=== PATIENT | male | born 1980 | race Caucasian/White ===

== ENCOUNTER 2017-05-23 13:47 | Emergency (ER) | payer MEDICARE, MEDICAID ==
[~2017-05-23] VITALS: Ht 172.7 cm; Wt 74.8 kg
--- OUTSIDE RECORDS SUMMARY | 2017-05-23 13:54 | XMS REPORT ---
Author Anuel Ivey Organization [facility] Address [address] [place], [place] [id number] Care Team Providers Care Corn Press Operator Name Role Phone Anuel Marina PCP Unavailable Allergies and Adverse Reactions Name Reaction Notes No known drug allergy Plan of Treatment Planned Activity Comments Planned Date Planned Time Plan/Goal X-RAY EXAM OF HAND 07/25/2015 12:00 AM Medications Active Name Start Date Estimated Completion Date SIG Comments levothyroxine 125 mcg oral tablet take 1 tablet (125 mcg) by oral route once daily Toujeo SoloStar 300 unit/mL (1.5 mL) subcutaneous insulin pen inject by subcutaneous route as per insulin protocol Humalog KwikPen 200 unit/mL (3 mL) subcutaneous insulin pen inject by subcutaneous route 6 units ac tid Cleocin 300 mg oral capsule 12/05/2015 12/12/2015 take 1 capsule (300 mg) by oral route 2 times per day for 7 days Name Start Date Expiration Date SIG Comments Reglan 10 mg oral tablet 11/13/2014 02/11/2015 take 1 tablet (10 mg) by oral route 4 times per day 30 minutes before meals and at bedtime for 30 days promethazine-codeine 6.25-10 mg/5 mL oral syrup 01/22/2015 01/29/2015 take 5 milliliters by oral route every 6 hours as needed, not to exceed 30 mL in 24 hours for 7 days ProAir HFA 90 mcg/actuation inhalation HFA aerosol inhaler 01/22/20152014 inhale 1 - 2 puffs (90 - 180 mcg) by inhalation route every 6 hours as needed for 30 days Flonase Allergy Relief 50 mcg/actuation nasal spray,suspension 01/22/201502/21 inhale 1 puff by nasal route daily for 30 days naproxen sodium 550 mg oral tablet 02/17/2015 02/24/2015 take 1 tablet (550 mg) by oral route every 12 hours as needed for 7 days Carafate 1 gram oral tablet 03/22/2015 04/05/2015 take 1 tablet (1 gram) by oral route 3 times per day on an empty stomach omeprazole 20 mg oral capsule,delayed release(DR/EC) 03/22/2015 04/21/2015 take 1 capsule (20 mg) by oral route once daily before a meal for 30 days Discontinued Name Start Date Discontinued Date SIG Comments diclofenac sodium 75 mg oral tablet,delayed release (DR/EC) 12/05/2015 take 1 tablet (75 mg) by oral route 2 times per day Novolog Mix 70-30 100 unit/mL (70-30) subcutaneous solution 01/07/2015 inject 12 UNITS AT BREAKFAST AND 12 UNITS AT SUPPER by subcutaneous route Dr. Torres managing ibuprofen 200 mg oral capsule 12/05/2015 take 1 capsule (200 mg) by oral route every 6 hours as needed Miralax 17 gram/dose oral powder 12/05/2015 take 17 gram mixed with 8 oz. water, juice, soda, coffee or tea by oral route once daily Nicotine Nicotine Patch 21mg/hr 01/30/2015 12/05/2015 Use Nicotine patch 21 for two weeks, then decrease to nicotine patch 14 for the next two weeks. May use Nicotine lozenge 2mg twice a day for severe withdrawel symptoms tramadol 50 mg oral tablet 02/17/2015 12/05/2015 Take one tablet at night for extreme pain triamcinolone acetonide 0.1 % topical cream 06/28/2015 12/05/2015 apply a thin layer to the affected area(s) by topical route 4 times per day. Take care to not get cream in eyes. amoxicillin 500 mg oral capsule 07/07/2015 12/05/2015 Take 2 capsules twice a day for 10 days Bactrim DS 800-160 mg oral tablet 07/25/2015 12/05/2015 Take two tablets twice a day for 7 days ibuprofen 800 mg oral tablet 07/25/2015 12/05/2015 take 1 tablet (800 mg) by oral route 3 times per day with food Problem List Description Status Onset Hypothyroidism Post Ablation Active Diabetes mellitus Active Constipation Active Vital Signs Date Time BP-Sys(mm[Hg] BP-Estela(mm[Hg]) HR(bpm) RR(rpm) Temp WT HT HC BMI BSA BMI Percentile O2 Sat(%) 12/05/2015 11:28:00 AM 118 mmHg 70 mmHg 68 bpm 16 rpm 96 F 155 lbs 99 % 07/25/2015 8:24:00 AM 138 mmHg 78 mmHg 85 bpm 16 rpm 97.8 F 154.125 lbs 67 in 24.1391 kg/m 1.8179 m 100 % 07/07/2015 9:45:00 AM 120 mmHg 80 mmHg 80 bpm 20 rpm 97.9 F 150.375 lbs 67 in 23.55 kg/m2 1.80 m2 100 % 07/01/2015 1:53:00 PM 134 mmHg 74 mmHg 83 bpm 18 rpm 98.4 F 153 lbs 69 in 22.5939 kg/m 1.8381 m 98 % 06/28/2015 5:32:00 PM 122 mmHg 72 mmHg 94 bpm 20 rpm 97.5 F 151 lbs 76 in 18.38 kg/m2 1.92 m2 98 % 06/21/2015 6:30:00 PM 124 mmHg 70 mmHg 69 bpm 18 rpm 97.5 F 154 lbs 67 in 24.1196 kg/m 1.8172 m 99 % 03/22/2015 10:00:00 AM 130 mmHg 70 mmHg 78 bpm 18 rpm 97.9 F 156.125 lbs 67 in 24.45 kg/m2 1.83 m2 98 % 02/17/2015 9:00:00 AM 110 mmHg 60 mmHg 67 bpm 18 rpm 97.4 F 158 lbs 67 in 24.746 kg/m 1.8406 m 99 % 01/29/2015 2:37:00 PM 110 mmHg 60 mmHg 73 bpm 98 F 98 % 01/22/2015 11:19:00 AM 100 mmHg 62 mmHg 62 bpm 10 rpm 97 F 159 lbs 67 in 24.9027 kg/m 1.8464 m 100 % 01/07/2015 9:26:00 AM 114 mmHg 60 mmHg 72 bpm 16 rpm 97.8 F 159.125 lbs 67 in 24.92 kg/m2 1.85 m2 98 % 10/13/2014 9:25:00 AM 109 mmHg 89 mmHg 18 rpm 97.9 F 159 lbs 98 % Social History Name Description Comments Tobacco Current every day smoker History of Procedures Date Ordered Description Order Status 02/17/2015 12:00 AM X-RAY EXAM OF KNEE 3 Returned 06/21/2015 12:00 AM THER/PROPH/DIAG INJ SC/IM Reviewed 06/21/2015 12:00 AM Decadron, Per 1 Mg [facility]# [id number] Reviewed 06/21/2015 12:00 AM Depo-Medrol, Per 80 Mg [facility]#[id number] Reviewed 07/01/2015 2:25 PM STREP A ASSAY W/OPTIC Reviewed 07/01/2015 2:25 PM ASSAY GLUCOSE BLOOD QUANT Reviewed 07/07/2015 10:27 AM GLUCOSE BLOOD TEST Reviewed 07/25/2015 12:00 AM ELECTROCARDIOGRAM COMPLETE Reviewed 07/25/2015 12:00 AM METABOLIC PANEL TOTAL CA Returned Results Summary Data and Description Results 07/01/2015 2:25 PM STREPTOCOCCUS, GROUP A CULTURE Negative Glucose SerPl-mCnc 72.0 mg/dL 07/07/2015 10:27 AM GLUCOSE 307.0 mg/dL 07/25/2015 2:59 PM GLUCOSE 219.0 mg/dLSODIUM 138.0 mmol/LPOTASSIUM 5.20 mmol/ LCHLORIDE 103.0 mmol/LCO2 28.0 mmol/LBUN 16.0 mg/dLCREATININE 0.90 mg/dLCALCIUM 9.10 mg/dLeGFR >60 mL/min/1.73m History Of Immunizations Not available. History of Past Illness Name Date of Onset Comments Hypothyroidism Post Ablation Diabetes mellitus Bleeding ulcer Constipation Anxiety HEADACHES Bradycardia Hypertension Diabetic keto-acidosis Depression Screening for colon cancer [address] Chow and it was negative Constipation, slow transit Nov 13 2014 9:38AM Constipation, slow transit Dec 25 2014 9:08AM URI (upper respiratory infection) Jan 07 2015 9:29AM Cough Jan 22 2015 11:23AM Tobacco abuse Jan 29 2015 2:42PM Knee pain, acute, left Feb 17 2015 9:03AM Cigarette nicotine dependence in remission Feb 17 2015 9:03AM Gastroenteritis Mar 22 2015 10:03AM GERD (gastroesophageal reflux disease) Mar 22 2015 10:03AM Contact dermatitis Jun 21 2015 6:32PM Plant allergic contact dermatitis Jun 28 2015 5:38PM Viral pharyngitis Jul 01 2015 1:56PM Mild Hypoglycemia Jul 01 2015 1:56PM Sinus infection Jul 07 2015 9:48AM Hyperglycemia due to type 1 diabetes mellitus Jul 07 2015 9:48AM Left hand pain Jul 25 2015 8:26AM Syncopal episodes Jul 25 2015 8:26AM Cellulitis Jul 25 2015 8:26AM Pain, dental Dec 05 2015 11:33AM Payers Insurance Name Company Name Plan Name Plan Number Policy Number Policy Group Number Start Date Medicare Part B Medicare [facility] [id number] Wednesday, 2011 [facility] Plan of [id number] N/A [place] Medical Assistance Program [place] Medical [place] Prog [id number] Wednesday, 2012 History of Encounters Visit Date Visit Type Provider 12/05/2015 Office visit Anuel Marina [employer] SOCIAL STUDIES TEACHER 07/25/2015 Office visit Kathleen Evangelista [employer] SOCIAL STUDIES TEACHER 07/07/2015 Office visit Kathleen Evangelista 7[employer] GRADE SOCIAL STUDIES TEACHER 07/01/2015 Office visit Kathleen Evangelista 7[employer] GRADE SOCIAL STUDIES TEACHER 06/28/2015 Office visit Kathleen Evangelista 7[employer] GRADE SOCIAL STUDIES TEACHER 06/21/2015 Office visit Diamond Soto 7[employer] GRADE SOCIAL STUDIES TEACHER 03/22/2015 Office visit Kathleen Evangelista 7[employer] GRADE SOCIAL STUDIES TEACHER 02/17/2015 Office visit Kathleen Evangelista 7[employer] GRADE SOCIAL STUDIES TEACHER 01/29/2015 Office visit Kathleen Evangelista 7[employer] GRADE SOCIAL STUDIES TEACHER 01/22/2015 Office visit Diamond Soto 7[employer] GRADE SOCIAL STUDIES TEACHER 01/07/2015 Office visit Diamond Soto APRN 01/02/2015 Hospital Elias Chow MD 12/24/2014 Office visit Elias Chow MD 11/12/2014 Office visit Elias Chow MD
--- OUTSIDE RECORDS SUMMARY | 2017-05-23 13:54 | XMS REPORT ---
Author Author Diamond Soto Organization [facility] Address [address] [place], [place] [id number] Care Team Providers Care Vice President Payer Name Role Phone Diamond Soto PCP Unavailable Allergies and Adverse Reactions Name Reaction Notes No known drug allergy Plan of Treatment Not available. Medications Active Name Start Date Estimated Completion Date SIG Comments diclofenac sodium 75 mg oral tablet,delayed release (DR/EC) take 1 tablet (75 mg) by oral route 2 times per day ibuprofen 200 mg oral capsule take 1 capsule (200 mg) by oral route every 6 hours as needed levothyroxine 125 mcg oral tablet take 1 tablet (125 mcg) by oral route once daily Toujeo SoloStar 300 unit/mL (1.5 mL) subcutaneous insulin pen inject by subcutaneous route as per insulin protocol Reglan 10 mg oral tablet 11/13/2014 02/11/2015 take 1 tablet (10 mg) by oral route 4 times per day 30 minutes before meals and at bedtime for 30 days Miralax 17 gram/dose oral powder take 17 gram mixed with 8 oz. water, juice, soda, coffee or tea by oral route once daily Humalog KwikPen 200 unit/mL (3 mL) subcutaneous insulin pen inject by subcutaneous route 6 units ac tid promethazine-codeine 6.25-10 mg/5 mL oral syrup 01/22/2015 [...] by nasal route daily for 30 days Discontinued Name Start Date Discontinued Date SIG Comments Novolog Mix 70-30 100 unit/mL (70-30) subcutaneous solution 01/07/2015 inject 12 UNITS AT BREAKFAST AND 12 UNITS AT SUPPER by subcutaneous route Dr. Torres managing Problem List Description Status Onset Hypothyroidism Post Ablation Active Diabetes mellitus Active Constipation Active Vital Signs Date Time BP-Sys(mm[Hg] BP-Estela(mm[Hg]) HR(bpm) RR(rpm) Temp WT HT HC BMI BSA BMI Percentile O2 Sat(%) 01/22/2015 11:19:00 AM 100 mmHg 62 mmHg 62 bpm 10 rpm 97 F 159 lbs 67 in 24.90 kg/m2 1.85 m2 100 % 01/07/2015 9:26:00 AM 114 mmHg 60 mmHg 72 bpm 16 rpm 97.8 F 159.125 lbs 67 in 24.9222 kg/m 1.8472 m 98 % 10/13/2014 9:25:00 AM 109 mmHg 89 mmHg 18 rpm 97.9 F 159 lbs 98 % Social History Name Description Comments Tobacco Current every day smoker History of Procedures Not available. Results Summary Not available. History Of Immunizations Not available. History of Past Illness Name Date of Onset Comments Hypothyroidism Post Ablation Diabetes mellitus Bleeding ulcer Constipation Anxiety HEADACHES Bradycardia Hypertension Diabetic keto-acidosis Depression Screening for Colon Cancer [address] Chow and it was negative Constipation, slow transit Nov 13 2014 9:38AM Constipation, slow transit Dec 25 2014 9:08AM URI (upper respiratory infection) Jan 07 2015 9:29AM Cough Jan 22 2015 11:23AM Payers Insurance Name Company Name Plan Name Plan Number Policy Number Policy Group Number Start Date [facility] Plan of [id number] N/A [place] Medical Assistance [facility] Medical Assistance Pro [id number] Wednesday, 2012 History of Encounters Visit Date Visit Type Provider 01/22/2015 Office visit Diamond Soto APRN 01/07/2015 Office visit Diamond Soto APRN 01/02/2015 Hospital Elias Chow MD 12/24/2014 Office visit Elias Chow MD 11/12/2014 Office visit Elias Chow MD
--- OUTSIDE RECORDS SUMMARY | 2017-05-23 13:55 | XMS REPORT ---
Author Author Kathleen Evangelista [facility] Address [address] [place], [place] [id number] Care Team Providers Care Loom Fixer Apprentice Name Role Phone Kathleen Evangelista PCP Unavailable Allergies and Adverse Reactions Name [...] by subcutaneous route as per insulin protocol Miralax 17 gram/dose oral powder take 17 gram mixed with 8 oz. water, juice, soda, coffee or tea by oral route once daily Humalog KwikPen 200 unit/mL (3 mL) subcutaneous insulin pen inject by subcutaneous route 6 units ac tid Nicotine Nicotine Patch 21mg/hr 01/30/2015 Use Nicotine patch 21 for two weeks, then decrease to nicotine patch 14 for the next two weeks. May use Nicotine lozenge 2mg twice a day for severe withdrawel symptoms tramadol 50 mg oral tablet 02/17/2015 Take one tablet at night for extreme pain triamcinolone acetonide 0.1 % topical cream 06/28/2015 apply a thin layer to the affected area(s) by topical route 4 times per day. Take care to not get cream in eyes. Name Start Date Expiration Date SIG Comments [...] HC BMI BSA BMI Percentile O2 Sat(%) 06/28/2015 5:32:00 PM 122 mmHg 72 mmHg [...] 06/21/2015 12:00 AM Decadron, Per 1 Mg [facility]# [address]-41 Reviewed 06/21/2015 12:00 AM Depo-Medrol, Per 80 Mg [facility]#[address]-84 Reviewed Results Summary Not available. History Of Immunizations [...] allergic contact dermatitis Jun 28 2015 5:38PM Payers Insurance Name Company Name Plan Name Plan Number Policy Number Policy Group Number Start Date Medicare Part B Medicare [facility] [id number] Wednesday, 2011 [facility] Plan of [id number] N/A [place] Medical [place] Program [place] Prog [id number] Wednesday, 2012 History of Encounters Visit Date Visit Type Provider 06/28/2015 Office visit Kathleen Evangelista DIRECTOR ELECTRICAL ENGINEERING 06/21/2015 Office visit Diamond Soto DIRECTOR ELECTRICAL ENGINEERING 03/22/2015 Office visit Kathleen Evangelista DIRECTOR ELECTRICAL ENGINEERING 02/17/2015 Office visit Kathleen Evangelista DIRECTOR ELECTRICAL ENGINEERING 01/29/2015 Office visit Kathleen Evangelista DIRECTOR ELECTRICAL ENGINEERING 01/22/2015 Office visit Diamond Soto DIRECTOR ELECTRICAL ENGINEERING 01/07/2015 Office visit Diamond Soto APRN 01/02/2015 [facility] Elias Chow MD 12/24/2014 Office visit Elias Chow MD 11/12/2014 Office visit Elias Chow MD
--- OUTSIDE RECORDS SUMMARY | 2017-05-23 13:55 | XMS REPORT ---
Author Author Dayana Shin Organization [facility] Address [address] [place], [place] [id number] Care Team Providers Care Fleet Director Name Role Phone Dayana Shin PCP Unavailable Allergies and Adverse Reactions Name Reaction Notes No known drug allergy Plan of Treatment Planned Activity Comments Planned Date Planned Time Plan/Goal Hand Min 3Views - Main 07/25/2015 12:00 AM Medications Active Name Start Date Estimated Completion Date SIG Comments levothyroxine 125 mcg oral tablet take 1 tablet (125 mcg) by oral route once daily Toujeo SoloStar 300 unit/mL (1.5 mL) subcutaneous insulin pen inject by subcutaneous route as per insulin protocol Humalog KwikPen 200 unit/mL (3 mL) subcutaneous insulin pen inject by subcutaneous route 6 units ac tid Colace 100 mg oral capsule 02/28/2016 08/26/2016 take 1 capsule (100 mg) by oral route 2 times per day for 30 days Metamucil 3.4 gram/5.4 gram oral powder 02/28/2016 08/26/2016 use as directed by oral route daily for 30 days Miralax 17 gram/dose oral powder 02/28/2016 05/28/2016 take 17 gram mixed with 8 oz. water, juice, soda, coffee or tea by oral route once daily as needed for 30 days Anusol-HC 2.5 % topical cream 04/13/2016 07/12/2016 apply a thin layer to the affected area(s) by topical route 3 times per day for 30 days Name Start Date Expiration Date SIG [...] daily before a meal for 30 days Cleocin 300 mg oral capsule 12/05/2015 12/12/2015 take 1 capsule (300 mg) by oral route 2 times per day for 7 days Zofran ODT 4 mg oral tablet,disintegrating 03/06/2016 dissolve 1 tablet by oral route Q8H as needed for nausea. Discontinued Name Start Date Discontinued Date SIG [...] HC BMI BSA BMI Percentile O2 Sat(%) 04/13/2016 3:24:00 PM 112 mmHg 67 mmHg 75 bpm 18 rpm 97.8 F 161 lbs 67 in 25.22 kg/m2 1.86 m2 97 % 03/06/2016 11:06:00 AM 138 mmHg 72 mmHg 78 bpm 18 rpm 97.9 F 158.375 lbs 67 in 24.8048 kg/m 1.8428 m 100 % 02/28/2016 10:01:00 AM 110 mmHg 60 mmHg 85 bpm 18 rpm 97.3 F 158 lbs 67 in 24.75 kg/m2 1.84 m2 98 % 12/05/2015 11:28:00 AM 118 mmHg 70 mmHg 68 bpm 16 rpm 96 F 155 lbs 99 % 07/25/2015 8:24:00 AM 138 mmHg 78 mmHg 85 bpm 16 rpm 97.8 F 154.125 lbs 67 in 24.1391 kg/m 1.82 m2 100 % 07/07/2015 9:45:00 AM 120 mmHg 80 mmHg 80 bpm 20 rpm 97.9 F 150.375 lbs 67 in 23.55 kg/m2 1.7957 m 100 % 07/01/2015 1:53:00 PM 134 mmHg 74 mmHg 83 bpm 18 rpm 98.4 F 153 lbs 69 in 22.5939 kg/m 1.84 m2 98 % 06/28/2015 5:32:00 PM 122 mmHg 72 mmHg 94 bpm 20 rpm 97.5 F 151 lbs 76 in 18.38 kg/m2 1.9164 m 98 % 06/21/2015 6:30:00 PM 124 mmHg 70 mmHg 69 bpm 18 rpm 97.5 F 154 lbs 67 in 24.1196 kg/m 1.82 m2 99 % 03/22/2015 10:00:00 AM 130 mmHg 70 mmHg 78 bpm 18 rpm 97.9 F 156.125 lbs 67 in 24.45 kg/m2 1.8297 m 98 % 02/17/2015 9:00:00 AM 110 mmHg 60 mmHg 67 bpm 18 rpm 97.4 F 158 lbs 67 in 24.746 kg/m 1.84 m2 99 % 01/29/2015 2:37:00 PM 110 mmHg 60 mmHg 73 bpm 98 F 98 % 01/22/2015 11:19:00 AM 100 mmHg 62 mmHg 62 bpm 10 rpm 97 F 159 lbs 67 in 24.9027 kg/m 1.85 m2 100 % 01/07/2015 9:26:00 AM 114 mmHg 60 mmHg 72 bpm 16 rpm 97.8 F 159.125 lbs 67 in 24.92 kg/m2 1.8472 m 98 % 10/13/2014 9:25:00 AM 109 mmHg 89 mmHg 18 rpm 97.9 F 159 lbs 98 % Social History Name Description Comments Tobacco Current every day smoker Alcohol Current some day Caffeine Current every day History of Procedures Date Ordered Description Order Status 02/17/2015 12:00 AM X-RAY EXAM OF KNEE 3 Reviewed 06/21/2015 12:00 AM THER/PROPH/DIAG INJ SC/IM Reviewed 06/21/2015 12:00 AM Decadron, Per 1 Mg [facility]# [id number] Reviewed 06/21/2015 12:00 AM Depo-Medrol, Per 80 Mg [facility]#[id number] Reviewed 07/01/2015 2:25 PM STREP A ASSAY W/OPTIC Reviewed 07/01/2015 2:25 PM ASSAY GLUCOSE BLOOD QUANT Reviewed 07/07/2015 10:27 AM GLUCOSE BLOOD TEST Reviewed 07/25/2015 12:00 AM ELECTROCARDIOGRAM COMPLETE Reviewed 07/25/2015 12:00 AM METABOLIC PANEL TOTAL CA Returned 03/06/2016 12:00 AM Phenergan 50mg Injection, RHC Medicare Reviewed 03/06/2016 12:00 AM THER/PROPH/DIAG INJ SC/IM Reviewed Results Summary Data and Description Results 07/01/2015 2:25 PM STREPTOCOCCUS, GROUP A CULTURE Negative Glucose SerPl-mCnc 72.0 mg/dL 07/07/2015 10:27 AM GLUCOSE 307.0 mg/dL 07/25/2015 2:59 PM GLUCOSE 219.0 mg/dLSODIUM 138.0 mmol/LPOTASSIUM 5.20 mmol/ LCHLORIDE 103.0 mmol/LCO2 28.0 mmol/LBUN 16.0 mg/dLCREATININE 0.90 mg/dLCALCIUM 9.10 mg/dLAGE 35 GFR NonAA 97 GFR AA 118 eGFR >60 mL/min/1.73meGFR AA* >60 History Of Immunizations Not available. History of [...] 8:26AM Pain, dental Dec 05 2015 11:33AM Slow transit constipation Feb 28 2016 10:03AM Cerumen debris on tympanic membrane of right ear Feb 28 2016 10:03AM Gastroenteritis, Viral Mar 06 2016 11:09AM Nausea & vomiting Mar 06 2016 11:09AM Diarrhea Mar 06 2016 11:09AM External hemorrhoid Apr 13 2016 3:31PM Constipation Apr 13 2016 3:31PM Payers Insurance Name Company Name Plan Name Plan Number Policy Number Policy Group Number Start Date Medicare RHC Medicare RHC [id number] N/A [facility] Plan [facility] Comm [id number] N/A Medicare Part A Medicare - Lab/Xray [id number] N/A [place] Medical Assistance [facility] Medical Assistance Prog [id number] Wednesday, March 21, 2012 [facility] Comm Plan of [id number] N/A Medicare Part B Medicare Of [place] [id number] Wednesday, July 20, 2011 History of Encounters Visit Date Visit Type Provider 04/13/2016 Office visit Dayana Shin MD 03/06/2016 Office visit Anuel Marina TRANSIT OPERATOR 02/28/2016 Office visit Diamond Soto TRANSIT OPERATOR 12/05/2015 Office visit Anuel Marina TRANSIT OPERATOR 07/25/2015 Office visit Kathleen Evangelista TRANSIT OPERATOR 07/07/2015 Office visit Kathleen Evangelista TRANSIT OPERATOR 07/01/2015 Office visit Kathleen Evangelista TRANSIT OPERATOR 06/28/2015 Office visit Kathleen Evangelista TRANSIT OPERATOR 06/21/2015 Office visit Diamond Soto TRANSIT OPERATOR 03/22/2015 Office visit Kathleen Evangelista TRANSIT OPERATOR 02/17/2015 Office visit Kathleen Evangelista TRANSIT OPERATOR 01/29/2015 Office visit Kathleen Evangelista TRANSIT OPERATOR 01/22/2015 Office visit Diamond Soto TRANSIT OPERATOR 01/07/2015 Office visit Diamond Soto TRANSIT OPERATOR 01/02/2015 [facility] Elias Chow MD 12/24/2014 Office visit Elias Chow MD 11/12/2014 Office visit Elias Chow MD
--- OUTSIDE RECORDS SUMMARY | 2017-05-23 13:55 | XMS REPORT ---
Author Author Kathleen Evangelista [facility] Address [address] [place], [place] [id number] Care Team Providers Care Fixed Wing Pilot Name Role Phone Kathleen Evangelista PCP Unavailable [...] one tablet at night for extreme pain Carafate 1 gram oral tablet 03/22/2015 04/05/2015 take 1 tablet (1 gram) by oral route 3 times per day on an empty stomach omeprazole 20 mg oral capsule,delayed release(DR/EC) 03/22/2015 04/21/2015 take 1 capsule (20 mg) by oral route once daily before a meal for 30 days Name Start Date Expiration [...] 12 hours as needed for 7 days Discontinued Name Start Date Discontinued Date [...] HC BMI BSA BMI Percentile O2 Sat(%) 03/22/2015 10:00:00 AM 130 mmHg 70 mmHg [...] AM X-RAY EXAM OF KNEE 3 Returned Results Summary Not available. History Of Immunizations [...] (gastroesophageal reflux disease) Mar 22 2015 10:03AM Payers Insurance Name Company Name Plan Name Plan Number Policy Number Policy Group Number Start Date Medicare Part B Medicare Of [place] [id number] Wednesday, 2011 [facility] Plan of [id number] N/A [place] Medical Assistance [facility] Medical Assistance Pro [id number] Wednesday, 2012 History of Encounters Visit Date Visit Type Provider 03/22/2015 Office visit Kathleen Evangelista APRN 02/17/2015 Office visit Kathleen Evangelista APRN 01/29/2015 Office visit Kathleen Evangelista APRN 01/22/2015 Office visit Diamond Soto APRN 01/07/2015 Office visit Diamond Soto APRN 01/02/2015 [facility] Elias Chow MD 12/24/2014 Office visit Elias Chow MD 11/12/2014 Office visit Elias Chow MD
--- OUTSIDE RECORDS SUMMARY | 2017-05-23 13:55 | XMS REPORT ---
Author Kathleen Cuadra [facility] Address [address] [place], [place] [id number] Care Team Providers Care Studio Set Up Worker Name Role Phone Kathleen Evangelista PCP Unavailable Allergies and Adverse Reactions Name Reaction Notes No known drug allergy Plan of Treatment Planned Activity Comments Planned Date Planned Time Plan/Goal X-RAY EXAM OF KNEE 3 02/17/2015 12:00 AM Medications Active Name Start Date [...] by subcutaneous route 6 units ac tid ProAir HFA 90 mcg/actuation inhalation HFA aerosol inhaler 01/22/20152014 inhale 1 - 2 puffs (90 - 180 mcg) by inhalation route every 6 hours as needed for 30 days Flonase Allergy Relief 50 mcg/actuation nasal spray,suspension 01/22/201502/21 inhale 1 puff by nasal route daily for 30 days Nicotine Nicotine Patch 21mg/hr 01/30/2015 Use Nicotine patch 21 for two weeks, then decrease to nicotine patch 14 for the next two weeks. May use Nicotine lozenge 2mg twice a day for severe withdrawel symptoms naproxen sodium 550 mg oral tablet 02/17/2015 02/24/2015 take 1 tablet (550 mg) by oral route every 12 hours as needed for 7 days tramadol 50 mg oral tablet 02/17/2015 Take one tablet at night for extreme pain Name Start Date Expiration Date SIG Comments [...] mL in 24 hours for 7 days Discontinued Name Start Date [...] HC BMI BSA BMI Percentile O2 Sat(%) 02/17/2015 9:00:00 AM 110 mmHg 60 mmHg 67 bpm 18 rpm 97.4 F 158 lbs 67 in 24.75 kg/m2 1.84 m2 99 % 01/29/2015 2:37:00 PM [...] dependence in remission Feb 17 2015 9:03AM Payers Insurance Name Company Name Plan Name Plan Number Policy Number Policy Group Number Start Date Medicare Part B Medicare Of [place] [id number] Wednesday, 2011 [facility] Plan of [id number] N/A [place] Medical Assistance [facility] Medical Assistance Pro [id number] Wednesday, 2012 History of Encounters Visit Date Visit Type Provider 02/17/2015 Office visit Kathleen Evangelista APRN 01/29/2015 Office visit Kathleen Evangelista APRN 01/22/2015 Office visit Diamond Soto APRN 01/07/2015 Office visit Diamond Soto APRN 01/02/2015 [facility] Elias Chow MD 12/24/2014 Office visit Elias Chow MD 11/12/2014 Office visit Elias Chow MD
--- OUTSIDE RECORDS SUMMARY | 2017-05-23 13:56 | XMS REPORT | Continuity of Care Document ---
Author Author [facility] Address [address] [place] [address] Phone Unavailable Support Name Relationship Address Phone DIPTI MIGUEL APRN Caregiver [address] [place] [address] ROXANNE BLISS Caregiver [address] [place] [address] tel: JOSHUA WASHBURN Next Of Kin [address] [place] [address] Insurance Providers Payer Name Policy Number Subscriber Name Relationship Medicare [id number] MaddisonGifty 18 Self / Same As Patient [facility] Comm Plan [id number] Gifty Washburn 18 Self / Same As Patient Advance Directives Directive Response Recorded Date/Time Advance Directives No 09/29/12 10:05am Advance Directive on File No 05/12/16 1:25am Durable POA for HC No 05/12/16 1:25am Power of Hoe Worker No 05/12/16 1:25am Organ Donor No 05/12/16 1:25am Living Will No 05/12/16 1:25am Chief Complaint and Reason for Visit Chief Complaint Back Pain or Injury Reason for Visit [id number] Acute bilateral back pain Problems Active Problems Medical Problem Onset Date Status Acute bilateral back pain Unknown Acute Chronic lower back pain Unknown Acute Elevated blood sugar level Unknown Acute Steroid-induced hyperglycemia Unknown Acute Medications Current Home Medications Medication Dose Units Route Directions Days/Qty Instructions Start Date Levothyroxine Sodium 175 Mcg 175 Mcg Oral Once A Day for Thyroid Dysfunction 06/23/15 Insulin Lispro 100 Unit/1 Ml 0 Sub-Q As Ordered for Dm 06/23/15 Hydrocodone/Acetaminophen 1 Each 1 Each Oral Every 6 To 8 Hours As Needed as needed for Severe Pain 10 05/12/16 Tizanidine Hcl 4 Mg 4 Mg Oral Every 6 To 8 Hours As Needed as needed for Spasm 14 05/12/16 Insulin Glargine 300 Unit/Ml (1.5 Ml) 21 Sub-Q Once A Day for Diabetes 05/12/16 Past Home Medications Medication Directions Ordered Status Ibuprofen 800 Mg Tablet, 800 Mg Oral as needed 09/29/12 Discontinued Insulin Aspart 100 Unit/1 Ml Pen.injctr, 5 Sub-Q Four Times A Day 09/29/12 Discontinued Insulin Glargine 100 Unit/1 Ml Vial, 24 Sub-Q Hs 09/29/12 Discontinued [Thyroid] , 09/29/12 Discontinued [Toujeo] , Sub-Q for Dm 06/23/15 Discontinued Social History Social History Problem Response Recorded Date/Time Alcohol Use none 05/12/2016 1:37am Drug Use none 05/12/2016 1:37am Smoking Status Never smoker 05/12/2016 1:34am Smoked in the last 12 months? No 05/12/2016 1:34am Do you dip or chew tobacco? No 05/12/2016 1:34am Approx how many cigs per day? 0 05/12/2016 1:34am Level of Dependence Low 05/12/2016 1:37am Former smoker, last day smoked? na 05/12/2016 1:34am Query Response Start Date Stop Date Smoking Status Never smoker Hospital Discharge Instructions No hospital discharge instructions. Plan of Care Discharge Date 05/12/16 2:00am Disposition 01 D/C HOME Condition at Discharge Stable and Improved Instructions/Education Provided Acute Low Back Pain (ED) Forms Provided ER Discharge Phone Call Check Prescriptions See Medication Section Referrals SOREN MCPHERSON DO - Additional Instructions/Education Home to rest tonight Try using heat to your back if this helps You may take the prescriptions provided if needed for acute back pain f/u with your provider in the next 1-2 days Functional Status Query Response Date Recorded Activities of Daily Living Performs w/o Assistance May 12, 2016 1:37am Cognitive Function Intact May 12, 2016 1:37am Allergies, Adverse Reactions, Alerts No known allergies. Immunizations No immunization records. Vital Signs Acute Vital Signs Vital Response Date/Time Temperature (Fahrenheit) 98.2 degrees F (97.6 - 99.5) 05/12/2016 1:56am Temperature (Calculated Celsius) 36.17147 degrees C (36.4 - 37.5) 05/12/2016 1:56am Temperature Source Temporal Artery Scan 05/12/2016 1:56am Pulse Pulse Ox Pulse Rate (adult) 72 beats per minute (60 - 90) 05/12/2016 1:56am Pulse Location Modifier Left 05/12/2016 1:56am Oxygen Saturation Respiratory Rate 20 breaths per minute (12 - 24) 05/12/2016 1:56am O2 Sat by Pulse Oximetry 96 % (90 - 100) 05/12/2016 1:56am Blood Pressure 136/94 mm Hg 05/12/2016 1:56am Blood Pressure Mean 108 mm Hg 05/12/2016 1:56am Height 5 ft 6 in Weight 160 lb Body Mass Index 25.8 kg/m^2 Results No known relevant diagnostic tests, laboratory data and/or discharge summary. Procedures No known history of procedures. Encounters Encounter Location Arrival/Admit Date Discharge/Depart Date Attending Provider Departed Emergency Room [facility] 05/12/16 1:25am 05/12/16 2: 00am DIPTI MIGUEL APRN Registered Clinic [facility] 07/25/15 10:15am SHALOM DASILVA Recent Diagnosis
--- OUTSIDE RECORDS SUMMARY | 2017-05-23 13:56 | XMS REPORT ---
Author Author Kathleen Evangelista [facility] Address [address] [place], [place] [address] Care Team Providers Care Trimmer Buffing Wheel Name Role Phone Kathleen Evangelista PCP Unavailable [...] eyes. amoxicillin 500 mg oral capsule 07/07/2015 Take 2 capsules twice a day for 10 days Name Start Date Expiration Date SIG [...] HC BMI BSA BMI Percentile O2 Sat(%) 07/07/2015 9:45:00 AM 120 mmHg 80 mmHg [...] 06/21/2015 12:00 AM Decadron, Per 1 Mg [facility]# [id number] Reviewed 06/21/2015 12:00 AM Depo-Medrol, Per 80 Mg [facility]#[id number] Reviewed 07/01/2015 2:25 PM STREP A ASSAY W/OPTIC Reviewed 07/01/2015 2:25 PM ASSAY GLUCOSE BLOOD QUANT Reviewed 07/07/2015 10:27 AM GLUCOSE BLOOD TEST Reviewed Results Summary Data and Description Results 07/01/2015 2:25 PM STREPTOCOCCUS, GROUP A CULTURE Negative Glucose SerPl-mCnc 72.0 mg/dL 07/07/2015 10:27 AM GLUCOSE 307.0 mg/dL History Of Immunizations Not available. History of [...] 1 diabetes mellitus Jul 07 2015 9:48AM Payers Insurance Name Company Name Plan Name Plan Number Policy Number Policy Group Number Start Date Medicare Part B Medicare Of [place] [id number] Wednesday, 2011 [facility] Plan of [id number] N/A [place] Medical Assistance [facility] Medical Assistance Pro [id number] Wednesday, 2012 History of Encounters Visit Date Visit Type Provider 07/07/2015 Office visit Kathleen Evangelista EDGER OPERATOR 07/01/2015 Office visit Kathleen Evangelista EDGER OPERATOR 06/28/2015 Office visit Kathleen Evangelista EDGER OPERATOR 06/21/2015 Office visit Diamond Soto APRN 03/22/2015 Office visit Kathleen Evangelista EDGER OPERATOR 02/17/2015 Office visit Kathleen Evangelista APRN 01/29/2015 Office visit Kathleen Evangelista EDGER OPERATOR 01/22/2015 Office visit Diamond Soto APRN 01/07/2015 Office visit Diamond Soto APRN 01/02/2015 [facility] Elias Chow MD 12/24/2014 Office visit Elias Chow MD 11/12/2014 Office visit Elias Chow MD
--- OUTSIDE RECORDS SUMMARY | 2017-05-23 13:56 | XMS REPORT ---
Author Author Diamond Soto [facility] Address [address] [place], [place] [address] Care Team Providers Care Die Machine Operator Name Role Phone Diamond Soto PCP Unavailable [...] once daily as needed for 30 days Name Start Date Expiration [...] 2 times per day for 7 days Discontinued Name Start Date [...] HC BMI BSA BMI Percentile O2 Sat(%) 02/28/2016 10:01:00 AM 110 mmHg 60 mmHg [...] 06/21/2015 12:00 AM Decadron, Per 1 Mg [facility]# [id number] Reviewed 06/21/2015 12:00 AM Depo-Medrol, Per 80 Mg [facility]#[id number] Reviewed 07/01/2015 2:25 PM STREP A ASSAY [...] of right ear Feb 28 2016 10:03AM Payers Insurance Name Company Name Plan Name Plan Number Policy Number Policy Group Number Start Date Medicare Part A Medicare RHC [id number] N/A [facility] [id number] N/A Medicare Part A Medicare - Lab/Xray [id number] N/A [place] Medical Assistance [facility] Medical Assistance Prog [id number] Wednesday, March 21, 2012 [facility] Comm Plan of [id number] N/A Medicare Part B Medicare Of [place] [id number] Wednesday, July 20, 2011 History of Encounters Visit Date Visit Type Provider 02/28/2016 Office visit Diamond Soto GIVER 12/05/2015 Office visit Anuel Marina GIVER 07/25/2015 Office visit Kathleen Evangelista GIVER 07/07/2015 Office visit Kathleen Evangelista GIVER 07/01/2015 Office visit Kathleen Evangelista GIVER 06/28/2015 Office visit Kathleen Evangelista GIVER 06/21/2015 Office visit Diamond Soto GIVER 03/22/2015 Office visit Kathleen Evangelista GIVER 02/17/2015 Office visit Kathleen Evangelista GIVER 01/29/2015 Office visit Kathleen Evangelista GIVER 01/22/2015 Office visit Diamond Soto APRN 01/07/2015 Office visit Diamond Soto APRN 01/02/2015 [facility] Elias Chow MD 12/24/2014 Office visit Elias Chow MD 11/12/2014 Office visit Elias Chow MD
--- OUTSIDE RECORDS SUMMARY | 2017-05-23 13:57 | XMS REPORT ---
Author Author Anuel Marina [facility] Address [address] [place], [place] [address] Care Team Providers Care Archival Studies Professor Name Role Phone Anuel Marina PCP Unavailable Dawn Torres Unavailable Unavailable Allergies and Adverse Reactions Name Reaction [...] by subcutaneous route 6 units ac tid Name Start Date Expiration Date SIG Comments [...] 2 times per day for 7 days Colace 100 mg oral capsule 02/28/2016 08/26/2016 [...] once daily as needed for 30 days Zofran ODT 4 mg oral tablet,disintegrating 03/06/2016 dissolve 1 tablet by oral route Q8H as needed for nausea. Anusol-HC 2.5 % topical cream 04/13/2016 07/12/2016 apply a thin layer to the affected area(s) by topical route 3 times per day for 30 days nicotine 21 mg/24 hr transdermal patch 24 hour 07/05/2016 08/04/2016 apply 1 patch (21 mg) by transdermal route once daily for 30 days nicotine 14 mg/24 hr transdermal patch 24 hour 07/05/2016 08/04/2016 apply 1 patch (14 mg) by transdermal route once daily and remove at bedtime for 30 days nicotine 7 mg/24 hr transdermal patch 24 hour 07/05/2016 08/04/2016 apply 1 patch (7 mg) by transdermal route once daily and remove at bedtime for 30 days ibuprofen 800 mg oral tablet 07/09/2016 07/19/2016 take 1 tablet by oral route 3 times a day as needed for 10 days cyclobenzaprine 10 mg oral tablet 07/09/2016 07/19/2016 take 1 tablet by oral route 2 times a day as needed for 10 days Lidocaine Viscous 2 % mucous membrane solution 07/26/2016 08/02/2016 take 15 milliliters and swish and spit out by oral route every 3 hours for 7 days Discontinued Name Start [...] HC BMI BSA BMI Percentile O2 Sat(%) 09/17/2016 8:45:00 AM 118 mmHg 72 mmHg 64 bpm 16 rpm 96.7 F 156.25 lbs 67 in 24.47 kg/m2 1.83 m2 99 % 07/26/2016 2:28:00 PM 118 mmHg 68 mmHg 73 bpm 20 rpm 98.2 F 156.187 lbs 67 in 24.4622 kg/m 1.83 m 99 % 07/09/2016 8:38:00 AM 108 mmHg 68 mmHg 76 bpm 20 rpm 97.8 F 157.5 lbs 67 in 24.67 kg/m2 1.84 m2 97 % 07/05/2016 1:26:00 PM 114 mmHg 68 mmHg 77 bpm 20 rpm 98 F 157.375 lbs 67 in 24.6482 kg/m 1.837 m 98 % 04/13/2016 3:24:00 PM 112 mmHg 67 mmHg [...] rpm 97.8 F 154.125 lbs 67 in 24.14 kg/m2 1.82 m2 100 % 07/07/2015 9:45:00 AM 120 mmHg 80 mmHg 80 bpm 20 rpm 97.9 F 150.375 lbs 67 in 23.5518 kg/m 1.7957 m 100 % 07/01/2015 1:53:00 PM 134 mmHg 74 mmHg 83 bpm 18 rpm 98.4 F 153 lbs 69 in 22.59 kg/m2 1.84 m2 98 % 06/28/2015 5:32:00 PM 122 mmHg 72 mmHg 94 bpm 20 rpm 97.5 F 151 lbs 76 in 18.3801 kg/m 1.9164 m 98 % 06/21/2015 6:30:00 PM 124 mmHg 70 mmHg 69 bpm 18 rpm 97.5 F 154 lbs 67 in 24.12 kg/m2 1.82 m2 99 % 03/22/2015 10:00:00 AM 130 mmHg 70 mmHg 78 bpm 18 rpm 97.9 F 156.125 lbs 67 in 24.4524 kg/m 1.8297 m 98 % 02/17/2015 9:00:00 AM [...] 06/21/2015 12:00 AM Decadron, Per 1 Mg [facility]# [id number] Reviewed 06/21/2015 12:00 AM Depo-Medrol, Per 80 Mg [facility]#[id number] Reviewed 07/01/2015 2:25 PM STREP A ASSAY W/OPTIC Reviewed 07/01/2015 2:25 PM ASSAY GLUCOSE BLOOD QUANT Reviewed 07/07/2015 10:27 AM GLUCOSE BLOOD TEST Reviewed 07/25/2015 12:00 AM X-RAY EXAM OF HAND Reviewed 07/25/2015 12:00 AM ELECTROCARDIOGRAM COMPLETE Reviewed 07/25/2015 12:00 AM METABOLIC PANEL TOTAL CA Returned 03/06/2016 12:00 AM Phenergan 50mg Injection, C Medicare Reviewed 03/06/2016 12:00 AM THER/PROPH/DIAG INJ SC/IM Reviewed Results Summary Date and Description Results 07/01/2015 2:25 PM STREPTOCOCCUS, [...] 2016 3:31PM Constipation Apr 13 2016 3:31PM Hypothyroidism, Acquired Jul 05 2016 1:30PM Cigarette nicotine dependence without complication Jul 05 2016 1:30PM Type 1 diabetes mellitus without complication Jul 05 2016 1:30PM Back strain, initial encounter Jul 09 2016 8:40AM Dental caries Jul 26 2016 2:33PM Nonintractable headache, unspecified chronicity pattern, unspecified headache type Sep 17 2016 8:47AM Concussion, without LOC, initial encounter Sep 17 2016 8:47AM Payers Insurance Name Company Name Plan Name Plan Number Policy Number Policy Group Number Start Date Medicare [facility] Medicare [facility] [id number] N/A [facility] Comm [id number] N/A Medicare Part A Medicare - Lab/Xray [id number] N/A [place] Medical Assistance Program [place] Medical Assistance Prog [id number] Wednesday, March 21, 2012 [facility] Plan of [id number] N/A Medicare Part B Medicare [facility] [id number] Wednesday, July 20, 2011 History of Encounters Visit Date Visit Type Provider 09/17/2016 Office visit Anuel Marina MULTIMEDIA PRODUCER 07/26/2016 Office visit Dayana Shin MD 07/09/2016 Office visit Isabelle Aguilar MD 07/05/2016 Office visit Isabelle Aguilar MD 04/13/2016 Office visit Dayana Shin MD 03/06/2016 Office visit Anuel Marina MULTIMEDIA PRODUCER 02/28/2016 Office visit Diamond Soto MULTIMEDIA PRODUCER 12/05/2015 Office visit Anuel Marina MULTIMEDIA PRODUCER 07/25/2015 Office visit Kathleen Evangelista MULTIMEDIA PRODUCER 07/07/2015 Office visit Kathleen Evangelista MULTIMEDIA PRODUCER 07/01/2015 Office visit Kathleen Evangelista MULTIMEDIA PRODUCER 06/28/2015 Office visit Kathleen Evangelista MULTIMEDIA PRODUCER 06/21/2015 Office visit Diamond Soto MULTIMEDIA PRODUCER 03/22/2015 Office visit Kathleen Evangelista MULTIMEDIA PRODUCER 02/17/2015 Office visit Kathleen Evangelista MULTIMEDIA PRODUCER 01/29/2015 Office visit Kathleen Evangelista MULTIMEDIA PRODUCER 01/22/2015 Office visit Diamond Soto MULTIMEDIA PRODUCER 01/07/2015 Office visit Diamond Soto MULTIMEDIA PRODUCER 01/02/2015 [facility] Elias Chow MD 12/24/2014 Office visit Elias Chow MD 11/12/2014 Office visit Elias Chow MD
--- OUTSIDE RECORDS SUMMARY | 2017-05-23 13:57 | XMS REPORT ---
Author Anuel Ivey Organization [facility] Address [address] [place], [place] [address] Care Team Providers Care Second Time Worker Name Role Phone Anuel Marina PCP Unavailable [...] oral route Q8H as needed for nausea. Name Start Date Expiration Date SIG Comments [...] HC BMI BSA BMI Percentile O2 Sat(%) 03/06/2016 11:06:00 AM 138 mmHg 72 mmHg 78 bpm 18 rpm 97.9 F 158.375 lbs 67 in 24.80 kg/m2 1.84 m2 100 % 02/28/2016 10:01:00 AM 110 mmHg 60 mmHg 85 bpm 18 rpm 97.3 F 158 lbs 67 in 24.746 kg/m 1.8406 m 98 % 12/05/2015 11:28:00 AM 118 mmHg [...] 06/21/2015 12:00 AM Decadron, Per 1 Mg [facility]# [id number] Reviewed 06/21/2015 12:00 AM Depo-Medrol, Per 80 Mg [facility]#[id number] Reviewed 07/01/2015 2:25 PM STREP A ASSAY W/OPTIC Reviewed 07/01/2015 2:25 PM ASSAY GLUCOSE BLOOD QUANT Reviewed 07/07/2015 10:27 AM GLUCOSE BLOOD TEST Reviewed 07/25/2015 12:00 AM ELECTROCARDIOGRAM COMPLETE Reviewed 07/25/2015 12:00 AM METABOLIC PANEL TOTAL CA Returned 03/06/2016 12:00 AM Phenergan 50mg Injection, [facility] Medicare Reviewed 03/06/2016 12:00 AM THER/PROPH/DIAG INJ [...] 2016 11:09AM Diarrhea Mar 06 2016 11:09AM Payers Insurance Name Company Name Plan Name Plan Number Policy Number Policy Group Number Start Date Medicare Part A Medicare [facility] [id number] N/A [facility] RHC Comm [id number] N/A Medicare Part A Medicare - Lab/Xray [id number] N/A [place] Medical [place] Program [place] Medical [place] Prog [id number] Wednesday, March 21, 2012 [facility] Comm Plan of [id number] N/A Medicare Part B Medicare Of [place] [id number] Wednesday, July 20, 2011 History of Encounters Visit Date Visit Type Provider 03/06/2016 Office visit Anuel Marina SHOP SUPERINTENDENT 02/28/2016 Office visit Diamond Soto SHOP SUPERINTENDENT 12/05/2015 Office visit Anuel Marina SHOP SUPERINTENDENT 07/25/2015 Office visit Kathleen Evangelista SHOP SUPERINTENDENT 07/07/2015 Office visit Kathleen Evangelista SHOP SUPERINTENDENT 07/01/2015 Office visit Kathleen Evangelista SHOP SUPERINTENDENT 06/28/2015 Office visit Kathleen Evangelista SHOP SUPERINTENDENT 06/21/2015 Office visit Diamond Soto SHOP SUPERINTENDENT 03/22/2015 Office visit Kathleen Evangelista SHOP SUPERINTENDENT 02/17/2015 Office visit Kathleen Evangelista SHOP SUPERINTENDENT 01/29/2015 Office visit Kathleen Evangelista SHOP SUPERINTENDENT 01/22/2015 Office visit Diamond Soto SHOP SUPERINTENDENT 01/07/2015 Office visit Diamond Soto SHOP SUPERINTENDENT 01/02/2015 [facility] Elias Chow MD 12/24/2014 Office visit Elias Chow MD 11/12/2014 Office visit Elias Chow MD
--- OUTSIDE RECORDS SUMMARY | 2017-05-23 13:57 | XMS REPORT | Continuity of Care Document ---
Author [facility] Address [address] [place] [address] Phone Unavailable Care Team Providers Care Landscape Designer Name Role Phone CUATE SANTIAGO MD PCP Insurance Providers Payer Name Policy Number Subscriber Name Relationship Medicare [id number] MaddisonGifty Leslye Self / Same As Patient [facility] Comm Plan [id number] Gifty Washburn Self / Same As Patient Advance Directives Directive Response Recorded Date/Time Advance Directives No 09/29/12 10:05am Advance Directive on File No 05/12/16 1:25am Durable POA for HC No 05/12/16 1:25am Power of Snow Blower No 05/12/16 1:25am Organ Donor No 05/12/16 1:25am Living Will No 05/12/16 1:25am Chief Complaint and Reason for Visit Chief Complaint General Complaint Reason for Visit [id number] Problems Active Problems Medical Problem Onset Date [...] Problem Response Recorded Date/Time Alcohol Use none 06/15/2016 5:20pm Drug Use none 06/15/2016 5:20pm Smoking Status Current every day smoker 06/15/2016 4:09pm Smoked in the last 12 months? Yes 06/15/2016 4:09pm Do you dip or chew tobacco? N everyonce in a great while 06/15/2016 4:09pm Approx how many cigs per day? 10 06/15/2016 4:09pm Level of Dependence Low 06/15/2016 4:09pm Former smoker, last day smoked? today 06/15/2016 4:09pm Query Response Start Date Stop Date Smoking Status Current every day smoker Hospital Discharge Instructions No hospital discharge instructions. Plan of Care Discharge Date 06/15/16 6:10pm Disposition 01 D/C HOME Condition at Discharge Stable Forms Provided ER Discharge Phone Call Check Prescriptions See Medication Section Referrals CUATE SANTIAGO MD - Additional Instructions/Education Take medications as directed. Do not take your novolog tonight. Take your long acting insulin only. Follow up with your PCP. Eat a snack tonight before bed. Monitor your blood sugars. Functional Status Query Response Date Recorded Activities of Daily Living Performs w/o Assistance June 15, 2016 4:15pm Cognitive Function Intact June 15, 2016 4:15pm Allergies, Adverse Reactions, Alerts No known allergies. Immunizations No immunization records. Vital Signs Acute Vital Signs Vital Response Date/Time Temperature (Fahrenheit) 98.1 degrees F (97.6 - 99.5) 06/15/2016 5:40pm Temperature (Calculated Celsius) 36.85616 degrees C (36.4 - 37.5) 06/15/2016 5:40pm Temperature Source Temporal Artery Scan 06/15/2016 5:40pm Pulse Pulse Ox Pulse Rate (adult) 65 beats per minute (60 - 90) 06/15/2016 5:40pm Pulse Location Modifier Left 06/15/2016 5:40pm Oxygen Saturation Respiratory Rate 18 breaths per minute (12 - 24) 06/15/2016 5:40pm O2 Sat by Pulse Oximetry 100 % (90 - 100) 06/15/2016 5:40pm Blood Pressure 111/63 mm Hg 06/15/2016 5:40pm Blood Pressure Mean 79 mm Hg 06/15/2016 5:40pm Height 5 ft 7 in Weight 136 lb Body Mass Index 21.3 kg/m^2 Results Pending Laboratory Results Test Name Collection Date/Time Procedures Procedure Status Date Provider(s) EMERGENCY DEPT VISIT Completed 05/12/16 Encounters Encounter Location Arrival/Admit Date Discharge/Depart Date Attending Provider [facility]arted [facility] 06/15/16 4:00pm 06/15/16 6: 10pm MODESTO ZIMMERMAN APRN Departed Emergency Room [facility] 05/12/16 1:25am 05/12/16 2: 00am DIPTI MIGUEL APRN Recent Diagnosis
--- OUTSIDE RECORDS SUMMARY | 2017-05-23 13:58 | XMS REPORT ---
Author Author Diamond Soto Organization [facility] Address [address] [place], [place] [address] Care Team Providers Care Order Department Supervisor Name Role Phone Diamond Soto PCP Unavailable [...] HC BMI BSA BMI Percentile O2 Sat(%) 06/21/2015 6:30:00 PM 124 mmHg 70 mmHg [...] 06/21/2015 12:00 AM Decadron, Per 1 Mg [facility]# [address]-88 Reviewed 06/21/2015 12:00 AM Depo-Medrol, Per 80 Mg [facility]#[address]-73 Reviewed Results Summary Not available. History Of [...] 10:03AM Contact dermatitis Jun 21 2015 6:32PM Payers Insurance Name Company Name Plan Name Plan Number Policy Number Policy Group Number Start Date Medicare Part B Medicare Of [place] [id number] Wednesday, 2011 [facility] Plan of [id number] N/A [place] Medical Assistance [facility] Medical Assistance Pro [id number] Wednesday, 2012 History of Encounters Visit Date Visit Type Provider 06/21/2015 Office visit Diamond Soto APRN 03/22/2015 Office visit Kathleen Evangelista ASSISTANT PORTFOLIO MANAGER 02/17/2015 Office visit Kathleen Evangelista ASSISTANT PORTFOLIO MANAGER 01/29/2015 Office visit Kathleen Evangelista APRN 01/22/2015 Office visit Diamond Soto APRN 01/07/2015 Office visit Diamond Soto ASSISTANT PORTFOLIO MANAGER 01/02/2015 [facility] Elias Chow MD 12/24/2014 Office visit Elias Chow MD 11/12/2014 Office visit Elias Chow MD
--- OUTSIDE RECORDS SUMMARY | 2017-05-23 13:58 | XMS REPORT ---
Author Author Diamond Soto Organization [facility] Address [address] [place], [place] [id number] Care Team Providers Care Business Functional Analyst Name Role Phone Diamond Soto PCP Unavailable [...] by subcutaneous route 6 units ac tid Discontinued Name Start Date Discontinued Date SIG [...] HC BMI BSA BMI Percentile O2 Sat(%) 01/07/2015 9:26:00 AM 114 mmHg 60 mmHg [...] (upper respiratory infection) Jan 07 2015 9:29AM Payers Insurance Name Company Name Plan Name Plan Number Policy Number Policy Group Number Start Date [facility] Plan of [id number] N/A [place] Medical Assistance [facility] Medical Assistance Prog [id number] Wednesday, 2012 History of Encounters Visit Date Visit Type Provider 01/07/2015 Office visit Diamond Soto APRN 12/24/2014 Office visit Elias Chow MD 11/12/2014 Office visit Elias Chow MD
--- OUTSIDE RECORDS SUMMARY | 2017-05-23 13:58 | XMS REPORT ---
Author Author Kathleen Evangelista [facility] Address [address] [place], [place] [address] Care Team Providers Care Trap Setter Name Role Phone Kathleen Evangelista PCP Unavailable Dawn Torres Unavailable Unavailable Allergies [...] by subcutaneous route 6 units ac tid amoxicillin 500 mg oral tablet 11/30/2016 take 1 tablet (500 mg) by oral route every 8 hours for 10 days Name Start Date Expiration [...] HC BMI BSA BMI Percentile O2 Sat(%) 11/30/2016 1:44:00 PM 122 mmHg 72 mmHg 62 bpm 20 rpm 98.1 F 151.5 lbs 67 in 23.73 kg/m2 1.80 m2 98 % 09/17/2016 8:45:00 AM 118 mmHg 72 mmHg 64 bpm 16 rpm 96.7 F 156.25 lbs 67 in 24.472 kg/m 1.8304 m 99 % 07/26/2016 2:28:00 PM 118 mmHg 68 mmHg 73 bpm 20 rpm 98.2 F 156.187 lbs 67 in 24.46 kg/m2 1.83 m2 99 % 07/09/2016 8:38:00 AM 108 mmHg 68 mmHg 76 bpm 20 rpm 97.8 F 157.5 lbs 67 in 24.6677 kg/m 1.8377 m 97 % 07/05/2016 1:26:00 PM 114 mmHg 68 mmHg 77 bpm 20 rpm 98 F 157.375 lbs 67 in 24.65 kg/m2 1.84 m2 98 % 04/13/2016 3:24:00 PM 112 mmHg 67 mmHg 75 bpm 18 rpm 97.8 F 161 lbs 67 in 25.2159 kg/m 1.858 m 97 % 03/06/2016 11:06:00 AM 138 mmHg [...] 06/21/2015 12:00 AM Decadron, Per 1 Mg [facility]# [address]-01 Reviewed 06/21/2015 12:00 AM Depo-Medrol, Per 80 Mg [facility]#[address]-30 Reviewed 07/01/2015 2:25 PM STREP A ASSAY W/OPTIC Reviewed 07/01/2015 2:25 PM ASSAY GLUCOSE BLOOD QUANT Reviewed 07/07/2015 10:27 AM GLUCOSE BLOOD TEST Reviewed 07/25/2015 12:00 AM X-RAY EXAM OF HAND Reviewed 07/25/2015 12:00 AM ELECTROCARDIOGRAM COMPLETE Reviewed 07/25/2015 12:00 AM METABOLIC PANEL TOTAL CA Returned 03/06/2016 12:00 AM Phenergan 50mg Injection, [facility] Medicare Reviewed 03/06/2016 12:00 AM THER/PROPH/DIAG INJ [...] LOC, initial encounter Sep 17 2016 8:47AM Dental infection Nov 30 2016 1:46PM Payers Insurance Name Company Name Plan Name Plan Number Policy Number Policy Group Number Start Date Medicare RHC Medicare RHC [id number] N/A [facility] - [facility] - [facility] Comm [id number] N/A Medicare Part A Medicare - Lab/Xray [id number] N/A [place] Medical Assistance Program [place] Medical Assistance Prog [id number] Wednesday, March 21, 2012 [facility] [place] [facility] Plan of [id number] N/A Medicare Part B Medicare Of [place] [id number] Wednesday, July 20, 2011 History of Encounters Visit Date Visit Type Provider 11/30/2016 Office visit Kathleen Evangelista NURSE REVIEWER 09/17/2016 Office visit Anuel Marina NURSE REVIEWER 07/26/2016 Office visit Dayana Shin MD 07/09/2016 Office visit Isabelle Aguilar MD 07/05/2016 Office visit Isabelle Aguilar MD 04/13/2016 Office visit Dayana Shin MD 03/06/2016 Office visit Anuel Marina NURSE REVIEWER 02/28/2016 Office visit Diamond Soto NURSE REVIEWER 12/05/2015 Office visit Anuel Marina NURSE REVIEWER 07/25/2015 Office visit Kathleen Evangelista NURSE REVIEWER 07/07/2015 Office visit Kathleen Evangelista NURSE REVIEWER 07/01/2015 Office visit Kathleen Evangelista NURSE REVIEWER 06/28/2015 Office visit Kathleen Evangelista NURSE REVIEWER 06/21/2015 Office visit Diamond Soto NURSE REVIEWER 03/22/2015 Office visit Kathleen Evangelista NURSE REVIEWER 02/17/2015 Office visit Kathleen Evangelista NURSE REVIEWER 01/29/2015 Office visit Kathleen Evangelista NURSE REVIEWER 01/22/2015 Office visit Diamond Soto NURSE REVIEWER 01/07/2015 Office visit Diamond Soto NURSE REVIEWER 01/02/2015 [facility] Elias Chow MD 12/24/2014 Office visit Elias Chow MD 11/12/2014 Office visit Elias Chow MD
--- OUTSIDE RECORDS SUMMARY | 2017-05-23 13:58 | XMS REPORT | Referral Summary ---
Author Author [facility] Organization [facility] Address Unknown Phone Unavailable Care Team Providers Care Occupational Therapy Program Director Name Role Phone No PCP, Pt States PCP Encounter VC Date(s): 06/03/16 - 06/03/16 [facility] [address] [place] [address] [phone] Discharge Diagnosis: Musculoskeletal pain Discharge Diagnosis: Chronic back pain Discharge Disposition: 01-Home or Self Care Attending Physician: Evaristo Billingsley MD Admitting Physician: Evaristo Billingsley MD Vital Signs Most recent to 1 oldest [Reference Range]: Temperature Oral 36.6 degC [35.8-37.3 degC] (06/03/16 2:54 PM) Peripheral Pulse 89 bpm Rate [60-100 bpm] (06/03/16 2:54 PM) Respiratory Rate 18 br/min [14-20 br/min] (06/03/16 2:54 PM) Blood Pressure 122/75 mmHg [90-140/60-90 mmHg] (06/03/16 2:54 PM) SpO2 97 % (06/03/16 2:54 PM) Problem List Condition Effective Dates Status Health Status Informant Chronic back Active pain(Confirmed) Allergies, Adverse Reactions, Alerts No Known Allergies Medications cyclobenzaprine 10 mg oral tablet 10 mg 1 tabs, Oral, TID, as needed for spasm, X 5 days, # 15 tabs, 0 Refill(s) Start Date: 06/03/16 Stop Date: 06/08/16 Status: Ordered HumaLOG SubCutaneous, 0 Refill(s) Start Date: 06/03/16 Status: Ordered HYDROcodone-ibuprofen 7.5 mg-200 mg oral tablet 1 tabs, Oral, q4hr, as needed for pain, 0 Refill(s) Start Date: 06/03/16 Status: Ordered levothyroxine Daily, 0 Refill(s) Start Date: 06/03/16 Status: Ordered Naprosyn 500 mg oral tablet 500 mg 1 tabs, Oral, BID, X 5 days, # 10 tabs, 0 Refill(s) Start Date: 06/03/16 Stop Date: 06/08/16 Status: Ordered Toujeo SoloStar 300 units/mL subcutaneous solution SubCutaneous, Daily, 0 Refill(s) Start Date: 06/03/16 Status: Ordered Results Urinalysis Most recent to 1 oldest [Reference Range]: UA Color Straw (06/03/16 4:00 PM) UA Appear Clear (06/03/16 4:00 PM) UA pH [5.0-8.0] 6.0 (06/03/16 4:00 PM) UA Leuk Est Negative [Negative] (06/03/16 4:00 PM) UA Nitrite Negative [Negative] (06/03/16 4:00 PM) UA Protein Negative [Negative] (06/03/16 4:00 PM) UA Glucose Pos 3+ [Negative] *ABN* (06/03/16 4:00 PM) UA Ketones Negative [Negative] (06/03/16 4:00 PM) UA Urobilinogen Negative [<1.0] (06/03/16 4:00 PM) UA Bili [Negative] Negative (06/03/16 4:00 PM) UA Blood [Negative] Negative (06/03/16 4:00 PM) UA Spec Grav 1.030 [1.003-1.030] (06/03/16 4:00 PM) Type Clean Catch (06/03/16 4:00 PM) Immunizations No data available for this section Procedures No data available for this section Social History Social History Type Response Smoking Status Current every day smoker; Tobacco use per day: 1/2 pack or more Assessment and Plan No data available for this section
--- OUTSIDE RECORDS SUMMARY | 2017-05-23 13:59 | XMS REPORT ---
Author Author Isabelle Aguilar [facility] Address [address] [place], [place] [address] Care Team Providers Care Director Voice Name Role Phone Isabelle Aguilar PCP Unavailable Dawn Torres Unavailable Unavailable Allergies [...] by oral route daily for 30 days Anusol-HC 2.5 % topical [...] a day as needed for 10 days Name Start Date Expiration [...] 2 times per day for 7 days Miralax 17 gram/dose oral powder 02/28/2016 [...] HC BMI BSA BMI Percentile O2 Sat(%) 07/09/2016 8:38:00 AM 108 mmHg 68 mmHg [...] Decadron, Per 1 Mg [facility]# [address]-33 Reviewed 06/21/2015 12:00 AM Depo-Medrol, Per 80 Mg [facility]#[address]-27 Reviewed 07/01/2015 2:25 PM STREP A ASSAY W/OPTIC Reviewed 07/01/2015 2:25 PM ASSAY GLUCOSE BLOOD QUANT Reviewed 07/07/2015 10:27 AM GLUCOSE BLOOD TEST Reviewed 07/25/2015 12:00 AM X-RAY EXAM OF HAND Reviewed 07/25/2015 12:00 AM ELECTROCARDIOGRAM COMPLETE Reviewed 07/25/2015 12:00 AM METABOLIC PANEL TOTAL CA Returned 03/06/2016 12:00 AM Phenergan 50mg Injection, [facility] Medicare Reviewed 03/06/2016 12:00 AM THER/PROPH/DIAG INJ [...] strain, initial encounter Jul 09 2016 8:40AM Payers Insurance Name Company Name Plan Name Plan Number Policy Number Policy Group Number Start Date Medicare [facility] Medicare [facility] [id number] N/A [facility] Comm [id number] N/A Medicare Part A Medicare - Lab/Xray [id number] N/A [place] Medical Assistance [facility] Medical Assistance Prog [id number] Wednesday, March 21, 2012 [facility] Comm Plan of [id number] N/A Medicare Part B Medicare Of [place] [id number] Wednesday, July 20, 2011 History of Encounters Visit Date Visit Type Provider 07/09/2016 Office visit Isabelle Aguilar MD 07/05/2016 Office visit Isabelle Aguilar MD 04/13/2016 Office visit Dayana Shin MD 03/06/2016 Office visit Anuel Marina REGULATORY COMPLIANCE DIRECTOR 02/28/2016 Office visit Diamond Soto APRN 12/05/2015 Office visit Anuel Marina REGULATORY COMPLIANCE DIRECTOR 07/25/2015 Office visit Kathleen Evangelista REGULATORY COMPLIANCE DIRECTOR 07/07/2015 Office visit Kathleen Evangelista REGULATORY COMPLIANCE DIRECTOR 07/01/2015 Office visit Kathleen Evangelista REGULATORY COMPLIANCE DIRECTOR 06/28/2015 Office visit Kathleen Evangelista REGULATORY COMPLIANCE DIRECTOR 06/21/2015 Office visit Diamond Soto REGULATORY COMPLIANCE DIRECTOR 03/22/2015 Office visit Kathleen Evangelista REGULATORY COMPLIANCE DIRECTOR 02/17/2015 Office visit Kathleen Evangelista REGULATORY COMPLIANCE DIRECTOR 01/29/2015 Office visit Kathleen Evangelista REGULATORY COMPLIANCE DIRECTOR 01/22/2015 Office visit Diamond Soto REGULATORY COMPLIANCE DIRECTOR 01/07/2015 Office visit Diamond Soto REGULATORY COMPLIANCE DIRECTOR 01/02/2015 [facility] Elias Chow MD 12/24/2014 Office visit Elias Chow MD 11/12/2014 Office visit Elias Chow MD
--- OUTSIDE RECORDS SUMMARY | 2017-05-23 13:59 | XMS REPORT ---
Author Author Elias Chow [facility] Address [address] [place], [place] [address] Care Team Providers Care Roving Department Supervisor Name Role Phone Elias Chow PCP Unavailable Allergies and Adverse Reactions Name Reaction Notes No known drug allergy Plan of Treatment Not available. Medications Active Name Start Date Estimated Completion Date SIG Comments diclofenac sodium 75 mg oral tablet,delayed release (DR/EC) take 1 tablet (75 mg) by oral route 2 times per day Novolog Mix 70-30 100 unit/mL (70-30) subcutaneous solution inject 12 UNITS AT BREAKFAST AND 12 UNITS AT SUPPER by subcutaneous route ibuprofen 200 mg oral capsule take 1 [...] or tea by oral route once daily Problem List Description Status Onset Hypothyroidism Post Ablation Active Diabetes mellitus Active Constipation Active Vital Signs Date Time BP-Sys(mm[Hg] BP-Estela(mm[Hg]) HR(bpm) RR(rpm) Temp WT HT HC BMI BSA BMI Percentile O2 Sat(%) 10/13/2014 9:25:00 AM 109 mmHg 89 mmHg 18 rpm 97.9 F 159 lbs 98 % Social History Name Description Comments Tobacco Current every day smoker History of Procedures Not available. Results Summary Not available. History Of Immunizations Not available. History of Past Illness Name Date of Onset Comments Hypothyroidism Post Ablation Diabetes mellitus Bleeding ulcer Constipation Anxiety HEADACHES Bradycardia Hypertension Diabetic keto-acidosis Depression Constipation, slow transit Nov 13 2014 9:38AM Constipation, slow transit Dec 25 2014 9:08AM Payers Insurance Name Company Name Plan Name Plan Number Policy Number Policy Group Number Start Date [facility] Plan of [id number] N/A [facility] Assistance [facility] Pro [id number] Wednesday, 2012 History of Encounters Visit Date Visit Type Provider 12/24/2014 Office visit Elias Chow MD 11/12/2014 Office visit Elias Chow MD
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
--- OUTSIDE RECORDS SUMMARY | 2017-05-23 14:00 | XMS REPORT ---
Author Author Isabelle Aguilar [facility] Address [address] [place], [place] [address] Care Team Providers Care Drying Room Supervisor Name Role Phone Isabelle Aguilar PCP Unavailable [...] and remove at bedtime for 30 days Name Start Date Expiration [...] HC BMI BSA BMI Percentile O2 Sat(%) 07/05/2016 1:26:00 PM 114 mmHg 68 mmHg [...] 06/21/2015 12:00 AM Decadron, Per [address] [facility]# [address]-46 Reviewed 06/21/2015 12:00 AM Depo-Medrol, Per [address] [facility]#[address]-75 Reviewed 07/01/2015 2:25 PM STREP A ASSAY [...] mellitus without complication Jul 05 2016 1:30PM Payers Insurance Name Company Name Plan Name Plan Number Policy Number Policy Group Number Start Date Medicare RHC Medicare RHC [id number] N/A [facility] [id number] N/A Medicare Part A Medicare - Lab/Xray [id number] N/A [place] Medical Assistance [facility] Prog [id number] Wednesday, March 21, 2012 [facility] Comm Plan of [id number] N/A Medicare Part B Medicare Of [place] [id number] Wednesday, July 20, 2011 History of Encounters Visit Date Visit Type Provider 07/05/2016 Office visit Isabelle Aguilar MD 04/13/2016 Office visit Dayana Shin MD 03/06/2016 Office visit Anuel Marina TOOL GRINDER OPERATOR SURFACE 02/28/2016 Office visit Diamond Soto TOOL GRINDER OPERATOR SURFACE 12/05/2015 Office visit Anuel Marina TOOL GRINDER OPERATOR SURFACE 07/25/2015 Office visit Kathleen Evangelista TOOL GRINDER OPERATOR SURFACE 07/07/2015 Office visit Kathleen Evangelista TOOL GRINDER OPERATOR SURFACE 07/01/2015 Office visit Kathleen Evangelista TOOL GRINDER OPERATOR SURFACE 06/28/2015 Office visit Kathleen Evangelista APRN 06/21/2015 Office visit Diamond Soto TOOL GRINDER OPERATOR SURFACE 03/22/2015 Office visit Kathleen Evangelista TOOL GRINDER OPERATOR SURFACE 02/17/2015 Office visit Kathleen Evangelista TOOL GRINDER OPERATOR SURFACE 01/29/2015 Office visit Kathleen Evangelista APRN 01/22/2015 Office visit Diamond Soto TOOL GRINDER OPERATOR SURFACE 01/07/2015 Office visit Diamond Soto APRN 01/02/2015 [facility] Elias Chow MD 12/24/2014 Office visit Elias Chow MD 11/12/2014 Office visit Elias Chow MD
--- OUTSIDE RECORDS SUMMARY | 2017-05-23 14:01 | XMS REPORT ---
Author Author Ernestina Moya Organization [employer] Address [address] [place] [address] Care Team Providers Care Advertising Director Name Role Phone Ernestina Moya Unavailable PROBLEMS Type Condition ICD9-CM Code [id number] Code Onset Dates Condition Status SNOMED Code Problem Hx of traumatic brain injury Z87.820 Active 25569090150159 Problem Hypothyroidism, unspecified E03.9 Active 17007240 Problem Type 1 diabetes mellitus with diabetic neuropathy, unspecified E10.40 Active 68682492 Problem Tobacco dependence F17.200 Active 04984834 Problem Type 1 diabetes mellitus with hyperglycemia E10.65 Active 887451150300091 Problem Cerebrovascular disease I67.9 Active 11623660 Problem Alcoholism F10.20 Active 3672650 ALLERGIES Unknown Allergies SOCIAL HISTORY No smoking Hx information available PLAN OF CARE VITAL SIGNS MEDICATIONS Medication Instructions Dosage Frequency Start Date End Date Duration Status levothyroxine 175 mcg (0.175 mg) orally once a day 1 tab(s) 24h 30 days Active RESULTS No Results PROCEDURES No Known procedures IMMUNIZATIONS No Known Immunizations
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
--- OUTSIDE RECORDS SUMMARY | 2017-05-23 14:01 | XMS REPORT ---
Author Author Kathleen Evangelista [facility] Address [address] [place], [place] [address] Care Team Providers Care Macerator Operator Name Role Phone Kathleen Evangelista PCP Unavailable [...] HC BMI BSA BMI Percentile O2 Sat(%) 07/01/2015 1:53:00 PM 134 mmHg 74 mmHg [...] 06/21/2015 12:00 AM Decadron, Per 1 Mg [facility]# [id number] Reviewed 06/21/2015 12:00 AM Depo-Medrol, Per 80 Mg [facility]#[id number] Reviewed 07/01/2015 2:25 PM STREP A ASSAY W/OPTIC Reviewed 07/01/2015 2:25 PM ASSAY GLUCOSE BLOOD QUANT Reviewed Results Summary Data and Description Results 07/01/2015 2:25 PM STREPTOCOCCUS, GROUP A CULTURE Negative Glucose SerPl-mCnc 72.0 mg/dL History Of Immunizations Not available. History [...] 1:56PM Mild Hypoglycemia Jul 01 2015 1:56PM Payers Insurance Name Company Name Plan Name Plan Number Policy Number Policy Group Number Start Date Medicare Part B Medicare Of [place] [id number] Wednesday, 2011 [facility] Plan of [id number] N/A [place] Medical Assistance [place] Medical Assistance Prog [id number] Wednesday, 2012 History of Encounters Visit Date Visit Type Provider 07/01/2015 Office visit Kathleen Evangelista COLLAR CLOSER LOCKSTITCH 06/28/2015 Office visit Kathleen Evangelista COLLAR CLOSER LOCKSTITCH 06/21/2015 Office visit Diamond Soto APRN 03/22/2015 Office visit Kathleen Evangelista COLLAR CLOSER LOCKSTITCH 02/17/2015 Office visit Kathleen Evangelista APRN 01/29/2015 Office visit Kathleen Evangelista APRN 01/22/2015 Office visit Diamond Soto APRN 01/07/2015 Office visit Diamond Soto APRN 01/02/2015 [facility] Elias Chow MD 12/24/2014 Office visit Elias Chow MD 11/12/2014 Office visit Elias Chow MD
--- OUTSIDE RECORDS SUMMARY | 2017-05-23 14:01 | XMS REPORT ---
Author Author Dayana Shin [facility] Address [address] [place], [place] [id number] Care Team Providers Care Commodities Manager Name Role Phone Dayana Shin PCP Unavailable Dawn Torres Unavailable Unavailable Allergies [...] by oral route daily for 30 days nicotine 21 mg/24 hr [...] and remove at bedtime for 30 days Lidocaine Viscous 2 % mucous membrane solution 07/26/2016 08/02/2016 take 15 milliliters and swish and spit out by oral route every 3 hours for 7 days Name Start Date Expiration [...] 3 times per day for 30 days ibuprofen 800 mg oral tablet 07/09/2016 07/19/2016 take 1 tablet by oral route 3 times a day as needed for 10 days cyclobenzaprine 10 mg oral tablet 07/09/2016 07/19/2016 take 1 tablet by oral route 2 times a day as needed for 10 days Discontinued Name Start Date Discontinued Date [...] HC BMI BSA BMI Percentile O2 Sat(%) 07/26/2016 2:28:00 PM 118 mmHg 68 mmHg [...] 06/21/2015 12:00 AM Decadron, Per 1 Mg [facility]# [id number] Reviewed 06/21/2015 12:00 AM Depo-Medrol, Per 80 Mg [facility]#[id number] Reviewed 07/01/2015 2:25 PM STREP A ASSAY [...] 8:40AM Dental caries Jul 26 2016 2:33PM Payers Insurance Name Company Name Plan Name Plan Number Policy Number Policy Group Number Start Date Medicare [facility] Medicare C [id number] N/A [facility] Comm [id number] N/A Medicare Part A Medicare - Lab/Xray [id number] N/A [place] Medical Assistance [facility] Medical Assistance Prog [id number] Wednesday, March 21, 2012 [facility] Comm Plan of [id number] N/A Medicare Part B Medicare Of [place] [id number] Wednesday, July 20, 2011 History of Encounters Visit Date Visit Type Provider 07/26/2016 Office visit Dayana Shin MD 07/09/2016 Office visit Isabelle Aguilar MD 07/05/2016 Office visit Isabelle Aguilar MD 04/13/2016 Office visit Dayana Shin MD 03/06/2016 Office visit Anuel Marina AIRPORT RAMP ATTENDANT 02/28/2016 Office visit Diamond Soto AIRPORT RAMP ATTENDANT 12/05/2015 Office visit Anuel Marina AIRPORT RAMP ATTENDANT 07/25/2015 Office visit Kathleen Evangelista AIRPORT RAMP ATTENDANT 07/07/2015 Office visit Kathleen Evangelista AIRPORT RAMP ATTENDANT 07/01/2015 Office visit Kathleen Evangelista AIRPORT RAMP ATTENDANT 06/28/2015 Office visit Kathleen Evangelista AIRPORT RAMP ATTENDANT 06/21/2015 Office visit Diamond Soto AIRPORT RAMP ATTENDANT 03/22/2015 Office visit Kathleen Evangelista AIRPORT RAMP ATTENDANT 02/17/2015 Office visit Kathleen Evangelista AIRPORT RAMP ATTENDANT 01/29/2015 Office visit Kathleen Evangelista AIRPORT RAMP ATTENDANT 01/22/2015 Office visit Diamond Soto AIRPORT RAMP ATTENDANT 01/07/2015 Office visit Diamond Soto APRN 01/02/2015 [facility] Elias Chow MD 12/24/2014 Office visit Elias Chow MD 11/12/2014 Office visit Elias Chow MD
--- OUTSIDE RECORDS SUMMARY | 2017-05-23 14:01 | XMS REPORT ---
Author Elias Ghosh [facility] Address [address] [place], [place] [address] Care Team Providers Care Clock Smith Name Role Phone Elias Chow PCP Unavailable [...] Constipation, slow transit Nov 13 2014 9:38AM Payers Insurance Name Company Name Plan Name Plan Number Policy Number Policy Group Number Start Date [place] Medical Assistance [facility] Medical Assistance [facility] [id number] Wednesday, 2012 History of Encounters Visit Date Visit Type Provider 11/12/2014 Office visit Elias Chow MD
--- OUTSIDE RECORDS SUMMARY | 2017-05-23 14:02 | XMS REPORT ---
Author Author Kathleen Evangelista [facility] Address [address] [place], [place] [id number] Care Team Providers Care Call Center Analyst Name Role Phone Kathleen Evangelista PCP Dawn Torres Unavailable Unavailable Allergies and Adverse [...] 06/21/2015 12:00 AM Decadron, Per 1 Mg [facility]# [id number] Reviewed 06/21/2015 12:00 AM Depo-Medrol, Per 80 Mg [facility]#[id number] Reviewed 07/01/2015 2:25 PM STREP A ASSAY W/OPTIC Reviewed 07/01/2015 2:25 PM ASSAY GLUCOSE BLOOD QUANT Reviewed 07/07/2015 10:27 AM GLUCOSE BLOOD TEST Reviewed 07/25/2015 12:00 AM X-RAY EXAM OF HAND Reviewed 07/25/2015 12:00 AM ELECTROCARDIOGRAM COMPLETE Reviewed 07/25/2015 12:00 AM METABOLIC PANEL TOTAL CA Returned 03/06/2016 12:00 AM Phenergan 50mg Injection, [facility] Medicare Reviewed 03/06/2016 12:00 AM THER/PROPH/DIAG INJ [...] Number Start Date Medicare RHC Medicare RHC [id number] N/A [facility] Comm [id number] N/A Medicare Part A Medicare - Lab/Xray [id number] N/A [facility] Medical Assistance Prog [id number] Wednesday, March 21, 2012 [facility] Plan of [id number] N/A Medicare Part B Medicare Of [place] [id number] Wednesday, July 20, 2011 History of Encounters Visit Date Visit Type Provider 11/30/2016 Office visit Kathleen Evangelista CAN DRAGGER 09/17/2016 Office visit Anuel Marina CAN DRAGGER 07/26/2016 Office visit Dayana Shin MD 07/09/2016 Office visit Isabelle Aguilar MD 07/05/2016 Office visit Isabelle Aguilar MD 04/13/2016 Office visit Dayana Shin MD 03/06/2016 Office visit Anuel Marina CAN DRAGGER 02/28/2016 Office visit Diamond Soto CAN DRAGGER 12/05/2015 Office visit Anuel Marina CAN DRAGGER 07/25/2015 Office visit Kathleen Evangelista CAN DRAGGER 07/07/2015 Office visit Kathleen Evangelista CAN DRAGGER 07/01/2015 Office visit Kathleen Evangelista CAN DRAGGER 06/28/2015 Office visit Kathleen Evangelista CAN DRAGGER 06/21/2015 Office visit Diamond Soto CAN DRAGGER 03/22/2015 Office visit Kathleen Evangelista CAN DRAGGER 02/17/2015 Office visit Kathleen Evangelista CAN DRAGGER 01/29/2015 Office visit Kathleen Evangelista CAN DRAGGER 01/22/2015 Office visit Diamond Soto CAN DRAGGER 01/07/2015 Office visit Diamond Soto CAN DRAGGER 01/02/2015 [facility] Elias Chow MD 12/24/2014 Office visit Elias Chow MD 11/12/2014 Office visit Elias Chow MD
--- OUTSIDE RECORDS SUMMARY | 2017-05-23 14:02 | XMS REPORT | Referral Summary ---
Author Author [facility] Organization [facility] Address Unknown Phone Unavailable Care Team Providers Care Home Care Provider Name Role Phone No PCP, Pt States PCP Encounter VC Date(s): 06/07/16 - 06/07/16 [facility] [address] [place] [address] [facility] Discharge Diagnosis: Chronic back pain Discharge Disposition: 01-Home or Self Care Attending Physician: Odessa Musa APRN Attending Physician: Provider, Immediate Care Admitting Physician: Provider, Immediate Care Vital Signs Most recent to 1 oldest [Reference Range]: Temperature Oral 36.8 degC [35.8-37.3 degC] (06/07/16 2:30 PM) Peripheral Pulse 81 bpm Rate [60-100 bpm] (06/07/16 2:30 PM) Blood Pressure 118/64 mmHg [90-140/60-90 mmHg] (06/07/16 2:30 PM) SpO2 97 % (06/07/16 2:30 PM) Problem List Condition Effective Dates Status Health Status Informant Chronic back Active pain(Confirmed) Allergies, Adverse Reactions, Alerts No Known Allergies Medications cyclobenzaprine 10 mg oral tablet 10 mg 1 tabs, Oral, TID, as needed for spasm, # 21 tabs, 0 Refill(s), Pharmacy: [facility], 1 tabs Oral TID,PRN:as needed for spasm Start Date: 06/07/16 Status: Ordered cyclobenzaprine 10 mg oral tablet 10 mg [...] Date: 06/03/16 Stop Date: 06/08/16 Status: Ordered naproxen 500 mg oral tablet 500 mg 1 tabs, Oral, BID, # 30 tabs, 0 Refill(s), Pharmacy: [facility], 1 tabs Oral BID Start Date: 06/07/16 Status: Ordered Toujeo SoloStar 300 units/mL subcutaneous solution SubCutaneous, Daily, 0 Refill(s) Start Date: 06/03/16 Status: Ordered Results No data available for this section Immunizations No data available for this section Procedures No data available for this section Social History Social History Type Response Smoking Status Current every day smoker; Tobacco use per day: 1/2 pack or more Assessment and Plan Extracted from: Title: Office Visit Note Author: Odessa Musa APRN Date: 06/07/16 Assessment/Plan 1.Chronic back pain more naproxen and flexeril sent to pharmacy. discussed with patient that he needs to get a new PCP to manage his chronic pain. Diagnosis and treatment discussed. Patient advised to follow-up with PCP in 2-3 days if symptoms do not improve. If symptoms worsen at any time, patient will go to the nearest ER for further evaluation. Patient stable upon discharge, alert and orientated with no apparent distress, all questions answered, and indicated understanding of discharge instructions. Ordered: Office Visit Level 3 Est 88759
--- OUTSIDE RECORDS SUMMARY | 2017-05-23 14:02 | XMS REPORT ---
Author Author Kathleen Evangelista [facility] Address [address] [place], [place] [address] Care Team Providers Care Prosthodontist/Educator Name Role Phone Kathleen Evangelista PCP Unavailable [...] twice a day for severe withdrawel symptoms Name Start Date Expiration Date SIG Comments promethazine-codeine 6.25-10 mg/5 mL oral syrup 01/22/2015 [...] HC BMI BSA BMI Percentile O2 Sat(%) 01/29/2015 2:37:00 PM 110 mmHg 60 mmHg [...] Constipation Anxiety HEADACHES Bradycardia Hypertension Diabetic keto-acidosis depression Screening for Colon Cancer [address] Chow and it was negative Constipation, slow transit Nov 13 2014 9:38AM Constipation, slow transit Dec 25 2014 9:08AM URI (upper respiratory infection) Jan 07 2015 9:29AM Cough Jan 22 2015 11:23AM Tobacco abuse Jan 29 2015 2:42PM Payers Insurance Name Company Name Plan Name Plan Number Policy Number Policy Group Number Start Date Medicare Part B Medicare Of [place] [id number] Wednesday, 2011 [facility] Plan of [id number] N/A [place] Medical Assistance [facility] Medical Assistance Prog [id number] Wednesday, 2012 History of Encounters Visit Date Visit Type Provider 01/29/2015 Office visit Kathleen Evangelista APRN 01/22/2015 Office visit Diamond Soto APRN 01/07/2015 Office visit Diamond Soto APRN 01/02/2015 [facility] Elias Chow MD 12/24/2014 Office visit Elias Chow MD 11/12/2014 Office visit Elias Chow MD
--- OUTSIDE RECORDS SUMMARY | 2017-05-23 14:02 | XMS REPORT | Continuity of Care Document ---
Author Author [facility] Organization [facility] Address Unknown Phone Unavailable Allergies Active Description Code Type Severity Reaction Onset Reported/Identified Relationship to Patient Clinical Status Yes No Known Allergies Drug Allergy N/A N/A 09/02/2012 Yes No Known Drug Allergies Drug Allergy N/A N/A 09/02/2012 Yes No Known Food Allergies Food Allergy N/A N/A 09/02/2012 Medications There is no data. Problems Date Dx Coded Attending Type Code Diagnosis Diagnosed By 08/28/2012 Kojo Song MD Final 305.1 TOBACCO USE DISORDER 08/28/2012 Kojo Song MD Admitting 780.79 MALAISE FATIGUE NEC 08/28/2012 Kojo Song MD Final 790.29 ABNORMAL GLUCOSE NEC 09/02/2012 Frankie Parker MD Final 246.9 THYROID DISORDER NOS 09/02/2012 Frankie Parker MD Final 250.81 DM1 W MANIFEST NEC NSU 09/02/2012 Frankie Parker MD Final 305.1 TOBACCO USE DISORDER Procedures There is no data. Results There is no data. Encounters ACCT No. Visit Date/Time Discharge Status Pt. Type Provider Facility Loc./Unit Complaint [id number] 09/02/2012 15:54:00 09/02/2012 18:02:00 DIS Emergency Frankie Parker MD [facility] [place] [id number] 08/28/2012 13:55:00 08/28/2012 16:00:00 DIS Emergency Kojo Song MD [facility] [place] [id number] 11/30/2016 14:31:28 11/30/2016 23:59:59 CLS Outpatient Kathleen Evangelista [id number] 09/17/2016 09:34:10 09/17/2016 23:59:59 CLS Outpatient Anuel Marina [id number] 07/28/2016 10:46:40 07/28/2016 23:59:59 CLS Outpatient Dayana Shin [id number] 07/09/2016 12:00:51 07/09/2016 23:59:59 CLS Outpatient Isabelle Aguilar [id number] 07/05/2016 14:09:37 07/05/2016 23:59:59 CLS Outpatient Isabelle Aguilar [id number] 04/13/2016 16:07:38 04/13/2016 23:59:59 CLS Outpatient Dayana Shin [id number] 03/06/2016 12:04:56 03/06/2016 23:59:59 CLS Outpatient Anuel Marina [id number] 02/28/2016 09:50:37 02/28/2016 23:59:59 CLS Outpatient Diamond Soto [id number] 12/05/2015 12:13:12 12/05/2015 23:59:59 CLS Outpatient Anuel Marina [id number] 03/22/2015 20:39:13 03/22/2015 23:59:59 CLS Outpatient Kathleen Evangelista [id number] 02/17/2015 09:47:01 02/17/2015 23:59:59 CLS Outpatient Kathleen Evangelista [id number] 01/29/2015 15:29:45 01/29/2015 23:59:59 CLS Outpatient Kathleen Evangelista [id number] 01/22/2015 11:31:22 01/22/2015 23:59:59 CLS Outpatient Diamond Soto [id number] 01/08/2015 10:38:40 01/08/2015 23:59:59 CLS Outpatient Elias Chow [id number] 01/07/2015 09:41:18 01/07/2015 23:59:59 CLS Outpatient Diamond Soto [id number] 12/24/2014 14:32:53 12/24/2014 23:59:59 DEB Outpatient Elias Chow [id number] 11/12/2014 15:43:10 11/12/2014 23:59:59 DEB Outpatient Elias Chow
--- OUTSIDE RECORDS SUMMARY | 2017-05-23 14:02 | XMS REPORT ---
Author Kathleen Cuadra [facility] Address [address] [place], [place] [address] Care Team Providers Care Grain Elevator Agent Name Role Phone Kathleen Evangelista PCP Unavailable Allergies and Adverse Reactions Name Reaction Notes No known drug allergy Plan of Treatment Planned Activity Comments Planned Date Planned Time Plan/Goal X-RAY EXAM OF HAND 07/25/2015 12:00 AM ELECTROCARDIOGRAM COMPLETE 07/25/2015 12:00 AM METABOLIC PANEL TOTAL CA 07/25/2015 12:00 AM Medications Active Name Start [...] Bactrim DS 800-160 mg oral tablet 07/25/2015 Take two tablets twice a day for 7 days ibuprofen 800 mg oral tablet 07/25/2015 take 1 tablet (800 mg) by oral route 3 times per day with food Name Start Date Expiration Date SIG Comments [...] HC BMI BSA BMI Percentile O2 Sat(%) 07/25/2015 8:24:00 AM 138 mmHg 78 mmHg [...] 06/21/2015 12:00 AM Decadron, Per 1 Mg [facility]# [id number] Reviewed 06/21/2015 12:00 AM Depo-Medrol, Per 80 Mg [facility]#[id number] Reviewed 07/01/2015 2:25 PM STREP A ASSAY [...] 2015 8:26AM Cellulitis Jul 25 2015 8:26AM Payers Insurance Name Company Name Plan Name Plan Number Policy Number Policy Group Number Start Date Medicare Part B Medicare Of [place] [id number] Wednesday, 2011 [facility] Plan of [id number] N/A [place] Medical Assistance [facility] Pro [id number] Wednesday, 2012 History of Encounters Visit Date Visit Type Provider 07/25/2015 Office visit Kathleen Evangelista COMMISSIONER PUBLIC WORKS 07/07/2015 Office visit Kathleen Evangelista COMMISSIONER PUBLIC WORKS 07/01/2015 Office visit Kathleen Evangelista COMMISSIONER PUBLIC WORKS 06/28/2015 Office visit Kathleen Evangelista COMMISSIONER PUBLIC WORKS 06/21/2015 Office visit Diamond Soto COMMISSIONER PUBLIC WORKS 03/22/2015 Office visit Kathleen Evangelista COMMISSIONER PUBLIC WORKS 02/17/2015 Office visit Kathleen Evangelista COMMISSIONER PUBLIC WORKS 01/29/2015 Office visit Kathleen Evangelista APRN 01/22/2015 Office visit Diamond Soto APRN 01/07/2015 Office visit Diamond Soto APRN 01/02/2015 [facility] Elias Chow MD 12/24/2014 Office visit Elias Chow MD 11/12/2014 Office visit Elias Chow MD
--- NOTE | 2017-05-23 14:05 | ED General ---
General Stated Complaint: LOUIS/NAUSEA/VOMITING Source of Information: Patient Exam Limitations: No Limitations History of Present Illness Date Seen by Provider: May 23, 2017 Time Seen by Provider: 14:03 Initial Comments To ER per private vehicle with reports of a frontal headache for 2-3 days associated with nausea and vomiting. He has a history of migraines that frequently cause nausea and vomiting. He is a type I diabetic and states that his blood sugar runs anywhere from 39-500. He states that he has a history of headaches like this that get "even way worse than this", despite this, he rates this pain at 10 out of 10. Denies fevers or chills or cough. Timing/Duration: 1-2 Days Severity: Moderate Associated Systoms: Headaches, Nausea/Vomiting Allergies and Home Medications Allergies Coded Allergies: No Known Drug Allergies (Unverified , 05/23/17) Patient Home Medication List Home Medication List Reviewed: Yes Constitutional: see HPI EENTM: see HPI Respiratory: no symptoms reported Cardiovascular: no symptoms reported Gastrointestinal: nausea, vomiting Genitourinary: no symptoms reported Musculoskeletal: no symptoms reported Skin: no symptoms reported Psychiatric/Neurological: No Symptoms Reported Hematologic/Lymphatic: No Symptoms Reported Immunological/Allergic: no symptoms reported Past Blenwta-Ppeadz-Wrxusa Hx Patient Social History Recent Foreign Travel: No Contact w/Someone Who Travel: No Physical Exam Vital Signs Vital Signs - First Documented 05/23/17 05/23/17 13:50 15:21 Temp 97.1 Pulse 70 Resp 16 B/P (MAP) 148/107 (121) Pulse Ox 98 O2 Delivery Room Air Capillary Refill : General Appearance: No Apparent Distress, WD/WN Eyes: Bilateral Eye Normal Inspection, Bilateral Eye PERRL, Bilateral Eye EOMI HEENT: PERRL/EOMI, TMs Normal Neck: Full Range of Motion, Normal Inspection Respiratory: No Accessory Muscle Use, No Respiratory Distress Cardiovascular: Regular Rate, Rhythm, Normal Peripheral Pulses Gastrointestinal: Normal Bowel Sounds, Non Tender, Soft Extremity: Normal Capillary Refill Neurologic/Psychiatric: Alert, Oriented x3, No Motor/Sensory Deficits Skin: Normal Color, Warm/Dry Progress/Results/Core Measures Suspected Sepsis SIRS Temperature: Pulse: Respiratory Rate: Laboratory Tests 05/23/17 14:00: White Blood Count 8.9 Blood Pressure / Mean: Laboratory Tests 05/23/17 14:00: Creatinine 1.07, Platelet Count 285, Total Bilirubin 0.9 Results/Orders Lab Results Laboratory Tests Test 05/23/17 14:00 05/23/17 14:40 Range/Units White Blood Count 8.9 4.3-11.0 10^3/uL Red Blood Count 5.17 4.35-5.85 10^6/uL Hemoglobin 17.1 13.3-17.7 G/DL Hematocrit 48 40-54 % Mean Corpuscular Volume 92 80-99 FL Mean Corpuscular Hemoglobin 33 25-34 PG Mean Corpuscular Hemoglobin Concent 36 32-36 G/DL Red Cell Distribution Width 13.3 10.0-14.5 % Platelet Count 285 130-400 10^3/uL Mean Platelet Volume 9.9 7.4-10.4 FL Neutrophils (%) (Auto) 72 42-75 % Lymphocytes (%) (Auto) 20 12-44 % Monocytes (%) (Auto) 5 0-12 % Eosinophils (%) (Auto) 2 0-10 % Basophils (%) (Auto) 1 0-10 % Neutrophils # (Auto) 6.4 1.8-7.8 X 10^3 Lymphocytes # (Auto) 1.8 1.0-4.0 X 10^3 Monocytes # (Auto) 0.5 0.0-1.0 X 10^3 Eosinophils # (Auto) 0.1 0.0-0.3 10^3/uL Basophils # (Auto) 0.1 0.0-0.1 10^3/uL Sodium Level 138 135-145 MMOL/L Potassium Level 4.5 3.6-5.0 MMOL/L Chloride Level 103 98-107 MMOL/L Carbon Dioxide Level 28 21-32 MMOL/L Anion Gap 7 5-14 MMOL/L Blood Urea Nitrogen 12 7-18 MG/DL Creatinine 1.07 0.60-1.30 MG/DL Estimat Glomerular Filtration Rate > 60 BUN/Creatinine Ratio 11 Glucose Level 83 70-105 MG/DL Calcium Level 9.4 8.5-10.1 MG/DL Total Bilirubin 0.9 0.1-1.0 MG/DL Aspartate Amino Transf (AST/SGOT) 20 5-34 U/L Alanine Aminotransferase (ALT/SGPT) 15 0-55 U/L Alkaline Phosphatase 70 40-136 U/L Total Protein 7.3 6.4-8.2 GM/DL Albumin 4.3 3.2-4.5 GM/DL Urine Color YELLOW Urine Clarity CLEAR Urine pH 5 5-9 Urine Specific Garner 1.025 H 1.016-1.022 Urine Protein 1+ H NEGATIVE Urine Glucose (UA) NEGATIVE NEGATIVE Urine Ketones 2+ H NEGATIVE Urine Nitrite NEGATIVE NEGATIVE Urine Bilirubin NEGATIVE NEGATIVE Urine Urobilinogen NORMAL NORMAL MG/DL Urine Leukocyte Esterase 1+ H NEGATIVE Urine RBC (Auto) NEGATIVE NEGATIVE Urine RBC NONE /HPF Urine WBC 2-5 /HPF Urine Squamous Epithelial Cells 0-2 /HPF Urine Crystals NONE /LPF Urine Bacteria TRACE /HPF Urine Casts NONE /LPF Urine Mucus SMALL H /LPF Urine Culture Indicated NO Urine Opiates Screen NEGATIVE NEGATIVE Urine Oxycodone Screen NEGATIVE NEGATIVE Urine Methadone Screen NEGATIVE NEGATIVE Urine Propoxyphene Screen NEGATIVE NEGATIVE Urine Barbiturates Screen NEGATIVE NEGATIVE Ur Tricyclic Antidepressants Screen NEGATIVE NEGATIVE Urine Phencyclidine Screen NEGATIVE NEGATIVE Urine Amphetamines Screen NEGATIVE NEGATIVE Urine Methamphetamines Screen NEGATIVE NEGATIVE Urine Benzodiazepines Screen NEGATIVE NEGATIVE Urine Cocaine Screen NEGATIVE NEGATIVE Urine Cannabinoids Screen POSITIVE H NEGATIVE My Orders Orders - WEN VILLASEÑOR EARTH BURNER Cbc With Automated Diff (05/23/17 14:01) Comprehensive Metabolic Panel (05/23/17 14:01) Ua Culture If Indicated (05/23/17 14:01) Drug Screen Stat (Urine) (05/23/17 14:01) Saline Lock/Iv-Start (05/23/17 14:01) Prochlorperazine Injection (Compazine In (05/23/17 14:15) Diphenhydramine Injection (Benadryl Inje (05/23/17 14:15) Ketorolac Injection (Toradol Injection) (05/23/17 14:15) Ns Iv 1000 Ml (Sodium Chloride 0.9%) (05/23/17 14:15) Medications Given in ED Current Medications Medications Dose Ordered Sig/Kristi Route Start Time Stop Time Status Last Admin Dose Admin Diphenhydramine HCl 25 mg ONCE ONCE IVP 05/23/17 14:15 05/23/17 14:16 DC 05/23/17 14:17 25 MG Ketorolac Tromethamine 30 mg ONCE ONCE IVP 05/23/17 14:15 05/23/17 14:16 DC 05/23/17 14:17 30 MG Prochlorperazine Edisylate 5 mg ONCE ONCE IV 05/23/17 14:15 05/23/17 14:16 DC 05/23/17 14:17 5 MG Vital Signs/I&O Vital Sign - Last 12Hours 05/23/17 05/23/17 05/23/17 13:50 14:17 15:21 Temp 97.1 97.0 97.0 Pulse 70 70 Resp 16 16 B/P (MAP) 148/107 (121) 142/90 (121) Pulse Ox 98 O2 Delivery Room Air Capillary Refill : Departure Impression Impression: Primary Impression: Headache Disposition: HOME, SELF-CARE Condition: Stable Departure-Patient Inst. Decision time for Depature: 14:52 Referrals: NO,LOCAL PHYSICIAN (PCP/Family) Primary Care Physician Patient Instructions: Headache, Adult (DC) Add. Discharge Instructions: 1. Return to ER for any concerns 2. Follow-up with your doctor later this week for recheck 3. WEN VILLASEÑOR APRN May 23, 2017 14:05
[2017-05-23 14:07] LABS: BASOPHILS # (AUTO) 0.1 10^3/uL (0.0-0.1); BASOPHILS % (AUTO) 1 % (0-10); EOSINOPHILS # (AUTO) 0.1 10^3/uL (0.0-0.3); EOSINOPHILS % (AUTO) 2 % (0-10); HEMATOCRIT 48 % (40-54); HEMOGLOBIN 17.1 G/DL (13.3-17.7); LYMPHOCYTES # (AUTO) 1.8 X 10^3 (1.0-4.0); LYMPHOCYTES % (AUTO) 20 % (12-44); MEAN CORPUSCULAR HEMOGLOBIN 33 PG (25-34); MEAN CORPUSCULAR HGB CONC 36 G/DL (32-36); MEAN CORPUSCULAR VOLUME 92 FL (80-99); MEAN PLATELET VOLUME 9.9 FL (7.4-10.4); MONOCYTES # (AUTO) 0.5 X 10^3 (0.0-1.0); MONOCYTES % (AUTO) 5 % (0-12); NEUTROPHILS # (AUTO) 6.4 X 10^3 (1.8-7.8); NEUTROPHILS % (AUTO) 72 % (42-75); PLATELET COUNT 285 10^3/uL (130-400); RED BLOOD COUNT 5.17 10^6/uL (4.35-5.85); RED CELL DISTRIBUTION WIDTH 13.3 % (10.0-14.5); WHITE BLOOD COUNT 8.9 10^3/uL (4.3-11.0)
[2017-05-23] MEDS ORDERED: KETOROLAC 30 MG/ML VIAL IVP ONE (14:15)
[2017-05-23] MEDS ORDERED: PROCHLORPERAZINE 10 MG/2ML INJ (COMPAZINE) IV ONE (14:15)
[2017-05-23] MEDS ORDERED: diphenhydrAMINE 50 MG/ML INJ (BENADRYL) IVP ONE (14:15)
[2017-05-23] MEDS ORDERED: NS IV 1000 ML 1,000 ML IV SCH (14:15)
[2017-05-23 14:26] LABS: ALANINE AMINOTRANSFERASE 15 U/L (0-55); ALBUMIN 4.3 GM/DL (3.2-4.5); ALKALINE PHOSPHATASE 70 U/L (40-136); BILIRUBIN,TOTAL 0.9 MG/DL (0.1-1.0); BUN/CREATININE RATIO 11; CALCIUM 9.4 MG/DL (8.5-10.1); CARBON DIOXIDE 28 MMOL/L (21-32); CHLORIDE 103 MMOL/L (98-107); CREATININE SERUM 1.07 MG/DL (0.60-1.30); GFR ESTIMATED > 60; GLUCOSE 83 MG/DL (70-105); POTASSIUM 4.5 MMOL/L (3.6-5.0); SODIUM 138 MMOL/L (135-145); TOTAL PROTEIN 7.3 GM/DL (6.4-8.2)
[2017-05-23 14:45] LABS: BILIRUBIN,URINE NEGATIVE (NEGATIVE); CLARITY,URINE CLEAR; COLOR,URINE YELLOW; GLUCOSE, URINE (UA) NEGATIVE (NEGATIVE); KETONES,URINE 2+ (NEGATIVE); LEUKOCYTE ESTERASE ,URINE 1+ (NEGATIVE); NITRITE,URINE NEGATIVE (NEGATIVE); PH,URINE 5 (5-9); PROTEIN,URINE 1+ (NEGATIVE); UROBILINOGEN,URINE NORMAL (NORMAL)
[2017-05-23 14:54] LABS: BACTERIA,URINE TRACE /HPF; SQUAMOUS EPITHELIAL CELL,UR 0-2 /HPF
[2017-05-23 14:57] LABS: AMPHETAMINE SCREEN, URINE NEGATIVE (NEGATIVE); BARBITURATE SCREEN URINE NEGATIVE (NEGATIVE); BENZODIAZEPINES SCREEN URINE NEGATIVE (NEGATIVE); CANNABINOID SCREEN, URINE POSITIVE (NEGATIVE); COCAINE SCREEN URINE NEGATIVE (NEGATIVE); METHADONE STAT NEGATIVE (NEGATIVE); METHAMPHETAMINE SCREEN URINE S NEGATIVE (NEGATIVE); OPIATE SCREEN URINE NEGATIVE (NEGATIVE); OXYCODONE STAT NEGATIVE (NEGATIVE); PROPOXYPHENE STAT NEGATIVE (NEGATIVE); TRICYCLIC ANTIDEPRESSANTS SCRE NEGATIVE (NEGATIVE)
[2017-05-23 15:21] VITALS: BP 142/90
== END 2017-05-23 15:21 | disposition home or self-care (01) ==
LOC: ER 13:51
DX: R51 Headache (principal)
CPT/HCPCS: 36415; 80053; 80306; 81000; 85025; 99282

== ENCOUNTER 2017-07-06 10:18 | Emergency (ER) | payer MEDICARE, MEDICAID ==
[~2017-07-06] VITALS: Ht 170.2 cm; Wt 72.6 kg
[2017-07-06] MEDS ORDERED: diphenhydrAMINE 50 MG/ML INJ (BENADRYL) IVP ONE (10:45)
[2017-07-06] MEDS ORDERED: ONDANSETRON 4 MG/2 ML (SDV) Z0FRAN IVP ONE (10:45)
[2017-07-06] MEDS ORDERED: NS IV 1000 ML 1,000 ML IV SCH (10:45)
[2017-07-06] MEDS ORDERED: KETOROLAC 30 MG/ML VIAL IVP ONE (10:45)
[2017-07-06 10:46] LABS: BASOPHILS # (AUTO) 0.1 10^3/uL (0.0-0.1); BASOPHILS % (AUTO) 1 % (0-10); EOSINOPHILS # (AUTO) 0.1 10^3/uL (0.0-0.3); EOSINOPHILS % (AUTO) 1 % (0-10); HEMATOCRIT 42 % (40-54); HEMOGLOBIN 14.8 G/DL (13.3-17.7); LYMPHOCYTES # (AUTO) 1.4 X 10^3 (1.0-4.0); LYMPHOCYTES % (AUTO) 10 % (12-44); MEAN CORPUSCULAR HEMOGLOBIN 33 PG (25-34); MEAN CORPUSCULAR HGB CONC 36 G/DL (32-36); MEAN CORPUSCULAR VOLUME 91 FL (80-99); MEAN PLATELET VOLUME 10.3 FL (7.4-10.4); MONOCYTES # (AUTO) 0.9 X 10^3 (0.0-1.0); MONOCYTES % (AUTO) 7 % (0-12); NEUTROPHILS # (AUTO) 11.3 X 10^3 (1.8-7.8); NEUTROPHILS % (AUTO) 82 % (42-75); PLATELET COUNT 328 10^3/uL (130-400); RED BLOOD COUNT 4.55 10^6/uL (4.35-5.85); RED CELL DISTRIBUTION WIDTH 13.3 % (10.0-14.5); WHITE BLOOD COUNT 13.8 10^3/uL (4.3-11.0)
--- NOTE | 2017-07-06 10:50 | ED General ---
General Chief Complaint: Glucose Problems Stated Complaint: LOW BLOOD SUGAR,LOUIS,VOMITING Source of Information: Patient Exam Limitations: No Limitations History of Present Illness Date Seen by Provider: Jul 06, 2017 Time Seen by Provider: 10:49 Initial Comments We are coming by his with reports of a global headache. Patient awakened this morning and believes his blood sugar was low at 73. He ate some sort of pie and had sweet tea. He then vomited and had a headache. History of migraines. Has not taken anything at home for this. Timing/Duration: 1-2 Days Severity: Moderate Allergies and Home Medications Allergies Coded Allergies: No Known Drug Allergies (Unverified , 05/23/17) Patient Home Medication List Home Medication List Reviewed: Yes Review of Systems Constitutional: see HPI EENTM: see HPI Respiratory: no symptoms reported Cardiovascular: no symptoms reported Genitourinary: no symptoms reported Musculoskeletal: no symptoms reported Skin: no symptoms reported Psychiatric/Neurological: No Symptoms Reported Hematologic/Lymphatic: No Symptoms Reported Past Rljvhdc-Cofadl-Cnzrpj Hx Patient Social History Recent Foreign Travel: No Contact w/Someone Who Travel: No Past Medical History Respiratory: No Neurological: Yes Headaches /Migraines Genitourinary: No Gastrointestinal: No Musculoskeletal: No Endocrine: No HEENT: No Cancer: No Psychosocial: No Integumentary: No Physical Exam Vital Signs Vital Signs - First Documented 07/06/17 10:20 Temp 98.3 Pulse 80 Resp 18 B/P (MAP) 138/96 (110) Pulse Ox 98 Capillary Refill : General Appearance: No Apparent Distress, WD/WN Eyes: Bilateral Eye Normal Inspection, Bilateral Eye PERRL, Bilateral Eye EOMI HEENT: PERRL/EOMI, TMs Normal Respiratory: Normal Breath Sounds, No Accessory Muscle Use, No Respiratory Distress Cardiovascular: Regular Rate, Rhythm, Normal Peripheral Pulses Gastrointestinal: Normal Bowel Sounds, Non Tender, Soft Extremity: Normal Capillary Refill, Normal Inspection Neurologic/Psychiatric: Alert, Oriented x3, No Motor/Sensory Deficits Skin: Normal Color, Warm/Dry Progress/Results/Core Measures Suspected Sepsis SIRS Temperature: Pulse: Respiratory Rate: Laboratory Tests 07/06/17 10:25: White Blood Count 13.8H Blood Pressure / Mean: Laboratory Tests 07/06/17 10:25: Creatinine 1.09, Platelet Count 328, Total Bilirubin 1.8H Results/Orders Lab Results Laboratory Tests Test 07/06/17 10:25 4/18/18 10:26 Range/Units White Blood Count 13.8 H 4.3-11.0 10^3/uL Red Blood Count 4.55 4.35-5.85 10^6/uL Hemoglobin 14.8 13.3-17.7 G/DL Hematocrit 42 40-54 % Mean Corpuscular Volume 91 80-99 FL Mean Corpuscular Hemoglobin 33 25-34 PG Mean Corpuscular Hemoglobin Concent 36 32-36 G/DL Red Cell Distribution Width 13.3 10.0-14.5 % Platelet Count 328 130-400 10^3/uL Mean Platelet Volume 10.3 7.4-10.4 FL Neutrophils (%) (Auto) 82 H 42-75 % Lymphocytes (%) (Auto) 10 L 12-44 % Monocytes (%) (Auto) 7 0-12 % Eosinophils (%) (Auto) 1 0-10 % Basophils (%) (Auto) 1 0-10 % Neutrophils # (Auto) 11.3 H 1.8-7.8 X 10^3 Lymphocytes # (Auto) 1.4 1.0-4.0 X 10^3 Monocytes # (Auto) 0.9 0.0-1.0 X 10^3 Eosinophils # (Auto) 0.1 0.0-0.3 10^3/uL Basophils # (Auto) 0.1 0.0-0.1 10^3/uL Sodium Level 141 135-145 MMOL/L Potassium Level 4.4 3.6-5.0 MMOL/L Chloride Level 105 98-107 MMOL/L Carbon Dioxide Level 27 21-32 MMOL/L Anion Gap 9 5-14 MMOL/L Blood Urea Nitrogen 15 7-18 MG/DL Creatinine 1.09 0.60-1.30 MG/DL Estimat Glomerular Filtration Rate > 60 BUN/Creatinine Ratio 14 Glucose Level 115 H 70-105 MG/DL Calcium Level 9.7 8.5-10.1 MG/DL Total Bilirubin 1.8 H 0.1-1.0 MG/DL Aspartate Amino Transf (AST/SGOT) 27 5-34 U/L Alanine Aminotransferase (ALT/SGPT) 26 0-55 U/L Alkaline Phosphatase 67 40-136 U/L Total Protein 7.4 6.4-8.2 GM/DL Albumin 4.5 3.2-4.5 GM/DL Glucometer 100 70-110 MG/DL My Orders Orders - WEN VILLASEÑOR TRIMMER MEAT Cbc With Automated Diff (07/06/17 10:39) Comprehensive Metabolic Panel (07/06/17 10:39) Ua Culture If Indicated (07/06/17 10:39) Saline Lock/Iv-Start (07/06/17 10:39) Ondansetron Injection (Zofran Injectio (07/06/17 10:45) Ns Iv 1000 Ml (Sodium Chloride 0.9%) (07/06/17 10:45) Ketorolac Injection (Toradol Injection) (07/06/17 10:45) Diphenhydramine Injection (Benadryl Inje (07/06/17 10:45) Medications Given in ED Current Medications Medications Dose Ordered Sig/Kristi Route Start Time Stop Time Status Last Admin Dose Admin Diphenhydramine HCl 25 mg ONCE ONCE IVP 07/06/17 10:45 07/06/17 10:46 DC 07/06/17 11:19 25 MG Ketorolac Tromethamine 15 mg ONCE ONCE IVP 07/06/17 10:45 07/06/17 10:46 DC 07/06/17 11:18 15 MG Ondansetron HCl 4 mg ONCE ONCE IVP 07/06/17 10:45 07/06/17 10:46 DC 07/06/17 11:18 4 MG Vital Signs/I&O 07/06/17 10:20 Temp 98.3 Pulse 80 Resp 18 B/P (MAP) 138/96 (110) Pulse Ox 98 Capillary Refill : Departure Communication (Admissions) 1200- his headache is now resolved Impression Primary Impression: Headache Additional Impression: Nausea & vomiting Disposition: 01 HOME, SELF-CARE Condition: Stable (Her IV still in) Departure-Patient Inst. Decision time for Depature: 10:59 Referrals: NO,LOCAL PHYSICIAN (PCP) Primary Care Physician Patient Instructions: HEADACHE Add. Discharge Instructions: All discharge instructions reviewed with patient and/or family. Voiced understanding. WEN VILLASEÑOR APRN Jul 06, 2017 10:50
[2017-07-06 10:57] LABS: ALANINE AMINOTRANSFERASE 26 U/L (0-55); ALBUMIN 4.5 GM/DL (3.2-4.5); ALKALINE PHOSPHATASE 67 U/L (40-136); BILIRUBIN,TOTAL 1.8 MG/DL (0.1-1.0); BUN/CREATININE RATIO 14; CALCIUM 9.7 MG/DL (8.5-10.1); CARBON DIOXIDE 27 MMOL/L (21-32); CHLORIDE 105 MMOL/L (98-107); CREATININE SERUM 1.09 MG/DL (0.60-1.30); GFR ESTIMATED > 60; GLUCOSE 115 MG/DL (70-105); POTASSIUM 4.4 MMOL/L (3.6-5.0); SODIUM 141 MMOL/L (135-145); TOTAL PROTEIN 7.4 GM/DL (6.4-8.2)
[2017-07-06 12:10] VITALS: BP 146/101
== END 2017-07-06 12:12 | disposition home or self-care (01) ==
LOC: EDUNIT# 10:18 → ER 10:19
DX: R51 Headache (principal); R11.2 Nausea with vomiting, unspecified
CPT/HCPCS: 36415; 80053; 82962; 85025; 96361; 96374; 96375

== ENCOUNTER 2017-11-01 14:13 | Emergency (ER) | payer MEDICARE, MEDICAID ==
[~2017-11-01] VITALS: Ht 170.2 cm; Wt 68.0 kg
--- OUTSIDE RECORDS SUMMARY | 2017-11-01 14:18 | XMS REPORT | Referral Summary ---
Author Author [facility] Organization [facility] Address Unknown Phone Unavailable Care Team Providers Care Sandstone Splitter Name Role Phone No PCP, Pt States PCP Encounter [facility] Date(s): 09/26/16 - 09/26/16 [facility] [address] [place] [address] Discharge Diagnosis: Increased blood glucose Discharge Disposition: 01-Home or Self Care Attending Physician: Molina Esposito MD Admitting Physician: Molina Esposito MD Vital Signs Most recent to 1 oldest [Reference Range]: Temperature Oral 36.1 degC [35.8-37.3 degC] (09/26/16 2:10 PM) Peripheral Pulse 84 bpm Rate [60-100 bpm] (09/26/16 2:10 PM) Heart Rate Monitored 73 bpm [60-100 bpm] (09/26/16 4:15 PM) Respiratory Rate 35 br/min [14-20 br/min] *HI* (09/26/16 4:15 PM) Blood Pressure 118/88 mmHg [90-140/60-90 mmHg] (09/26/16 4:15 PM) Mean Arterial 98 mmHg Pressure, Cuff (09/26/16 4:15 PM) SpO2 100 % (09/26/16 4:15 PM) Problem List Condition Effective Dates Status Health Status Informant Chronic back Active pain(Confirmed) Diabetes(Confirmed) Active patient Hyperthyroidism(Conf Active patient irmed) Allergies, Adverse Reactions, Alerts No Known Allergies Medications cyclobenzaprine 10 mg oral tablet 10 mg 1 tabs, Oral, TID, as needed for spasm, # 21 tabs, 0 Refill(s), Pharmacy: [facility], 1 tabs Oral TID,PRN:as needed for spasm Start Date: 06/07/16 Status: Ordered HumaLOG SubCutaneous, 0 Refill(s) Start Date: 06/03/16 Status: Ordered HYDROcodone-ibuprofen 7.5 mg-200 mg oral tablet 1 tabs, Oral, q4hr, as needed for pain, 0 Refill(s) Start Date: 06/03/16 Status: Ordered levothyroxine Daily, 0 Refill(s) Start Date: 06/03/16 Status: Ordered naproxen 500 mg oral tablet 500 mg 1 tabs, Oral, BID, # 30 tabs, 0 Refill(s), Pharmacy: [facility], 1 tabs Oral BID Start Date: 06/07/16 Status: Ordered Toujeo SoloStar 300 units/mL subcutaneous solution SubCutaneous, Daily, 0 Refill(s) Start Date: 06/03/16 Status: Ordered Results Chemistry Most recent to 1 oldest [Reference Range]: Sodium Lvl [136-144 132 mEq/L mEq/L] *LOW* (09/26/16 2:31 PM) Potassium Lvl 5.1 mEq/L [3.6-5.1 mEq/L] (09/26/16 2:31 PM) Chloride [99-109 98 mEq/L mEq/L] *LOW* (09/26/16 2:31 PM) CO2 [22-32 mEq/L] 28 mEq/L (09/26/16 2:31 PM) AGAP [3-20 mEq/L] 6 mEq/L (09/26/16 2:31 PM) BUN [4-20 mg/dL] 11 mg/dL (09/26/16 2:31 PM) Glucose Lvl [70-100 525 mg/dL mg/dL] *HI* (09/26/16 2:31 PM) Creatinine Lvl 0.98 mg/dL [0.64-1.27 mg/dL] (09/26/16 2:31 PM) eGFR [>60 mL/min] >60 mL/min 1 (09/26/16 2:31 PM) Calcium Lvl 8.8 mg/dL [8.6-10.0 mg/dL] (09/26/16 2:31 PM) Blood Glucose, 286 mg/dL Capillary [70-100 *HI* mg/dL] (09/26/16 4:23 PM) 1Result Comment: Multiply eGFR results by 1.21 for race. Immunizations No data available for this section Procedures No data available for this section Social History Social History Type Response Smoking Status Current every day smoker; Tobacco use per day: 1/2 pack or more Assessment and Plan No data available for this section
--- OUTSIDE RECORDS SUMMARY | 2017-11-01 14:26 | XMS REPORT | Clinical Summary ---
Author Author Admin, ROQUE Apodaca [facility] Address Unknown Phone Allergies, Adverse Reactions, Alerts Allergy Name Reaction Description Start Date Severity Status Provider No Known Allergies Odilia Sen LPN NKDA Critical Active Maliheh Ziglari SHEET METAL ROOFER Conditions or Problems Problem Name Problem Code Onset Date Status Entry Date Provider Comment Standard Description Annotate DIABETES, TYPE 1 250.01 Resolved Maliheh Ziglari SHEET METAL ROOFER Diabetes mellitus without mention of complication, type I [juvenile type], not stated as uncontrolled FH DIABETES V18.0 Resolved Maliheh Ziglari SHEET METAL ROOFER Family history of diabetes mellitus DIABETES MELLITUS, TYPE I, UNCONTROLLED 250.03 Active Maliheh Ziglari SHEET METAL ROOFER Diabetes mellitus without mention of complication, type I [juvenile type], uncontrolled DIABETIC HYPOGLYCEMIA, TYPE I, UNCONTROLLED 250.83 Active 04/07 Maliheh Ziglari SHEET METAL ROOFER Diabetes mellitus with other specified manifestations, type I [juvenile type], uncontrolled AUTONOMIC NEUROPATHY, DIABETIC 250.60 Active Maliheh Ziglari SHEET METAL ROOFER Diabetes mellitus with neurological manifestations, type II or unspecified type, not stated as uncontrolled DIABETES, TYPE 1 ICD-250.01 Inactive Maliheh Ziglari SHEET METAL ROOFER FH DIABETES ICD-V18.0 Inactive Maliheh Ziglari SHEET METAL ROOFER Medication List Medication Instructions Start Date Stop Date Generic Name [facility] Status Provider Patient Instruction LEVOTHYROXINE SODIUM 150 MCG TABS Take 1 tab daily LEVOTHYROXINE SODIUM 60098347797 Active Etta Hackett LPN Active LEVEMIR FLEXPEN 100 UNIT/ML SOLN 12 u sq every hs INSULIN DETEMIR 75238140271 Active Maliheh Ziglari SHEET METAL ROOFER Active EQL ONE DAILY MENS TABS Take one by mouth daily MULTIPLE VITAMINS-MINERALS 86773027175 Active Maliheh Ziglari SHEET METAL ROOFER Active HUMALOG KWIKPEN 100 UNIT/ML SOLN Take 10u with each meal, plus 1u for 201-200 , 2u for 251-300, 3u for 301-400, 4u for 356-731 3136/09/09 INSULIN LISPRO (HUMAN) 33978869112 Active Maliheh Ziglari SHEET METAL ROOFER Active BD PEN NEEDLE SHORT U/F 31G X 8 MM MISC 4 a day INSULIN PEN NEEDLE 41515320419 Active Maliheh Ziglari SHEET METAL ROOFER Active NOVOLOG FLEXPEN 100 UNIT/ML SOLN take 10u with each meal, plus sliding scale 1u for 201-250, 2u for 251-300, 3u for 301-400, 4u for 401-500. INSULIN ASPART 53438021221 No Longer Active Maliheh Ziglari SHEET METAL ROOFER Active NOVOLOG 100 UNIT/ML SOLN 10u per meal, add 1u/50 for blood sugars above 200 INSULIN ASPART 95091529517 No Longer Active Maliheh Ziglari SHEET METAL ROOFER Active FREESTYLE LITE TEST STRP check blood sugars 4x/day GLUCOSE BLOOD 08954406229 Active Maliheh Ziglari SHEET METAL ROOFER Active TOPAMAX 25 MG TABS as directed for migraine headaches TOPIRAMATE 38253458414 Active Maliheh Ziglari SHEET METAL ROOFER Active LEVOTHROID 137 MCG TABS Take one by mouth daily LEVOTHYROXINE SODIUM 38082610952 No Longer Active Maliheh Ziglari SHEET METAL ROOFER Active LANTUS 100 UNIT/ML SOLN 20u every evening INSULIN GLARGINE 92701309260 No Longer Active Maliheh Ziglari SHEET METAL ROOFER Active INSULIN SYRINGE 30G X 5/16" 0.3 ML MISC 4 every day INSULIN SYRINGE-NEEDLE U-100 13701610550 Active Maliheh Ziglari SHEET METAL ROOFER Active KETOSTIX STRP check ketones if blood sugar above 250 ACETONE ( URINE) TEST 36818797624 Active Maliheh Ziglari SHEET METAL ROOFER Active GLUCAGEN HYPOKIT 1 MG SOLR IM injection for low blood sugar if unable to eat or drink GLUCAGON HCL (RDNA) 99811044649 Active Maliheh Ziglari SHEET METAL ROOFER Active BACTRIM DS 800-160 MG TABS by mouth twice a day SULFAMETHOXAZOLE-TRIMETHOPRIM 79290617915 No Longer Active Maliheh Ziglari SHEET METAL ROOFER Active NOVOLOG 100 UNIT/ML SOLN 5u with meals INSULIN ASPART 47741099236 No Longer Active Maliheh Ziglari SHEET METAL ROOFER Active FREESTYLE LITE TEST STRP check blood sugars 6x/day, before and 2 hours after each meal GLUCOSE BLOOD 87338041892 Active Maliheh Ziglari SHEET METAL ROOFER Active NOVOLOG 100 UNIT/ML SOLN 5u with meals NOVOLOG 100 UNIT/ML SOLN INSULIN ASPART Inactive BACTRIM DS 800-160 MG TABS by mouth twice a day BACTRIM DS 800-160 MG TABS SULFAMETHOXAZOLE-TRIMETHOPRIM Inactive LANTUS 100 UNIT/ML SOLN 20u every evening LANTUS 100 UNIT/ML SOLN INSULIN GLARGINE Inactive LEVOTHROID 137 MCG TABS Take one by mouth daily LEVOTHROID 137 MCG TABS LEVOTHYROXINE SODIUM Inactive NOVOLOG 100 UNIT/ML SOLN 10u per meal, add 1u/50 for blood sugars above 200 NOVOLOG 100 UNIT/ML SOLN INSULIN ASPART Inactive Advance Directives Directive Description Start Date PERMISSION TO SHARE Immunizations Vaccine Administration Date Value Standard Description influenza immunization (Flu Vax) has been administered 12/19/2012 influenza virus vaccine, unspecified formulation influenza immunization (Flu Vax) has been administered 01/19/2011 influenza virus vaccine, unspecified formulation pneumococcal immunization administered 01/19/2011 pneumococcal polysaccharide vaccine, 23 valent Vital Signs Date Name Value Unit Range Description blood pressure, diastolic 70 mm[Hg] BP mccall blood pressure, systolic 130 mm[Hg] BP sys height E&M 67 [in_us] Bdy height pulse rate E&M 72 /min Heart rate weight E&M 152 [lb_av] Weight Measured blood pressure, diastolic 70 mm[Hg] BP mccall blood pressure, systolic 148 mm[Hg] BP sys height E&M 67 [in_us] Bdy height pulse rate E&M 80 /min Heart rate weight E&M 152 [lb_av] Weight Measured blood pressure, diastolic 70 mm[Hg] BP mccall blood pressure, systolic 118 mm[Hg] BP sys height E&M 67 [in_us] Bdy height pulse rate E&M 96 /min Heart rate weight E&M 150 [lb_av] Weight Measured Diagnostic Results Date Name Value Unit Range Description Lab Report: HGBA1C, MICROALBUMIN, UADIP W/MICRO, AUTO - Chemistry albumin/creatinine ratio, urine < 30 mg/g mg/g{creat} 0-29 RBC, urine, dipstick Negative Negative protein, total urine random Negative mg/dL Negative hemoglobin A1C, blood, as % of total hemoglobin 8.5 % 4.3-6.0 Lab Report: HGBA1C, MICROALBUMIN, UADIP W/MICRO, AUTO - Lab microalbumin, urine 10 0-19 Lab Report: HGBA1C, MICROALBUMIN, UADIP W/MICRO, AUTO - Urinalysis glucose, urine, semiquantitative 3+ Negative ketones, urine, by test strip Negative Negative bilirubin, urine Negative Negative urobilinogen, urine, semiquantitative (dipstick) 0.2 Normal leukocyte esterase, urine, by dipstick Negative Negative nitrite, urine, semiquantitative Negative Negative urate crystals, amorphous, urine, semiquantitative Moderate None seen urine color Yellow Colorless;Lightyellow;Straw;Yellow appearance, urine Clear Clear specific gravity, urine 1.020 1.000-1.030 pH, urine, semiquantitative 7.5 5.0-8.5 Office Visit: Diabetes Visit - Chemistry cholesterol, target level 200 mg/dL triglyceride, target level 200 mg/dL HDL cholesterol, serum, target level 35 mg/dL LDL target level 100 mg/dL cholesterol, target level 200 mg/dL triglyceride, target level 200 mg/dL HDL cholesterol, serum, target level 35 mg/dL LDL target level 100 mg/dL cholesterol, target level 200 mg/dL triglyceride, target level 200 mg/dL HDL cholesterol, serum, target level 35 mg/dL LDL target level 100 mg/dL Encounters Code Encounter Date Provider Facility CPT-76547 Level 5 Est. Patient 16:52:25 CDT [facility] [place] CPT-46974 Level 4 Est. Patient 09:29:06 CDT [facility] CPT-61295 Level 4 Est. Patient 14:20:48 CDT [facility] CPT-76404 Level 3 Est. 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 Patient 18:00:37 JOURNEYMAN POWERHOUSE OPERATOR [facility] [place] CPT-16380 Level 5 Est. Patient 15:34:41 JOURNEYMAN POWERHOUSE OPERATOR [facility] [place] CPT-90738 Level 4 Est. Patient 12:03:48 JOURNEYMAN POWERHOUSE OPERATOR [facility]
--- OUTSIDE RECORDS SUMMARY | 2017-11-01 14:27 | XMS REPORT | Clinical Summary ---
Author Author Admin, ROQUE Apodaca [facility] Address Unknown Phone Unavailable Allergies, Adverse Reactions, Alerts Allergy Name Reaction Description Start Date Severity Status Provider No Known Allergies Odilia Sen LPN NKDA Critical Active Maliheh Ziglari [employer]ENCH COMBER Conditions or Problems Problem Name Problem Code Onset Date Status Entry Date Provider Comment Standard Description Annotate DIABETES, TYPE 1 250.01 Resolved Maliheh Ziglari [employer]ENCH COMBER Diabetes mellitus without mention of complication, type I [juvenile type], not stated as uncontrolled FH DIABETES V18.0 Resolved Maliheh Ziglari [employer]ENCH COMBER Family history of diabetes mellitus DIABETES MELLITUS, TYPE I, UNCONTROLLED 250.03 Active Maliheh Ziglari [employer]EN[employer] COMBER Diabetes mellitus without mention of complication, type I [juvenile type], uncontrolled DIABETIC HYPOGLYCEMIA, TYPE I, UNCONTROLLED 250.83 Active 04/07 Maliheh Ziglari FRENCH COMBER Diabetes mellitus with other specified manifestations, type I [juvenile type], uncontrolled AUTONOMIC NEUROPATHY, DIABETIC 250.60 Active Maliheh Ziglari FRENCH COMBER Diabetes mellitus with neurological manifestations, type II or unspecified type, not stated as uncontrolled DIABETES, TYPE 1 ICD-250.01 Inactive Maliheh Ziglari FRENCH COMBER FH DIABETES ICD-V18.0 Inactive Maliheh Ziglari FRENCH COMBER Medication List Medication Instructions Start Date Stop Date Generic Name [facility] Status Provider Patient Instruction DoculogyTOUCH ULTRA 2 W/DEVICE KIT check blood sugars 4x/day BLOOD GLUCOSE MONITORING SUPPL 80962845547 Active Maliheh Ziglari FRENCH COMBER Active DoculogyTOUCH ULTRA BLUE STRP check blood sugars 4x/day GLUCOSE BLOOD 68779095505 Active Maliheh Ziglari FRENCH COMBER Active FREESTYLE LITE TEST STRP check blood sugars 4x/day GLUCOSE BLOOD 16849290078 No Longer Active Maliheh Ziglari FRENCH COMBER Active LEVOTHYROXINE SODIUM 150 MCG TABS Take 1 tab daily LEVOTHYROXINE SODIUM 55453639584 Active Etta Roldan Jaida PROFESSOR OF SPECIAL EDUCATION Active LEVEMIR FLEXPEN 100 UNIT/ML SOLN 12 u sq every hs INSULIN DETEMIR 69707011915 Active Maliheh Ziglari FRENCH COMBER Active EQL ONE DAILY MENS TABS Take one by mouth daily MULTIPLE VITAMINS-MINERALS 45836591371 Active Maliheh Ziglari FRENCH COMBER Active HUMALOG KWIKPEN 100 UNIT/ML SOLN Take 10u with each meal, plus 1u for 201-200 , 2u for 251-300, 3u for 301-400, 4u for 744-152 9538/09/09 INSULIN LISPRO (HUMAN) 10283857218 Active Mattyiheh Ziglari FRENCH COMBER Active BD PEN NEEDLE SHORT U/F 31G X 8 MM MISC 4 a day INSULIN PEN NEEDLE 84833075064 Active Maliheh Ziglari FRENCH COMBER Active NOVOLOG FLEXPEN 100 UNIT/ML SOLN take 10u with each meal, plus sliding scale 1u for 201-250, 2u for 251-300, 3u for 301-400, 4u for 401-500. INSULIN ASPART 58020613772 No Longer Active Maliheh Ziglari FRENCH COMBER Active NOVOLOG 100 UNIT/ML SOLN 10u per meal, add 1u/50 for blood sugars above 200 INSULIN ASPART 43121331122 No Longer Active Maliheh Ziglari FRENCH COMBER Active TOPAMAX 25 MG TABS as directed for migraine headaches TOPIRAMATE 38234285717 Active Maliheh Ziglari FRENCH COMBER Active LEVOTHROID 137 MCG TABS Take one by mouth daily LEVOTHYROXINE SODIUM 22889005496 No Longer Active Maliheh Ziglari FRENCH COMBER Active LANTUS 100 UNIT/ML SOLN 20u every evening INSULIN GLARGINE 86825494737 No Longer Active Maliheh Ziglari FRENCH COMBER Active INSULIN SYRINGE 30G X 08/03" 0.3 ML MISC 4 every day INSULIN SYRINGE-NEEDLE U-100 55932648680 Active Maliheh Ziglari FRENCH COMBER Active KETOSTIX STRP check ketones if blood sugar above 250 ACETONE ( URINE) TEST 45688153619 Active Maliheh Ziglari FRENCH COMBER Active GLUCAGEN HYPOKIT 1 MG SOLR IM injection for low blood sugar if unable to eat or drink GLUCAGON HCL (RDNA) 29193734341 Active Maliheh Ziglari FRENCH COMBER Active BACTRIM DS 800-160 MG TABS by mouth twice a day SULFAMETHOXAZOLE-TRIMETHOPRIM 69985106945 No Longer Active Maliheh Ziglari FRENCH COMBER Active NOVOLOG 100 UNIT/ML SOLN 5u with meals INSULIN ASPART 84188510812 No Longer Active Maliheh Ziglari FRENCH COMBER Active FREESTYLE LITE TEST STRP check blood sugars 6x/day, before and 2 hours after each meal GLUCOSE BLOOD 59790227611 Active Maliheh Ziglari FRENCH COMBER Active NOVOLOG 100 UNIT/ML SOLN 5u with [...] NOVOLOG 100 UNIT/ML SOLN INSULIN ASPART Inactive FREESTYLE LITE TEST STRP check blood sugars 4x/day FREESTYLE LITE TEST STRP GLUCOSE BLOOD Inactive Advance Directives Directive Description Start Date PERMISSION TO SHARE Immunizations Vaccine Administration Date Value Standard Description influenza immunization (Flu Vax) has been administered 12/31/2013 influenza virus vaccine, unspecified formulation influenza immunization (Flu Vax) has been administered 12/19/2012 influenza virus vaccine, unspecified formulation influenza immunization (Flu Vax) has been administered 01/19/2011 influenza virus vaccine, unspecified formulation pneumococcal immunization administered 01/19/2011 pneumococcal polysaccharide vaccine, 23 valent Vital Signs Date Name Value Unit Range Description blood pressure, diastolic 70 mm[Hg] BP mccall blood pressure, systolic 118 mm[Hg] BP sys pulse rate E&M 72 /min Heart rate weight E&M 147 [lb_av] Weight Measured Diagnostic Results Date Name Value Unit Range Description Lab Report: Basic Metabolic Panel, HGBA1C, UADIP W/MICRO, AUTO, MICROALB ... - Chemistry sodium, serum 141 mmol/L 442-528 6149/10/20 potassium, serum 4.7 mmol/L 3.5-5.2 chloride, serum 104 mmol/L 98-107 carbon dioxide, venous blood 27.0 mmol/L 21.0-32.0 blood glucose 180 mg/dL 65-110 calcium, serum 9.2 mg/dL 8.5-10.1 urea nitrogen, blood 17 mg/dL 7-18 creatinine, serum 1.00 mg/dL 0.60-1.30 hemoglobin A1C, blood, as % of total hemoglobin 8.8 % 4.3-6.0 protein, total urine random Negative mg/dL Negative RBC, urine, dipstick Negative Negative albumin/creatinine ratio, urine < 30 mg/g mg/g{creat} 0-29 Lab Report: Basic Metabolic Panel, HGBA1C, UADIP W/MICRO, AUTO, MICROALB ... - Lab microalbumin, urine 10 0-19 Lab Report: Basic Metabolic Panel, HGBA1C, UADIP W/MICRO, AUTO, MICROALB ... - Urinalysis urobilinogen, urine, semiquantitative (dipstick) 0.2 Normal leukocyte esterase, urine, by dipstick Negative Negative nitrite, urine, semiquantitative Negative Negative glucose, urine, semiquantitative 1+ Negative ketones, urine, by test strip Negative Negative bilirubin, urine Negative Negative urine color Yellow Colorless;Lightyellow;Straw;Yellow appearance, urine Clear Clear specific gravity, urine 1.020 1.000-1.030 pH, urine, semiquantitative 7.5 5.0-8.5 Office Visit: Diabetes Visit - Chemistry cholesterol, target level 200 mg/dL triglyceride, target level 200 mg/dL HDL cholesterol, serum, target level 35 mg/dL LDL target level 100 mg/dL Encounters Code Encounter Date Provider Facility CPT-50290 Level 4 Est. Patient 11:23:43 [place] [facility] [place]13 Level 5 Est. Patient 16:52:25 CD[place] [facility] [place]PT-63948 Level 4 Est. Patient 09:29:06 CD[place] [facility] [place]PT-02943 Level 4 Est. Patient 14:20:48 CD[place] [facility] [place]PT-86308 Level 3 Est. Patient 16:43:41 DIRECTOR QUALITY SYSTEMS [facility] [place]PT-64358 Level 5 Est. Patient 18:00:37 DIRECTOR QUALITY SYSTEMS [facility] [place]PT-75349 Level 5 Est. Patient 15:34:41 DIRECTOR QUALITY SYSTEMS Maliheh Ziglari [facility] CPT-10156 Level 4 Est. Patient 12:03:48 DIRECTOR QUALITY SYSTEMS [facility]
--- OUTSIDE RECORDS SUMMARY | 2017-11-01 14:27 | XMS REPORT | Clinical Summary ---
Author Author Admin, ROQUE Apodaca [facility] Address Unknown Phone Unavailable Allergies, Adverse Reactions, Alerts Allergy Name Reaction Description Start Date Severity Status Provider No Known Allergies Odilia Sen LPN NKDA Critical Active Maliheh Ziglari DRAWING BOX TENDER Conditions or Problems Problem Name Problem Code Onset Date Status Entry Date Provider Comment Standard Description Annotate DIABETES, TYPE 1 250.01 Resolved Maliheh Ziglari DRAWING BOX TENDER Diabetes mellitus without mention of complication, type I [juvenile type], not stated as uncontrolled FH DIABETES V18.0 Resolved Maliheh Ziglari DRAWING BOX TENDER Family history of diabetes mellitus DIABETES MELLITUS, TYPE I, UNCONTROLLED 250.03 Active Maliheh Ziglari DRAWING BOX TENDER Diabetes mellitus without mention of complication, type I [juvenile type], uncontrolled DIABETIC HYPOGLYCEMIA, TYPE I, UNCONTROLLED 250.83 Active 04/07 Maliheh Ziglari DRAWING BOX TENDER Diabetes mellitus with other specified manifestations, type I [juvenile type], uncontrolled AUTONOMIC NEUROPATHY, DIABETIC 250.60 Active Maliheh Ziglari DRAWING BOX TENDER Diabetes mellitus with neurological manifestations, type II or unspecified type, not stated as uncontrolled DIABETES, TYPE 1 ICD-250.01 Inactive Maliheh Ziglari DRAWING BOX TENDER FH DIABETES ICD-V18.0 Inactive Maliheh Ziglari DRAWING BOX TENDER Medication List Medication Instructions Start Date Stop Date Generic Name [facility] Status Provider Patient Instruction [employer] SystemsT[employer]CH ULTRA 2 W/DEVICE KIT check blood sugars 4x/day BLOOD GLUCOSE MONITORING SUPPL 15539775373 Active Maliheh Ziglari DRAWING BOX TENDER Active [employer] SystemsTOUCH ULTRA BLUE STRP check blood sugars 4x/day GLUCOSE BLOOD 18536423892 Active Maliheh Ziglari DRAWING BOX TENDER Active FREESTYLE LITE TEST STRP check blood sugars 4x/day GLUCOSE BLOOD 61546743019 No Longer Active Maliheh Ziglari DRAWING BOX TENDER Active LEVOTHYROXINE SODIUM 150 MCG TABS Take 1 tab daily LEVOTHYROXINE SODIUM 88298566625 Active Etta Roldan Jaida PICK AND SHOVEL MAN Active LEVEMIR FLEXPEN 100 UNIT/ML SOLN 12 u sq every hs INSULIN DETEMIR 00306695812 Active Maliheh Ziglari DRAWING BOX TENDER Active EQL ONE DAILY MENS TABS Take one by mouth daily MULTIPLE VITAMINS-MINERALS 21828489620 Active Maliheh Ziglari DRAWING BOX TENDER Active HUMALOG KWIKPEN 100 UNIT/ML SOLN Take 10u with each meal, plus 1u for 201-200 , 2u for 251-300, 3u for 301-400, 4u for 444-719 4236/09/09 INSULIN LISPRO (HUMAN) 94922448251 Active Mattyiheh Ziglari DRAWING BOX TENDER Active BD PEN NEEDLE SHORT U/F 31G X 8 MM MISC 4 a day INSULIN PEN NEEDLE 68585908522 Active Maliheh Ziglari DRAWING BOX TENDER Active NOVOLOG FLEXPEN 100 UNIT/ML SOLN take 10u with each meal, plus sliding scale 1u for 201-250, 2u for 251-300, 3u for 301-400, 4u for 401-500. INSULIN ASPART 28802098379 No Longer Active Maliheh Ziglari DRAWING BOX TENDER Active NOVOLOG 100 UNIT/ML SOLN 10u per meal, add 1u/50 for blood sugars above 200 INSULIN ASPART 05679486496 No Longer Active Maliheh Ziglari DRAWING BOX TENDER Active TOPAMAX 25 MG TABS as directed for migraine headaches TOPIRAMATE 52665831327 Active Maliheh Ziglari DRAWING BOX TENDER Active LEVOTHROID 137 MCG TABS Take one by mouth daily LEVOTHYROXINE SODIUM 03223558893 No Longer Active Maliheh Ziglari DRAWING BOX TENDER Active LANTUS 100 UNIT/ML SOLN 20u every evening INSULIN GLARGINE 45041431711 No Longer Active Maliheh Ziglari DRAWING BOX TENDER Active INSULIN SYRINGE 30G X 08/03" 0.3 ML MISC 4 every day INSULIN SYRINGE-NEEDLE U-100 16735729400 Active Maliheh Ziglari DRAWING BOX TENDER Active KETOSTIX STRP check ketones if blood sugar above 250 ACETONE ( URINE) TEST 54732383835 Active Maliheh Ziglari DRAWING BOX TENDER Active GLUCAGEN HYPOKIT 1 MG SOLR IM injection for low blood sugar if unable to eat or drink GLUCAGON HCL (RDNA) 77735290916 Active Maliheh Ziglari DRAWING BOX TENDER Active BACTRIM DS 800-160 MG TABS by mouth twice a day SULFAMETHOXAZOLE-TRIMETHOPRIM 52263769328 No Longer Active Maliheh Ziglari DRAWING BOX TENDER Active NOVOLOG 100 UNIT/ML SOLN 5u with meals INSULIN ASPART 22940267576 No Longer Active Maliheh Ziglari DRAWING BOX TENDER Active FREESTYLE LITE TEST STRP check blood sugars 6x/day, before and 2 hours after each meal GLUCOSE BLOOD 70836845986 Active Maliheh Ziglari DRAWING BOX TENDER Active NOVOLOG 100 UNIT/ML SOLN 5u with [...] administered 01/19/2011 pneumococcal polysaccharide vaccine, 23 valent Diagnostic Results Date Name Value Unit Range Description Lab Report: Basic Metabolic Panel, HGBA1C, UADIP W/MICRO, AUTO, MICROALB ... - Chemistry sodium, serum 141 mmol/L 236-376 1747/10/20 potassium, serum 4.7 mmol/L 3.5-5.2 chloride, serum [...] 1.020 1.000-1.030 pH, urine, semiquantitative 7.5 5.0-8.5 Encounters Code Encounter Date Provider Facility CPT-52569 Level 4 Est. Patient 11:23:43 CDT [facility] [place] CPT-29836 Level 5 Est. Patient 16:52:25 CDT [facility] [place] CPT-35869 Level 4 Est. Patient 09:29:06 CDT [facility] [place] CPT-98888 Level 4 Est. Patient 14:20:48 CDT [facility] [place] CPT-28297 Level 3 Est. 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 Patient 18:00:37 DEPARTURE CLERK [facility] [place] CPT-71570 Level 5 Est. Patient 15:34:41 DEPARTURE CLERK [facility] [place] CPT-68281 Level 4 Est. Patient 12:03:48 DEPARTURE CLERK [facility] [place]
--- OUTSIDE RECORDS SUMMARY | 2017-11-01 14:27 | XMS REPORT | Clinical Summary ---
Author Author Admin, ROQUE Apodaca [facility] Address Unknown Phone Unavailable Allergies, Adverse Reactions, Alerts Allergy Name Reaction Description Start Date Severity Status Provider No Known Allergies Odilia Sen LPN NKDA Critical Active Maliheh Ziglari ANODISER Conditions or Problems Problem Name Problem Code Onset Date Status Entry Date Provider Comment Standard Description Annotate DIABETES, TYPE 1 250.01 Resolved Maliheh Ziglari ANODISER Diabetes mellitus without mention of complication, type I [juvenile type], not stated as uncontrolled FH DIABETES V18.0 Resolved Maliheh Ziglari ANODISER Family history of diabetes mellitus DIABETES MELLITUS, TYPE I, UNCONTROLLED 250.03 Active Maliheh Ziglari ANODISER Diabetes mellitus without mention of complication, type I [juvenile type], uncontrolled DIABETIC HYPOGLYCEMIA, TYPE I, UNCONTROLLED 250.83 Active 04/07 Maliheh Ziglari ANODISER Diabetes mellitus with other specified manifestations, type I [juvenile type], uncontrolled AUTONOMIC NEUROPATHY, DIABETIC 250.60 Active Maliheh Ziglari ANODISER Diabetes mellitus with neurological manifestations, type II or unspecified type, not stated as uncontrolled DIABETES, TYPE 1 ICD-250.01 Inactive Maliheh Ziglari ANODISER FH DIABETES ICD-V18.0 Inactive Maliheh Ziglari ANODISER Medication List Medication Instructions Start Date Stop Date Generic Name [facility] Status Provider Patient Instruction [employer] CommunicationsTOUCH ULTRA 2 W/DEVICE KIT check blood sugars 4x/day BLOOD GLUCOSE MONITORING SUPPL 55234422463 Active Maliheh Ziglari ANODISER Active [employer] CommunicationsTOUCH ULTRA BLUE STRP check blood sugars 4x/day GLUCOSE BLOOD 60202942140 Active Maliheh Ziglari ANODISER Active FREESTYLE LITE TEST STRP check blood sugars 4x/day GLUCOSE BLOOD 78348849112 No Longer Active Maliheh Ziglari ANODISER Active LEVOTHYROXINE SODIUM 150 MCG TABS Take 1 tab daily LEVOTHYROXINE SODIUM 06969484920 Active Etta Roldan Jaida HOTEL GENERAL MANAGER Active LEVEMIR FLEXPEN 100 UNIT/ML SOLN 12 u sq every hs INSULIN DETEMIR 52630617704 Active Maliheh Ziglari ANODISER Active EQL ONE DAILY MENS TABS Take one by mouth daily MULTIPLE VITAMINS-MINERALS 92973418177 Active Maliheh Ziglari ANODISER Active HUMALOG KWIKPEN 100 UNIT/ML SOLN Take 10u with each meal, plus 1u for 201-200 , 2u for 251-300, 3u for 301-400, 4u for 685-599 5397/09/09 INSULIN LISPRO (HUMAN) 10753331346 Active Mattyiheh Ziglari ANODISER Active BD PEN NEEDLE SHORT U/F 31G X 8 MM MISC 4 a day INSULIN PEN NEEDLE 49531725323 Active Maliheh Ziglari ANODISER Active NOVOLOG FLEXPEN 100 UNIT/ML SOLN take 10u with each meal, plus sliding scale 1u for 201-250, 2u for 251-300, 3u for 301-400, 4u for 401-500. INSULIN ASPART 22810493927 No Longer Active Maliheh Ziglari ANODISER Active NOVOLOG 100 UNIT/ML SOLN 10u per meal, add 1u/50 for blood sugars above 200 INSULIN ASPART 61074728277 No Longer Active Maliheh Ziglari ANODISER Active TOPAMAX 25 MG TABS as directed for migraine headaches TOPIRAMATE 75470073730 Active Maliheh Ziglari ANODISER Active LEVOTHROID 137 MCG TABS Take one by mouth daily LEVOTHYROXINE SODIUM 28539993092 No Longer Active Maliheh Ziglari ANODISER Active LANTUS 100 UNIT/ML SOLN 20u every evening INSULIN GLARGINE 63515971460 No Longer Active Maliheh Ziglari ANODISER Active INSULIN SYRINGE 30G X 08/03" 0.3 ML MISC 4 every day INSULIN SYRINGE-NEEDLE U-100 72547601649 Active Maliheh Ziglari ANODISER Active KETOSTIX STRP check ketones if blood sugar above 250 ACETONE ( URINE) TEST 99996010862 Active Maliheh Ziglari ANODISER Active GLUCAGEN HYPOKIT 1 MG SOLR IM injection for low blood sugar if unable to eat or drink GLUCAGON HCL (RDNA) 28554105511 Active Maliheh Ziglari ANODISER Active BACTRIM DS 800-160 MG TABS by mouth twice a day SULFAMETHOXAZOLE-TRIMETHOPRIM 45341773657 No Longer Active Maliheh Ziglari ANODISER Active NOVOLOG 100 UNIT/ML SOLN 5u with meals INSULIN ASPART 81931115328 No Longer Active Maliheh Ziglari ANODISER Active FREESTYLE LITE TEST STRP check blood sugars 6x/day, before and 2 hours after each meal GLUCOSE BLOOD 10585021079 Active Maliheh Ziglari ANODISER Active NOVOLOG 100 UNIT/ML SOLN 5u with [...] Value Unit Range Description blood pressure, diastolic - 8462-4 70 mm[Hg] BP mccall blood pressure, systolic - 8480-6 118 mm[Hg] BP sys pulse rate E&M - 8867-4 72 /min Heart rate weight E&M - 3141-9 147 [lb_av] Weight Measured Diagnostic Results Date Name Value Unit Range Description Lab Report: Basic Metabolic Panel, HGBA1C, UADIP W/MICRO, AUTO, MICROALB ... - Chemistry sodium, serum 141 mmol/L 951-123 1110/10/20 potassium, serum 4.7 mmol/L 3.5-5.2 chloride, serum [...] mg/dL Encounters Code Encounter Date Provider Facility CPT-21370 Level 4 Est. Patient 11:23:43 CDT [facility] [place] CPT-72849 Level 5 Est. Patient 16:52:25 CDT [facility] [place] CPT-38629 Level 4 Est. Patient 09:29:06 CDT [facility] [place] CPT-15029 Level 4 Est. Patient 14:20:48 CDT [facility] [place] CPT-67993 Level 3 Est. 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 Patient 18:00:37 METER AND REGULATOR SHOP SUPERVISOR [facility] [place] CPT-66847 Level 5 Est. Patient 15:34:41 METER AND REGULATOR [employer] SUPER[employer] [facility] CPT-81313 Level 4 Est. Patient 12:03:48 METER AND REGULATOR SHOP SUPERVISOR [facility] [place]
--- OUTSIDE RECORDS SUMMARY | 2017-11-01 14:28 | XMS REPORT | Clinical Summary ---
Author Author Admin, ROQUE Apodaca [facility] Address Unknown Phone Unavailable Allergies, Adverse Reactions, Alerts Allergy Name Reaction Description Start Date Severity Status Provider No Known Allergies Odilia Sen LPN NKDA Critical Active Maliheh Ziglari SENIOR CREDIT OFFICER Conditions or Problems Problem Name Problem Code Onset Date Status Entry Date Provider Comment Standard Description Annotate DIABETES, TYPE 1 250.01 Resolved Maliheh Ziglari SENIOR CREDIT OFFICER Diabetes mellitus without mention of complication, type I [juvenile type], not stated as uncontrolled FH DIABETES V18.0 Resolved Maliheh Ziglari SENIOR CREDIT OFFICER Family history of diabetes mellitus DIABETES MELLITUS, TYPE I, UNCONTROLLED 250.03 Active Maliheh Ziglari SENIOR CREDIT OFFICER Diabetes mellitus without mention of complication, type I [juvenile type], uncontrolled DIABETIC HYPOGLYCEMIA, TYPE I, UNCONTROLLED 250.83 Active 04/07 Maliheh Ziglari SENIOR CREDIT OFFICER Diabetes mellitus with other specified manifestations, type I [juvenile type], uncontrolled AUTONOMIC NEUROPATHY, DIABETIC 250.60 Active Maliheh Ziglari SENIOR CREDIT OFFICER Diabetes mellitus with neurological manifestations, type II or unspecified type, not stated as uncontrolled DIABETES, TYPE 1 ICD-250.01 Inactive Maliheh Ziglari SENIOR CREDIT OFFICER FH DIABETES ICD-V18.0 Inactive Maliheh Ziglari SENIOR CREDIT OFFICER Medication List Medication Instructions Start Date Stop Date Generic Name [facility] Status Provider Patient Instruction Disruption CorpTOUCH ULTRA 2 W/DEVICE KIT check blood sugars 4x/day BLOOD GLUCOSE MONITORING SUPPL 47792962251 Active Maliheh Ziglari SENIOR CREDIT OFFICER Active Disruption CorpTOUCH ULTRA BLUE STRP check blood sugars 4x/day GLUCOSE BLOOD 85971546954 Active Maliheh Ziglari SENIOR CREDIT OFFICER Active FREESTYLE LITE TEST STRP check blood sugars 4x/day GLUCOSE BLOOD 84261938036 No Longer Active Maliheh Ziglari SENIOR CREDIT OFFICER Active LEVOTHYROXINE SODIUM 150 MCG TABS Take 1 tab daily LEVOTHYROXINE SODIUM 67544156526 Active Etta Roldan Jaida SKIN CARE THERAPIST Active LEVEMIR FLEXPEN 100 UNIT/ML SOLN 12 u sq every hs INSULIN DETEMIR 97832127454 Active Maliheh Ziglari SENIOR CREDIT OFFICER Active EQL ONE DAILY MENS TABS Take one by mouth daily MULTIPLE VITAMINS-MINERALS 46056510400 Active Maliheh Ziglari SENIOR CREDIT OFFICER Active HUMALOG KWIKPEN 100 UNIT/ML SOLN Take 10u with each meal, plus 1u for 201-200 , 2u for 251-300, 3u for 301-400, 4u for 444-675 1907/09/09 INSULIN LISPRO (HUMAN) 54970196659 Active Mattyiheh Ziglari SENIOR CREDIT OFFICER Active BD PEN NEEDLE SHORT U/F 31G X 8 MM MISC 4 a day INSULIN PEN NEEDLE 01497801417 Active Maliheh Ziglari SENIOR CREDIT OFFICER Active NOVOLOG FLEXPEN 100 UNIT/ML SOLN take 10u with each meal, plus sliding scale 1u for 201-250, 2u for 251-300, 3u for 301-400, 4u for 401-500. INSULIN ASPART 77195465194 No Longer Active Maliheh Ziglari SENIOR CREDIT OFFICER Active NOVOLOG 100 UNIT/ML SOLN 10u per meal, add 1u/50 for blood sugars above 200 INSULIN ASPART 18860190992 No Longer Active Maliheh Ziglari SENIOR CREDIT OFFICER Active TOPAMAX 25 MG TABS as directed for migraine headaches TOPIRAMATE 67768153367 Active Maliheh Ziglari SENIOR CREDIT OFFICER Active LEVOTHROID 137 MCG TABS Take one by mouth daily LEVOTHYROXINE SODIUM 96978915194 No Longer Active Maliheh Ziglari SENIOR CREDIT OFFICER Active LANTUS 100 UNIT/ML SOLN 20u every evening INSULIN GLARGINE 93768360124 No Longer Active Maliheh Ziglari SENIOR CREDIT OFFICER Active INSULIN SYRINGE 30G X 08/03" 0.3 ML MISC 4 every day INSULIN SYRINGE-NEEDLE U-100 98249322773 Active Maliheh Ziglari SENIOR CREDIT OFFICER Active KETOSTIX STRP check ketones if blood sugar above 250 ACETONE ( URINE) TEST 42556512206 Active Maliheh Ziglari SENIOR CREDIT OFFICER Active GLUCAGEN HYPOKIT 1 MG SOLR IM injection for low blood sugar if unable to eat or drink GLUCAGON HCL (RDNA) 97425678175 Active Maliheh Ziglari SENIOR CREDIT OFFICER Active BACTRIM DS 800-160 MG TABS by mouth twice a day SULFAMETHOXAZOLE-TRIMETHOPRIM 76477752627 No Longer Active Maliheh Ziglari SENIOR CREDIT OFFICER Active NOVOLOG 100 UNIT/ML SOLN 5u with meals INSULIN ASPART 87849979044 No Longer Active Maliheh Ziglari SENIOR CREDIT OFFICER Active FREESTYLE LITE TEST STRP check blood sugars 6x/day, before and 2 hours after each meal GLUCOSE BLOOD 10612803234 Active Maliheh Ziglari SENIOR CREDIT OFFICER Active NOVOLOG 100 UNIT/ML SOLN 5u with [...] ... - Chemistry sodium, serum 141 mmol/L 647-394 0320/10/20 potassium, serum 4.7 mmol/L 3.5-5.2 chloride, serum [...] mg/dL Encounters Code Encounter Date Provider Facility CPT-81769 Level 4 Est. Patient 11:23:43 CDT [facility] CPT-35432 Level 5 Est. Patient 16:52:25 CDT [facility] CPT-25379 Level 4 Est. Patient 09:29:06 CDT [facility] CPT-92906 Level 4 Est. Patient 14:20:48 CDT [facility] CPT-49603 Level 3 Est. 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 Patient 18:00:37 BOX BLANK MACHINE FEEDER [facility] CPT-42192 Level 5 Est. Patient 15:34:41 BOX BLANK MACHINE FEEDER Maliheh Ziglari [facility] CPT-55646 Level 4 Est. Patient 12:03:48 BOX BLANK MACHINE FEEDER [facility]
--- OUTSIDE RECORDS SUMMARY | 2017-11-01 14:28 | XMS REPORT | Clinical Summary ---
Author Author Admin, ROQUE Apodaca [facility] Address Unknown Phone Unavailable Allergies, Adverse Reactions, Alerts Allergy Name Reaction Description Start Date Severity Status Provider No Known Allergies Odilia Sen LPN NKDA Critical Active Maliheh Ziglari CONE TENDER Conditions or Problems Problem Name Problem Code Onset Date Status Entry Date Provider Comment Standard Description Annotate DIABETES, TYPE 1 250.01 Resolved Maliheh Ziglari CONE TENDER Diabetes mellitus without mention of complication, type I [juvenile type], not stated as uncontrolled FH DIABETES V18.0 Resolved Maliheh Ziglari CONE TENDER Family history of diabetes mellitus DIABETES MELLITUS, TYPE I, UNCONTROLLED 250.03 Active Maliheh Ziglari CONE TENDER Diabetes mellitus without mention of complication, type I [juvenile type], uncontrolled DIABETIC HYPOGLYCEMIA, TYPE I, UNCONTROLLED 250.83 Active 04/07 Maliheh Ziglari CONE TENDER Diabetes mellitus with other specified manifestations, type I [juvenile type], uncontrolled AUTONOMIC NEUROPATHY, DIABETIC 250.60 Active Maliheh Ziglari CONE TENDER Diabetes mellitus with neurological manifestations, type II or unspecified type, not stated as uncontrolled DIABETES, TYPE 1 ICD-250.01 Inactive Maliheh Ziglari CONE TENDER FH DIABETES ICD-V18.0 Inactive Maliheh Ziglari CONE TENDER Medication List Medication Instructions Start Date Stop Date Generic Name [facility] Status Provider Patient Instruction BioMar[employer] PharmaceuticalsTOUCH ULTRA 2 W/DEVICE KIT check blood sugars 4x/day BLOOD GLUCOSE MONITORING SUPPL 37577030363 Active Maliheh Ziglari CONE TENDER Active BioMarck PharmaceuticalsTOUCH ULTRA BLUE STRP check blood sugars 4x/day GLUCOSE BLOOD 49065582013 Active Maliheh Ziglari CONE TENDER Active FREESTYLE LITE TEST STRP check blood sugars 4x/day GLUCOSE BLOOD 50545678885 No Longer Active Maliheh Ziglari CONE TENDER Active LEVOTHYROXINE SODIUM 150 MCG TABS Take 1 tab daily LEVOTHYROXINE SODIUM 63218654478 Active Etta Roldan Jaida HIDE MEASURING MACHINE OPERATOR Active LEVEMIR FLEXPEN 100 UNIT/ML SOLN 12 u sq every hs INSULIN DETEMIR 81479335996 Active Maliheh Ziglari CONE TENDER Active EQL ONE DAILY MENS TABS Take one by mouth daily MULTIPLE VITAMINS-MINERALS 83706235543 Active Maliheh Ziglari CONE TENDER Active HUMALOG KWIKPEN 100 UNIT/ML SOLN Take 10u with each meal, plus 1u for 201-200 , 2u for 251-300, 3u for 301-400, 4u for 371-082 1498/09/09 INSULIN LISPRO (HUMAN) 49151781175 Active Mattyiheh Ziglari CONE TENDER Active BD PEN NEEDLE SHORT U/F 31G X 8 MM MISC 4 a day INSULIN PEN NEEDLE 81849344589 Active Maliheh Ziglari CONE TENDER Active NOVOLOG FLEXPEN 100 UNIT/ML SOLN take 10u with each meal, plus sliding scale 1u for 201-250, 2u for 251-300, 3u for 301-400, 4u for 401-500. INSULIN ASPART 65247271663 No Longer Active Maliheh Ziglari CONE TENDER Active NOVOLOG 100 UNIT/ML SOLN 10u per meal, add 1u/50 for blood sugars above 200 INSULIN ASPART 83114919044 No Longer Active Maliheh Ziglari CONE TENDER Active TOPAMAX 25 MG TABS as directed for migraine headaches TOPIRAMATE 33487778704 Active Maliheh Ziglari CONE TENDER Active LEVOTHROID 137 MCG TABS Take one by mouth daily LEVOTHYROXINE SODIUM 63641423487 No Longer Active Maliheh Ziglari CONE TENDER Active LANTUS 100 UNIT/ML SOLN 20u every evening INSULIN GLARGINE 80235923830 No Longer Active Maliheh Ziglari CONE TENDER Active INSULIN SYRINGE 30G X 08/03" 0.3 ML MISC 4 every day INSULIN SYRINGE-NEEDLE U-100 65614121891 Active Maliheh Ziglari CONE TENDER Active KETOSTIX STRP check ketones if blood sugar above 250 ACETONE ( URINE) TEST 81595802807 Active Maliheh Ziglari CONE TENDER Active GLUCAGEN HYPOKIT 1 MG SOLR IM injection for low blood sugar if unable to eat or drink GLUCAGON HCL (RDNA) 49525000918 Active Maliheh Ziglari CONE TENDER Active BACTRIM DS 800-160 MG TABS by mouth twice a day SULFAMETHOXAZOLE-TRIMETHOPRIM 01373875448 No Longer Active Maliheh Ziglari CONE TENDER Active NOVOLOG 100 UNIT/ML SOLN 5u with meals INSULIN ASPART 16333597472 No Longer Active Maliheh Ziglari CONE TENDER Active FREESTYLE LITE TEST STRP check blood sugars 6x/day, before and 2 hours after each meal GLUCOSE BLOOD 72208129567 Active Maliheh Ziglari CONE TENDER Active NOVOLOG 100 UNIT/ML SOLN 5u [...] ... - Chemistry sodium, serum 141 mmol/L 725-638 2538/10/20 potassium, serum 4.7 mmol/L 3.5-5.2 chloride, serum [...] mg/dL Encounters Code Encounter Date Provider Facility CPT-68359 Level 4 Est. Patient 11:23:43 CDT [facility] CPT-90451 Level 5 Est. Patient 16:52:25 CDT [facility] CPT-50859 Level 4 Est. Patient 09:29:06 CDT [facility] CPT-20003 Level 4 Est. Patient 14:20:48 CDT [facility] CPT-44651 Level 3 Est. 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 Patient 18:00:37 FERRYBOAT OPERATOR CABLE [facility] CPT-95684 Level 5 Est. Patient 15:34:41 FERRYBOAT OPERATOR CABLE Maliheh Ziglari [facility] CPT-75343 Level 4 Est. Patient 12:03:48 FERRYBOAT OPERATOR CABLE [facility]
--- OUTSIDE RECORDS SUMMARY | 2017-11-01 14:28 | XMS REPORT | Clinical Summary ---
Author Author Admin, ROQUE Apodaca [facility] Address Unknown Phone Unavailable Allergies, Adverse Reactions, Alerts Allergy Name Reaction Description Start Date Severity Status Provider No Known Allergies Odilia Sen LPN NKDA Critical Active Maliheh Ziglari FAGOT HEATER HELPER Conditions or Problems Problem Name Problem Code Onset Date Status Entry Date Provider Comment Standard Description Annotate DIABETES, TYPE 1 250.01 Resolved Maliheh Ziglari FAGOT HEATER HELPER Diabetes mellitus without mention of complication, type I [juvenile type], not stated as uncontrolled FH DIABETES V18.0 Resolved Maliheh Ziglari FAGOT HEATER HELPER Family history of diabetes mellitus DIABETES MELLITUS, TYPE I, UNCONTROLLED 250.03 Active Maliheh Ziglari FAGOT HEATER HELPER Diabetes mellitus without mention of complication, type I [juvenile type], uncontrolled DIABETIC HYPOGLYCEMIA, TYPE I, UNCONTROLLED 250.83 Active 04/07 Maliheh Ziglari FAGOT HEATER HELPER Diabetes mellitus with other specified manifestations, type I [juvenile type], uncontrolled AUTONOMIC NEUROPATHY, DIABETIC 250.60 Active Maliheh Ziglari FAGOT HEATER HELPER Diabetes mellitus with neurological manifestations, type II or unspecified type, not stated as uncontrolled DIABETES, TYPE 1 ICD-250.01 Inactive Maliheh Ziglari FAGOT HEATER HELPER FH DIABETES ICD-V18.0 Inactive Maliheh Ziglari FAGOT HEATER HELPER Medication List Medication Instructions Start Date Stop Date Generic Name [facility] Status Provider Patient Instruction OcapoTOUCH ULTRA 2 W/DEVICE KIT check blood sugars 4x/day BLOOD GLUCOSE MONITORING SUPPL 96403049741 Active Maliheh Ziglari FAGOT HEATER HELPER Active OcapoTOUCH ULTRA BLUE STRP check blood sugars 4x/day GLUCOSE BLOOD 85024596739 Active Maliheh Ziglari FAGOT HEATER HELPER Active FREESTYLE LITE TEST STRP check blood sugars 4x/day GLUCOSE BLOOD 65896032974 No Longer Active Maliheh Ziglari FAGOT HEATER HELPER Active LEVOTHYROXINE SODIUM 150 MCG TABS Take 1 tab daily LEVOTHYROXINE SODIUM 19554511739 Active Etta Roldan Jaida HSE MANAGER Active LEVEMIR FLEXPEN 100 UNIT/ML SOLN 12 u sq every hs INSULIN DETEMIR 50286269153 Active Maliheh Ziglari FAGOT HEATER HELPER Active EQL ONE DAILY MENS TABS Take one by mouth daily MULTIPLE VITAMINS-MINERALS 37834855692 Active Maliheh Ziglari FAGOT HEATER HELPER Active HUMALOG KWIKPEN 100 UNIT/ML SOLN Take 10u with each meal, plus 1u for 201-200 , 2u for 251-300, 3u for 301-400, 4u for 904-540 8204/09/09 INSULIN LISPRO (HUMAN) 04861630201 Active Mattyiheh Ziglari FAGOT HEATER HELPER Active BD PEN NEEDLE SHORT U/F 31G X 8 MM MISC 4 a day INSULIN PEN NEEDLE 23210373906 Active Maliheh Ziglari FAGOT HEATER HELPER Active NOVOLOG FLEXPEN 100 UNIT/ML SOLN take 10u with each meal, plus sliding scale 1u for 201-250, 2u for 251-300, 3u for 301-400, 4u for 401-500. INSULIN ASPART 90084908840 No Longer Active Maliheh Ziglari FAGOT HEATER HELPER Active NOVOLOG 100 UNIT/ML SOLN 10u per meal, add 1u/50 for blood sugars above 200 INSULIN ASPART 97313263285 No Longer Active Maliheh Ziglari FAGOT HEATER HELPER Active TOPAMAX 25 MG TABS as directed for migraine headaches TOPIRAMATE 49834719621 Active Maliheh Ziglari FAGOT HEATER HELPER Active LEVOTHROID 137 MCG TABS Take one by mouth daily LEVOTHYROXINE SODIUM 52901108689 No Longer Active Maliheh Ziglari FAGOT HEATER HELPER Active LANTUS 100 UNIT/ML SOLN 20u every evening INSULIN GLARGINE 72710292478 No Longer Active Maliheh Ziglari FAGOT HEATER HELPER Active INSULIN SYRINGE 30G X 08/03" 0.3 ML MISC 4 every day INSULIN SYRINGE-NEEDLE U-100 67910863942 Active Maliheh Ziglari FAGOT HEATER HELPER Active KETOSTIX STRP check ketones if blood sugar above 250 ACETONE ( URINE) TEST 67860372351 Active Maliheh Ziglari FAGOT HEATER HELPER Active GLUCAGEN HYPOKIT 1 MG SOLR IM injection for low blood sugar if unable to eat or drink GLUCAGON HCL (RDNA) 56966952111 Active Maliheh Ziglari FAGOT HEATER HELPER Active BACTRIM DS 800-160 MG TABS by mouth twice a day SULFAMETHOXAZOLE-TRIMETHOPRIM 88214435827 No Longer Active Maliheh Ziglari FAGOT HEATER HELPER Active NOVOLOG 100 UNIT/ML SOLN 5u with meals INSULIN ASPART 10550053670 No Longer Active Maliheh Ziglari FAGOT HEATER HELPER Active FREESTYLE LITE TEST STRP check blood sugars 6x/day, before and 2 hours after each meal GLUCOSE BLOOD 23136481740 Active Maliheh Ziglari FAGOT HEATER HELPER Active NOVOLOG 100 UNIT/ML SOLN 5u with [...] rate weight E&M 152 [lb_av] Weight Measured Diagnostic Results Date Name Value Unit Range Description Office Visit: Diabetes Visit - Chemistry cholesterol, target level 200 mg/dL triglyceride, target level 200 mg/dL HDL cholesterol, serum, target level 35 mg/dL LDL target level 100 mg/dL Encounters Code Encounter Date Provider Facility CPT-74818 Level 5 Est. Patient 16:52:25 CDT [facility] CPT-94706 Level 4 Est. Patient 09:29:06 CDT [facility] CPT-63314 Level 4 Est. Patient 14:20:48 CDT [facility] CPT-43613 Level 3 Est. Patient 16:43:41 SUPERVISOR EDGING [facility] CPT-88795 Level 5 Est. Patient 18:00:37 SUPERVISOR EDGING [facility] CPT-22740 Level 5 Est. Patient 15:34:41 SUPERVISOR EDGING [facility] CPT-69440 Level 4 Est. Patient 12:03:48 SUPERVISOR EDGING [facility]
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
--- OUTSIDE RECORDS SUMMARY | 2017-11-01 14:29 | XMS REPORT | Clinical Summary ---
Author Author Admin, ROQUE [facility] Address Unknown Phone Unavailable Allergies, Adverse Reactions, Alerts Allergy Name Reaction Description Start Date Severity Status Provider No Known Allergies Odilia Sen LPN NKDA Critical Active Maliheh Ziglari BUTCHER OR SMALLGOODS MAKER Conditions or Problems Problem Name Problem Code Onset Date Status Entry Date Provider Comment Standard Description Annotate DIABETES, TYPE 1 250.01 Resolved Maliheh Ziglari BUTCHER OR SMALLGOODS MAKER Diabetes mellitus without mention of complication, type I [juvenile type], not stated as uncontrolled FH DIABETES V18.0 Resolved Maliheh Ziglari BUTCHER OR SMALLGOODS MAKER Family history of diabetes mellitus DIABETES MELLITUS, TYPE I, UNCONTROLLED 250.03 Active Maliheh Ziglari BUTCHER OR SMALLGOODS MAKER Diabetes mellitus without mention of complication, type I [juvenile type], uncontrolled DIABETIC HYPOGLYCEMIA, TYPE I, UNCONTROLLED 250.83 Active 04/07 Maliheh Ziglari BUTCHER OR SMALLGOODS MAKER Diabetes mellitus with other specified manifestations, type I [juvenile type], uncontrolled AUTONOMIC NEUROPATHY, DIABETIC 250.60 Active Maliheh Ziglari BUTCHER OR SMALLGOODS MAKER Diabetes mellitus with neurological manifestations, type II or unspecified type, not stated as uncontrolled DIABETES, TYPE 1 ICD-250.01 Inactive Maliheh Ziglari BUTCHER OR SMALLGOODS MAKER FH DIABETES ICD-V18.0 Inactive Maliheh Ziglari BUTCHER OR SMALLGOODS MAKER Medication List Medication Instructions Start Date Stop Date Generic Name [facility] Status Provider Patient Instruction SchrodingerTOUCH ULTRA 2 W/DEVICE KIT check blood sugars 4x/day BLOOD GLUCOSE MONITORING SUPPL 45411474422 Active Maliheh Ziglari BUTCHER OR SMALLGOODS MAKER Active SchrodingerTOUCH ULTRA BLUE STRP check blood sugars 4x/day GLUCOSE BLOOD 30998177338 Active Maliheh Ziglari BUTCHER OR SMALLGOODS MAKER Active FREESTYLE LITE TEST STRP check blood sugars 4x/day GLUCOSE BLOOD 30251550574 No Longer Active Maliheh Ziglari BUTCHER OR SMALLGOODS MAKER Active LEVOTHYROXINE SODIUM 150 MCG TABS Take 1 tab daily LEVOTHYROXINE SODIUM 39158675397 Active Etta Roldan Jaida PRIZE JACKER Active LEVEMIR FLEXPEN 100 UNIT/ML SOLN 12 u sq every hs INSULIN DETEMIR 46432013649 Active Maliheh Ziglari BUTCHER OR SMALLGOODS MAKER Active EQL ONE DAILY MENS TABS Take one by mouth daily MULTIPLE VITAMINS-MINERALS 25821313233 Active Maliheh Ziglari BUTCHER OR SMALLGOODS MAKER Active HUMALOG KWIKPEN 100 UNIT/ML SOLN Take 10u with each meal, plus 1u for 201-200 , 2u for 251-300, 3u for 301-400, 4u for 074-186 7569/09/09 INSULIN LISPRO (HUMAN) 65352470077 Active Mattyiheh Ziglari BUTCHER OR SMALLGOODS MAKER Active BD PEN NEEDLE SHORT U/F 31G X 8 MM MISC 4 a day INSULIN PEN NEEDLE 32828637623 Active Maliheh Ziglari BUTCHER OR SMALLGOODS MAKER Active NOVOLOG FLEXPEN 100 UNIT/ML SOLN take 10u with each meal, plus sliding scale 1u for 201-250, 2u for 251-300, 3u for 301-400, 4u for 401-500. INSULIN ASPART 87598977548 No Longer Active Maliheh Ziglari BUTCHER OR SMALLGOODS MAKER Active NOVOLOG 100 UNIT/ML SOLN 10u per meal, add 1u/50 for blood sugars above 200 INSULIN ASPART 32869514318 No Longer Active Maliheh Ziglari BUTCHER OR SMALLGOODS MAKER Active TOPAMAX 25 MG TABS as directed for migraine headaches TOPIRAMATE 57599553703 Active Maliheh Ziglari BUTCHER OR SMALLGOODS MAKER Active LEVOTHROID 137 MCG TABS Take one by mouth daily LEVOTHYROXINE SODIUM 31744294832 No Longer Active Maliheh Ziglari BUTCHER OR SMALLGOODS MAKER Active LANTUS 100 UNIT/ML SOLN 20u every evening INSULIN GLARGINE 80664062179 No Longer Active Maliheh Ziglari BUTCHER OR SMALLGOODS MAKER Active INSULIN SYRINGE 30G X 08/03" 0.3 ML MISC 4 every day INSULIN SYRINGE-NEEDLE U-100 83255338167 Active Maliheh Ziglari BUTCHER OR SMALLGOODS MAKER Active KETOSTIX STRP check ketones if blood sugar above 250 ACETONE ( URINE) TEST 12790197257 Active Maliheh Ziglari BUTCHER OR SMALLGOODS MAKER Active GLUCAGEN HYPOKIT 1 MG SOLR IM injection for low blood sugar if unable to eat or drink GLUCAGON HCL (RDNA) 62085110311 Active Maliheh Ziglari BUTCHER OR SMALLGOODS MAKER Active BACTRIM DS 800-160 MG TABS by mouth twice a day SULFAMETHOXAZOLE-TRIMETHOPRIM 38429402347 No Longer Active Maliheh Ziglari BUTCHER OR SMALLGOODS MAKER Active NOVOLOG 100 UNIT/ML SOLN 5u with meals INSULIN ASPART 02689326562 No Longer Active Maliheh Ziglari BUTCHER OR SMALLGOODS MAKER Active FREESTYLE LITE TEST STRP check blood sugars 6x/day, before and 2 hours after each meal GLUCOSE BLOOD 59577172445 Active Maliheh Ziglari BUTCHER OR SMALLGOODS MAKER Active NOVOLOG 100 UNIT/ML SOLN 5u with [...] ... - Chemistry sodium, serum 141 mmol/L 696-919 8833/10/20 potassium, serum 4.7 mmol/L 3.5-5.2 chloride, serum [...] mg/dL Encounters Code Encounter Date Provider Facility CPT-27461 Level 4 Est. Patient 11:23:43 CDT [facility] CPT-66574 Level 5 Est. Patient 16:52:25 CDT [facility] CPT-98445 Level 4 Est. Patient 09:29:06 CDT [facility] CPT-24653 Level 4 Est. Patient 14:20:48 CDT [facility] CPT-40740 Level 3 Est. Patient 16:43:41 SPECIALTIES OPERATOR [facility] CPT-70696 Level 5 Est. Patient 18:00:37 SPECIALTIES OPERATOR [facility] CPT-32559 Level 5 Est. Patient 15:34:41 [facility] [place]note 2[facility] CPT-82900 Level 4 Est. Patient 12:03:48 SPECIALTIES OPERATOR [facility]
[2017-11-01] MEDS ORDERED: diphenhydrAMINE 50 MG/ML INJ (BENADRYL) IM ONE (15:00)
[2017-11-01] MEDS ORDERED: PROCHLORPERAZINE 10 MG/2ML INJ (COMPAZINE) IM ONE (15:00)
[2017-11-01] MEDS ORDERED: KETOROLAC 60 MG/2 ML VIAL IM ONE (15:00)
--- NOTE | 2017-11-01 15:12 | ED Headache ---
General Chief Complaint: Head/Cervical Problems Stated Complaint: [place],VOMITING Source: patient Exam Limitations: no limitations History of Present Illness Date Seen by Provider: Nov 01, 2017 Time Seen by Provider: 15:06 Initial Comments Patient is a 37-year-old male who presents to the emergency room with complaints of a migraine that started this morning, nausea, vomiting. He reports having history of migraines and this is very similar to migraines in the past. Timing/Duration: 4-6 hours Severity/Quality: mild Location: global Prior Headaches/Recent Trauma: frequent headaches Associated Symptoms: nausea/vomiting Allergies and Home Medications Allergies Uncoded Allergies: HYDROCONE (Allergy, Unknown, 11/01/17) Patient Home Medication List Home Medication List Reviewed: Yes Review of Systems Constitutional: see HPI; No chills, No fever Psychiatric/Neurological: See HPI, Headache All Other Systems Reviewed Negative Unless Noted: Yes Past Jsippot-Fmjifv-Kiuzzb Hx Past Med/Social Hx: Reviewed Nursing Past Med/Soc Hx Patient Social History Recent Foreign Travel: No Contact w/Someone Who Travel: No Past Medical History Respiratory: No Neurological: Yes Headaches /Migraines Genitourinary: No Gastrointestinal: No Musculoskeletal: No Endocrine: No HEENT: No Cancer: No Psychosocial: No Integumentary: No Family Medical History Reviewed Nursing Family Hx Physical Exam Vital Signs Vital Signs - First Documented 11/01/17 14:49 Temp 99.0 Pulse 82 Resp 15 B/P (MAP) 147/100 (116) Pulse Ox 98 Capillary Refill : Height, Weight, BMI Height: 5'7.00" Weight: 160lbs. oz. 72.292337pi; BMI Method:Stated General Appearance: WD/WN, no apparent distress HEENT: PERRL/EOMI, normal ENT inspection, TMs normal, pharynx normal Cardiovascular: regular rate, rhythm, no edema, no gallop, no JVD, no murmur Respiratory: chest non-tender, lungs clear, normal breath sounds, no respiratory distress, no accessory muscle use Psychiatric: alert, oriented x 3 Crainal Nerves: normal hearing, normal speech, PERRL Coordination/Gait: normal finger to nose, normal gait Motor/Sensory: no motor deficit, no sensory deficit, no pronator drift Progress/Results/Core Measures Results/Orders Lab Results Laboratory Tests Test 11/01/17 15:25 Range/Units Glucometer 187 H 70-110 MG/DL My Orders Orders - SANA ALFORD Ketorolac Injection (Toradol Injection) (11/01/17 15:00) Diphenhydramine Injection (Benadryl Inje (11/01/17 15:00) Prochlorperazine Injection (Compazine In (11/01/17 15:00) Accucheck Stat ONCE (11/01/17 15:02) Medications Given in ED Vital Signs/I&O 11/01/17 11/01/17 14:49 16:27 Temp 99.0 Pulse 82 82 Resp 15 18 B/P (MAP) 147/100 (116) 144/88 Pulse Ox 98 98 Progress Progress Note : Time: 16:22 Progress Note I have seen and evaluated the patient. The patient is pain-free at this time. He is feeling comfortable enough to go home. Agrees with plans of care, discharge, and return precautions were given. Departure Impression Primary Impression: Headache Additional Impression: Migraine Disposition: 01 HOME, SELF-CARE Condition: Stable/Unchanged Departure-Patient Inst. Decision time for Depature: 16:22 Referrals: NO,LOCAL PHYSICIAN (PCP/Family) Primary Care Physician Patient Instructions: Migraine Headache (DC) Add. Discharge Instructions: Continue your home medications as previously prescribed. Follow-up with your doctor within 1 week for recheck. Return back to the emergency room for any worsening symptoms or any other concerns as needed. All discharge instructions reviewed with patient and/or family. Voiced understanding. SANA ALFORD Nov 01, 2017 15:12
[2017-11-01 16:27] VITALS: BP 144/88
== END 2017-11-01 16:27 | disposition home or self-care (01) ==
LOC: EDUNIT# 14:13 → ER 14:14
DX: G43.909 Migraine, unspecified, not intractable, without status migrainosus (principal); Z88.5 Allergy status to narcotic agent
CPT/HCPCS: 82962; 99284

== ENCOUNTER 2017-12-10 22:05 | Emergency (ER) | payer MEDICARE, MEDICAID ==
[~2017-12-10] VITALS: Ht 175.3 cm; Wt 68.0 kg
[2017-12-10] MEDS ORDERED: ONDANSETRON 4 MG/2 ML (SDV) Z0FRAN IVP ONE (22:15)
--- OUTSIDE RECORDS SUMMARY | 2017-12-10 22:19 | XMS REPORT ---
Author Author MAIA CHING Organization [facility] Address [address] [place] [address] Care Team Providers Care Byproducts Pump Operator Name Role Phone MAIA CHING Unavailable PROBLEMS Type Condition ICD9-CM Code VSA43-UA Code Onset Dates Condition Status SNOMED Code Problem Other chronic pain G89.29 Active 73993754 Problem Uncontrolled type 1 diabetes mellitus without complication E10.65 Active 856158948 ALLERGIES No Information ENCOUNTERS Encounter Location Date Diagnosis [facility] [id number] [address] Aug, [facility] [id number] [address] July, Other chronic pain G89.29 ; Pain in right shoulder M25.511 and Uncontrolled type 1 diabetes mellitus without complication E10.65 IMMUNIZATIONS No Known Immunizations SOCIAL HISTORY Never Assessed REASON FOR VISIT medication PLAN OF CARE VITAL SIGNS MEDICATIONS Medication Instructions Dosage Frequency Start Date End Date Duration Status Naproxen 500 mg Orally every 12 hrs 1 tablet with food or milk as needed 12h Aug, Active RESULTS No Results PROCEDURES No Known procedures INSTRUCTIONS MEDICATIONS ADMINISTERED No Known Medications MEDICAL (GENERAL) HISTORY Type Description Date Medical History Type 1 DM Medical History Hypothyroidism Surgical History Tonsillectomy/Adenoidectomy 2000 Surgical History Back Surgery 2006 Surgical History Thyroid Ablation 1998 Surgical History Colonoscopy 2009
--- OUTSIDE RECORDS SUMMARY | 2017-12-10 22:19 | XMS REPORT ---
Author Author MAIA CHING Organization [facility] Address [address] [place] [address] Care Team Providers Care Center Medical And Lab Director Name Role Phone MAIA CHING Unavailable PROBLEMS Type Condition ICD9-CM Code [id number] Code Onset Dates Condition Status SNOMED Code Problem Other chronic pain G89.29 Active 91912749 Problem Uncontrolled type 1 diabetes mellitus without complication E10.65 Active 908962670 ALLERGIES Substance Reaction Event Type Date Status Hydrocodone-Acetaminophen itching Drug Allergy July, Active ENCOUNTERS Encounter Location Date Diagnosis [facility] [id number], [place] [address] Aug, [facility] [id number] [place] [address] July, Other chronic pain G89.29 ; Pain in right shoulder M25.511 and Uncontrolled type 1 diabetes mellitus without complication E10.65 IMMUNIZATIONS No Known Immunizations SOCIAL HISTORY Never Assessed REASON FOR VISIT Establish Care, Right shoulder/arm pain/limited movement - MPeters JAIMEE PLAN OF CARE Activity Details Follow Up 4 Months Reason:diabetes type 1 VITAL SIGNS Height 66 in 2017-08-05 Weight 152.2 lbs 2017-08-05 Temperature 98.3 degrees Fahrenheit 2017-08-05 Heart Rate 74 bpm 2017-08-05 Respiratory Rate 18 2017-08-05 Oximetry on room air:98 % 2017-08-05 BMI 24.56 kg/m2 2017-08-05 Blood pressure systolic 110 mmHg 2017-08-05 Blood pressure diastolic 70 mmHg 2017-08-05 MEDICATIONS Medication Instructions Dosage Frequency Start Date End Date Duration Status Toujeo SoloStar 300 UNIT/ML Subcutaneous Once a day 20 units 24h Active Humalog KwikPen 100 UNIT/ML Subcutaneous 3 times a day 6 units 8h Active Diclofenac Sodium 75 MG Orally Twice a day 1 tablet with food or milk 12h July, Nov, 30 day(s) Active Atorvastatin Calcium 20 MG Orally at bedtime 1 tablet Active Levothyroxine Sodium 175 MCG Orally Once a day 1 tablet 24h Active RESULTS No Results PROCEDURES Procedure Date Ordered Result Body Site [facility] VISIT ESTABLISHED PATIENT August 05, 2017 INSTRUCTIONS MEDICATIONS ADMINISTERED No Known Medications MEDICAL (GENERAL) HISTORY Type Description Date Medical History Type 1 DM Medical History Hypothyroidism Surgical History Tonsillectomy/Adenoidectomy 2000 Surgical History Back Surgery 2006 Surgical History Thyroid Ablation 1998 Surgical History Colonoscopy 2009
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
--- NOTE | 2017-12-10 22:28 | ED General ---
General Stated Complaint: SEIZURE Source of Information: Patient, EMS Exam Limitations: No Limitations History of Present Illness Date Seen by Provider: Dec 10, 2017 Time Seen by Provider: 22:24 Initial Comments To ER with reports of hypoglycemia and seizure like activity. He arrives per EMS from home. These began just a bit earlier this evening. He takes Toujeo and NovoLog. States that he fell forward striking the right side of his head on the floor in doing so. No neck pain. He has had some intermittent frontal headaches throughout the day today and sinus congestion. He states that he has a history of seizure like activity when he has a hypoglycemic event. He did vomit upon arrival to ER. EMS reports that blood sugar was 41 on arrival, he was given oral glucose which increased to 78 just prior to arrival to ER. At this time 2226 blood glucose 148. 48 Timing/Duration: 1 Hour Associated Systoms: Headaches, Nausea/Vomiting Allergies and Home Medications Allergies Uncoded Allergies: HYDROCONE (Allergy, Unknown, 11/01/17) Home Medications Cefdinir 300 Mg Capsule, 300 MG PO BID Prescribed by: WEN VILLASEÑOR on 12/10/17 2233 Patient Home Medication List Home Medication List Reviewed: Yes Review of Systems Review of Systems Constitutional: see HPI EENTM: see HPI Respiratory: no symptoms reported Cardiovascular: no symptoms reported Gastrointestinal: nausea, vomiting Genitourinary: no symptoms reported Musculoskeletal: no symptoms reported Psychiatric/Neurological: Headache Hematologic/Lymphatic: No Symptoms Reported Immunological/Allergic: no symptoms reported Past Xsfhsip-Pgusph-Nxbjku Hx Past Medical History Surgeries: Yes Respiratory: No Neurological: Yes Headaches /Migraines Genitourinary: No Gastrointestinal: No Musculoskeletal: No Endocrine: Yes Diabetes, Insulin dep HEENT: No Cancer: No Psychosocial: No Integumentary: No Physical Exam Vital Signs Vital Signs - First Documented 12/10/17 22:06 Temp 97.1 Pulse 82 Resp 23 B/P (MAP) 136/90 (105) Pulse Ox 100 Capillary Refill : Height, Weight, BMI Height: 5'7.00" Weight: 150lbs. oz. 68.005574tr; BMI Method:Stated General Appearance: No Apparent Distress, WD/WN Eyes: Bilateral Eye Normal Inspection, Bilateral Eye PERRL, Bilateral Eye EOMI HEENT: PERRL/EOMI, TMs Normal, Other (small dime sized ecchymosis over right buddhism. ) Respiratory: Normal Breath Sounds, No Accessory Muscle Use, No Respiratory Distress Cardiovascular: Regular Rate, Rhythm, Normal Peripheral Pulses Gastrointestinal: Normal Bowel Sounds, Non Tender, Soft Extremity: Normal Capillary Refill, Normal Inspection Neurologic/Psychiatric: Alert, Oriented x3 Skin: Normal Color, Warm/Dry Progress/Results/Core Measures Suspected Sepsis SIRS Temperature: Pulse: Respiratory Rate: Laboratory Tests 12/10/17 22:25: White Blood Count 7.3 Blood Pressure / Mean: Laboratory Tests 12/10/17 22:25: Creatinine 1.29, Platelet Count 262, Total Bilirubin 1.2H Results/Orders Lab Results Laboratory Tests Test 12/10/17 22:21 12/10/17 22:25 12/10/17 22:30 Range/Units Glucometer 148 H 70-110 MG/DL White Blood Count 7.3 4.3-11.0 10^3/uL Red Blood Count 4.25 L 4.35-5.85 10^6/uL Hemoglobin 13.8 13.3-17.7 G/DL Hematocrit 38 L 40-54 % Mean Corpuscular Volume 90 80-99 FL Mean Corpuscular Hemoglobin 33 25-34 PG Mean Corpuscular Hemoglobin Concent 36 32-36 G/DL Red Cell Distribution Width 13.1 10.0-14.5 % Platelet Count 262 130-400 10^3/uL Mean Platelet Volume 10.2 7.4-10.4 FL Neutrophils (%) (Auto) 64 42-75 % Lymphocytes (%) (Auto) 25 12-44 % Monocytes (%) (Auto) 9 0-12 % Eosinophils (%) (Auto) 2 0-10 % Basophils (%) (Auto) 1 0-10 % Neutrophils # (Auto) 4.6 1.8-7.8 X 10^3 Lymphocytes # (Auto) 1.8 1.0-4.0 X 10^3 Monocytes # (Auto) 0.6 0.0-1.0 X 10^3 Eosinophils # (Auto) 0.1 0.0-0.3 10^3/uL Basophils # (Auto) 0.1 0.0-0.1 10^3/uL Sodium Level 139 135-145 MMOL/L Potassium Level 3.7 3.6-5.0 MMOL/L Chloride Level 103 98-107 MMOL/L Carbon Dioxide Level 27 21-32 MMOL/L Anion Gap 9 5-14 MMOL/L Blood Urea Nitrogen 20 H 7-18 MG/DL Creatinine 1.29 0.60-1.30 MG/DL Estimat Glomerular Filtration Rate > 60 BUN/Creatinine Ratio 16 Glucose Level 157 H 70-105 MG/DL Calcium Level 9.0 8.5-10.1 MG/DL Corrected Calcium 9.1 8.5-10.1 MG/DL Total Bilirubin 1.2 H 0.1-1.0 MG/DL Aspartate Amino Transf (AST/SGOT) 26 5-34 U/L Alanine Aminotransferase (ALT/SGPT) 15 0-55 U/L Alkaline Phosphatase 73 40-136 U/L Total Protein 6.4 6.4-8.2 GM/DL Albumin 3.9 3.2-4.5 GM/DL My Orders Orders - WEN VILLASEÑOR APRN Ct Head Wo (12/10/17 22:11) Cbc With Automated Diff (12/10/17 22:11) Comprehensive Metabolic Panel (12/10/17 22:11) Ua Culture If Indicated (12/10/17 22:11) Iv Heplock-Insert (Order) (12/10/17 22:11) Ondansetron Injection (Zofran Injectio (12/10/17 22:15) Alcohol (12/10/17 22:24) Medications Given in ED Current Medications Medications Dose Ordered Sig/Kristi Route Start Time Stop Time Status Last Admin Dose Admin Ondansetron HCl 4 mg ONCE ONCE IVP 12/10/17 22:15 12/10/17 22:16 DC 12/10/17 22:31 4 MG Vital Signs/I&O 12/10/17 22:06 Temp 97.1 Pulse 82 Resp 23 B/P (MAP) 136/90 (105) Pulse Ox 100 Capillary Refill : Departure Communication (Admissions) 7129-CT head per stat read shows no acute hemorrhage hydrocephalus or mass effect. Impression Primary Impression: Hypoglycemia Additional Impression: Sinusitis Disposition: 01 HOME, SELF-CARE Condition: Improved Departure-Patient Inst. Decision time for Depature: 22:50 Referrals: NO,LOCAL PHYSICIAN (PCP/Family) Primary Care Physician Patient Instructions: HYPOGLYCEMIA Add. Discharge Instructions: 1. Check your blood sugar 1 more time tonight before you go to bed, follow-up with your doctor next week 2. Use and over the counter intranasal steroid like flonase to help with the sinusitis. Scripts Cefdinir (Cefdinir) 300 Mg Capsule 300 MG PO BID, #14 CAP Prov: WEN VILLASEÑOR APRN 12/10/17 WEN VILLASEÑOR APRN Dec 10, 2017 22:28
[2017-12-10 22:37] LABS: BASOPHILS # (AUTO) 0.1 10^3/uL (0.0-0.1); BASOPHILS % (AUTO) 1 % (0-10); EOSINOPHILS # (AUTO) 0.1 10^3/uL (0.0-0.3); EOSINOPHILS % (AUTO) 2 % (0-10); HEMATOCRIT 38 % (40-54); HEMOGLOBIN 13.8 G/DL (13.3-17.7); LYMPHOCYTES # (AUTO) 1.8 X 10^3 (1.0-4.0); LYMPHOCYTES % (AUTO) 25 % (12-44); MEAN CORPUSCULAR HEMOGLOBIN 33 PG (25-34); MEAN CORPUSCULAR HGB CONC 36 G/DL (32-36); MEAN CORPUSCULAR VOLUME 90 FL (80-99); MEAN PLATELET VOLUME 10.2 FL (7.4-10.4); MONOCYTES # (AUTO) 0.6 X 10^3 (0.0-1.0); MONOCYTES % (AUTO) 9 % (0-12); NEUTROPHILS # (AUTO) 4.6 X 10^3 (1.8-7.8); NEUTROPHILS % (AUTO) 64 % (42-75); PLATELET COUNT 262 10^3/uL (130-400); RED BLOOD COUNT 4.25 10^6/uL (4.35-5.85); RED CELL DISTRIBUTION WIDTH 13.1 % (10.0-14.5); WHITE BLOOD COUNT 7.3 10^3/uL (4.3-11.0)
[2017-12-10 22:46] LABS: BILIRUBIN,URINE NEGATIVE (NEGATIVE); CLARITY,URINE CLEAR; COLOR,URINE YELLOW; GLUCOSE, URINE (UA) NEGATIVE (NEGATIVE); KETONES,URINE NEGATIVE (NEGATIVE); LEUKOCYTE ESTERASE ,URINE NEGATIVE (NEGATIVE); NITRITE,URINE NEGATIVE (NEGATIVE); PH,URINE 6 (5-9); PROTEIN,URINE NEGATIVE (NEGATIVE); UROBILINOGEN,URINE NORMAL (NORMAL)
[2017-12-10] MEDS ORDERED: CEFD300C3 PO (22:52)
[2017-12-10 22:55] LABS: ALANINE AMINOTRANSFERASE 15 U/L (0-55); ALBUMIN 3.9 GM/DL (3.2-4.5); ALKALINE PHOSPHATASE 73 U/L (40-136); BILIRUBIN,TOTAL 1.2 MG/DL (0.1-1.0); BUN/CREATININE RATIO 16; CARBON DIOXIDE 27 MMOL/L (21-32); CHLORIDE 103 MMOL/L (98-107); CREATININE SERUM 1.29 MG/DL (0.60-1.30); GFR ESTIMATED > 60; GLUCOSE 157 MG/DL (70-105); POTASSIUM 3.7 MMOL/L (3.6-5.0); SODIUM 139 MMOL/L (135-145); TOTAL PROTEIN 6.4 GM/DL (6.4-8.2)
[2017-12-10 23:00] LABS: BACTERIA,URINE NEGATIVE /HPF; SQUAMOUS EPITHELIAL CELL,UR RARE /HPF
[2017-12-10 23:07] VITALS: BP 136/90
--- NOTE | 2017-12-11 06:37 | Diagnostic Imaging Report ---
PROCEDURE: CT head without contrast. TECHNIQUE: Multiple contiguous axial images were obtained through the brain without the use of intravenous contrast. INDICATION: Seizure COMPARISON: None FINDINGS: The ventricles and cortical sulci are age-appropriate. There is no midline shift or mass effect. No acute intracranial hemorrhage is seen. There is no CT evidence of acute territorial ischemia. The calvarium appears intact. There is complete opacification of the left maxillary sinus, with marked opacification of the left ethmoid sinuses. There is mucosal thickening in the right maxillary and ethmoid sinuses as well. IMPRESSION: 1. No acute intracranial hemorrhage or CT evidence of acute territorial ischemia. 2. Paranasal sinus disease, left greater than right. Dictated by: Dictated on workstation # [id number]
== END 2017-12-10 23:11 | disposition home or self-care (01) ==
LOC: EDUNIT# 22:05 → ER 22:06
DX: E11.649 Type 2 diabetes mellitus with hypoglycemia without coma (principal); J32.9 Chronic sinusitis, unspecified; G43.909 Migraine, unspecified, not intractable, without status migrainosus; Z88.5 Allergy status to narcotic agent; Z79.4 Long term (current) use of insulin
CPT/HCPCS: 36415; 70450; 80053; 80320; 81000; 82962; 85025; 96374; 99283

== ENCOUNTER 2018-06-28 08:30 | Emergency (ER) | payer MEDICARE, MEDICAID ==
[~2018-06-28] VITALS: Ht 170.2 cm; Wt 68.0 kg
[~2018-06-28 08:30] MED LIST: CEFD300C3 PO
--- OUTSIDE RECORDS SUMMARY | 2018-06-28 08:40 | XMS REPORT ---
Author Author MAIA CHING Organization [facility] Address [address] [place] [address] Care Team Providers Care Hot Knife Cutter Name Role Phone MAIA CHING Unavailable PROBLEMS Type Condition ICD9-CM Code EAR08-VN Code Onset Dates Condition Status SNOMED Code Problem Raynaud''s phenomenon without gangrene I73.00 Active 022136853 Problem Hypothyroidism (acquired) E03.9 Active 589944228 Problem Uncontrolled type 1 diabetes mellitus without complication E10.65 Active 434701599 Problem Other chronic pain G89.29 Active 57879497 ALLERGIES No Information ENCOUNTERS Encounter Location Date Diagnosis [place] [address] [address] 16 Mar, 2018 [facility] [address] [address] 18 Feb, 2018 Hypothyroidism (acquired) E03.9 [facility] [address] [address] 14 Feb, 2018 Uncontrolled type 1 diabetes mellitus without complication E10.65 [facility] [address] [address] 13 Feb, 2018 [facility] [address] [address] 16 Jan, 2018 Hypothyroidism (acquired) E03.9 and Raynaud''s phenomenon without gangrene I73.00 [facility] [address] [address] 15 Dec, 2017 [facility] [address] [address] 28 Nov, 2017 Hypothyroidism (acquired) E03.9 [facility] [address] [place] [address] Nov, Uncontrolled type 1 diabetes mellitus with hypoglycemia without coma E10.649 [facility] [address] [place] [address] Nov, [facility] [address] [place] [id number] [address] Aug, [facility] [address] [address] July, Other chronic pain G89.29 ; Pain in right shoulder M25.511 and Uncontrolled type 1 diabetes mellitus without complication E10.65 IMMUNIZATIONS No Known Immunizations SOCIAL HISTORY Never Assessed REASON FOR VISIT Referral PLAN OF CARE VITAL SIGNS MEDICATIONS Medication Instructions Dosage Frequency Start Date End Date Duration Status Amlodipine Besylate 5 MG Orally Once a day 1 tablet 24h Jan, 30 day(s) Active RESULTS No Results PROCEDURES No Known procedures INSTRUCTIONS MEDICATIONS ADMINISTERED No Known Medications MEDICAL (GENERAL) HISTORY Type Description Date Medical History Type 1 DM Medical History Hypothyroidism Surgical History Tonsillectomy/Adenoidectomy 2000 Surgical History Back Surgery 2006 Surgical History Thyroid Ablation 1998 Surgical History Colonoscopy 2009 Hospitalization History [facility] ER 11/2017
--- OUTSIDE RECORDS SUMMARY | 2018-06-28 08:40 | XMS REPORT ---
Author Author MAIA CHING Organization [facility] Address [address] [place] [address] Care Team Providers Care Pocket Operator Name Role Phone HUMZA MAIA Unavailable PROBLEMS Type Condition ICD9-CM Code [id number] Code Onset Dates Condition Status SNOMED Code Problem Hypothyroidism (acquired) E03.9 Active 99769454 Problem Uncontrolled type 1 diabetes mellitus without complication E10.65 Active 750219029 Problem Other chronic pain G89.29 Active 67931777 ALLERGIES Substance Reaction Event Type Date Status Hydrocodone-Acetaminophen itching Drug Allergy Nov, Active ENCOUNTERS Encounter Location Date Diagnosis [place] [address] [place] [id number] [place] [address] Dec, [place] [address] [place] [id number] [place] [address] Nov, Hypothyroidism (acquired) E03.[address] [address] Nov, Uncontrolled type 1 diabetes mellitus with hypoglycemia without coma E10.649 [place] [address] [place] [id number] [place] [address] Nov, [place] [address] [place] [id number] [place] [address] Aug, [place] [address] [place] [id number] [place] [address] July, Other chronic pain G89.29 ; Pain in right shoulder M25.511 and Uncontrolled type 1 diabetes mellitus without complication E10.65 IMMUNIZATIONS No Known Immunizations SOCIAL HISTORY Never Assessed REASON FOR VISIT [facility] follow up - James HERMOSILLO PLAN OF CARE VITAL SIGNS Height 66 in 2017-12-15 Weight 150.1 lbs 2017-12-15 Temperature 98.8 degrees Fahrenheit 2017-12-15 Heart Rate 59 bpm 2017-12-15 Respiratory Rate 18 2017-12-15 Oximetry 96 % 2017-12-15 BMI 24.22 kg/m2 2017-12-15 Blood pressure systolic 108 mmHg 2017-12-15 Blood pressure diastolic 68 mmHg 2017-12-15 MEDICATIONS Medication Instructions Dosage Frequency Start Date End Date Duration Status Atorvastatin Calcium 20 MG Orally at bedtime 1 tablet Active Naproxen 500 mg Orally every 12 hrs 1 tablet with food or milk as needed 12h Aug, Active Humalog KwikPen 100 UNIT/ML Subcutaneous 3 times a day 6 units 8h Active Toujeo SoloStar 300 UNIT/ML Subcutaneous Once a day 20 units 24h Active Levothyroxine Sodium 175 MCG Orally Once a day 1 tablet 24h Active RESULTS No Results PROCEDURES Procedure Date Ordered Result Body Site [facility] VISIT ESTABLISHED PATIENT Dec 15, 2017 Hemoglobin Test Send Out 0 dollar Dec 15, 2017 [facility] Dec 15, 2017 VENIPUNCT, ROUTINE* Dec 15, 2017 INSTRUCTIONS MEDICATIONS ADMINISTERED No Known Medications MEDICAL (GENERAL) HISTORY Type Description Date Medical History Type 1 DM Medical History Hypothyroidism Surgical History Tonsillectomy/Adenoidectomy 2000 Surgical History Back Surgery 2006 Surgical History Thyroid Ablation 1998 Surgical History Colonoscopy 2009 Hospitalization History [facility] ER 11/2017
--- OUTSIDE RECORDS SUMMARY | 2018-06-28 08:40 | XMS REPORT ---
Author Author MAIA CHING Organization [facility] Address [address] [place] [address] Care Team Providers Care Check Processor Name Role Phone MAIA CHING Unavailable PROBLEMS Type Condition ICD9-CM Code [id number] Code Onset Dates Condition Status SNOMED Code Problem Raynaud''s phenomenon without gangrene I73.00 Active 758737084 Problem Hypothyroidism (acquired) E03.9 Active 440600038 Problem Uncontrolled type 1 diabetes mellitus without complication E10.65 Active 149006674 Problem Other chronic pain G89.29 Active 14430625 ALLERGIES No Information ENCOUNTERS Encounter Location Date Diagnosis [place] [address] [address] 14 Feb, 2018 [facility] [address] [address] 13 Feb, 2018 [place] [address] [address] 16 Jan, 2018 Hypothyroidism (acquired) E03.9 and Raynaud''s phenomenon without gangrene I73.00 [facility] [address] [place] [id number] [place] [address] 15 Dec, 2017 [facility] [address] [address] 28 Nov, 2017 Hypothyroidism (acquired) E03.9 [facility] [address] [address] 27 Nov, 2017 Uncontrolled type 1 diabetes mellitus with hypoglycemia without coma E10.649 [facility] [address] [address] 24 Nov, 2017 [facility] [address] [address] Aug, [facility] [address] [facility] [id number] [place] [address] July, Other chronic pain G89.29 ; Pain in right shoulder M25.511 and Uncontrolled type 1 diabetes mellitus without complication E10.65 IMMUNIZATIONS No Known Immunizations SOCIAL HISTORY Never Assessed REASON FOR VISIT concerns PLAN OF CARE VITAL SIGNS MEDICATIONS Unknown Medications RESULTS No Results PROCEDURES No Known procedures INSTRUCTIONS MEDICATIONS ADMINISTERED No Known Medications MEDICAL (GENERAL) HISTORY Type Description Date Medical History Type 1 DM Medical History Hypothyroidism Surgical History Tonsillectomy/Adenoidectomy 2000 Surgical History Back Surgery 2006 Surgical History Thyroid Ablation 1998 Surgical History Colonoscopy 2009 Hospitalization History [facility] ER 11/2017
--- OUTSIDE RECORDS SUMMARY | 2018-06-28 08:40 | XMS REPORT ---
Author Author MAIA CHING Organization [facility] Address [address] [place] [address] Care Team Providers Care Test Technician Name Role Phone MAIA CHING Unavailable PROBLEMS Type Condition ICD9-CM Code GSY27-DV Code Onset Dates Condition Status SNOMED Code Problem Hypothyroidism (acquired) E03.9 Active 36637899 Problem Uncontrolled type 1 diabetes mellitus without complication E10.65 Active 122130242 Problem Other chronic pain G89.29 Active 44859665 ALLERGIES No Information ENCOUNTERS Encounter Location Date Diagnosis [place] [address] [address] Dec, [place] [address] [address] Nov, Hypothyroidism (acquired) E03.9 [place] [address] [address] 27 Nov, 2017 Uncontrolled type 1 diabetes mellitus with hypoglycemia without coma E10.649 [place] [address] [place] [id number] [place] [address] Nov, [place] [address] [address] Aug, [place] [address] [place] [id number] [place] [address] July, Other chronic pain G89.29 ; Pain in right shoulder M25.511 and Uncontrolled type 1 diabetes mellitus without complication E10.65 IMMUNIZATIONS No Known Immunizations SOCIAL HISTORY Never Assessed REASON FOR VISIT ER visit note PLAN OF CARE VITAL SIGNS MEDICATIONS Unknown Medications RESULTS No Results PROCEDURES No Known procedures INSTRUCTIONS MEDICATIONS ADMINISTERED No Known Medications MEDICAL (GENERAL) HISTORY Type Description Date Medical History Type 1 DM Medical History Hypothyroidism Surgical History Tonsillectomy/Adenoidectomy 2000 Surgical History Back Surgery 2007 Surgical History Thyroid Ablation 1998 Surgical History Colonoscopy 2009 Hospitalization History [facility] ER 11/2017
--- OUTSIDE RECORDS SUMMARY | 2018-06-28 08:40 | XMS REPORT ---
Author Author MAIA CHING [facility] Address [address] [place] [address] Care Team Providers Care Freelance Copywriter Name Role Phone MAIA CHING Unavailable PROBLEMS ALLERGIES No Information ENCOUNTERS IMMUNIZATIONS No Known Immunizations SOCIAL HISTORY No smoking Hx information available REASON FOR VISIT PLAN OF CARE VITAL SIGNS MEDICATIONS RESULTS No Results PROCEDURES No Known procedures INSTRUCTIONS MEDICATIONS ADMINISTERED No Known Medications MEDICAL (GENERAL) HISTORY
[2018-06-28] MEDS ORDERED: PROMETHAZINE INJ 25 MG/ML (PHENERGAN) AMP IVP STA (08:43)
[2018-06-28] MEDS ORDERED: diphenhydrAMINE 50 MG/ML INJ (BENADRYL) IV STA (08:43)
[2018-06-28] MEDS ORDERED: NS IV 1000 ML 1,000 ML IV STA (08:43)
[2018-06-28] MEDS ORDERED: KETOROLAC 30 MG/ML VIAL IVP STA (08:43)
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
--- NOTE | 2018-06-28 09:00 | ED Headache ---
General Chief Complaint: Head/Cervical Problems Stated Complaint: HEADACHE;N/V Source: patient Exam Limitations: no limitations History of Present Illness Date Seen by Provider: Jun 28, 2018 Time Seen by Provider: 08:40 Initial Comments Here with report of headache and nausea and vomiting. Onset yesterday but worse this morning. Has had a few episodes of vomiting. Headache is typical for him. He gets migraine headaches since his hematocrit brain injury several years ago. Also has diabetes but reports blood sugars have been fairly well-controlled. He tried his ibuprofen yesterday and that did not work. Has not had anything since last evening. Timing/Duration: 24 hours, increasing Severity/Quality: moderate, pressure Location: temporal, parietal Prior Headaches/Recent Trauma: occasional headaches Modifying Factors: worse with exposure to light; improves with rest Associated Symptoms: No confusion, No facial pain, No fever/chills; nausea/ vomiting; No nasal congestion, No stiff neck Allergies and Home Medications Allergies Uncoded Allergies: HYDROCONE (Allergy, Unknown, 11/01/17) Home Medications Cefdinir 300 Mg Capsule, 300 MG PO BID Prescribed by: WEN VILLASEÑOR on 12/10/17 9161 Patient Home Medication List Home Medication List Reviewed: Yes Review of Systems Review of Systems Constitutional: see HPI; No chills, No fever Eyes: Denies Blurred Vision; Photophobia Ears, Nose, Mouth, Throat: denies ear pain, denies throat pain Respiratory: No cough, No short of breath Gastrointestinal: nausea, vomiting Genitourinary: no symptoms reported Musculoskeletal: no symptoms reported Psychiatric/Neurological: See HPI Past Rsskarb-Tdfkub-Crufmg Hx Past Med/Social Hx: Reviewed Nursing Past Med/Soc Hx Patient Social History Alcohol Use: Occasionally Uses Recreational Drug Use: Yes (THC) Smoking Status: Current Everyday Smoker Recent Foreign Travel: No Contact w/Someone Who Travel: No Past Medical History Surgeries: Yes (traumatic brain injury and surgery for that) Respiratory: No Cardiac: Yes Hypertension Neurological: Yes Headaches /Migraines, Traumatic Brain Injury Genitourinary: No Gastrointestinal: No Musculoskeletal: No Endocrine: Yes Diabetes, Insulin dep HEENT: No Cancer: No Psychosocial: No Integumentary: No Blood Disorders: No Family Medical History Reviewed Nursing Family Hx No Pertinent Family Hx Physical Exam Vital Signs Vital Signs - First Documented 06/28/18 08:48 Temp 97.6 Pulse 76 Resp 16 B/P (MAP) 145/106 (119) Pulse Ox 99 Capillary Refill : Height, Weight, BMI Height: 5'9.00" Weight: 150lbs. oz. 68.875970yu; BMI Method:Stated General Appearance: WD/WN, no apparent distress HEENT: PERRL/EOMI, TMs normal, pharynx normal Neck: full range of motion, supple Cardiovascular: regular rate, rhythm, no murmur Respiratory: lungs clear, normal breath sounds Gastrointestinal: non tender, soft Back: normal inspection, no CVA tenderness, no vertebral tenderness Extremities: normal range of motion, non-tender, normal inspection Psychiatric: alert, oriented x 3 Crainal Nerves: normal hearing, normal speech, PERRL Coordination/Gait: normal gait Motor/Sensory: no motor deficit, no sensory deficit Skin: normal color, warm/dry Progress/Results/Core Measures Results/Orders Lab Results Laboratory Tests Test 06/28/18 08:43 Range/Units Glucometer 105 70-110 MG/DL My Orders Orders - MELVIN JC MD Promethazine Injection (Phenergan Injec (06/28/18 08:43) Ns Iv 1000 Ml (Sodium Chloride 0.9%) (06/28/18 08:43) Ed Iv/Invasive Line Start (06/28/18 08:43) Diphenhydramine Injection (Benadryl Inje (06/28/18 08:43) Ketorolac Injection (Toradol Injection) (06/28/18 08:43) Accucheck Stat ONCE (06/28/18 08:48) Vital Signs/I&O 06/28/18 08:48 Temp 97.6 Pulse 76 Resp 16 B/P (MAP) 145/106 (119) Pulse Ox 99 Progress Progress Note : Progress Note Seen and evaluated. IV, normal saline 1 L bolus, Phenergan 25 mg IV, Benadryl 50 mg IV and Toradol 30 mg IV ordered. Fingerstick blood sugar done and noted. Monitor patient. 0957: Resting peacefully without concerns. States much better. Discharged home with return precautions. will get him home. Patient verbalize understanding instructions and agreement with plan. Departure Impression Primary Impression: Migraine Qualified Codes: G43.909 - Migraine, unspecified, not intractable, without status migrainosus Disposition: 01 HOME, SELF-CARE Condition: Improved Departure-Patient Inst. Decision time for Depature: 10:05 Referrals: NO,LOCAL PHYSICIAN (PCP/Family) Primary Care Physician Patient Instructions: Migraine Headache (DC) Add. Discharge Instructions: All discharge instructions reviewed with patient and/or family. Voiced understanding. Continue home medications as previously prescribed. Follow-up with your Dr. in a few days for recheck. Return for worse pain, fever, vomiting, weakness, vision or balance problems or other concerns as needed. Drink plenty of fluids and get plenty of rest. Copy Copies To 1: NOEMY BLACKBURN TIMOTHY D MD Jun 28, 2018 09:00
--- NOTE | 2018-06-28 09:50 | NUR ---
pt sleeping with eyes closed at this time. pt friend at bedside.
[2018-06-28 10:16] VITALS: BP 139/86
== END 2018-06-28 10:16 | disposition home or self-care (01) ==
LOC: EDUNIT# 08:30 → ER 08:31
DX: G43.909 Migraine, unspecified, not intractable, without status migrainosus (principal); I10 Essential (primary) hypertension; E11.9 Type 2 diabetes mellitus without complications; F12.10 Cannabis abuse, uncomplicated; F17.200 Nicotine dependence, unspecified, uncomplicated; Z88.5 Allergy status to narcotic agent; Z87.820 Personal history of traumatic brain injury
CPT/HCPCS: 82962

== ENCOUNTER 2018-09-25 21:54 | Emergency (ER) | payer MEDICARE, MEDICAID ==
[~2018-09-25] VITALS: Ht 170.2 cm; Wt 68.0 kg
--- OUTSIDE RECORDS SUMMARY | 2018-09-25 22:06 | XMS REPORT ---
Author Author MAIA CHING Organization [facility] Address [address] [place] [address] Care Team Providers Care Health Coordinator Name Role Phone MAIA CHING Unavailable PROBLEMS Type Condition ICD9-CM Code OGP41-XM Code Onset Dates Condition Status SNOMED Code Problem Raynaud''s phenomenon without gangrene I73.00 Active 668281003 Problem Type 1 diabetes mellitus with hyperglycemia E10.65 Active 167422242950403 Problem Other chronic pain G89.29 Active 65805042 Problem Hypothyroidism (acquired) E03.9 Active 726839888 ALLERGIES No Information ENCOUNTERS Encounter Location Date Diagnosis [facility] [address] [address] Apr, Type 1 diabetes mellitus with hyperglycemia E10.65 [facility] [address] [address] 18 Apr, 2018 Hypothyroidism (acquired) E03.9 and Type 1 diabetes mellitus with hyperglycemia E10.65 [facility] [id number] [place] [phone] Apr, [facility] [address] [address] Apr, Other chronic pain G89.29 [facility] [address] [address] Apr, Other chronic pain G89.29 [facility] [address] [address] Mar, Type 1 diabetes mellitus with hyperglycemia E10.65 [facility] [address] [address] Mar, Type 1 diabetes mellitus with hyperglycemia E10.65 [facility] [id number] [place] [phone] 16 Mar, 2018 [facility] [address] [address] Mar, Type 1 diabetes mellitus with hyperglycemia E10.65 [facility] [id number] [place] [phone] Feb, [facility] [address] [address] Feb, Hypothyroidism (acquired) E03.9 [facility] [id number] [place] [phone] 14 Feb, 2018 Uncontrolled type 1 diabetes mellitus without complication E10.65 [facility] [id number] [place] [phone] Feb, [facility] [address] [address] Jan, Hypothyroidism (acquired) E03.9 and Raynaud''s phenomenon without gangrene I73.00 [facility] [id number] [place] [phone] Dec, [facility] [id number] [place] [phone] 28 Nov, 2017 Hypothyroidism (acquired) E03.9 [facility] [id number] [place] [phone] 27 Nov, 2017 Uncontrolled type 1 diabetes mellitus with hypoglycemia without coma E10.649 [facility] [id number] [place] [phone] Nov, [facility] [id number] [place] [phone] Aug, [facility] [id number] [place] [phone] July, Other chronic pain G89.29 ; Pain in right shoulder M25.511 and Uncontrolled type 1 diabetes mellitus without complication E10.65 IMMUNIZATIONS No Known Immunizations SOCIAL HISTORY Never Assessed REASON FOR VISIT DM Testing Supplies PLAN OF CARE VITAL SIGNS MEDICATIONS Medication Instructions Dosage Frequency Start Date End Date Duration Status OneTouch Ultra 2 w/Device subcutaneously 3 times a day test blood sugar 8h May, Active OneTouch Ultra Test - test blood sugar 8h May, Active OneTouch UltraSoft Lancets - test blood sugar 8h May, Active RESULTS No Results PROCEDURES No Known procedures INSTRUCTIONS MEDICATIONS ADMINISTERED No Known Medications MEDICAL (GENERAL) HISTORY Type Description Date Medical History Type 1 DM Medical History Hypothyroidism Surgical History Tonsillectomy/Adenoidectomy 2000 Surgical History Back Surgery 2006 Surgical History Thyroid Ablation 1998 Surgical History Colonoscopy 2009 Hospitalization History [facility] ER 11/2017
--- OUTSIDE RECORDS SUMMARY | 2018-09-25 22:09 | XMS REPORT | Continuity of Care Document ---
Author Organization Unknown Address Unknown Allergies Active Description Code Type Severity Reaction Onset Reported/Identified Relationship to Patient Clinical Status Yes No Known Allergies Drug Allergy N/A N/A 09/02/2012 Yes No Known Drug Allergies Drug Allergy N/A N/A 09/02/2012 Yes No Known Food Allergies Food Allergy N/A N/A 09/02/2012 Yes No Known Drug Allergies [id number] Drug Allergy Unknown N/A 05/23/2017 Yes HYDROCONE HYDROCONE Unknown N/A 11/01/2017 Medications There is no data. Problems Date [...] Parker MD Final 305.1 TOBACCO USE DISORDER 05/23/2017 WEN VILLASEÑOR APRN Ot R51 HEADACHE 07/06/2017 WEN VILLASEÑOR APRN Ot G44.89 OTHER HEADACHE SYNDROME 07/06/2017 WEN VILLASEÑOR [employer] Ot R11.2 NAUSEA WITH VOMITING, UNSPECIFIED 07/06/2017 [...] UNSPECIFIED 12/10/2017 WEN VILLASEÑOR APRN Ot Z79.4 SENIOR CARE (CURRENT) USE OF INSULIN 12/10/2017 WEN VILLASEÑOR APRN Ot Z88.5 ALLERGY STATUS TO NARCOTIC AGENT STATUS 12/12/2017 WEN VILLASEÑOR APRN Ot E11.649 TYPE 2 DIABETES MELLITUS WITH HYPOGLYCEM 12/12/2017 WEN VILLASEÑOR APRN Ot E16.2 HYPOGLYCEMIA, UNSPECIFIED 12/12/2017 WEN VILLASEÑOR APRN Ot G43.909 MIGRAINE, UNSP, NOT INTRACTABLE, WITHOUT 12/12/2017 WEN VILLASEÑOR APRN Ot J32.9 CHRONIC SINUSITIS, UNSPECIFIED 12/12/2017 WEN VILLASEÑOR APRN Ot Z79.4 SENIOR CARE (CURRENT) USE OF INSULIN 12/12/2017 WEN VILLASEÑOR APRN Ot Z88.5 ALLERGY STATUS TO NARCOTIC AGENT STATUS 06/28/2018 MELVIN JC MD Ot E11.9 TYPE 2 DIABETES MELLITUS WITHOUT COMPLIC 06/28/2018 MELVIN JC MD Ot F12.10 CANNABIS ABUSE, UNCOMPLICATED 06/28/2018 MELVIN JC MD Ot F17.200 NICOTINE DEPENDENCE, UNSPECIFIED, UNCOMP 06/28/2018 MELVIN JC MD Ot G43.909 MIGRAINE, UNSP, NOT INTRACTABLE, WITHOUT 06/28/2018 MELVIN JC MD Ot I10 ESSENTIAL (PRIMARY) HYPERTENSION 06/28/2018 MELVIN JC MD Ot R51 HEADACHE 06/28/2018 MELVIN JC MD Ot Z87.820 PERSONAL HISTORY OF TRAUMATIC BRAIN INJU 06/28/2018 MELVIN JC MD Ot Z88.5 ALLERGY STATUS TO NARCOTIC AGENT STATUS 06/30/2018 MELVIN JC MD Ot E11.9 TYPE 2 DIABETES MELLITUS WITHOUT COMPLIC 06/30/2018 MELVIN JC MD, Ot F12.10 CANNABIS ABUSE, UNCOMPLICATED 06/30/2018 MELVIN JC MD, Ot F17.200 NICOTINE DEPENDENCE, UNSPECIFIED, UNCOMP 06/30/2018 MELVIN JC MD, Ot G43.909 MIGRAINE, UNSP, NOT INTRACTABLE, WITHOUT 06/30/2018 MELVIN JC MD, Ot I10 ESSENTIAL (PRIMARY) HYPERTENSION 06/30/2018 MELVIN JC MD, Ot R51 HEADACHE 06/30/2018 MELVIN JC MD, Ot Z87.820 PERSONAL HISTORY OF TRAUMATIC BRAIN INJU 06/30/2018 MELVIN CJ MD, Ot Z88.5 ALLERGY STATUS TO NARCOTIC AGENT STATUS Procedures There is no data. Results Test Result Range Complete blood count (CBC) with automated white [...] Automated erythrocyte mean corpuscular hemoglobin concentration measurement (mass/volume) 36 g/dL 32-36 Automated erythrocyte distribution width ratio 13.3 % 10.0- 14.5 Automated blood platelet count (count/volume) 285 10*3/uL [...] Blood monocytes automated count (number/volume) 0.5 10*3 0.0- 1.0 Automated eosinophil count 0.1 10*3/uL 0.0-0.3 Automated [...] Serum or plasma aspartate aminotransferase measurement (enzymatic activity/volume) 20 U/L 5-34 Serum or plasma alanine aminotransferase measurement (enzymatic activity/volume) 15 U/L 0-55 Serum or plasma protein measurement (mass/volume) 7.3 g/dL 6.4-8.2 Serum or plasma albumin measurement (mass/volume) 4.3 g/dL 3.2-4.5 Complete urinalysis with reflex to culture - 05/23/17 14:40 Urine color determination YELLOW NRG Urine clarity determination CLEAR NRG Urine pH measurement by test strip 5 5-9 Specific gravity of urine by test strip 1.025 1.016-1.022 Urine protein assay by test strip, semi-quantitative [...] sediment leukocyte count by microscopy (number/high power field) [HPF] NRG Bacteria detection in urine sediment [...] Automated erythrocyte mean corpuscular hemoglobin concentration measurement (mass/volume) 36 g/dL 32-36 Automated erythrocyte distribution width ratio 13.3 % 10.0- 14.5 Automated blood platelet count (count/volume) 328 10*3/uL [...] Blood monocytes automated count (number/volume) 0.9 10*3 0.0- 1.0 Automated eosinophil count 0.1 10*3/uL 0.0-0.3 Automated [...] Serum or plasma aspartate aminotransferase measurement (enzymatic activity/volume) 27 U/L 5-34 Serum or plasma alanine aminotransferase measurement (enzymatic activity/volume) 26 U/L 0-55 Serum or plasma protein measurement (mass/volume) 7.4 g/dL 6.4-8.2 Serum or plasma albumin measurement (mass/volume) 4.5 g/dL 3.2-4.5 Capillary blood glucose measurement by glucometer (mass/volume) - 07/06/17 10:26 Capillary blood glucose measurement by glucometer (mass/volume) 100 mg/dL 70-110 Capillary blood glucose measurement by glucometer (mass/volume) - 12/10/17 22:21 Capillary blood glucose measurement by glucometer (mass/volume) [...] Automated erythrocyte mean corpuscular hemoglobin concentration measurement (mass/volume) 36 g/dL 32-36 Automated erythrocyte distribution width ratio 13.1 % 10.0- 14.5 Automated blood platelet count (count/volume) 262 10*3/uL [...] Blood monocytes automated count (number/volume) 0.6 10*3 0.0- 1.0 Automated eosinophil count 0.1 10*3/uL 0.0-0.3 Automated [...] Serum or plasma aspartate aminotransferase measurement (enzymatic activity/volume) 26 U/L 5-34 Serum or plasma alanine aminotransferase measurement (enzymatic activity/volume) 15 U/L 0-55 Serum or plasma protein [...] gravity of urine by test strip 1.015 1.016-1.022 Urine protein assay by test strip, semi-quantitative [...] sediment leukocyte count by microscopy (number/high power field) NONE NRG Bacteria detection in urine sediment [...] - 02/03/18 16:43 TSH 2.45 mIU/L 0.40-4.50 Capillary blood glucose measurement by glucometer (mass/volume) - 06/28/18 08:43 Capillary blood glucose measurement by glucometer (mass/volume) 105 mg/dL 70-110 CBC - 09/07/18 09:03 WHITE BLOOD CELL COUNT 8.9 Thousand/uL 3.8-10.8 RED BLOOD CELL COUNT 5.14 Million/uL 4.20-5.80 HEMOGLOBIN 16.0 g/dL 13.2-17.1 HEMATOCRIT 48.1 % 38.5-50.0 MCV 93.6 fL 80.0-100.0 MCH 31.1 pg 27.0-33.0 MCHC 33.3 g/dL 32.0-36.0 RDW 13.3 % 11.0-15.0 PLATELET COUNT 483 Thousand/uL 140-400 MPV 9.7 fL 7.5-12.5 ABSOLUTE NEUTROPHILS 5171 cells/uL 5698-8502 ABSOLUTE LYMPHOCYTES 2670 cells/uL 850-3900 ABSOLUTE MONOCYTES 676 cells/uL 200-950 ABSOLUTE EOSINOPHILS 249 cells/uL 15-500 ABSOLUTE BASOPHILS 134 cells/uL 0-200 NEUTROPHILS 58.1 % NRG LYMPHOCYTES 30.0 % NRG MONOCYTES 7.6 % NRG EOSINOPHILS 2.8 % NRG BASOPHILS 1.5 % NRG Encounters ACCT No. Visit Date/Time Discharge Status Pt. Type Provider Facility Loc./Unit Complaint [id number] 11/30/2016 14:31:28 11/30/2016 23:59:59 CLS Outpatient Kathleen Evangelista [id number] 09/17/2016 09:34:10 09/17/2016 23:59:59 CLS Outpatient Anuel Marina [id number] 07/28/2016 10:46:40 07/28/2016 23:59:59 CLS Outpatient Dayana Shin [id number] 07/09/2016 12:00:51 07/09/2016 23:59:59 CLS Outpatient Isabelle Aguilar [id number] 07/05/2016 14:09:37 07/05/2016 23:59:59 CLS Outpatient Isabelle Aguilar [id number] 04/13/2016 16:07:38 04/13/2016 23:59:59 CLS Outpatient Dayana Shin [id number] 03/06/2016 12:04:56 03/06/2016 23:59:59 CLS Outpatient Laina Anuel [id number] 02/28/2016 09:50:37 02/28/2016 23:59:59 CLS Outpatient Diamond Soto [id number] 12/05/2015 12:13:12 12/05/2015 23:59:59 CLS Outpatient Anuel Marina [id number] 03/22/2015 20:39:13 03/22/2015 23:59:59 CLS Outpatient Kathleen Evangelista [id number] 02/17/2015 09:47:01 02/17/2015 23:59:59 CLS Outpatient Kathleen Evangelista [id number] 01/29/2015 15:29:45 01/29/2015 23:59:59 CLS Outpatient Kathleen Evangelista [id number] 01/22/2015 11:31:22 01/22/2015 23:59:59 CLS Outpatient Diamond Soto [id number] 01/08/2015 10:38:40 01/08/2015 23:59:59 CLS Outpatient Elias Chow [id number] 01/07/2015 09:41:18 01/07/2015 23:59:59 CLS Outpatient Diamond Soto [id number] 12/24/2014 14:32:53 12/24/2014 23:59:59 CLS Outpatient Elias Chow [id number] 11/12/2014 15:43:10 11/12/2014 23:59:59 CLS Outpatient Elias Chow [id number] 09/14/2018 13:00:00 09/14/2018 23:59:59 CLS Outpatient MAIA CHING APRN [facility] [id number] 09/07/2018 09:20:00 Document Registration [id number] 02/03/2018 16:40:00 Document Registration [id number] 12/15/2017 14:00:00 Document Registration [id number] 06/28/2018 08:31:00 06/28/2018 10:16:00 DIS Emergency HOSEA BOSTON, MELVIN Roldan [facility] ER HEADACHE;N/V [id number] 12/10/2017 22:06:00 12/10/2017 23:11:00 DIS Emergency WEN VILLASEÑOR APRN [facility] ER SEIZURE [id number] 07/06/2017 10:19:00 07/06/2017 12:12:00 DIS Emergency WEN VILLASEÑOR APRN [facility] ER LOW BLOOD SUGAR,LOUIS,VOMITING [id number] 05/23/2017 13:51:00 05/23/2017 15:21:00 DIS Emergency WEN VILLASEÑOR APRN [facility] ER LOUIS/NAUSEA/VOMITING [id number] 11/01/2017 14:14:00 Document Registration [id number] 09/02/2012 15:54:00 09/02/2012 18:02:00 DIS Emergency Frankie Parker MD [facility] [id number] 08/28/2012 13:55:00 08/28/2012 16:00:00 DIS Emergency Kojo Song MD [facility] FERM
[2018-09-25] MEDS: fentaNYL INJECTION 100 MCG/2 ML AMP IVP ONE (23:40)
[2018-09-25] MEDS: KETOROLAC 30 MG/ML VIAL IVP ONE (23:40)
[2018-09-25 23:41] LABS: BASOPHILS % (AUTO) 0 % (0-10); EOSINOPHILS # (AUTO) 0.1 10^3/uL (0.0-0.3); EOSINOPHILS % (AUTO) 1 % (0-10); HEMATOCRIT 42 % (40-54); HEMOGLOBIN 14.9 G/DL (13.3-17.7); LYMPHOCYTES # (AUTO) 1.4 X 10^3 (1.0-4.0); LYMPHOCYTES % (AUTO) 10 % (12-44); MEAN CORPUSCULAR HEMOGLOBIN 32 PG (25-34); MEAN CORPUSCULAR HGB CONC 36 G/DL (32-36); MEAN CORPUSCULAR VOLUME 90 FL (80-99); MEAN PLATELET VOLUME 9.8 FL (7.4-10.4); MONOCYTES # (AUTO) 1.1 X 10^3 (0.0-1.0); MONOCYTES % (AUTO) 8 % (0-12); NEUTROPHILS % (AUTO) 81 % (42-75); PLATELET COUNT 264 10^3/uL (130-400); RED CELL DISTRIBUTION WIDTH 13.6 % (10.0-14.5); WHITE BLOOD COUNT 13.6 10^3/uL (4.3-11.0)
[2018-09-25 23:51] LABS: PROTHROMBIN TIME PATIENT 13.3 SEC (12.2-14.7)
[2018-09-25 23:58] LABS: ALANINE AMINOTRANSFERASE 13 U/L (0-55); ALBUMIN 4.1 GM/DL (3.2-4.5); ALKALINE PHOSPHATASE 94 U/L (40-136); BILIRUBIN,TOTAL 1.1 MG/DL (0.1-1.0); BUN/CREATININE RATIO 19; CALCIUM 9.3 MG/DL (8.5-10.1); CARBON DIOXIDE 27 MMOL/L (21-32); CHLORIDE 99 MMOL/L (98-107); CREATININE SERUM 1.06 MG/DL (0.60-1.30); GFR ESTIMATED > 60; GLUCOSE 270 MG/DL (70-105); POTASSIUM 3.8 MMOL/L (3.6-5.0); SODIUM 138 MMOL/L (135-145); TOTAL PROTEIN 7.1 GM/DL (6.4-8.2)
[2018-09-26 00:35] VITALS: BP 146/98
[2018-09-26] MEDS: TRIM/SULFAMETH 160/800 (SEPTRA DS) TAB PO ONE (00:57)
[2018-09-26] MEDS: CLINDAMYCIN 900 MG/50 ML IVPB 50 ML IV ONE (00:57)
--- NOTE | 2018-09-26 01:21 | ED General ---
General Chief Complaint: Skin/Wound Problems Stated Complaint: POSS INSECT BITE/SWELLING NECK Nursing Triage Note: PT STATES TUESDAY HE NOTICED SWELLING TO THE RIGHT SIDE OF HIS NECK. PT STATES HE HAS BEEN ABLE TO SQUEEZE FLUID OUT OF THE WOUND. PT DENIES DIFFICULTY BREATHING. PT DENIES CHANGE IN VOICE. Nursing Sepsis Screen: No Definite Risk Source of Information: Patient Exam Limitations: No Limitations History of Present Illness Date Seen by Provider: Sep 25, 2018 Time Seen by Provider: 23:15 Initial Comments This 38-year-old gentleman presents to the emergency room with pains, swelling, and erythema to the right posterior aspect of his neck. Erythema has been sp reading. There was some drainage from the area and now there is an area about a centimeter in diameter that appears scabbed or possibly necrotic. They're wondering if this could be a spider bite. Symptoms started September 22. The area feels hot to the touch and he has had chills tonight. His significant other states the drainage appeared as a bloody discharge. He is a type I diabetic. Allergies and Home Medications Allergies Uncoded Allergies: HYDROCONE (Allergy, Unknown, 11/01/17) Home Medications Cefdinir 300 Mg Capsule, 300 MG PO BID Prescribed by: WEN VILLASEÑOR on 12/10/172251 Clindamycin HCl 300 Mg Capsule, 300 MG PO QID Prescribed by: GAVINO BRANTLEY on 09/26/18123 Hydrocodone Bit/Acetaminophen 1 Tab Tab, 1 EACH PO Q4-6HR PRN for PAIN-MODERATE Prescribed by: GAVINO BRANTLEY on 09/26/18123 Sulfamethoxazole/Trimethoprim 1 Each Tablet, 1 EACH PO BID Prescribed by: GAVINO BRANTLEY on 09/26/18123 Patient Home Medication List Home Medication List Reviewed: Yes Review of Systems Review of Systems Constitutional: see HPI EENTM: see HPI Respiratory: no symptoms reported Cardiovascular: no symptoms reported Gastrointestinal: no symptoms reported Genitourinary: no symptoms reported Musculoskeletal: no symptoms reported Skin: see HPI Psychiatric/Neurological: No Symptoms Reported Hematologic/Lymphatic: No Symptoms Reported Immunological/Allergic: no symptoms reported Past Ggjsfzp-Xsvvyg-Xascpa Hx Past Med/Social Hx: Reviewed and Corrections made Patient Social History Alcohol Use: Occasionally Uses Recreational Drug Use: Yes Drug of Choice: THC Type Used: Cigarettes Recent Foreign Travel: No Contact w/Someone Who Travel: No Recent Infectious Disease Expo: No Physical Abuse: No Sexual Abuse: No Mistreated: No Fear: No Past Medical History Surgeries: Yes (traumatic brain injury and surgery for that) Adenoidectomy, Orthopedic, Thyroidectomy, Tonsillectomy Respiratory: No Cardiac: Yes Hypertension Neurological: Yes Headaches /Migraines, Traumatic Brain Injury Genitourinary: No Gastrointestinal: No Musculoskeletal: No Endocrine: Yes Diabetes, Insulin dep, Hypothyroidsim HEENT: No Cancer: No Psychosocial: No Integumentary: No Blood Disorders: No Family Medical History No Pertinent Family Hx Physical Exam Vital Signs Vital Signs - First Documented 09/25/18 22:17 Temp 99.7 Pulse 99 Resp 18 B/P (MAP) 149/117 (128) Pulse Ox 99 O2 Delivery Room Air Capillary Refill : Less Than 3 Seconds Height, Weight, BMI Height: 5'7.00" Weight: 150lbs. oz. 68.181398rh; BMI Method:Stated General Appearance: No Apparent Distress, WD/WN HEENT: PERRL/EOMI, Normal ENT Inspection Neck: Other (Erythema on the right posterior aspect of the neck with generalized edema, tenderness, warmth, and a central slightly cratered area of scabbing and/or necrosis. No drainage) Respiratory: Lungs Clear, Normal Breath Sounds, No Accessory Muscle Use Cardiovascular: Regular Rate, Rhythm, No Edema, No Murmur Gastrointestinal: Non Tender, Soft Extremity: Normal Capillary Refill, Normal Inspection, No Pedal Edema Neurologic/Psychiatric: Alert, Oriented x3, No Motor/Sensory Deficits, Normal Mood/Affect, hospital librarian II-XII Norm as Tested Skin: Normal Color, Warm/Dry, Other (Seen and examined above) Focused Exam Lactate Level Lactic Acid Level Progress/Results/Core Measures Suspected Sepsis Recent Fever Within 48 Hours: No Infection Criteria Present: None New/Unexplained Altered Menta: No Sepsis Screen: No Definite Risk SIRS Temperature:99.7 Pulse: 99 Respiratory Rate: 18 Blood Pressure 146 /98 Mean: 114 Results/Orders Lab Results My Orders Orders - GAVINO BLACK MD Iv Infusion <= First Hr Ed (09/25/18 ) Medications Given in ED Vital Signs/I&O Capillary Refill : Less Than 3 Seconds Blood Pressure Mean: 114 Progress Note : Progress Note The affected area was further evaluated with bedside ultrasound. There were no collections of fluid to suggest abscess. Pain was initially treated with fentanyl and Toradol, later oxycodone. Antibiotic therapy was initiated with IV clindamycin and oral Bactrim. Departure Impression Primary Impression: Cellulitis, neck Disposition: HOME, SELF-CARE Condition: Improved Departure-Patient Inst. Decision time for Depature: 01:00 Referrals: NO,LOCAL PHYSICIAN (PCP/Family) Primary Care Physician Patient Instructions: Cellulitis (Skin Infection), Adult (DC), Spider Bites Add. Discharge Instructions: Complete your antibiotics as prescribed. Follow-up with your primary care provider soon as possible. Call this morning for an appointment. For primary pain control take ibuprofen up to 600 mg every 6 hours as needed. You may add either Tylenol (acetaminophen) up to 1000 mg every 6 hours as needed or hydrocodone as prescribed for additional pain management. Return to care if you have worsening symptoms. All discharge instructions reviewed with patient and/or family. Voiced understanding. Scripts Hydrocodone Bit/Acetaminophen (Hydrocodone/Acetaminophen 5/325mg Tablet) 1 Tab Tab 1 EACH PO Q4-6HR PRN for PAIN-MODERATE MDD 10, #10 TAB Prov: GAVINO BLACK MD 09/26/18 Sulfamethoxazole/Trimethoprim (Bactrim Ds Tablet) 1 Each Tablet 1 EACH PO BID, #20 TAB Prov: GAVINO BLACK MD 09/26/18 Clindamycin HCl (Clindamycin HCl) 300 Mg Capsule 300 MG PO QID, #40 CAP Prov: GAVINO BLACK MD 09/26/18 GAVINO BLACK MD Sep 26, 2018 01:21
[2018-09-26] MEDS ORDERED: SULF1TAB35 PO (01:24)
[2018-09-26] MEDS ORDERED: CLIN300C11 PO (01:24)
[2018-09-26] MEDS ORDERED: ACHD5005 PO (01:24)
[2018-09-26] MEDS: oxyCODONE/APAP 5/325MG (PERCOCET 5) TABLET PO ONE (01:31)
[2018-09-26 01:32] VITALS: BP 146/98
== END 2018-09-26 01:32 | disposition home or self-care (01) ==
LOC: EDUNIT# 21:54 → ER 21:55
DX: L03.221 Cellulitis of neck (principal); I10 Essential (primary) hypertension; G43.909 Migraine, unspecified, not intractable, without status migrainosus; E11.9 Type 2 diabetes mellitus without complications; E03.9 Hypothyroidism, unspecified; F12.10 Cannabis abuse, uncomplicated; Z90.89 Acquired absence of other organs; Z88.5 Allergy status to narcotic agent
CPT/HCPCS: 36415; 80053; 83605; 85025; 85610; 85730; 87040; 96365; 96375

== ENCOUNTER 2018-11-14 08:03 | Emergency (ER) | payer MEDICARE, MEDICAID ==
[~2018-11-14] VITALS: Ht 177.8 cm; Wt 75.7 kg
[~2018-11-14 08:03] MED LIST changes: +ACHD5005 PO; +CLIN300C11 PO; +SULF1TAB35 PO
[2018-11-14] MEDS ORDERED: NS IV 1000 ML 1,000 ML IV SCH (08:22)
--- NOTE | 2018-11-14 08:27 | ED General ---
General Chief Complaint: Glucose Problems Stated Complaint: BS ISSUES Source of Information: Patient, Other Exam Limitations: Other (clinical condition) History of Present Illness Date Seen by Provider: Nov 14, 2018 Time Seen by Provider: 08:16 Initial Comments Patient presents to ER by private conveyance with his fiance and chief co mplaint he was acting belligerent and on this morning and so she asked to be checked his blood sugar but he says he did but couldn't tell her what was. She was unable to get him to check his blood sugar so she brought him to the ER. She gave him some sugar water but he promptly threw it up. She gave him some breakfast burrito which she also threw it up. He's not had any symptoms recently no cough fever chills or belly pain diarrhea nausea or vomiting until this morning. She says every now and again his blood sugar will go low and she didn't sugar water and usually works but this morning he was not keeping it down. He is a type 1 insulin-dependent diabetic who uses trujeo and Humalog. Allergies and Home Medications Allergies Uncoded Allergies: HYDROCONE (Allergy, Unknown, 11/01/17) Home Medications Cefdinir 300 Mg Capsule, 300 MG PO BID Prescribed by: WEN VILLASEÑOR on 12/10/172251 Clindamycin HCl 300 Mg Capsule, 300 MG PO QID Prescribed by: GAVINO BRANTLEY on 09/26/18123 Hydrocodone Bit/Acetaminophen 1 Tab Tab, 1 EACH PO Q4-6HR PRN for PAIN-MODERATE Prescribed by: GAVINO BRANTLEY on 09/26/18123 Sulfamethoxazole/Trimethoprim 1 Each Tablet, 1 EACH PO BID Prescribed by: GAVINO BRANTLEY on 09/26/18123 Patient Home Medication List Home Medication List Reviewed: Yes Review of Systems Review of Systems Constitutional: No chills, No diaphoresis EENTM: No ear pain, No mouth pain Respiratory: No cough, No orthopnea Cardiovascular: No chest pain, No edema Gastrointestinal: No abdominal pain, No constipation, No nausea, No vomiting Genitourinary: No discharge, No dysuria Musculoskeletal: No back pain, No joint pain Past Wrkckml-Rfogti-Zteaav Hx Patient Social History Alcohol Use: Denies Use Recreational Drug Use: Yes Drug of Choice: THC Smoking Status: Current Everyday Smoker Type Used: Cigarettes Past Medical History Surgeries: Yes (traumatic brain injury and surgery for that) Adenoidectomy, Orthopedic, Thyroidectomy, Tonsillectomy Respiratory: No Cardiac: Yes Hypertension Neurological: Yes Headaches /Migraines, Traumatic Brain Injury Genitourinary: No Gastrointestinal: No Musculoskeletal: No Endocrine: Yes Diabetes, Insulin dep, Hypothyroidsim HEENT: No Cancer: No Psychosocial: No Integumentary: No Blood Disorders: No Family Medical History No Pertinent Family Hx Physical Exam Vital Signs Vital Signs - First Documented 11/14/18 08:25 Temp 99.1 Pulse 87 Resp 18 B/P (MAP) 167/99 (121) Pulse Ox 99 O2 Delivery Room Air Capillary Refill : Height, Weight, BMI Height: 5'7.00" Weight: 150lbs. oz. 68.246524ez; BMI Method:Stated General Appearance: WD/WN, Mild Distress Eyes: Bilateral Eye Normal Inspection, Bilateral Eye PERRL, Bilateral Eye EOMI HEENT: PERRL/EOMI, TMs Normal, Normal ENT Inspection, Pharynx Normal, Moist Mucous Membranes Neck: Full Range of Motion, Normal Inspection, Non Tender, Supple Respiratory: Lungs Clear, Normal Breath Sounds, No Accessory Muscle Use, No Respiratory Distress Cardiovascular: Regular Rate, Rhythm, Normal Peripheral Pulses Gastrointestinal: Normal Bowel Sounds, Non Tender, Soft Neurologic/Psychiatric: Alert, Other (oriented to person) Progress/Results/Core Measures Suspected Sepsis SIRS Temperature: Pulse: Respiratory Rate: Laboratory Tests 11/14/18 08:21: White Blood Count 8.4 Blood Pressure / Mean: Laboratory Tests 11/14/18 08:21: Creatinine 1.11, Platelet Count 374, Total Bilirubin 1.3H Results/Orders Lab Results Laboratory Tests Test 11/14/18 08:15 11/14/18 08:21 11/14/18 08:59 11/14/18 10:13 Range/Units Glucometer 39 *L 109 70-110 MG/DL White Blood Count 8.4 4.3-11.0 10^3/uL Red Blood Count 4.90 4.35-5.85 10^6/uL Hemoglobin 15.5 13.3-17.7 G/DL Hematocrit 45 40-54 % Mean Corpuscular Volume 92 80-99 FL Mean Corpuscular Hemoglobin 32 25-34 PG Mean Corpuscular Hemoglobin Concent 34 32-36 G/DL Red Cell Distribution Width 13.7 10.0-14.5 % Platelet Count 374 130-400 10^3/uL Mean Platelet Volume 10.3 7.4-10.4 FL Neutrophils (%) (Auto) 55 42-75 % Lymphocytes (%) (Auto) 34 12-44 % Monocytes (%) (Auto) 7 0-12 % Eosinophils (%) (Auto) 3 0-10 % Basophils (%) (Auto) 1 0-10 % Neutrophils # (Auto) 4.6 1.8-7.8 X 10^3 Lymphocytes # (Auto) 2.9 1.0-4.0 X 10^3 Monocytes # (Auto) 0.5 0.0-1.0 X 10^3 Eosinophils # (Auto) 0.3 0.0-0.3 10^3/uL Basophils # (Auto) 0.1 0.0-0.1 10^3/uL Sodium Level 143 135-145 MMOL/L Potassium Level 3.8 3.6-5.0 MMOL/L Chloride Level 107 98-107 MMOL/L Carbon Dioxide Level 26 21-32 MMOL/L Anion Gap 10 5-14 MMOL/L Blood Urea Nitrogen 11 7-18 MG/DL Creatinine 1.11 0.60-1.30 MG/DL Estimat Glomerular Filtration Rate > 60 BUN/Creatinine Ratio 10 Glucose Level 33 *L 70-105 MG/DL Calcium Level 9.3 8.5-10.1 MG/DL Corrected Calcium 9.1 8.5-10.1 MG/DL Total Bilirubin 1.3 H 0.1-1.0 MG/DL Aspartate Amino Transf (AST/SGOT) 18 5-34 U/L Alanine Aminotransferase (ALT/SGPT) 14 0-55 U/L Alkaline Phosphatase 79 40-136 U/L C-Reactive Protein High Sensitivity 0.01 0.00-0.50 MG/DL Total Protein 7.0 6.4-8.2 GM/DL Albumin 4.2 3.2-4.5 GM/DL Urine Color YELLOW Urine Clarity CLEAR Urine pH 5 5-9 Urine Specific [place] 1.020 1.016-1.022 Urine Protein NEGATIVE NEGATIVE Urine Glucose (UA) 2+ H NEGATIVE Urine Ketones NEGATIVE NEGATIVE Urine Nitrite NEGATIVE NEGATIVE Urine Bilirubin NEGATIVE NEGATIVE Urine Urobilinogen NORMAL NORMAL MG/DL Urine Leukocyte Esterase NEGATIVE NEGATIVE Urine RBC (Auto) NEGATIVE NEGATIVE Urine RBC NONE /HPF Urine WBC 0-2 /HPF Urine Crystals NONE /LPF Urine Bacteria NEGATIVE /HPF Urine Casts NONE /LPF Urine Mucus SMALL H /LPF Urine Culture Indicated NO Test 11/14/18 10:31 Range/Units Glucometer 168 H 70-110 MG/DL My Orders Orders - LOISZAK Josy General/Regular (11/14/18 Breakfast) Accucheck Stat ONCE (11/14/18 08:22) Cbc With Automated Diff (11/14/18 08:22) Comprehensive Metabolic Panel (11/14/18 08:22) Hs C Reactive Protein (11/14/18 08:22) Ua Culture If Indicated (11/14/18 08:22) Ed Iv/Invasive Line Start (11/14/18 08:22) Ns Iv 1000 Ml (Sodium Chloride 0.9%) (11/14/18 08:22) Ondansetron Injection (Zofran Injectio (11/14/18 08:30) D50w (Emergency) Syringe (Dextrose 50% 5 (11/14/18 08:30) Accucheck Stat ONCE (11/14/18 08:45) Promethazine Injection (Phenergan Injec (11/14/18 09:15) Accucheck Stat ONCE (11/14/18 10:12) Medications Given in ED Current Medications Medications Dose Ordered Sig/Kristi Route Start Time Stop Time Status Last Admin Dose Admin Dextrose 25 ml ONCE ONCE IV 11/14/18 08:30 11/14/18 08:31 DC 11/14/18 08:37 25 ML Ondansetron HCl 8 mg ONCE ONCE IVP 11/14/18 08:30 11/14/18 08:31 DC 11/14/18 08:37 8 MG Promethazine HCl 25 mg ONCE ONCE IVP 11/14/18 09:15 11/14/18 09:16 DC 11/14/18 09:10 25 MG Vital Signs/I&O 11/14/18 08:25 Temp 99.1 Pulse 87 Resp 18 B/P (MAP) 167/99 (121) Pulse Ox 99 O2 Delivery Room Air Capillary Refill : Progress Note : Time: 10:42 Progress Note The patient's latest blood sugar is 169. He ate some breakfast. He is feeling mu ch better and sleeping. Easily awakens. If his urinalysis is okay we will send him home. GCS 15. Departure Impression Primary Impression: Hypoglycemia Additional Impression: Type 1 diabetes mellitus Qualified Codes: E10.69 - Type 1 diabetes mellitus with other specified complication Disposition: HOME, SELF-CARE Condition: Improved Departure-Patient Inst. Decision time for Depature: 11:05 Referrals: NO,LOCAL PHYSICIAN (PCP/Family) Primary Care Physician Patient Instructions: Low Blood Sugar in People With Diabetes Add. Discharge Instructions: Follow-up with primary care to discuss his insulin needs. If he is acting oddly as nausea, chills, clammy or sweaty then you need to immediately check his blood sugar. All discharge instructions reviewed with patient and/or family. Voiced understanding. ZAK ABREU Nov 14, 2018 08:27
[2018-11-14] MEDS ORDERED: ONDANSETRON 4 MG/2 ML (SDV) Z0FRAN IVP ONE (08:30)
[2018-11-14] MEDS ORDERED: DEXTROSE 50% 50 ML (IMS) SYR IV ONE (08:30)
--- NOTE | 2018-11-14 08:31 | NUR ---
BREAKFAST ORDERED FOR PT.
[2018-11-14 08:35] LABS: BASOPHILS # (AUTO) 0.1 10^3/uL (0.0-0.1); BASOPHILS % (AUTO) 1 % (0-10); EOSINOPHILS # (AUTO) 0.3 10^3/uL (0.0-0.3); EOSINOPHILS % (AUTO) 3 % (0-10); HEMATOCRIT 45 % (40-54); HEMOGLOBIN 15.5 G/DL (13.3-17.7); LYMPHOCYTES # (AUTO) 2.9 X 10^3 (1.0-4.0); LYMPHOCYTES % (AUTO) 34 % (12-44); MEAN CORPUSCULAR HEMOGLOBIN 32 PG (25-34); MEAN CORPUSCULAR HGB CONC 34 G/DL (32-36); MEAN CORPUSCULAR VOLUME 92 FL (80-99); MEAN PLATELET VOLUME 10.3 FL (7.4-10.4); MONOCYTES # (AUTO) 0.5 X 10^3 (0.0-1.0); MONOCYTES % (AUTO) 7 % (0-12); NEUTROPHILS # (AUTO) 4.6 X 10^3 (1.8-7.8); NEUTROPHILS % (AUTO) 55 % (42-75); PLATELET COUNT 374 10^3/uL (130-400); RED CELL DISTRIBUTION WIDTH 13.7 % (10.0-14.5); WHITE BLOOD COUNT 8.4 10^3/uL (4.3-11.0)
[2018-11-14 08:51] LABS: ALANINE AMINOTRANSFERASE 14 U/L (0-55); ALBUMIN 4.2 GM/DL (3.2-4.5); ALKALINE PHOSPHATASE 79 U/L (40-136); BILIRUBIN,TOTAL 1.3 MG/DL (0.1-1.0); BUN/CREATININE RATIO 10; CALCIUM 9.3 MG/DL (8.5-10.1); CARBON DIOXIDE 26 MMOL/L (21-32); CHLORIDE 107 MMOL/L (98-107); CREATININE SERUM 1.11 MG/DL (0.60-1.30); GFR ESTIMATED > 60; POTASSIUM 3.8 MMOL/L (3.6-5.0); SODIUM 143 MMOL/L (135-145)
[2018-11-14 09:02] LABS: GLUCOSE 33 MG/DL (70-105)
[2018-11-14] MEDS ORDERED: PROMETHAZINE INJ 25 MG/ML (PHENERGAN) AMP IVP ONE (09:15)
[2018-11-14 10:37] LABS: BILIRUBIN,URINE NEGATIVE (NEGATIVE); CLARITY,URINE CLEAR; COLOR,URINE YELLOW; GLUCOSE, URINE (UA) 2+ (NEGATIVE); KETONES,URINE NEGATIVE (NEGATIVE); LEUKOCYTE ESTERASE ,URINE NEGATIVE (NEGATIVE); NITRITE,URINE NEGATIVE (NEGATIVE); PH,URINE 5 (5-9); PROTEIN,URINE NEGATIVE (NEGATIVE); UROBILINOGEN,URINE NORMAL (NORMAL)
[2018-11-14 11:00] LABS: BACTERIA,URINE NEGATIVE /HPF; WBC,URINE 0-2 /HPF
[2018-11-14 11:28] VITALS: BP 121/80
== END 2018-11-14 11:28 | disposition home or self-care (01) ==
LOC: ER 08:03 → EDUNIT# 08:03 → ER 11:28
DX: E10.649 Type 1 diabetes mellitus with hypoglycemia without coma (principal); I10 Essential (primary) hypertension; G43.909 Migraine, unspecified, not intractable, without status migrainosus; E03.9 Hypothyroidism, unspecified; F17.210 Nicotine dependence, cigarettes, uncomplicated; Z87.820 Personal history of traumatic brain injury; Z88.5 Allergy status to narcotic agent; Z90.89 Acquired absence of other organs
CPT/HCPCS: 36415; 80053; 81000; 82962; 85025; 86141

== ENCOUNTER 2019-03-01 19:37 | Emergency (ER) | payer MEDICARE, MEDICAID ==
[~2019-03-01] VITALS: Ht 170.1 cm; Wt 68.3 kg
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
[2019-03-01 20:51] VITALS: BP 152/85
== END 2019-03-01 20:51 | disposition home or self-care (01) ==
LOC: EDUNIT# 19:37 → ER 19:38
DX: S00.412A Abrasion of left ear, initial encounter (principal); H61.22 Impacted cerumen, left ear; I10 Essential (primary) hypertension; E11.9 Type 2 diabetes mellitus without complications; G43.909 Migraine, unspecified, not intractable, without status migrainosus; F17.210 Nicotine dependence, cigarettes, uncomplicated; Z87.820 Personal history of traumatic brain injury; Z90.89 Acquired absence of other organs; Z88.5 Allergy status to narcotic agent; X58.XXXA Exposure to other specified factors, initial encounter
CPT/HCPCS: 99282

== ENCOUNTER 2019-04-05 20:55 | Emergency (ER) | payer MEDICARE, MEDICAID ==
[~2019-04-05] VITALS: Ht 170 cm; Wt 66.5 kg
[2019-04-05] MEDS ORDERED: NS IV 1000 ML 1,000 ML IV SCH (21:17)
[2019-04-05] MEDS ORDERED: NS IV 1000 ML 1,000 ML IV ONE (21:17)
[2019-04-05] MEDS ORDERED: INSU100I23 (21:20)
[2019-04-05] MEDS ORDERED: GABA-488 (21:20)
[2019-04-05] MEDS ORDERED: LEVO200T6 (21:20)
[2019-04-05] MEDS ORDERED: INSU300I (21:20)
--- NOTE | 2019-04-05 21:20 | ED General ---
General Chief Complaint: Glucose Problems Stated Complaint: HIGH BLOOD SUGARS Source of Information: Patient, Family, Spouse Exam Limitations: No Limitations History of Present Illness Date Seen by Provider: Apr 05, 2019 Time Seen by Provider: 21:10 Initial Comments Patient presents to ER by private conveyance with chief complaint of labile blood sugars the past couple days. Some low blood sugars in the 50s yesterday and today he's had a blood sugar high of 585. After he takes his 7 units of Humalog along with his sliding scale dose brings the 100-200. He is a type I diabetic and has had diabetic ketoacidosis in the past. He endorses urinary frequency but no headache, nausea, abdominal pain. No recent illness other he has been complaining of some chills no known fevers. No cough shortness of breath dysuria diarrhea constipation. No rash or skin infection. He is followed by Aramis Rivas and does not follow with an team supervisor and does not have a insulin pump. He uses 18 units of Trujeo daily. Allergies and Home Medications Allergies Uncoded Allergies: HYDROCONE (Allergy, Unknown, 11/01/17) Patient Home Medication List Home Medication List Reviewed: Yes Review of Systems Review of Systems Constitutional: chills; No diaphoresis, No fever; malaise EENTM: No ear discharge, No ear pain Respiratory: No cough, No short of breath Cardiovascular: No chest pain, No edema Gastrointestinal: No abdominal pain, No nausea, No vomiting Genitourinary: No discharge, No dysuria Musculoskeletal: No back pain, No joint pain Skin: No pruritus, No rash Psychiatric/Neurological: Denies Headache, Denies Numbness All Other Systems Reviewed Negative Unless Noted: Yes Past Omhvmpv-Wohxes-Ucnvjo Hx Patient Social History Alcohol Use: Denies Use Recreational Drug Use: Yes Drug of Choice: THC Smoking Status: Current Everyday Smoker Type Used: Cigarettes 2nd Hand Smoke Exposure: Yes Recent Foreign Travel: No Contact w/Someone Who Travel: No Recent Hopitalizations: No Seasonal Allergies Seasonal Allergies: No Past Medical History Surgeries: No Adenoidectomy, Orthopedic, Thyroidectomy, Tonsillectomy Respiratory: No Cardiac: No Hypertension Neurological: No Headaches /Migraines, Traumatic Brain Injury Genitourinary: No Gastrointestinal: No Musculoskeletal: No Endocrine: Yes Diabetes, Insulin dep HEENT: No Cancer: No Psychosocial: No Integumentary: No Blood Disorders: No Family Medical History No Pertinent Family Hx Physical Exam Vital Signs Vital Signs - First Documented 04/05/19 21:05 Temp 36.8 Pulse 83 Resp 18 B/P (MAP) 109/77 (88) Pulse Ox 99 O2 Delivery Room Air Capillary Refill : Height, Weight, BMI Height: 5'10.00" Weight: 167lbs. oz. 75.095263qu; 23.00 BMI Method:Stated General Appearance: No Apparent Distress, WD/WN Eyes: Bilateral Eye Normal Inspection, Bilateral Eye PERRL, Bilateral Eye EOMI HEENT: PERRL/EOMI, TMs Normal, Normal ENT Inspection, Pharynx Normal, Moist Mucous Membranes Neck: Full Range of Motion, Normal Inspection Respiratory: Lungs Clear, Normal Breath Sounds, No Accessory Muscle Use, No Respiratory Distress Cardiovascular: Regular Rate, Rhythm, No Edema, Normal Peripheral Pulses Gastrointestinal: Normal Bowel Sounds, No Organomegaly, Non Tender, Soft Back: Normal Inspection, No CVA Tenderness, No Vertebral Tenderness Extremity: Normal Capillary Refill, Normal Inspection, No Pedal Edema Neurologic/Psychiatric: Alert, Oriented x3, No Motor/Sensory Deficits Skin: Normal Color, Warm/Dry Progress/Results/Core Measures Suspected Sepsis SIRS Temperature: Pulse: Respiratory Rate: Laboratory Tests 04/05/19 21:30: White Blood Count 9.0 Blood Pressure / Mean: Laboratory Tests 04/05/19 21:30: Creatinine 1.36H, Platelet Count 383, Total Bilirubin 0.5 Results/Orders Lab Results Laboratory Tests Test 04/05/19 21:25 04/05/19 21:30 04/05/19 21:31 Range/Units Urine Color YELLOW Urine Clarity CLEAR Urine pH 7.0 5-9 Urine Specific [place] 1.015 L 1.016-1.022 Urine Protein NEGATIVE NEGATIVE Urine Glucose (UA) 3+ H NEGATIVE Urine Ketones NEGATIVE NEGATIVE Urine Nitrite NEGATIVE NEGATIVE Urine Bilirubin NEGATIVE NEGATIVE Urine Urobilinogen 0.2 < = 1.0 MG/DL Urine Leukocyte Esterase NEGATIVE NEGATIVE Urine RBC (Auto) NEGATIVE NEGATIVE Urine RBC RARE /HPF Urine WBC RARE /HPF Urine Crystals NONE /LPF Urine Bacteria TRACE /HPF Urine Casts NONE /LPF Urine Mucus NEGATIVE /LPF Urine Culture Indicated NO Blood Gas Puncture Site right radial Blood Gas Patient Temperature 36.5 Arterial Blood pH 7.42 7.37-7.43 Arterial Blood Partial Pressure CO2 44 35-45 MMHG Arterial Blood Partial Pressure O2 87 79-93 MMHG Arterial Blood HCO3 28 H 23-27 MMOL/L Arterial Blood Total CO2 29.3 21.0-31.0 MMOL/L Arterial Blood Oxygen Saturation 98 94-100 % Arterial Blood Base Excess 3.6 H -2.5-2.5 MMOL/L Anthony Test positive Blood Gas Ventilator Setting NO Blood Gas Inspired Oxygen ROOM AIR Urine Opiates Screen NEGATIVE NEGATIVE Urine Oxycodone Screen NEGATIVE NEGATIVE Urine Methadone Screen NEGATIVE NEGATIVE Urine Propoxyphene Screen NEGATIVE NEGATIVE Urine Barbiturates Screen NEGATIVE NEGATIVE Ur Tricyclic Antidepressants Screen NEGATIVE NEGATIVE Urine Phencyclidine Screen NEGATIVE NEGATIVE Urine Amphetamines Screen NEGATIVE NEGATIVE Urine Methamphetamines Screen NEGATIVE NEGATIVE Urine Benzodiazepines Screen NEGATIVE NEGATIVE Urine Cocaine Screen NEGATIVE NEGATIVE Urine Cannabinoids Screen NEGATIVE NEGATIVE White Blood Count 9.0 4.3-11.0 10^3/uL Red Blood Count 4.79 4.35-5.85 10^6/uL Hemoglobin 15.2 13.3-17.7 G/DL Hematocrit 43 40-54 % Mean Corpuscular Volume 90 80-99 FL Mean Corpuscular Hemoglobin 32 25-34 PG Mean Corpuscular Hemoglobin Concent 35 32-36 G/DL Red Cell Distribution Width 13.3 10.0-14.5 % Platelet Count 383 130-400 10^3/uL Mean Platelet Volume 10.3 7.4-10.4 FL Neutrophils (%) (Auto) 55 42-75 % Lymphocytes (%) (Auto) 34 12-44 % Monocytes (%) (Auto) 7 0-12 % Eosinophils (%) (Auto) 3 0-10 % Basophils (%) (Auto) 1 0-10 % Neutrophils # (Auto) 5.0 1.8-7.8 X 10^3 Lymphocytes # (Auto) 3.1 1.0-4.0 X 10^3 Monocytes # (Auto) 0.6 0.0-1.0 X 10^3 Eosinophils # (Auto) 0.3 0.0-0.3 10^3/uL Basophils # (Auto) 0.1 0.0-0.1 10^3/uL Sodium Level 139 135-145 MMOL/L Potassium Level 4.5 3.6-5.0 MMOL/L Chloride Level 100 98-107 MMOL/L Carbon Dioxide Level 27 21-32 MMOL/L Anion Gap 12 5-14 MMOL/L Blood Urea Nitrogen 19 H 7-18 MG/DL Creatinine 1.36 H 0.60-1.30 MG/DL Estimat Glomerular Filtration Rate 59 BUN/Creatinine Ratio 14 Glucose Level 291 H 70-105 MG/DL Calcium Level 9.5 8.5-10.1 MG/DL Corrected Calcium 9.3 8.5-10.1 MG/DL Total Bilirubin 0.5 0.1-1.0 MG/DL Aspartate Amino Transf (AST/SGOT) 16 5-34 U/L Alanine Aminotransferase (ALT/SGPT) 20 0-55 U/L Alkaline Phosphatase 100 40-136 U/L C-Reactive Protein High Sensitivity 0.03 0.00-0.50 MG/DL Total Protein 7.2 6.4-8.2 GM/DL Albumin 4.2 3.2-4.5 GM/DL Glucometer 278 H 70-110 MG/DL Micro Results Microbiology 04/05/19 Influenza Types A,B Antigen (MIR[place]ANDE) - Final, Complete My Orders Orders - ZAK ABREU Ed Iv/Invasive Line Start (04/05/19 21:17) Ns Iv 1000 Ml (Sodium Chloride 0.9%) (04/05/19 21:17) Ns Iv 1000 Ml (Sodium Chloride 0.9%) (04/05/19 21:17) Cbc With Automated Diff (04/05/19 21:17) Hs C Reactive Protein (04/05/19 21:17) Comprehensive Metabolic Panel (04/05/19 21:17) Ua Culture If Indicated (04/05/19 21:17) Drug Screen Stat (Urine) (04/05/19 21:17) Influenza A And B Antigens (04/05/19 21:17) Accucheck Stat ONCE (04/05/19 21:17) Chest 1 View, Ap/Pa Only (04/05/19 21:20) Arterial Blood Gas (04/05/19 21:26) Insulin (Regular) Human (Humulin R (Per (04/05/19 22:15) Medications Given in ED Current Medications Medications Dose Ordered Sig/Kristi Route Start Time Stop Time Status Last Admin Dose Admin Insulin Human Regular 5 unit ONCE ONCE SC 04/05/19 22:15 04/05/19 22:16 DC 04/05/19 22:22 5 UNIT Sodium Chloride 1,000 ml @ 0 mls/hr Q0M ONCE IV 04/05/19 21:17 04/05/19 21:20 DC 04/05/19 21:33 0 MLS/HR Vital Signs/I&O 04/05/19 21:05 Temp 36.8 Pulse 83 Resp 18 B/P (MAP) 109/77 (88) Pulse Ox 99 O2 Delivery Room Air Capillary Refill : Progress Note : Time: 22:24 Progress Note No evidence of DKA or hypoglycemia. No evidence of infection. Labile blood sugars with hyperglycemia. He took 18 units of Humalog prior to coming here and his blood sugar down to 291 so we will give 5 units of regular insulin subcutaneous and recheck his blood sugar and 15-30 minutes. No follow-up with primary care provider. Diagnostic Imaging Diagonstic Imaging: Xray Plain Films/CT/US/NM/MRI: chest Comments [facility], [place] NAME: GIFTY WASHBURN [facility] REC#: [id number] PT STATUS: REG ER : 1980 PHYSICIAN: ZAK ABREU MD ADMIT DATE: 04/05/19/ER Signed Date of Exam:04/05/19 CHEST 1 VIEW, AP/PA ONLY INDICATION: Hyperglycemia COMPARISON: 02/26/2006 FINDINGS: Single frontal view of the chest demonstrates normal heart size and pulmonary vascularity. The lungs are well aerated and clear. No large pleural effusion or pneumothorax is seen. The visualized osseous structures show no acute abnormalities. IMPRESSION: 1. No acute cardiopulmonary process. Dictated by: Dictated on workstation # [id number] Dict: 04/05/192152 Trans: 04/05/192202 [facility] [id number] Interpreted by: MAHENDRA DUDLEY MD Electronically signed by: MAHENDRA DUDLEY MD 04/05/192202 Reviewed: Reviewed by Me Departure Impression Primary Impression: Type 1 diabetes mellitus Qualified Codes: E10.69 - Type 1 diabetes mellitus with other specified complication Additional Impression: Hyperglycemia Disposition: 01 HOME, SELF-CARE Condition: Stable Departure-Patient Inst. Decision time for Depature: 22:59 Referrals: [facility] (PCP) Primary Care Physician MAIA RIVAS (Family) Primary Care Physician Patient Instructions: Diabetes Type 1, Adult (DC) Add. Discharge Instructions: Tomorrow morning please call your primary care doctor during business hours for follow-up. Discussed continued management of your diabetes. If you have hypoglycemia you something with protein in it such as cheese, peanut butter and crackers etc. All discharge instructions reviewed with patient and/or family. Voiced understanding. ZAK ABREU Apr 05, 2019 21:20
[2019-04-05 21:30] LABS: BILIRUBIN,URINE NEGATIVE (NEGATIVE); CLARITY,URINE CLEAR; COLOR,URINE YELLOW; GLUCOSE, URINE (UA) 3+ (NEGATIVE); KETONES,URINE NEGATIVE (NEGATIVE); LEUKOCYTE ESTERASE ,URINE NEGATIVE (NEGATIVE); NITRITE,URINE NEGATIVE (NEGATIVE); PROTEIN,URINE NEGATIVE (NEGATIVE)
[2019-04-05 21:44] LABS: ABG BASE EXCESS 3.6 MMOL/L (-2.5-2.5); ABG OXYGEN SATURATION 98 % (94-100); ABG PCO2 44 MMHG (35-45); ABG PH 7.42 (7.37-7.43); ABG PO2 87 MMHG (79-93); ABG TCO2 29.3 MMOL/L (21.0-31.0); ALLENS TEST positive; INSPIRED O2 ROOM AIR; PATIENT TEMP 36.5; VENTILATOR NO
[2019-04-05 21:47] LABS: AMPHETAMINE SCREEN, URINE NEGATIVE (NEGATIVE); BARBITURATE SCREEN URINE NEGATIVE (NEGATIVE); BENZODIAZEPINES SCREEN URINE NEGATIVE (NEGATIVE); CANNABINOID SCREEN, URINE NEGATIVE (NEGATIVE); COCAINE SCREEN URINE NEGATIVE (NEGATIVE); METHADONE STAT NEGATIVE (NEGATIVE); METHAMPHETAMINE SCREEN URINE S NEGATIVE (NEGATIVE); OPIATE SCREEN URINE NEGATIVE (NEGATIVE); OXYCODONE STAT NEGATIVE (NEGATIVE); PROPOXYPHENE STAT NEGATIVE (NEGATIVE); TRICYCLIC ANTIDEPRESSANTS SCRE NEGATIVE (NEGATIVE)
[2019-04-05 21:47] LABS: BASOPHILS # (AUTO) 0.1 10^3/uL (0.0-0.1); BASOPHILS % (AUTO) 1 % (0-10); EOSINOPHILS # (AUTO) 0.3 10^3/uL (0.0-0.3); EOSINOPHILS % (AUTO) 3 % (0-10); HEMATOCRIT 43 % (40-54); HEMOGLOBIN 15.2 G/DL (13.3-17.7); LYMPHOCYTES # (AUTO) 3.1 X 10^3 (1.0-4.0); LYMPHOCYTES % (AUTO) 34 % (12-44); MEAN CORPUSCULAR HEMOGLOBIN 32 PG (25-34); MEAN CORPUSCULAR HGB CONC 35 G/DL (32-36); MEAN CORPUSCULAR VOLUME 90 FL (80-99); MEAN PLATELET VOLUME 10.3 FL (7.4-10.4); MONOCYTES # (AUTO) 0.6 X 10^3 (0.0-1.0); MONOCYTES % (AUTO) 7 % (0-12); NEUTROPHILS % (AUTO) 55 % (42-75); PLATELET COUNT 383 10^3/uL (130-400); RED CELL DISTRIBUTION WIDTH 13.3 % (10.0-14.5)
--- NOTE | 2019-04-05 21:56 | Diagnostic Imaging Report ---
INDICATION: Hyperglycemia COMPARISON: 02/26/2006 FINDINGS: Single frontal view of the chest demonstrates normal heart size and pulmonary vascularity. The lungs are well aerated and clear. No large pleural effusion or pneumothorax is seen. The visualized osseous structures show no acute abnormalities. IMPRESSION: 1. No acute cardiopulmonary process. Dictated by: Dictated on workstation # [id number]
[2019-04-05 21:58] LABS: BACTERIA,URINE TRACE /HPF; RBC,URINE RARE /HPF; WBC,URINE RARE /HPF
[2019-04-05 21:59] LABS: ALBUMIN 4.2 GM/DL (3.2-4.5); BILIRUBIN,TOTAL 0.5 MG/DL (0.1-1.0); CALCIUM 9.5 MG/DL (8.5-10.1); CREATININE SERUM 1.36 MG/DL (0.60-1.30); POTASSIUM 4.5 MMOL/L (3.6-5.0); TOTAL PROTEIN 7.2 GM/DL (6.4-8.2)
[2019-04-05] MEDS ORDERED: inSUlin (REGULAR) HUMAN 1 UNIT/0.01 ML (CHARGE PER UNIT) SC ONE (22:15)
[2019-04-05 23:03] VITALS: BP 102/77
== END 2019-04-05 23:06 | disposition home or self-care (01) ==
LOC: EDUNIT# 20:55 → ER 20:56
DX: E10.65 Type 1 diabetes mellitus with hyperglycemia (principal); I10 Essential (primary) hypertension; G43.909 Migraine, unspecified, not intractable, without status migrainosus; Z87.820 Personal history of traumatic brain injury; F17.210 Nicotine dependence, cigarettes, uncomplicated; Z90.89 Acquired absence of other organs; Z88.5 Allergy status to narcotic agent
CPT/HCPCS: 36415; 71045; 80053; 80306; 81000; 82805; 82962; 85025; 86141; 87804; 96360; 96372

== ENCOUNTER 2019-05-18 21:14 | Emergency (ER) | payer MEDICARE, MEDICAID ==
[~2019-05-18] VITALS: Ht 167 cm; Wt 68.0 kg
[~2019-05-18 21:14] MED LIST changes: +GABA-488; +INSU100I23; +INSU300I; +LEVO200T6
--- NOTE | 2019-05-18 21:19 | ED General ---
General Stated Complaint: HIGH BLOOD SUGAR Source of Information: Patient Exam Limitations: No Limitations History of Present Illness Date Seen by Provider: May 18, 2019 Time Seen by Provider: 21:17 Initial Comments To ER per EMS from the [facility] with reports of a syncopal event. He's had diarrhea, was sitting on the toilet when he became very lightheaded. EMS arrived, he was still on the toilet, pale, hypotensive at 100/70, heart rate in the 40s. They got him up, heart rate stayed around 50, blood pressure was up to 140 systolic. He developed some nausea. He received 4 mg of Zofran in route. He is a diabetic, states he has not missed any insulin dosages, blood sugar per EMS was 480 range. Denies any recent illness. Timing/Duration: 1-3 Hours Severity: Moderate Associated Systoms: Nausea/Vomiting Allergies and Home Medications Allergies Uncoded Allergies: HYDROCONE (Allergy, Unknown, 11/01/17) Patient Home Medication List Home Medication List Reviewed: Yes Review of Systems Review of Systems Constitutional: see HPI; No chills, No fever EENTM: see HPI Respiratory: no symptoms reported Cardiovascular: see HPI, syncope Gastrointestinal: diarrhea, nausea Genitourinary: no symptoms reported Musculoskeletal: no symptoms reported Skin: no symptoms reported Psychiatric/Neurological: No Symptoms Reported Hematologic/Lymphatic: No Symptoms Reported Immunological/Allergic: no symptoms reported Past Fbtvnfl-Svhrvu-Qpzmkn Hx Patient Social History Drug of Choice: cannibus Type Used: Cigarettes 2nd Hand Smoke Exposure: Yes Recent Foreign Travel: No Contact w/Someone Who Travel: No Recent Hopitalizations: No Immunizations Up To Date Tetanus Booster (TDap): Unknown Seasonal Allergies Seasonal Allergies: No Past Medical History Surgeries: No Adenoidectomy, Orthopedic, Thyroidectomy, Tonsillectomy Respiratory: No Cardiac: No Hypertension Neurological: No Headaches /Migraines, Traumatic Brain Injury Genitourinary: No Gastrointestinal: No Musculoskeletal: No Endocrine: Yes Diabetes, Insulin dep HEENT: No Cancer: No Psychosocial: No Integumentary: No Blood Disorders: No Family Medical History No Pertinent Family Hx Physical Exam Vital Signs Vital Signs - First Documented 05/18/19 21:14 Temp 36.9 Pulse 51 Resp 20 B/P (MAP) 137/83 (101) Pulse Ox 99 O2 Delivery Room Air Capillary Refill : Height, Weight, BMI Height: 5'10.00" Weight: 167lbs. oz. 75.352978oq; 23.00 BMI Method:Stated General Appearance: No Apparent Distress, WD/WN Eyes: Bilateral Eye Normal Inspection, Bilateral Eye PERRL, Bilateral Eye EOMI HEENT: PERRL/EOMI, TMs Normal Neck: Full Range of Motion, Normal Inspection Respiratory: Normal Breath Sounds, No Accessory Muscle Use, No Respiratory Distress Cardiovascular: Regular Rate, Rhythm, Normal Peripheral Pulses Gastrointestinal: Normal Bowel Sounds, Non Tender, Soft Extremity: Normal Capillary Refill, Normal Inspection Neurologic/Psychiatric: Alert, Oriented x3 Skin: Normal Color, Warm/Dry Progress/Results/Core Measures Suspected Sepsis SIRS Temperature: Pulse: Respiratory Rate: Laboratory Tests 05/18/19 21:16: White Blood Count 7.9 Blood Pressure / Mean: Laboratory Tests 05/18/19 21:16: Creatinine 1.28, Platelet Count 263, Total Bilirubin 1.2H Results/Orders Lab Results Laboratory Tests Test 05/18/19 21:16 05/18/19 21:18 05/18/19 21:38 Range/Units White Blood Count 7.9 4.3-11.0 10^3/uL Red Blood Count 4.75 4.35-5.85 10^6/uL Hemoglobin 15.1 13.3-17.7 G/DL Hematocrit 43 40-54 % Mean Corpuscular Volume 91 80-99 FL Mean Corpuscular Hemoglobin 32 25-34 PG Mean Corpuscular Hemoglobin Concent 35 32-36 G/DL Red Cell Distribution Width 13.4 10.0-14.5 % Platelet Count 263 130-400 10^3/uL Mean Platelet Volume 10.3 7.4-10.4 FL Neutrophils (%) (Auto) 62 42-75 % Lymphocytes (%) (Auto) 29 12-44 % Monocytes (%) (Auto) 5 0-12 % Eosinophils (%) (Auto) 3 0-10 % Basophils (%) (Auto) 1 0-10 % Neutrophils # (Auto) 4.9 1.8-7.8 X 10^3 Lymphocytes # (Auto) 2.3 1.0-4.0 X 10^3 Monocytes # (Auto) 0.4 0.0-1.0 X 10^3 Eosinophils # (Auto) 0.2 0.0-0.3 10^3/uL Basophils # (Auto) 0.1 0.0-0.1 10^3/uL Sodium Level 136 135-145 MMOL/L Potassium Level 4.9 3.6-5.0 MMOL/L Chloride Level 98 98-107 MMOL/L Carbon Dioxide Level 28 21-32 MMOL/L Anion Gap 10 5-14 MMOL/L Blood Urea Nitrogen 12 7-18 MG/DL Creatinine 1.28 0.60-1.30 MG/DL Estimat Glomerular Filtration Rate > 60 BUN/Creatinine Ratio 9 Calcium Level 9.2 8.5-10.1 MG/DL Corrected Calcium 9.1 8.5-10.1 MG/DL Total Bilirubin 1.2 H 0.1-1.0 MG/DL Aspartate Amino Transf (AST/SGOT) 21 5-34 U/L Alanine Aminotransferase (ALT/SGPT) 26 0-55 U/L Alkaline Phosphatase 95 40-136 U/L Total Protein 6.8 6.4-8.2 GM/DL Albumin 4.1 3.2-4.5 GM/DL Glucometer 400 *H 70-110 MG/DL My Orders Orders - WEN VILLASEÑOR APRN Ua Culture If Indicated (05/18/19 21:16) Beta Hydroxybutyrate (05/18/19 21:16) Cbc With Automated Diff (05/18/19 21:16) Comprehensive Metabolic Panel (05/18/19 21:16) Ed Iv/Invasive Line Start (05/18/19 21:16) Ns Iv 1000 Ml (Sodium Chloride 0.9%) (05/18/19 21:30) Insulin (Regular) Human (Humulin R (Per (05/18/19 21:30) Loperamide Tablet (Imodium Tablet) (05/18/19 21:45) Medications Given in ED Current Medications Medications Dose Ordered Sig/Kristi Route Start Time Stop Time Status Last Admin Dose Admin Insulin Human Regular 5 unit ONCE ONCE IV 05/18/19 21:30 05/18/19 21:31 DC 05/18/19 21:23 5 UNIT Vital Signs/I&O 05/18/19 21:14 Temp 36.9 Pulse 51 Resp 20 B/P (MAP) 137/83 (101) Pulse Ox 99 O2 Delivery Room Air Capillary Refill : Departure Impression Primary Impression: Hyperglycemia Additional Impression: Diarrhea Qualified Codes: R19.7 - Diarrhea, unspecified Disposition: 01 HOME, SELF-CARE Condition: Stable Departure-Patient Inst. Decision time for Depature: 21:49 Referrals: [facility] (PCP) Primary Care Physician MAIA CHING (Family) Primary Care Physician Patient Instructions: NO INSTRUCTIONS GIVEN Add. Discharge Instructions: 1. Drink plenty of fluids to stay hydrated. Follow-up with your doctor next week WEN VILLASEÑOR APRN May 18, 2019 21:19
[2019-05-18] MEDS ORDERED: NS IV 1000 ML 1,000 ML IV SCH (21:30)
[2019-05-18] MEDS ORDERED: inSUlin (REGULAR) HUMAN 1 UNIT/0.01 ML (CHARGE PER UNIT) IV ONE (21:30)
[2019-05-18 21:31] LABS: BASOPHILS # (AUTO) 0.1 10^3/uL (0.0-0.1); BASOPHILS % (AUTO) 1 % (0-10); EOSINOPHILS # (AUTO) 0.2 10^3/uL (0.0-0.3); EOSINOPHILS % (AUTO) 3 % (0-10); HEMATOCRIT 43 % (40-54); HEMOGLOBIN 15.1 G/DL (13.3-17.7); LYMPHOCYTES # (AUTO) 2.3 X 10^3 (1.0-4.0); LYMPHOCYTES % (AUTO) 29 % (12-44); MEAN CORPUSCULAR HEMOGLOBIN 32 PG (25-34); MEAN CORPUSCULAR HGB CONC 35 G/DL (32-36); MEAN CORPUSCULAR VOLUME 91 FL (80-99); MEAN PLATELET VOLUME 10.3 FL (7.4-10.4); MONOCYTES # (AUTO) 0.4 X 10^3 (0.0-1.0); MONOCYTES % (AUTO) 5 % (0-12); NEUTROPHILS # (AUTO) 4.9 X 10^3 (1.8-7.8); NEUTROPHILS % (AUTO) 62 % (42-75); PLATELET COUNT 263 10^3/uL (130-400); RED CELL DISTRIBUTION WIDTH 13.4 % (10.0-14.5); WHITE BLOOD COUNT 7.9 10^3/uL (4.3-11.0)
--- NOTE | 2019-05-18 21:37 | NUR ---
Bedside commode in pt room at this time.
[2019-05-18 21:44] LABS: BILIRUBIN,URINE NEGATIVE (NEGATIVE); CLARITY,URINE CLEAR; COLOR,URINE YELLOW; GLUCOSE, URINE (UA) 3+ (NEGATIVE); KETONES,URINE NEGATIVE (NEGATIVE); LEUKOCYTE ESTERASE ,URINE NEGATIVE (NEGATIVE); NITRITE,URINE NEGATIVE (NEGATIVE); PH,URINE 6.5 (5-9); PROTEIN,URINE NEGATIVE (NEGATIVE)
[2019-05-18] MEDS ORDERED: LOPERAMIDE 2 MG (IMODIUM) TABLET PO ONE (21:45)
[2019-05-18 21:46] LABS: ALANINE AMINOTRANSFERASE 26 U/L (0-55); ALBUMIN 4.1 GM/DL (3.2-4.5); ALKALINE PHOSPHATASE 95 U/L (40-136); BILIRUBIN,TOTAL 1.2 MG/DL (0.1-1.0); BUN/CREATININE RATIO 9; CALCIUM 9.2 MG/DL (8.5-10.1); CARBON DIOXIDE 28 MMOL/L (21-32); CHLORIDE 98 MMOL/L (98-107); CREATININE SERUM 1.28 MG/DL (0.60-1.30); GFR ESTIMATED > 60; POTASSIUM 4.9 MMOL/L (3.6-5.0); SODIUM 136 MMOL/L (135-145); TOTAL PROTEIN 6.8 GM/DL (6.4-8.2)
[2019-05-18 21:51] LABS: GLUCOSE 438 MG/DL (70-105)
[2019-05-18 21:53] LABS: BACTERIA,URINE NEGATIVE /HPF; SQUAMOUS EPITHELIAL CELL,UR 0-2 /HPF
[2019-05-18] MEDS ORDERED: LACTATED RINGERS 1,000 ML IV SCH (22:45)
[2019-05-18 23:38] VITALS: BP 137/85
== END 2019-05-18 23:39 | disposition home or self-care (01) ==
LOC: EDUNIT# 21:14 → ER 21:15
DX: E11.65 Type 2 diabetes mellitus with hyperglycemia (principal); R19.7 Diarrhea, unspecified; Z88.5 Allergy status to narcotic agent; Z77.22 Contact with and (suspected) exposure to environmental tobacco smoke (acute) (chronic); Z87.820 Personal history of traumatic brain injury
CPT/HCPCS: 36415; 80053; 81000; 82010; 82962; 85025

== ENCOUNTER 2020-02-15 18:46 | Emergency (ER) | payer MEDICARE, MEDICAID ==
[2020-02-15] MEDS ORDERED: LOPERAMIDE 2 MG (IMODIUM) TABLET PO ONE (19:00)
[2020-02-15] MEDS ORDERED: IBUPROFEN 800 MG (MOTRIN) TAB PO ONE (19:00)
[2020-02-15] MEDS ORDERED: NS IV 1000 ML 1,000 ML IV SCH (19:00)
--- NOTE | 2020-02-15 19:25 | ED General ---
General Chief Complaint: Cough/Cold/Flu Symptoms Stated Complaint: DIARRHEA;FEVER Source of Information: Patient Exam Limitations: No Limitations History of Present Illness Date Seen by Provider: Feb 15, 2020 Time Seen by Provider: 19:25 Initial Comments With diarrhea fever and general malaise. This began earlier today. He is a diabetic. Timing/Duration: 4-6 Hours Severity: Moderate Allergies and Home Medications Allergies Uncoded Allergies: HYDROCONE (Allergy, Unknown, 11/01/17) Patient Home Medication List Home Medication List Reviewed: Yes Review of Systems Review of Systems Constitutional: see HPI EENTM: see HPI Respiratory: no symptoms reported Cardiovascular: no symptoms reported Genitourinary: no symptoms reported Musculoskeletal: no symptoms reported Skin: no symptoms reported Psychiatric/Neurological: No Symptoms Reported Past Cpbqblk-Rmfcqu-Abmfnk Hx Patient Social History Drug of Choice: marijuana Type Used: Cigarettes 2nd Hand Smoke Exposure: Yes Recent Hopitalizations: No Immunizations Up To Date Tetanus Booster (TDap): Unknown Seasonal Allergies Seasonal Allergies: No Past Medical History Surgeries: No Adenoidectomy, Orthopedic, Thyroidectomy, Tonsillectomy Respiratory: No Cardiac: No Hypertension Neurological: No Headaches /Migraines, Traumatic Brain Injury Genitourinary: No Gastrointestinal: No Musculoskeletal: No Endocrine: Yes Diabetes, Insulin dep HEENT: No Cancer: No Psychosocial: No Integumentary: No Blood Disorders: No Family Medical History No Pertinent Family Hx Physical Exam Vital Signs Vital Signs - First Documented 02/15/20 19:06 Temp 44.7 Pulse 76 Resp 18 B/P (MAP) 120/87 (98) Pulse Ox 99 O2 Delivery Room Air Capillary Refill : Height, Weight, BMI Height: 5'10.00" Weight: 167lbs. oz. 75.707683sg; 24.00 BMI Method:Stated General Appearance: No Apparent Distress, WD/WN Eyes: Bilateral Eye Normal Inspection, Bilateral Eye PERRL Respiratory: No Accessory Muscle Use, No Respiratory Distress Cardiovascular: Regular Rate, Rhythm, Normal Peripheral Pulses Gastrointestinal: Normal Bowel Sounds, Non Tender, Soft Extremity: Normal Capillary Refill, Normal Inspection Neurologic/Psychiatric: Alert, Oriented x3 Skin: Normal Color, Warm/Dry Progress/Results/Core Measures Suspected Sepsis SIRS Temperature: Pulse: Respiratory Rate: Laboratory Tests 02/15/20 19:19: White Blood Count 8.2 Blood Pressure / Mean: Laboratory Tests 02/15/20 19:19: Creatinine 1.02, Platelet Count 285, Total Bilirubin 0.8 Results/Orders Lab Results Laboratory Tests Test 02/15/20 19:19 Range/Units White Blood Count 8.2 4.3-11.0 10^3/uL Red Blood Count 4.57 4.30-5.52 10^6/uL Hemoglobin 14.9 13.3-17.7 g/dL Hematocrit 43 40-54 % Mean Corpuscular Volume 94 80-99 fL Mean Corpuscular Hemoglobin 33 25-34 pg Mean Corpuscular Hemoglobin Concent 35 32-36 g/dL Red Cell Distribution Width 12.5 10.0-14.5 % Platelet Count 285 130-400 10^3/uL Mean Platelet Volume 9.7 9.0-12.2 fL Immature Granulocyte % (Auto) 0 % Neutrophils (%) (Auto) 63 42-75 % Lymphocytes (%) (Auto) 30 12-44 % Monocytes (%) (Auto) 5 0-12 % Eosinophils (%) (Auto) 2 0-10 % Basophils (%) (Auto) 1 0-10 % Neutrophils # (Auto) 5.1 1.8-7.8 10^3/uL Lymphocytes # (Auto) 2.4 1.0-4.0 10^3/uL Monocytes # (Auto) 0.4 0.0-1.0 10^3/uL Eosinophils # (Auto) 0.1 0.0-0.3 10^3/uL Basophils # (Auto) 0.1 0.0-0.1 10^3/uL Immature Granulocyte # (Auto) 0.0 0.0-0.1 10^3/uL Sodium Level 144 135-145 MMOL/L Potassium Level 3.4 L 3.6-5.0 MMOL/L Chloride Level 103 98-107 MMOL/L Carbon Dioxide Level 29 21-32 MMOL/L Anion Gap 12 5-14 MMOL/L Blood Urea Nitrogen 12 7-18 MG/DL Creatinine 1.02 0.60-1.30 MG/DL Estimat Glomerular Filtration Rate > 60 BUN/Creatinine Ratio 12 Glucose Level 47 *L 70-105 MG/DL Calcium Level 9.0 8.5-10.1 MG/DL Corrected Calcium 8.8 8.5-10.1 MG/DL Total Bilirubin 0.8 0.1-1.0 MG/DL Aspartate Amino Transf (AST/SGOT) 21 5-34 U/L Alanine Aminotransferase (ALT/SGPT) 17 0-55 U/L Alkaline Phosphatase 72 40-136 U/L Total Protein 6.9 6.4-8.2 GM/DL Albumin 4.2 3.2-4.5 GM/DL Coronavirus 2019 ([facility]) Negative Negative My Orders Orders - WEN VILLASEÑOR [employer] MAKER Cbc With Automated Diff (02/15/20 18:50) Comprehensive Metabolic Panel (02/15/20 18:50) Ed Iv/Invasive Line Start (02/15/20 18:50) Coronavirus Sars-Cov-2 So 2018 (02/15/20 18:50) Ns Iv 1000 Ml (Sodium Chloride 0.9%) (02/15/20 19:00) Loperamide Tablet (Imodium Tablet) (02/15/20 19:00) Ibuprofen Tablet (Motrin Tablet) (02/15/20 19:00) Covid 19 Inhouse Test (02/15/20 19:31) Accucheck Stat ONCE (02/15/20 20:18) D50w (Emergency) Syringe (Dextrose 50% 5 (02/15/20 20:41) Medications Given in ED Current Medications Medications Dose Ordered Sig/Kristi Route Start Time Stop Time Status Last Admin Dose Admin Ibuprofen 800 mg ONCE ONCE PO 02/15/20 19:00 02/15/20 19:01 DC 02/15/20 19:25 800 MG Loperamide HCl 4 mg ONCE ONCE PO 02/15/20 19:00 02/15/20 19:01 DC 02/15/20 19:24 4 MG Vital Signs/I&O 02/15/20 02/15/20 19:06 19:06 Temp 44.7 Pulse 76 Resp 18 B/P (MAP) 120/87 (98) Pulse Ox 99 O2 Delivery Room Air Room Air Capillary Refill : Departure Communication (Admissions) 1954-Glucose 47. Will give juice and peanut butter/иван crackers 2048-blood sugar down to 32. He states his last dose of insulin was this evening at about 6 PM and that was NovoLog. I just now gave him 12.5 g of dextrose IV and will order him a meal tray. Impression Primary Impression: COVID-19 Disposition: HOME, SELF-CARE Condition: Stable Departure-Patient Inst. Decision time for Depature: 19:54 Referrals: [facility] (PCP) Primary Care Physician MAIA CHING (Family) Primary Care Physician Patient Instructions: Coronavirus Disease 2019 (COVID-19) Overview Add. Discharge Instructions: 1. Take Tylenol and ibuprofen for pain or fever control. Drink plenty of fluids. Return to ER for any shortness of breath or other concerning symptoms. Expect that it might take 1 to 2 weeks before you feel better. All discharge instructions reviewed with patient and/or family. Voiced understanding. Work/School Note: Work Release Form Date Seen in the Emergency Department: Feb 15, 2020 Return to Work: Feb 15, 2020 Restrictions: Need Release from Doctor WEN VILLASEÑOR APRN Feb 15, 2020 19:25
[2020-02-15 19:31] LABS: BASOPHILS # (AUTO) 0.1 10^3/uL (0.0-0.1); BASOPHILS % (AUTO) 1 % (0-10); EOSINOPHILS # (AUTO) 0.1 10^3/uL (0.0-0.3); EOSINOPHILS % (AUTO) 2 % (0-10); HEMATOCRIT 43 % (40-54); HEMOGLOBIN 14.9 g/dL (13.3-17.7); LYMPHOCYTES # (AUTO) 2.4 10^3/uL (1.0-4.0); LYMPHOCYTES % (AUTO) 30 % (12-44); MEAN CORPUSCULAR HEMOGLOBIN 33 pg (25-34); MEAN CORPUSCULAR HGB CONC 35 g/dL (32-36); MEAN CORPUSCULAR VOLUME 94 fL (80-99); MEAN PLATELET VOLUME 9.7 fL (9.0-12.2); MONOCYTES # (AUTO) 0.4 10^3/uL (0.0-1.0); MONOCYTES % (AUTO) 5 % (0-12); NEUTROPHILS # (AUTO) 5.1 10^3/uL (1.8-7.8); NEUTROPHILS % (AUTO) 63 % (42-75); PLATELET COUNT 285 10^3/uL (130-400); WHITE BLOOD COUNT 8.2 10^3/uL (4.3-11.0)
[2020-02-15 19:44] LABS: ALBUMIN 4.2 GM/DL (3.2-4.5); CHLORIDE 103 MMOL/L (98-107); POTASSIUM 3.4 MMOL/L (3.6-5.0); SODIUM 144 MMOL/L (135-145)
[2020-02-15 19:46] LABS: TOTAL PROTEIN 6.9 GM/DL (6.4-8.2)
[2020-02-15 19:47] LABS: CARBON DIOXIDE 29 MMOL/L (21-32)
[2020-02-15 19:48] LABS: BILIRUBIN,TOTAL 0.8 MG/DL (0.1-1.0)
[2020-02-15 19:49] LABS: ALKALINE PHOSPHATASE 72 U/L (40-136)
[2020-02-15 19:50] LABS: CREATININE SERUM 1.02 MG/DL (0.60-1.30); GFR ESTIMATED > 60
[2020-02-15 19:51] LABS: BUN/CREATININE RATIO 12
[2020-02-15 19:53] LABS: ALANINE AMINOTRANSFERASE 17 U/L (0-55)
[2020-02-15 19:54] LABS: GLUCOSE 47 MG/DL (70-105)
--- NOTE | 2020-02-15 20:00 | NUR ---
Pt given peanut butter, grahm crackers, apple juice, et orange juice.
[2020-02-15] MEDS ORDERED: DEXTROSE 50% 50 ML (IMS) SYR ONE (20:41)
--- NOTE | 2020-02-15 20:45 | NUR ---
Contacted house sup requesting meal tray for pt.
--- NOTE | 2020-02-15 21:00 | NUR ---
Meal tray delivered to pt.
[2020-02-15 21:45] VITALS: BP 110/81
== END 2020-02-15 21:46 | disposition home or self-care (01) ==
LOC: EDUNIT# 18:46 → ER 18:48
DX: U07.1 COVID-19 (principal); Z87.820 Personal history of traumatic brain injury; Z77.22 Contact with and (suspected) exposure to environmental tobacco smoke (acute) (chronic); Z88.5 Allergy status to narcotic agent
CPT/HCPCS: 80053; 82962; 85025; 99284; U0002; 36415; 87635

== ENCOUNTER 2020-06-19 22:04 | Emergency (ER) | payer MEDICARE, MEDICAID ==
[~2020-06-19] VITALS: Ht 167.7 cm; Wt 68.5 kg
[~2020-06-19 22:04] MED LIST changes: -CLIN300C11 PO; +CLIN300C12 PO
[2020-06-19 22:27] LABS: BASOPHILS # (AUTO) 0.1 10^3/uL (0.0-0.1); BASOPHILS % (AUTO) 1 % (0-10); EOSINOPHILS # (AUTO) 0.3 10^3/uL (0.0-0.3); EOSINOPHILS % (AUTO) 3 % (0-10); HEMATOCRIT 45 % (40-54); HEMOGLOBIN 15.9 g/dL (13.3-17.7); LYMPHOCYTES # (AUTO) 2.4 10^3/uL (1.0-4.0); LYMPHOCYTES % (AUTO) 21 % (12-44); MEAN CORPUSCULAR HEMOGLOBIN 33 pg (25-34); MEAN CORPUSCULAR HGB CONC 35 g/dL (32-36); MEAN CORPUSCULAR VOLUME 93 fL (80-99); MEAN PLATELET VOLUME 9.8 fL (9.0-12.2); MONOCYTES # (AUTO) 0.6 10^3/uL (0.0-1.0); MONOCYTES % (AUTO) 6 % (0-12); NEUTROPHILS # (AUTO) 7.8 10^3/uL (1.8-7.8); NEUTROPHILS % (AUTO) 69 % (42-75); PLATELET COUNT 358 10^3/uL (130-400); WHITE BLOOD COUNT 11.3 10^3/uL (4.3-11.0)
--- NOTE | 2020-06-19 22:27 | ED General ---
General Stated Complaint: GLUCOSE ISSUES Source of Information: Patient Exam Limitations: No Limitations History of Present Illness Date Seen by Provider: Jun 19, 2020 Time Seen by Provider: 22:00 Initial Comments Patient is a 40-year-old male who is an insulin-dependent diabetic since his teenage years presents by EMS with a chief complaint of low blood sugars. Patient states he ate dinner at about 6:00 this evening and about 2 hours later noticed that his Dexcom was alarming for low blood sugars. He states over the course of about 2 hours he could not get his blood sugar much up above 55. He states that he drinks sugar water and other high carbohydrate foods but he stayed persistently low. Patient denies any recent illnesses such as fevers, chills, cough or congestion. No nausea vomiting or diarrhea. He states about 2 weeks ago he had issues with burning with urination but drank about of cranberry juice and the symptoms resolved. No sick contacts. He is due for his second Co vid vaccination tomorrow. He has had his Dexcom for only about a month. His bottle labeler is Dr. Dawn Torres at [facility] in [place]. He does not have an insulin pump yet. He is not on any oral hypoglycemics All other review of systems reviewed and negative except as stated above. Timing/Duration: 1-3 Hours Severity: Moderate Associated Systoms: Denies Symptoms Allergies and Home Medications Allergies Uncoded Allergies: HYDROCONE (Allergy, Unknown, 11/01/17) Patient Home Medication List Home Medication List Reviewed: Yes Review of Systems Review of Systems Constitutional: see HPI EENTM: no symptoms reported Respiratory: no symptoms reported Cardiovascular: no symptoms reported Gastrointestinal: no symptoms reported Genitourinary: dysuria (2 weeks ago) Musculoskeletal: no symptoms reported Skin: no symptoms reported Psychiatric/Neurological: No Symptoms Reported All Other Systems Reviewed Negative Unless Noted: Yes Past Xwvvlcu-Eevwhu-Ncfrne Hx Patient Social History Alcohol Beverage of Choice: Beer Drug of Choice: marijuana Type Used: Cigarettes 2nd Hand Smoke Exposure: Yes Recent Hopitalizations: No Immunizations Up To Date Tetanus Booster (TDap): Unknown Seasonal Allergies Seasonal Allergies: No Past Medical History Surgeries: No Adenoidectomy, Orthopedic, Thyroidectomy, Tonsillectomy Respiratory: No Cardiac: No Hypertension Neurological: No Headaches /Migraines, Traumatic Brain Injury Genitourinary: No Gastrointestinal: No Musculoskeletal: No Endocrine: Yes Diabetes, Insulin dep HEENT: No Cancer: No Psychosocial: No Integumentary: No Blood Disorders: No Family Medical History No Pertinent Family Hx Physical Exam Vital Signs Vital Signs - First Documented 06/19/20 22:06 Temp 36.9 Pulse 89 Resp 17 B/P (MAP) 129/97 (108) Capillary Refill : Height, Weight, BMI Height: 5'10.00" Weight: 167lbs. oz. 75.662373gn; BMI Method:Stated General Appearance: No Apparent Distress, WD/WN Eyes: Bilateral Eye Normal Inspection, Bilateral Eye PERRL, Bilateral Eye EOMI HEENT: PERRL/EOMI Neck: Normal Inspection Respiratory: Lungs Clear, Normal Breath Sounds, No Accessory Muscle Use, No Respiratory Distress Cardiovascular: Regular Rate, Rhythm Gastrointestinal: Normal Bowel Sounds, Non Tender, Soft Extremity: Normal Inspection, Normal Range of Motion, Non Tender, No Calf Tenderness, No Pedal Edema Neurologic/Psychiatric: Alert, Oriented x3, No Motor/Sensory Deficits, Normal Mood/Affect Skin: Normal Color, Warm/Dry Progress/Results/Core Measures Suspected Sepsis SIRS Temperature: Pulse: Respiratory Rate: Laboratory Tests 06/19/20 22:10: White Blood Count 11.3H Blood Pressure / Mean: Laboratory Tests 06/19/20 22:10: Creatinine 0.94, Platelet Count 358 Results/Orders Lab Results Laboratory Tests Test 06/19/20 22:09 06/19/20 22:10 06/19/20 22:40 Range/Units Glucometer 111 H 70-110 MG/DL White Blood Count 11.3 H 4.3-11.0 10^3/uL Red Blood Count 4.85 4.30-5.52 10^6/uL Hemoglobin 15.9 13.3-17.7 g/dL Hematocrit 45 40-54 % Mean Corpuscular Volume 93 80-99 fL Mean Corpuscular Hemoglobin 33 25-34 pg Mean Corpuscular Hemoglobin Concent 35 32-36 g/dL Red Cell Distribution Width 13.2 10.0-14.5 % Platelet Count 358 130-400 10^3/uL Mean Platelet Volume 9.8 9.0-12.2 fL Immature Granulocyte % (Auto) 0 % Neutrophils (%) (Auto) 69 42-75 % Lymphocytes (%) (Auto) 21 12-44 % Monocytes (%) (Auto) 6 0-12 % Eosinophils (%) (Auto) 3 0-10 % Basophils (%) (Auto) 1 0-10 % Neutrophils # (Auto) 7.8 1.8-7.8 10^3/uL Lymphocytes # (Auto) 2.4 1.0-4.0 10^3/uL Monocytes # (Auto) 0.6 0.0-1.0 10^3/uL Eosinophils # (Auto) 0.3 0.0-0.3 10^3/uL Basophils # (Auto) 0.1 0.0-0.1 10^3/uL Immature Granulocyte # (Auto) 0.0 0.0-0.1 10^3/uL Sodium Level 142 135-145 MMOL/L Potassium Level 3.7 3.6-5.0 MMOL/L Chloride Level 106 98-107 MMOL/L Carbon Dioxide Level 20 L 21-32 MMOL/L Anion Gap 16 H 5-14 MMOL/L Blood Urea Nitrogen 13 7-18 MG/DL Creatinine 0.94 0.60-1.30 MG/DL Estimat Glomerular Filtration Rate > 60 BUN/Creatinine Ratio 14 Glucose Level 113 H 70-105 MG/DL Calcium Level 8.9 8.5-10.1 MG/DL Urine Color YELLOW Urine Clarity CLEAR Urine pH 5.5 5-9 Urine Specific [place] >=1.030 1.016-1.022 Urine Protein NEGATIVE NEGATIVE Urine Glucose (UA) NEGATIVE NEGATIVE Urine Ketones TRACE H NEGATIVE Urine Nitrite NEGATIVE NEGATIVE Urine Bilirubin NEGATIVE NEGATIVE Urine Urobilinogen 0.2 < = 1.0 MG/DL Urine Leukocyte Esterase NEGATIVE NEGATIVE Urine RBC (Auto) NEGATIVE NEGATIVE Urine RBC NONE /HPF Urine WBC NONE /HPF Urine Squamous Epithelial Cells 0-2 /HPF Urine Crystals NONE /LPF Urine Bacteria NEGATIVE /HPF Urine Casts NONE /LPF Urine Mucus NEGATIVE /LPF Urine Culture Indicated NO My Orders Orders - ADRY BELTRE MD Cbc With Automated Diff (06/19/20 22:21) Basic Metabolic Panel (06/19/20 22:21) Ua Culture If Indicated (06/19/20 22:21) Accucheck Stat ONCE (06/19/20 22:36) Vital Signs/I&O 06/19/20 22:06 Temp 36.9 Pulse 89 Resp 17 B/P (MAP) 129/97 (108) Capillary Refill : Progress Note : Time: 10:27 Progress Note Patient evaluated, 40-year-old male with a chief complaint of hypoglycemia. Patient's blood sugar on arrival to the emergency department is 111. This correlates to his Dexcom at 106. Patient is very concerned about his recent bouts of hypoglycemia. He denies any recent illnesses. Basic laboratory studies will be obtained and evaluated. Patient's vital signs are stable. There are no acute clinical or objective findings at this time to warrant ad mission to the hospital. Patient will be monitored here in the department for signs or symptoms of hypoglycemia. Disposition to be determined after laboratory studies have been evaluated 2310 Patient is resting comfortably in the ED after his evaluation. His serum blood sugar is 113. Patient looks well and has no complaints. He is no evidence clinically or objectively of any type of infection going on. Patient will be discharged to home and counseled to eat a complex carbohydrate snack before bed to keep his blood sugar up. He verbalizes understanding and is agreeable with the plan of care. His fiance is at the bedside and is also agreeable patient will be discharged. Departure Impression Primary Impression: Diabetes mellitus with hypoglycemia Qualified Codes: E10.649 - Type 1 diabetes mellitus with hypoglycemia without coma Disposition: 01 HOME, SELF-CARE Condition: Stable Departure-Patient Inst. Decision time for Depature: 23:11 Referrals: [facility] [place] (PCP) Primary Care Physician MAIA CHING (Family) Primary Care Physician Patient Instructions: Diabetes Diet , HYPOGLYCEMIA Add. Discharge Instructions: Follow-up with Dr. Torres as scheduled. Eat a complex carbohydrate snack before bed this evening to keep your blood sugar up throughout the night. Continue your routine insulin regimen. Come back to the emergency room if you have any new, emergent or concerning complaints. ADRY BELTRE MD Jun 19, 2020 22:26
[2020-06-19 22:28] LABS: CHLORIDE 106 MMOL/L (98-107); POTASSIUM 3.7 MMOL/L (3.6-5.0); SODIUM 142 MMOL/L (135-145)
[2020-06-19 22:30] LABS: CALCIUM 8.9 MG/DL (8.5-10.1); GLUCOSE 113 MG/DL (70-105)
[2020-06-19 22:31] LABS: CARBON DIOXIDE 20 MMOL/L (21-32)
[2020-06-19 22:34] LABS: CREATININE SERUM 0.94 MG/DL (0.60-1.30); GFR ESTIMATED > 60
[2020-06-19 22:35] LABS: BUN/CREATININE RATIO 14
[2020-06-19 22:48] LABS: BILIRUBIN,URINE NEGATIVE (NEGATIVE); CLARITY,URINE CLEAR; COLOR,URINE YELLOW; GLUCOSE, URINE (UA) NEGATIVE (NEGATIVE); KETONES,URINE TRACE (NEGATIVE); LEUKOCYTE ESTERASE ,URINE NEGATIVE (NEGATIVE); NITRITE,URINE NEGATIVE (NEGATIVE); PH,URINE 5.5 (5-9); PROTEIN,URINE NEGATIVE (NEGATIVE)
[2020-06-19 23:04] LABS: BACTERIA,URINE NEGATIVE /HPF; SQUAMOUS EPITHELIAL CELL,UR 0-2 /HPF
[2020-06-19 23:15] VITALS: BP 126/80
== END 2020-06-19 23:15 | disposition home or self-care (01) ==
LOC: ER 22:04
DX: E11.649 Type 2 diabetes mellitus with hypoglycemia without coma (principal); Z79.4 Long term (current) use of insulin; Z77.22 Contact with and (suspected) exposure to environmental tobacco smoke (acute) (chronic)
CPT/HCPCS: 36415; 80048; 81000; 82962; 85025

== ENCOUNTER 2020-08-10 20:15 | Emergency (ER) | payer MEDICARE, MEDICAID ==
--- NOTE | 2020-08-10 21:06 | ED General ---
General Chief Complaint: Glucose Problems Stated Complaint: BLOOD SUGAR ISSUES Source of Information: Patient (DIFFICULT HISTORIAN) History of Present Illness Date Seen by Provider: August 10, 2020 Time Seen by Provider: 20:49 Initial Comments PT ARRIVES VIA POV FROM HOME WITH ( IS EXTREMELY DRAMATIC, SOBBING/WAILING, ROCKING BACK AND FORTH, ETC ) PT STATES "MY BLOOD SUGARS--THEY'RE ANYWHERE FROM 400 TO 78" THIS IS CHRONIC PROBLEM AND IS NO DIFFERENT TONIGHT IN ANY WAY WAS DX WITH DIABETES AT AGE 12 PT IS CURRENTLY TAKING HUMALOG 6 UNITS WITH EACH MEAL, AND TOUJEO 16 UNITS IN EVENING--LAST DOSE WAS AT 1730 TONIGHT PT HAS DEXCOM CGM PT STATES HE IS HERE TONIGHT "BECAUSE I WANT THIS SHIT TO STOP" --REFERRING TO FLUCTUATIONS IN BLOOD SUGARS PT SEES DR. SHELLI GROSS, GLOVE OPERATOR AT [facility] --LAST VISIT WAS APPROXIMATELY A MONTH AGO NO CHANGES IN MEDICATIONS IT HAS BEEN ADVISED THAT HE GET AN INSULIN PUMP, BUT PT REFUSES AND GIVES CONVOLUTED AND UNCLEAR "REASON" WHY HE DOES NOT WANT THE PUMP. NEXT APPOINTMENT WITH HER IS IN SEPTEMBER HAS NOT SEEN PCP ABOUT THIS MATTER. PT DID HAVE COLD SYMPTOMS A COUPLE OF DAYS AGO--WAS ONLY FOR THAT DAY PT HAD COVID-19 IN JANUARY 2020, AND HAS RECEIVED BOTH COVID-19 VACCINES--MODERNA, WITH LAST VACCINE 06/26/20 PT HAS NO PHYSICAL COMPLAINTS OF ANY KIND PCP: [facility] GLOVE OPERATOR: DR. SHELLI GROSS AT [facility] IN [place] Allergies and Home Medications Allergies Uncoded Allergies: HYDROCONE (Allergy, Unknown, 11/01/17) Patient Home Medication List Home Medication List Reviewed: Yes Review of Systems Review of Systems Constitutional: no symptoms reported EENTM: see HPI, no symptoms reported (NO SYMPTOMS NOW) Respiratory: no symptoms reported Cardiovascular: no symptoms reported Gastrointestinal: no symptoms reported Genitourinary: no symptoms reported Musculoskeletal: no symptoms reported Skin: no symptoms reported Psychiatric/Neurological: No Symptoms Reported Hematologic/Lymphatic: No Symptoms Reported Immunological/Allergic: no symptoms reported Past Fyzrvcs-Vlnshb-Neekld Hx Past Med/Social Hx: Reviewed and Corrections made Patient Social History Alcohol Use: Occasionally Uses Number of Drinks Today: AA Alcohol Beverage of Choice: Beer Drug of Choice: marijuana Smoking Status: Current Everyday Smoker Type Used: Cigarettes 2nd Hand Smoke Exposure: Yes Recent Hopitalizations: No Immunizations Up To Date Tetanus Booster (TDap): Unknown Seasonal Allergies Seasonal Allergies: Yes Past Medical History Surgeries: Yes (fusion of vertebrae) Adenoidectomy, Tonsillectomy Respiratory: No Cardiac: Yes Hypertension Neurological: Yes Headaches /Migraines, Traumatic Brain Injury Genitourinary: No Gastrointestinal: No Musculoskeletal: No Endocrine: Yes (radiation of the thyroid; TYPE 1 DIABETES, DX AGE 12) Diabetes, Insulin dep, Hypothyroidsim HEENT: No Cancer: No Psychosocial: No Integumentary: No Blood Disorders: No Family Medical History No Pertinent Family Hx Physical Exam Vital Signs Vital Signs - First Documented 08/10/20 20:45 Temp 35.6 Pulse 82 Resp 18 B/P (MAP) 140/98 (112) Pulse Ox 98 O2 Delivery Room Air Capillary Refill : Less Than 3 Seconds Height, Weight, BMI Height: 5'10.00" Weight: 167lbs. oz. 75.575871qw; 24.00 BMI Method:Stated General Appearance: No Apparent Distress, WD/WN, Anxious, Thin Respiratory: Normal Breath Sounds, No Accessory Muscle Use, No Respiratory Distress Cardiovascular: Regular Rate, Rhythm, No Murmur Gastrointestinal: Non Tender, Soft Extremity: Normal Inspection Neurologic/Psychiatric: Alert, Oriented x3, No Motor/Sensory Deficits, teacher lip reading II- XII Norm as Tested Skin: Normal Color, Warm/Dry Progress/Results/Core Measures Suspected Sepsis SIRS Temperature: Pulse: Respiratory Rate: Laboratory Tests 08/10/20 21:00: White Blood Count 9.4 Blood Pressure / Mean: 112 Laboratory Tests 08/10/20 21:00: Creatinine 1.21, Platelet Count 403H, Total Bilirubin 0.8 Results/Orders Lab Results Laboratory Tests Test 08/10/20 20:39 08/10/20 21:00 08/10/20 21:15 Range/Units Glucometer 84 70-110 MG/DL White Blood Count 9.4 4.3-11.0 10^3/uL Red Blood Count 5.06 4.30-5.52 10^6/uL Hemoglobin 16.3 13.3-17.7 g/dL Hematocrit 46 40-54 % Mean Corpuscular Volume 92 80-99 fL Mean Corpuscular Hemoglobin 32 25-34 pg Mean Corpuscular Hemoglobin Concent 35 32-36 g/dL Red Cell Distribution Width 12.8 10.0-14.5 % Platelet Count 403 H 130-400 10^3/uL Mean Platelet Volume 9.8 9.0-12.2 fL Immature Granulocyte % (Auto) 0 % Neutrophils (%) (Auto) 54 42-75 % Lymphocytes (%) (Auto) 36 12-44 % Monocytes (%) (Auto) 7 0-12 % Eosinophils (%) (Auto) 2 0-10 % Basophils (%) (Auto) 1 0-10 % Neutrophils # (Auto) 5.0 1.8-7.8 10^3/uL Lymphocytes # (Auto) 3.4 1.0-4.0 10^3/uL Monocytes # (Auto) 0.7 0.0-1.0 10^3/uL Eosinophils # (Auto) 0.2 0.0-0.3 10^3/uL Basophils # (Auto) 0.1 0.0-0.1 10^3/uL Immature Granulocyte # (Auto) 0.0 0.0-0.1 10^3/uL Sodium Level 145 135-145 MMOL/L Potassium Level 4.1 3.6-5.0 MMOL/L Chloride Level 106 98-107 MMOL/L Carbon Dioxide Level 29 21-32 MMOL/L Anion Gap 10 5-14 MMOL/L Blood Urea Nitrogen 15 7-18 MG/DL Creatinine 1.21 0.60-1.30 MG/DL Estimat Glomerular Filtration Rate > 60 BUN/Creatinine Ratio 12 Glucose Level 62 L 70-105 MG/DL Calcium Level 9.8 8.5-10.1 MG/DL Corrected Calcium 9.5 8.5-10.1 MG/DL Magnesium Level 1.9 1.6-2.4 MG/DL Total Bilirubin 0.8 0.1-1.0 MG/DL Aspartate Amino Transf (AST/SGOT) 33 5-34 U/L Alanine Aminotransferase (ALT/SGPT) 28 0-55 U/L Alkaline Phosphatase 81 40-136 U/L Total Protein 7.4 6.4-8.2 GM/DL Albumin 4.4 3.2-4.5 GM/DL Amylase Level 58 25-125 U/L Lipase 24 8-78 U/L Serum Alcohol < 10 <10 MG/DL Urine Color YELLOW Urine Clarity CLEAR Urine pH 7.0 5-9 Urine Specific [place] 1.015 L 1.016-1.022 Urine Protein NEGATIVE NEGATIVE Urine Glucose (UA) 3+ H NEGATIVE Urine Ketones NEGATIVE NEGATIVE Urine Nitrite NEGATIVE NEGATIVE Urine Bilirubin NEGATIVE NEGATIVE Urine Urobilinogen 1.0 < = 1.0 MG/DL Urine Leukocyte Esterase NEGATIVE NEGATIVE Urine RBC (Auto) TRACE-I NEGATIVE Urine RBC 5-10 H /HPF Urine WBC NONE /HPF Urine Crystals NONE /LPF Urine Bacteria NEGATIVE /HPF Urine Casts NONE /LPF Urine Mucus NEGATIVE /LPF Urine Culture Indicated NO Urine Opiates Screen NEGATIVE NEGATIVE Urine Oxycodone Screen NEGATIVE NEGATIVE Urine Methadone Screen NEGATIVE NEGATIVE Urine Propoxyphene Screen NEGATIVE NEGATIVE Urine Barbiturates Screen NEGATIVE NEGATIVE Ur Tricyclic Antidepressants Screen NEGATIVE NEGATIVE Urine Phencyclidine Screen NEGATIVE NEGATIVE Urine Amphetamines Screen NEGATIVE NEGATIVE Urine Methamphetamines Screen NEGATIVE NEGATIVE Urine Benzodiazepines Screen NEGATIVE NEGATIVE Urine Cocaine Screen NEGATIVE NEGATIVE Urine Cannabinoids Screen POSITIVE H NEGATIVE My Orders Orders - DIPTI REYES DO Ed Iv/Invasive Line Start (08/10/20 20:58) Alcohol (08/10/20 20:58) Amylase (08/10/20 20:58) Cbc With Automated Diff (08/10/20 20:58) Comprehensive Metabolic Panel (08/10/20 20:58) Drug Screen Stat (Urine) (08/10/20 20:58) Lipase (08/10/20 20:58) Magnesium (08/10/20 20:58) Ua Culture If Indicated (08/10/20 20:58) Vital Signs/I&O 08/10/20 20:45 Temp 35.6 Pulse 82 Resp 18 B/P (MAP) 140/98 (112) Pulse Ox 98 O2 Delivery Room Air Capillary Refill : Less Than 3 Seconds Blood Pressure Mean: 112 Progress Note : Progress Note ACCUCHECK 84 WAS ASKED TO SIT IN WAITING ROOM DUE TO HER DISTRACTING BEHAVIOR, AND SHE DOES NOT WANT TO CHECK IN TO ER 2113--PT HAS ELOPED OUT THE BACK EMS DOORS. RN FOUND PT OUTSIDE AND HE REFUSES TO COME BACK INTO ER, PT'S IV WAS REMOVED BY RN AND PT SIGNED OUT AMA. DOES NOT GIVE REASON WHY HE WILL NOT STAY FOR FURTHER ER EVALUATION ( TESTS NOT COMPLETE AT THIS TIME) IS OUTSIDE AND NOW ACTING NORMAL. Departure Impression Primary Impression: Left against medical advice Additional Impression: Type 1 diabetes mellitus Disposition: 07 AGAINST MEDICAL ADVICE Condition: Against Medical Advice Departure-Patient Inst. Referrals: [facility] (PCP/Family) Primary Care Physician DIPTI REYES DO August 10, 2020 21:06
[2020-08-10 21:18] LABS: BASOPHILS # (AUTO) 0.1 10^3/uL (0.0-0.1); BASOPHILS % (AUTO) 1 % (0-10); EOSINOPHILS # (AUTO) 0.2 10^3/uL (0.0-0.3); EOSINOPHILS % (AUTO) 2 % (0-10); HEMATOCRIT 46 % (40-54); HEMOGLOBIN 16.3 g/dL (13.3-17.7); LYMPHOCYTES # (AUTO) 3.4 10^3/uL (1.0-4.0); LYMPHOCYTES % (AUTO) 36 % (12-44); MEAN CORPUSCULAR HEMOGLOBIN 32 pg (25-34); MEAN CORPUSCULAR HGB CONC 35 g/dL (32-36); MEAN CORPUSCULAR VOLUME 92 fL (80-99); MEAN PLATELET VOLUME 9.8 fL (9.0-12.2); MONOCYTES # (AUTO) 0.7 10^3/uL (0.0-1.0); MONOCYTES % (AUTO) 7 % (0-12); NEUTROPHILS % (AUTO) 54 % (42-75); PLATELET COUNT 403 10^3/uL (130-400); WHITE BLOOD COUNT 9.4 10^3/uL (4.3-11.0)
[2020-08-10 21:22] LABS: ALBUMIN 4.4 GM/DL (3.2-4.5); CHLORIDE 106 MMOL/L (98-107); POTASSIUM 4.1 MMOL/L (3.6-5.0); SODIUM 145 MMOL/L (135-145)
[2020-08-10 21:23] LABS: AMYLASE 58 U/L (25-125); CALCIUM 9.8 MG/DL (8.5-10.1)
[2020-08-10 21:24] LABS: GLUCOSE 62 MG/DL (70-105)
[2020-08-10 21:25] LABS: CARBON DIOXIDE 29 MMOL/L (21-32); TOTAL PROTEIN 7.4 GM/DL (6.4-8.2)
[2020-08-10 21:26] LABS: BILIRUBIN,TOTAL 0.8 MG/DL (0.1-1.0)
[2020-08-10 21:28] LABS: ALKALINE PHOSPHATASE 81 U/L (40-136); CREATININE SERUM 1.21 MG/DL (0.60-1.30); GFR ESTIMATED > 60
[2020-08-10 21:29] LABS: BUN/CREATININE RATIO 12
[2020-08-10 21:31] LABS: ALANINE AMINOTRANSFERASE 28 U/L (0-55); MAGNESIUM 1.9 MG/DL (1.6-2.4)
[2020-08-10 21:32] LABS: LIPASE 24 U/L (8-78)
[2020-08-10 21:32] LABS: BILIRUBIN,URINE NEGATIVE (NEGATIVE); CLARITY,URINE CLEAR; COLOR,URINE YELLOW; GLUCOSE, URINE (UA) 3+ (NEGATIVE); KETONES,URINE NEGATIVE (NEGATIVE); LEUKOCYTE ESTERASE ,URINE NEGATIVE (NEGATIVE); NITRITE,URINE NEGATIVE (NEGATIVE); PROTEIN,URINE NEGATIVE (NEGATIVE)
[2020-08-10 21:39] LABS: BACTERIA,URINE NEGATIVE /HPF
[2020-08-10 21:44] LABS: AMPHETAMINE SCREEN, URINE NEGATIVE (NEGATIVE); BARBITURATE SCREEN URINE NEGATIVE (NEGATIVE); BENZODIAZEPINES SCREEN URINE NEGATIVE (NEGATIVE); CANNABINOID SCREEN, URINE POSITIVE (NEGATIVE); COCAINE SCREEN URINE NEGATIVE (NEGATIVE); METHADONE STAT NEGATIVE (NEGATIVE); METHAMPHETAMINE SCREEN URINE S NEGATIVE (NEGATIVE); OPIATE SCREEN URINE NEGATIVE (NEGATIVE); OXYCODONE STAT NEGATIVE (NEGATIVE); PROPOXYPHENE STAT NEGATIVE (NEGATIVE); TRICYCLIC ANTIDEPRESSANTS SCRE NEGATIVE (NEGATIVE)
== END 2020-08-10 21:20 | disposition left against medical advice (07) ==
LOC: EDUNIT# 20:15 → ER 20:19
DX: E10.9 Type 1 diabetes mellitus without complications (principal); I10 Essential (primary) hypertension; F17.210 Nicotine dependence, cigarettes, uncomplicated
CPT/HCPCS: 80053; 80306; 81000; 82150; 82947; 83690; 83735; 85025; 99284; G0480; 36415; 80320

== ENCOUNTER 2021-03-15 01:47 | Emergency (ER) | payer MEDICARE, MEDICAID ==
[~2021-03-15] VITALS: Ht 168 cm; Wt 68.5 kg
[~2021-03-15 01:47] MED LIST changes: +CLIN-144 PO; -CLIN300C12 PO; -SULF1TAB35 PO; +SULF1TAB38 PO
[2021-03-15] MEDS ORDERED: NS IV 1000 ML 1,000 ML IV SCH ×2 (02:00→03:00)
[2021-03-15] MEDS ORDERED: inSUlin (REGULAR) HUMAN 1 UNIT/0.01 ML (CHARGE PER UNIT) IV ONE ×2 (02:00→03:00)
[2021-03-15 02:05] LABS: BASOPHILS # (AUTO) 0.1 10^3/uL (0.0-0.1); BASOPHILS % (AUTO) 1 % (0-10); EOSINOPHILS # (AUTO) 0.1 10^3/uL (0.0-0.3); EOSINOPHILS % (AUTO) 2 % (0-10); HEMATOCRIT 42 % (40-54); HEMOGLOBIN 14.6 g/dL (13.3-17.7); LYMPHOCYTES # (AUTO) 1.9 10^3/uL (1.0-4.0); LYMPHOCYTES % (AUTO) 29 % (12-44); MEAN CORPUSCULAR HEMOGLOBIN 34 pg (25-34); MEAN CORPUSCULAR HGB CONC 35 g/dL (32-36); MEAN CORPUSCULAR VOLUME 96 fL (80-99); MEAN PLATELET VOLUME 10.8 fL (9.0-12.2); MONOCYTES # (AUTO) 0.6 10^3/uL (0.0-1.0); MONOCYTES % (AUTO) 9 % (0-12); NEUTROPHILS % (AUTO) 60 % (42-75); PLATELET COUNT 257 10^3/uL (130-400); WHITE BLOOD COUNT 6.7 10^3/uL (4.3-11.0)
[2021-03-15 02:15] LABS: BILIRUBIN,URINE NEGATIVE (NEGATIVE); CLARITY,URINE CLEAR; COLOR,URINE YELLOW; GLUCOSE, URINE (UA) 3+ (NEGATIVE); KETONES,URINE NEGATIVE (NEGATIVE); LEUKOCYTE ESTERASE ,URINE NEGATIVE (NEGATIVE); NITRITE,URINE NEGATIVE (NEGATIVE); PROTEIN,URINE NEGATIVE (NEGATIVE)
[2021-03-15 02:21] LABS: POTASSIUM 4.6 MMOL/L (3.6-5.0)
[2021-03-15 02:22] LABS: CALCIUM 9.4 MG/DL (8.5-10.1)
[2021-03-15 02:25] LABS: BACTERIA,URINE NEGATIVE /HPF; SQUAMOUS EPITHELIAL CELL,UR 0-2 /HPF
[2021-03-15 02:26] LABS: CREATININE SERUM 1.74 MG/DL (0.60-1.30)
[2021-03-15 02:29] LABS: MAGNESIUM 1.8 MG/DL (1.6-2.4)
--- NOTE | 2021-03-15 03:48 | ED General ---
General Chief Complaint: Glucose Problems Stated Complaint: HIGH BLOOD SUGAR Nursing Triage Note: brought in by [facility] for high blood glucose. Source of Information: Patient Exam Limitations: No Limitations History of Present Illness Date Seen by Provider: Mar 15, 2021 Time Seen by Provider: 01:49 Initial Comments This 41-year-old gentleman with type 1 diabetes presents to the emergency room with complaints of hyperglycemia. He presents via EMS. EMS reports the fingerstick blood sugar read "high" with positive ketones. Patient states compliance with his Humalog and Toujeo. He believes stress from psychosocial factors has caused his hyperglycemia. He reports a numbness or paresthesia in his left arm which he is accustomed to experiencing with severe hyperglycemia. He denies any symptoms of acute infectious illness such as fever, vomiting, cough, diarrhea, etc. Allergies and Home Medications Allergies Uncoded Allergies: HYDROCONE (Allergy, Unknown, 11/01/17) Patient Home Medication List Home Medication List Reviewed: Yes Gabapentin (Gabapentin) 300 Mg Capsule, (Reported) Entered as Reported by: NASEEM MAGALLANES on 04/05/192119 Insulin Glargine,Hum.rec.anlog (Toujeo Solostar) 300 Unit/1 Ml Insuln.pen, (Reported) Entered as Reported by: NASEEM MAGALLANES on 04/05/192119 Insulin Lispro (Humalog Kwikpen) 100 Unit/1 Ml Insuln.pen, (Reported) Entered as Reported by: NASEEM MAGALLANES on 04/05/192119 Levothyroxine Sodium (Levothyroxine Sodium) 200 Mcg Tablet, (Reported) Entered as Reported by: NASEEM MAGALLANES on 04/05/192119 Review of Systems Review of Systems Constitutional: no symptoms reported EENTM: no symptoms reported Respiratory: no symptoms reported Cardiovascular: no symptoms reported Gastrointestinal: no symptoms reported Genitourinary: frequency Musculoskeletal: no symptoms reported Skin: no symptoms reported Psychiatric/Neurological: See HPI Hematologic/Lymphatic: No Symptoms Reported Immunological/Allergic: no symptoms reported Past Lykhwaz-Wetkfs-[place]quokt Hx Patient Social History Tobacco Use?: Yes Substance use?: Yes Substance type: Marijuana Alcohol Use?: Yes Alcohol Frequency: Once in a while Pt feels they are or have been: No Immunizations Up To Date Tetanus Booster (TDap): Unknown First/Initial COVID19 Vaccinat: 05/30/2020 Second COVID19 Vaccination Fadi: 4/21 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 Surgeries: Yes (fusion of vertebrae) Adenoidectomy, Tonsillectomy Respiratory: No Cardiac: Yes Hypertension Neurological: Yes Headaches /Migraines, Traumatic Brain Injury Genitourinary: No Gastrointestinal: No Musculoskeletal: No Endocrine: Yes (radiation of the thyroid; TYPE 1 DIABETES, DX AGE 12) Diabetes, Insulin dep, Hypothyroidsim HEENT: No Cancer: No Psychosocial: No Integumentary: No Blood Disorders: No Family Medical History No Pertinent Family Hx Physical Exam Vital Signs Vital Signs - First Documented 03/15/21 01:50 Temp 36.3 Pulse 76 Resp 10 B/P (MAP) 141/96 (111) Pulse Ox 98 O2 Delivery Room Air Capillary Refill : Less Than 3 Seconds Height, Weight, BMI Height: 5'10.00" Weight: 167lbs. oz. 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 Norm as Tested Skin: Normal Color, Warm/Dry Progress/Results/Core Measures Suspected Sepsis SIRS Temperature: Pulse: 76 Respiratory Rate: 10 Laboratory Tests 03/15/21 01:56: White Blood Count 6.7 Blood Pressure 141 /96 Mean: 111 Laboratory Tests 03/15/21 01:56: Creatinine 1.74H, Platelet Count 257 Results/Orders Lab Results Laboratory Tests Test 03/15/21 01:52 03/15/21 01:56 03/15/21 02:10 03/15/21 02:45 Range/Units Glucometer 547 *H 451 *H 70-110 MG/DL White Blood Count 6.7 4.3-11.0 10^3/uL Red Blood Count 4.36 4.30-5.52 10^6/uL Hemoglobin 14.6 13.3-17.7 g/dL Hematocrit 42 40-54 % Mean Corpuscular Volume 96 80-99 fL Mean Corpuscular Hemoglobin 34 25-34 pg Mean Corpuscular Hemoglobin Concent 35 32-36 g/dL Red Cell Distribution Width 13.2 10.0-14.5 % Platelet Count 257 130-400 10^3/uL Mean Platelet Volume 10.8 9.0-12.2 fL Immature Granulocyte % (Auto) 0 % Neutrophils (%) (Auto) 60 42-75 % Lymphocytes (%) (Auto) 29 12-44 % Monocytes (%) (Auto) 9 0-12 % Eosinophils (%) (Auto) 2 0-10 % Basophils (%) (Auto) 1 0-10 % Neutrophils # (Auto) 4.0 1.8-7.8 10^3/uL Lymphocytes # (Auto) 1.9 1.0-4.0 10^3/uL Monocytes # (Auto) 0.6 0.0-1.0 10^3/uL Eosinophils # (Auto) 0.1 0.0-0.3 10^3/uL Basophils # (Auto) 0.1 0.0-0.1 10^3/uL Immature Granulocyte # (Auto) 0.0 0.0-0.1 10^3/uL Sodium Level 133 L 135-145 MMOL/L Potassium Level 4.6 3.6-5.0 MMOL/L Chloride Level 95 L 98-107 MMOL/L Carbon Dioxide Level 25 21-32 MMOL/L Anion Gap 13 5-14 MMOL/L Blood Urea Nitrogen 22 H 7-18 MG/DL Creatinine 1.74 H 0.60-1.30 MG/DL Estimat Glomerular Filtration Rate 44 BUN/Creatinine Ratio 13 Glucose Level 742 *H 70-105 MG/DL Calcium Level 9.4 8.5-10.1 MG/DL Magnesium Level 1.8 1.6-2.4 MG/DL Urine Color YELLOW Urine Clarity CLEAR Urine pH 6.0 5-9 Urine Specific [place] 1.010 L 1.016-1.022 Urine Protein NEGATIVE NEGATIVE Urine Glucose (UA) 3+ H NEGATIVE Urine Ketones NEGATIVE NEGATIVE Urine Nitrite NEGATIVE NEGATIVE Urine Bilirubin NEGATIVE NEGATIVE Urine Urobilinogen 0.2 < = 1.0 MG/DL Urine Leukocyte Esterase NEGATIVE NEGATIVE Urine RBC (Auto) NEGATIVE NEGATIVE Urine RBC NONE /HPF Urine WBC NONE /HPF Urine Squamous Epithelial Cells 0-2 /HPF Urine Crystals NONE /LPF Urine Bacteria NEGATIVE /HPF Urine Casts NONE /LPF Urine Mucus NEGATIVE /LPF Urine Culture Indicated NO Test 03/15/21 03:43 Range/Units Glucometer 275 H 70-110 MG/DL My Orders Orders - GAVINO BLACK MD Basic Metabolic Panel (03/15/21 01:59) Cbc With Automated Diff (03/15/21 01:59) Magnesium (03/15/21 01:59) Ua Culture If Indicated (03/15/21 01:59) Accucheck Stat ONCE (03/15/21 01:59) Ed Iv/Invasive Line Start (03/15/21 01:59) Ns Iv 1000 Ml (Sodium Chloride 0.9%) (03/15/21 02:00) Insulin (Regular) Human (Novolin R (Per (03/15/21 02:00) Accucheck Stat ONCE (03/15/21 02:17) Accucheck Stat ONCE (03/15/21 02:17) Ns Iv 1000 Ml (Sodium Chloride 0.9%) (03/15/21 03:00) Insulin (Regular) Human (Novolin R (Per (03/15/21 03:00) Medications Given in ED Vital Signs/I&O 03/15/21 03/15/21 01:50 03:51 Temp 36.3 36.4 Pulse 76 69 Resp 10 12 B/P (MAP) 141/96 (111) 114/78 Pulse Ox 98 100 O2 Delivery Room Air Room Air Capillary Refill : Less Than 3 Seconds Blood Pressure Mean: 111 Point of Care Testing Finger Stick Blood Glucose: 275 Blood Glucose Action Taken: ERP NOTIFIED Progress Note : Progress Note Blood sugar was 742 on lab draw. He received 2 L of normal saline and 5 units of IV regular insulin with each liter. He had an excellent response with appropriate drop in blood sugar. Paresthesias symptoms resolved with correction of his blood sugar. See discharge instructions. Departure Impression Primary Impression: Hyperglycemia Additional Impression: Type 1 diabetes mellitus Qualified Codes: E10.65 - Type 1 diabetes mellitus with hyperglycemia Disposition: 01 HOME, SELF-CARE Condition: Improved Departure-Patient Inst. Decision time for Depature: 03:47 Referrals: [facility]/K (PCP/Family) Primary Care Physician Patient Instructions: Type 1 Diabetes Add. Discharge Instructions: Drink plenty of water to stay well-hydrated. Eat a low sugar, low carbohydrate diet. Monitor your blood sugars closely, preferably fasting in the morning and 2 hours after each meal. Review your blood sugar results with your primary care provider soon as possible. Call Tuesday for an appointment. Call with questions or concerns. Return to the ER if you have worsening symptoms. All discharge instructions reviewed with patient and/or family. Voiced understanding. Copy Copies To 1: NOEMY BLACKBURN JOSHUA T MD Mar 15, 2021 03:48
[2021-03-15 03:51] VITALS: BP 114/78
== END 2021-03-15 03:53 | disposition home or self-care (01) ==
LOC: EDUNIT# 01:47 → ER 01:48
DX: E10.65 Type 1 diabetes mellitus with hyperglycemia (principal); I10 Essential (primary) hypertension; E03.9 Hypothyroidism, unspecified; Z79.890 Hormone replacement therapy; Z79.899 Other long term (current) drug therapy
CPT/HCPCS: 36415; 80048; 81000; 82947; 83735; 85025

== ENCOUNTER 2021-05-30 20:29 | Emergency (ER) | payer MEDICARE, MEDICAID ==
[~2021-05-30] VITALS: Ht 170.1 cm; Wt 68.0 kg
[2021-05-30] MEDS ORDERED: LACTATED RINGERS 1,000 ML IV STA (20:48)
[2021-05-30] MEDS ORDERED: inSUlin (REGULAR) HUMAN 1 UNIT/0.01 ML (CHARGE PER UNIT) IV STA (20:48)
--- NOTE | 2021-05-30 20:56 | ED General ---
General Chief Complaint: Glucose Problems Stated Complaint: ELEV BS Nursing Triage Note: pt to room by [facility]. pt states his blood sugar was high tonight after dinner. pt has been taking insulin as prescribed. glucose over 500 with ketones per ems report Source of Information: Patient Exam Limitations: No Limitations (JONNY COLLINS MED STUDENT) History of Present Illness Date Seen by Provider: May 30, 2021 Time Seen by Provider: 20:32 Initial Comments Mr. Arroyo is a 41yo male with PMH of DMI and hypothyroid that presents to ER today by EMS due to elevated blood sugars. He states that this morning his sugar was 172, he ate breakfast and took 6 units. It was 287 at lunchtime and took 10 units. States it read as high at supper time so he took his trajayo and 8 units. He called EMS when it did not come down. He complains of some numbness in his legs, headache, dry mouth, nausea, and some reflux. He did not have any other complaints besides his blood sugar. (JONNY COLLINS MED STUDENT) Timing/Duration: 4-6 Hours Severity: Moderate Modifying Factors: improves with Medication Associated Systoms: No Chest Pain, No Cough, No Fever/Chills; Nausea/Vomiting; No Shortness of Air, No Weakness (MELVIN JC MD) Allergies and Home Medications Allergies Uncoded Allergies: HYDROCONE (Allergy, Unknown, 11/01/17) Patient Home Medication List Home Medication List Reviewed: Yes (MELVIN JC MD) Gabapentin (Gabapentin) 300 Mg Capsule, (Reported) Entered as Reported by: NASEEM MAGALLANES on 04/05/192119 Insulin Glargine,Hum.rec.anlog (Toujeo Solostar) 300 Unit/1 Ml Insuln.pen, (Reported) Entered as Reported by: NASEEM MAGALLANES on 04/05/192119 Insulin Lispro (Humalog Kwikpen) 100 Unit/1 Ml Insuln.pen, (Reported) Entered as Reported by: NASEEM MAGALLANES on 04/05/192119 Levothyroxine Sodium (Levothyroxine Sodium) 200 Mcg Tablet, (Reported) Entered as Reported by: NASEEM MAGALLANES on 04/05/192119 Review of Systems Review of Systems Constitutional: No chills, No fever EENTM: No hearing loss, No vision loss Respiratory: No cough, No short of breath, No wheezing Cardiovascular: No chest pain, No edema, No palpitations Gastrointestinal: No abdominal pain, No constipation, No diarrhea; nausea; No vomiting Genitourinary: dysuria (mild and chronic); No frequency, No hematuria Musculoskeletal: No joint pain, No joint swelling Skin: No pruritus, No rash Psychiatric/Neurological: Denies Headache; Numbness (In bilat lower extremities, is chronic and not worse today) (JONNY COLLINS STUDENT) Constitutional: No chills, No fever EENTM: No hearing loss, No vision loss Respiratory: No cough, No short of breath Cardiovascular: No chest pain, No edema, No palpitations Gastrointestinal: No abdominal pain; nausea; No vomiting Genitourinary: No frequency, No hematuria Psychiatric/Neurological: Numbness (In bilat lower extremities, is chronic and not worse today), Tingling (MELVIN JC MD) All Other Systems Reviewed Negative Unless Noted: Yes (MELVIN JC MD) Past Nfdyygd-Avxzju-Zzeetl Hx Immunizations Up To Date Tetanus Booster (TDap): Unknown First/Initial COVID19 Vaccinat: 05/30/2020 Second COVID19 Vaccination Fadi: 07/09 (JONNY COLLINS STUDENT) Seasonal Allergies Seasonal Allergies: Yes (JONNY COLLINS STUDENT) Past Medical History Surgery/Hospitalization HX: iddm, hypothryoidism, 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 Surgeries: Yes (fusion of vertebrae) Adenoidectomy, Tonsillectomy Respiratory: No Cardiac: Yes Hypertension Neurological: Yes Headaches /Migraines, Traumatic Brain Injury Genitourinary: No Gastrointestinal: No Musculoskeletal: No Endocrine: Yes (radiation of the thyroid; TYPE 1 DIABETES, DX AGE 12) Diabetes, Insulin dep, Hypothyroidsim HEENT: No Cancer: No Psychosocial: No Integumentary: No Blood Disorders: No (JONNY COLLINS STUDENT) Family Medical History Reviewed Nursing Family Hx (MELVIN JC MD) No Pertinent Family Hx (JONNY COLLINS STUDENT) No Pertinent Family Hx (MELVIN JC MD) Physical Exam Vital Signs Vital Signs - First Documented 05/30/21 20:29 Temp 36.8 Pulse 96 Resp 19 B/P (MAP) 119/74 (89) Pulse Ox 96 (MELVIN JC MD) Vital Signs Capillary Refill : (JONNY COLLINS STUDENT) Height, Weight, BMI Height: 5'10.00" Weight: 167lbs. oz. 75.173665dm; 23.00 BMI Method:Stated General Appearance: No Apparent Distress, Chronically ill, Thin Eyes: Bilateral Eye PERRL, Bilateral Eye EOMI HEENT: PERRL/EOMI, Other (mucous membranes) Respiratory: Chest Non Tender, Lungs Clear, Normal Breath Sounds, No Accessory Muscle Use, No Respiratory Distress Cardiovascular: Regular Rate, Rhythm, No Edema, No Murmur, Normal Peripheral Pulses Gastrointestinal: Normal Bowel Sounds, Non Tender, Soft Extremity: Non Tender, No Calf Tenderness, No Pedal Edema Neurologic/Psychiatric: Alert, Oriented x3, Normal Mood/Affect Skin: Normal Color, Warm/Dry (JONNY COLLINS STUDENT) General Appearance: No Apparent Distress, Chronically ill, Thin HEENT: PERRL/EOMI, Other (mucous membranes dry) Respiratory: Lungs Clear, Normal Breath Sounds Cardiovascular: Regular Rate, Rhythm, No Murmur Gastrointestinal: Non Tender, Soft Extremity: Non Tender, No Calf Tenderness, No Pedal Edema Neurologic/Psychiatric: Alert, Oriented x3 Skin: Normal Color, Warm/Dry (MELVIN JC MD) Progress/Results/Core Measures Suspected Sepsis SIRS Temperature: Pulse: 96 Respiratory Rate: 19 Laboratory Tests 05/30/21 20:30: White Blood Count 11.7H Blood Pressure 119 /74 Mean: 89 Laboratory Tests 05/30/21 20:30: Creatinine 1.68H, Platelet Count 261, Total Bilirubin 1.4H (JONNY COLLINS MED STUDENT) Results/Orders Lab Results Laboratory Tests Test 05/30/21 20:30 05/30/21 21:00 05/30/21 21:30 05/30/21 21:43 Range/Units White Blood Count 11.7 H 4.3-11.0 10^3/uL Red Blood Count 4.15 L 4.30-5.52 10^6/uL Hemoglobin 13.9 13.3-17.7 g/dL Hematocrit 39 L 40-54 % Mean Corpuscular Volume 95 80-99 fL Mean Corpuscular Hemoglobin 34 25-34 pg Mean Corpuscular Hemoglobin Concent 35 32-36 g/dL Red Cell Distribution Width 12.9 10.0-14.5 % Platelet Count 261 130-400 10^3/uL Mean Platelet Volume 10.7 9.0-12.2 fL Immature Granulocyte % (Auto) 0 % Neutrophils (%) (Auto) 85 H 42-75 % Lymphocytes (%) (Auto) 7 L 12-44 % Monocytes (%) (Auto) 7 0-12 % Eosinophils (%) (Auto) 0 0-10 % Basophils (%) (Auto) 1 0-10 % Neutrophils # (Auto) 9.9 H 1.8-7.8 10^3/uL Lymphocytes # (Auto) 0.9 L 1.0-4.0 10^3/uL Monocytes # (Auto) 0.8 0.0-1.0 10^3/uL Eosinophils # (Auto) 0.0 0.0-0.3 10^3/uL Basophils # (Auto) 0.1 0.0-0.1 10^3/uL Immature Granulocyte # (Auto) 0.0 0.0-0.1 10^3/uL Neutrophils % (Manual) 90 % Lymphocytes % (Manual) 6 % Monocytes % (Manual) 4 % Blood Morphology Comment NORMAL Sodium Level 124 *L 135-145 MMOL/L Potassium Level 6.2 H 3.6-5.0 MMOL/L Chloride Level 93 L 98-107 MMOL/L Carbon Dioxide Level 21 21-32 MMOL/L Anion Gap 10 5-14 MMOL/L Blood Urea Nitrogen 25 H 7-18 MG/DL Creatinine 1.68 H 0.60-1.30 MG/DL Estimat Glomerular Filtration Rate 52 BUN/Creatinine Ratio 15 Glucose Level 720 *H 70-105 MG/DL Calcium Level 9.1 8.5-10.1 MG/DL Corrected Calcium 9.1 8.5-10.1 MG/DL Phosphorus Level 3.7 2.3-4.7 MG/DL Magnesium Level 1.6 1.6-2.4 MG/DL Total Bilirubin 1.4 H 0.1-1.0 MG/DL Aspartate Amino Transf (AST/SGOT) 20 5-34 U/L Alanine Aminotransferase (ALT/SGPT) 23 0-55 U/L Alkaline Phosphatase 87 40-136 U/L Total Protein 6.6 6.4-8.2 GM/DL Albumin 4.0 3.2-4.5 GM/DL Urine Color YELLOW Urine Clarity CLEAR Urine pH 6.0 5-9 Urine Specific [place] 1.010 L 1.016-1.022 Urine Protein NEGATIVE NEGATIVE Urine Glucose (UA) 3+ H NEGATIVE Urine Ketones 1+ H NEGATIVE Urine Nitrite NEGATIVE NEGATIVE Urine Bilirubin NEGATIVE NEGATIVE Urine Urobilinogen 0.2 < = 1.0 MG/DL Urine Leukocyte Esterase NEGATIVE NEGATIVE Urine RBC (Auto) NEGATIVE NEGATIVE Urine RBC NONE /HPF Urine WBC NONE /HPF Urine Squamous Epithelial Cells NONE /HPF Urine Renal Epithelial Cells NONE /HPF Urine Crystals NONE /LPF Urine Bacteria NEGATIVE /HPF Urine Casts NONE /LPF Urine Mucus NEGATIVE /LPF Urine Culture Indicated NO Blood Gas Puncture Site L RADIAL Blood Gas Patient Temperature 37 Arterial Blood pH 7.37 7.37-7.43 Arterial Blood Partial Pressure CO2 44 35-45 MMHG Arterial Blood Partial Pressure O2 85 79-93 MMHG Arterial Blood HCO3 25 23-27 MMOL/L Arterial Blood Total CO2 26.0 21.0-31.0 MMOL/L Arterial Blood Oxygen Saturation 97 94-100 % Arterial Blood Base Excess 0.0 -2.5-2.5 MMOL/L Anthony Test YES-POS Blood Gas Ventilator Setting NO Blood Gas Inspired Oxygen ROOM AIR Glucometer 372 H 70-110 MG/DL Test 05/30/21 22:18 05/30/21 22:30 Range/Units Glucometer 328 H 70-110 MG/DL Sodium Level 134 L 135-145 MMOL/L Potassium Level 3.9 3.6-5.0 MMOL/L Chloride Level 104 98-107 MMOL/L Carbon Dioxide Level 20 L 21-32 MMOL/L Anion Gap 10 5-14 MMOL/L Blood Urea Nitrogen 24 H 7-18 MG/DL Creatinine 1.17 0.60-1.30 MG/DL Estimat Glomerular Filtration Rate 81 BUN/Creatinine Ratio 21 Glucose Level 330 H 70-105 MG/DL Calcium Level 8.5 8.5-10.1 MG/DL (MELVIN JC MD) My Orders Orders - MELVIN JC MD Lactated Ringers (Lr 1000 Ml Iv Solution (05/30/21 20:48) Ed Iv/Invasive Line Start (05/30/21 20:48) Arterial Blood Gas (05/30/21 21:30) Cbc With Automated Diff (05/30/21 20:48) Comprehensive Metabolic Panel (05/30/21 20:48) Magnesium (05/30/21 20:48) Ua Culture If Indicated (05/30/21 20:48) Phosphorus (05/30/21 20:48) Accucheck Stat ONCE (05/30/21 20:48) Insulin (Regular) Human (Novolin R (Per (05/30/21 20:48) Manual Differential (05/30/21 20:30) Ns Iv 1000 Ml (Sodium Chloride 0.9%) (05/30/21 22:00) Basic Metabolic Panel (05/30/21 22:26) (MELVIN JC MD) Medications Given in ED Current Medications Medications Dose Ordered Sig/Kristi Route Start Time Stop Time Status Last Admin Dose Admin Sodium Chloride 1,000 ml @ 0 mls/hr Q0M ONCE IV 05/30/21 22:00 05/30/21 22:01 DC 05/30/21 22:00 0 MLS/HR (MELVIN JC MD) Vital Signs/I&O 05/30/21 20:29 Temp 36.8 Pulse 96 Resp 19 B/P (MAP) 119/74 (89) Pulse Ox 96 (MELVIN JC MD) Vital Signs/I&O Capillary Refill : (JONNY COLLINS MED STUDENT) Blood Pressure Mean: 89 Point of Care Testing Blood Glucose Action Taken: >600, DOC AND RN NOTIFIED (JONNY COLLINS MED STUDENT) Progress Note : Time: 20:45 Progress Note Pt was seen and examined. Has had incidences like this in the past and usually responds to treatment. Will get CBC, CMP, ABG, UA to check for DKA. Goal for discharge would be sugar under 300. If DKA will admit. Will give fluids and 10 units of insulin at this time. 2124: Glucose resulted 720 sodium 124 Urine positive for glucose and ketones. EBC slightly elevated at 11.7 (JONNY COLLINS MED STUDENT) Progress Note : Progress Note I have seen and evaluated the patient and agree with above except as indicated. I have directed the plan of care. Patient is known brittle diabetic with uncontrolled blood sugars today. Blood sugar is reading high in the meter by EMS with some ketones noted. Patient reports normal blood sugar this morning but was unable to get down during the day. He does follow with [facility]. He does have nausea but no vomiting. Denies fever chills or other problems outside of his chronic lower extremity neuropathy symptoms of burning and pain. Denies any infection or wounds. Reports taking insulin as directed. Evaluation as above. Plan: Patient did receive 1 L of normal saline via EMS. We will initiate 1 L of LR and give 10 units of insulin IV. Labs and UA orde red. Consider ABG if needed. Monitor patient. 2210: Patient is overall doing better. Potassium is elevated but he did receive 10 units of insulin. We will give another liter of normal saline now. Blood sugars in the 300s. Chemistry does not show concerns for acidosis with CO2 of 21. Did have 1+ ketones in the urine and 3 blood sugar but otherwise labs are typical for him currently. We will reevaluate potassium level after fluid and make decision on disposition at that point. Patient is in agreement with plan. 2342: Repeat labs shows much improved findings. Blood sugar is improved. He has insulin at home and will continue sliding scale. We will arrange for taxi voucher to get him home. Discharged home with return precautions. Patient verbalized understanding instructions and agreement with plan. (MELVIN JC MD) Departure Impression Primary Impression: Uncontrolled diabetes mellitus with hyperglycemia, with long-term current use of insulin Disposition: 01 HOME, SELF-CARE Condition: Improved Departure-Patient Inst. Decision time for Depature: 23:43 (MELVIN JC MD) Referrals: [facility] (PCP/Family) Primary Care Physician Patient Instructions: Diabetes Type 1, Adult (DC) Add. Discharge Instructions: All discharge instructions reviewed with patient and/or family. Voiced understanding. Continue your normal dosing of medicine for diabetes. Avoid sugary foods or flu ids. You should use your sliding scale insulin adjustment when you get home based on your blood sugar. Follow-up with your doctor this week for recheck and further evaluation and to discuss your diabetes. Return for worse pain, fever, vomiting, breathing problems, uncontrolled blood sugars or other concerns as needed. Copy Copies To 1: NOEMY BLACKBURN DEREK MED STUDENT May 30, 2021 20:56 MELVIN JC MD May 30, 2021 22:15
[2021-05-30 21:03] LABS: POTASSIUM 6.2 MMOL/L (3.6-5.0)
[2021-05-30 21:04] LABS: CALCIUM 9.1 MG/DL (8.5-10.1)
[2021-05-30 21:05] LABS: BASOPHILS # (AUTO) 0.1 10^3/uL (0.0-0.1); BASOPHILS % (AUTO) 1 % (0-10); EOSINOPHILS % (AUTO) 0 % (0-10); HEMATOCRIT 39 % (40-54); HEMOGLOBIN 13.9 g/dL (13.3-17.7); LYMPHOCYTES # (AUTO) 0.9 10^3/uL (1.0-4.0); LYMPHOCYTES % (AUTO) 7 % (12-44); MEAN CORPUSCULAR HEMOGLOBIN 34 pg (25-34); MEAN CORPUSCULAR HGB CONC 35 g/dL (32-36); MEAN CORPUSCULAR VOLUME 95 fL (80-99); MEAN PLATELET VOLUME 10.7 fL (9.0-12.2); MONOCYTES # (AUTO) 0.8 10^3/uL (0.0-1.0); MONOCYTES % (AUTO) 7 % (0-12); NEUTROPHILS # (AUTO) 9.9 10^3/uL (1.8-7.8); NEUTROPHILS % (AUTO) 85 % (42-75); PLATELET COUNT 261 10^3/uL (130-400); TOTAL PROTEIN 6.6 GM/DL (6.4-8.2); WHITE BLOOD COUNT 11.7 10^3/uL (4.3-11.0)
[2021-05-30 21:07] LABS: BILIRUBIN,TOTAL 1.4 MG/DL (0.1-1.0)
[2021-05-30 21:08] LABS: PHOSPHORUS 3.7 MG/DL (2.3-4.7)
[2021-05-30 21:08] LABS: BILIRUBIN,URINE NEGATIVE (NEGATIVE); CLARITY,URINE CLEAR; COLOR,URINE YELLOW; GLUCOSE, URINE (UA) 3+ (NEGATIVE); KETONES,URINE 1+ (NEGATIVE); LEUKOCYTE ESTERASE ,URINE NEGATIVE (NEGATIVE); NITRITE,URINE NEGATIVE (NEGATIVE); PROTEIN,URINE NEGATIVE (NEGATIVE)
[2021-05-30 21:09] LABS: CREATININE SERUM 1.68 MG/DL (0.60-1.30)
[2021-05-30 21:11] LABS: MAGNESIUM 1.6 MG/DL (1.6-2.4)
[2021-05-30 21:13] LABS: BACTERIA,URINE NEGATIVE /HPF
[2021-05-30 21:21] LABS: LYMPHOCYTES % (MANUAL) 6 %; MONOCYTES % (MANUAL) 4 %; NEUTROPHILS % (MANUAL) 90 %; RBC MORPH NORMAL
[2021-05-30] MEDS ORDERED: NS IV 1000 ML 1,000 ML IV ONE (22:00)
[2021-05-30 22:12] LABS: ABG OXYGEN SATURATION 97 % (94-100); ABG PCO2 44 MMHG (35-45); ABG PH 7.37 (7.37-7.43); ABG PO2 85 MMHG (79-93); ALLENS TEST YES-POS; INSPIRED O2 ROOM AIR; PATIENT TEMP 37; VENTILATOR NO
[2021-05-30 22:51] LABS: POTASSIUM 3.9 MMOL/L (3.6-5.0)
[2021-05-30 22:52] LABS: CALCIUM 8.5 MG/DL (8.5-10.1)
[2021-05-30 22:57] LABS: CREATININE SERUM 1.17 MG/DL (0.60-1.30)
[2021-05-30 23:57] VITALS: BP 112/61
== END 2021-05-30 23:58 | disposition home or self-care (01) ==
LOC: EDUNIT# 20:29 → ER 20:30
DX: E11.65 Type 2 diabetes mellitus with hyperglycemia (principal); Z79.4 Long term (current) use of insulin
CPT/HCPCS: 36415; 80048; 80053; 81000; 82805; 82947; 83735; 84100; 85007; 85027

== ENCOUNTER 2021-06-30 20:15 | Emergency (ER) | payer MEDICARE, MEDICAID | END 2021-06-30 20:45 | disposition left against medical advice (07) | LOC: EDUNIT# 20:15 → ER 20:19 | DX: R73.9 Hyperglycemia, unspecified (principal) ==

== ENCOUNTER 2021-08-06 21:41 | Emergency (ER) | payer MEDICARE, MEDICAID ==
[~2021-08-06] VITALS: Ht 173 cm; Wt 68.0 kg
[2021-08-06 21:41] VITALS: BP 118/76
[2021-08-06] MEDS ORDERED: NS IV 1000 ML 1,000 ML IV SCH ×2 (21:45→23:00)
[2021-08-06 21:55] LABS: BASOPHILS % (AUTO) 1 % (0-10); EOSINOPHILS # (AUTO) 0.2 10^3/uL (0.0-0.3); EOSINOPHILS % (AUTO) 3 % (0-10); HEMATOCRIT 35 % (40-54); HEMOGLOBIN 11.9 g/dL (13.3-17.7); LYMPHOCYTES # (AUTO) 1.9 10^3/uL (1.0-4.0); LYMPHOCYTES % (AUTO) 30 % (12-44); MEAN CORPUSCULAR HEMOGLOBIN 33 pg (25-34); MEAN CORPUSCULAR HGB CONC 34 g/dL (32-36); MEAN CORPUSCULAR VOLUME 96 fL (80-99); MEAN PLATELET VOLUME 10.2 fL (9.0-12.2); MONOCYTES # (AUTO) 0.4 10^3/uL (0.0-1.0); MONOCYTES % (AUTO) 6 % (0-12); NEUTROPHILS # (AUTO) 3.8 10^3/uL (1.8-7.8); NEUTROPHILS % (AUTO) 61 % (42-75); PLATELET COUNT 236 10^3/uL (130-400); WHITE BLOOD COUNT 6.3 10^3/uL (4.3-11.0)
--- NOTE | 2021-08-06 22:06 | ED General ---
General Chief Complaint: Glucose Problems Stated Complaint: HIGH BS Source of Information: Patient History of Present Illness Date Seen by Provider: August 06, 2021 Time Seen by Provider: 21:45 Initial Comments PT ARRIVES VIA EMS FROM HOME C/O ELEVATED BLOOD SUGAR BLOOD GLUCOSE TOO HIGH TO READ, WITH KETONES, PER EMS PT IS TYPE 1 DIABETIC, DX AGE 11 PT IS ON HUMALOG 7 UNITS BID, AND TOUJEO 24 UNITS ONCE A DAY--CLAIMS HE HAS NOT MISSED DOSES OF MEDIACATIONS, AND NO RECENT MEDICATION CHANGES. PT STATES HE HAS NOT SEEN AN CHAR CON[employer]YOR TENDER CELLAR ( DR. GROSS WITH [facility] IN [place]) IN OVER 6 MONTHS--MISSED LAST APPOINTMENT AND HAS NOT ATTEMPTED TO RESCHEDULE PT STATES HE BEGAN HAVING SORE THROAT, COUGH/CONGESTION AND SUBJECTIVE FEVER/SWEATS/CHILLS 2-3 WEEKS AGO WAS TREATED WITH AMOXIL AND STILL HAS SYMPTOMS Allergies and Home Medications Allergies Uncoded Allergies: HYDROCONE (Allergy, Unknown, 11/01/17) Patient Home Medication List Gabapentin (Gabapentin) 300 Mg Capsule, (Reported) Entered as Reported by: NASEEM MAGALLANES on 04/05/192119 Insulin Glargine,Hum.rec.anlog (Toujeo Solostar) 300 Unit/1 Ml Insuln.pen, (R eported) Entered as Reported by: NASEEM MAGALLANES on 04/05/192119 Insulin Lispro (Humalog Kwikpen) 100 Unit/1 Ml Insuln.pen, (Reported) Entered as Reported by: NASEEM MAGALLANES on 04/05/192119 Levothyroxine Sodium (Levothyroxine Sodium) 200 Mcg Tablet, (Reported) Entered as Reported by: NASEEM MAGALLANES on 04/05/192119 Past Zfiiwvl-Dveohz-Intqjf Hx Immunizations Up To Date Tetanus Booster (TDap): Unknown First/Initial COVID19 Vaccinat: 05/30/2020 Second COVID19 Vaccination Fadi: 07/09 Seasonal Allergies Seasonal Allergies: Yes Past Medical History Surgery/Hospitalization HX: iddm, hypothryoidism, 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 Surgeries: Yes (fusion of vertebrae) Adenoidectomy, Tonsillectomy Respiratory: No Cardiac: Yes Hypertension Neurological: Yes Headaches /Migraines, Traumatic Brain Injury Genitourinary: No Gastrointestinal: No Musculoskeletal: No Endocrine: Yes (radiation of the thyroid; TYPE 1 DIABETES, DX AGE 12) Diabetes, Insulin dep, Hypothyroidsim HEENT: No Cancer: No Psychosocial: No Integumentary: No Blood Disorders: No Family Medical History No Pertinent Family Hx Physical Exam Vital Signs Vital Signs - First Documented 08/06/21 21:41 Temp 36.8 Pulse 73 Resp 20 B/P (MAP) 118/76 (90) Pulse Ox 98 O2 Delivery Room Air Capillary Refill : Height, Weight, BMI Height: 5'10.00" Weight: 167lbs. oz. 75.759196ku; 23.00 BMI Method:Stated Focused Exam Lactate Level 08/06/21 21:55: Lactic Acid Level 1.43 Lactic Acid Level Laboratory Tests Test 08/06/21 21:55 Lactic Acid Level 1.43 MMOL/L (0.50-2.00) Progress/Results/Core Measures Suspected Sepsis SIRS Temperature: Pulse: Respiratory Rate: Laboratory Tests 08/06/21 21:45: White Blood Count 6.3 Blood Pressure / Mean: 08/06/21 21:55: Lactic Acid Level 1.43 Laboratory Tests 08/06/21 21:45: Creatinine 1.36H, Platelet Count 236, Total Bilirubin 0.4 Results/Orders Lab Results Laboratory Tests Test 08/06/21 21:45 08/06/21 21:52 08/06/21 21:55 08/06/21 22:10 Range/Units White Blood Count 6.3 4.3-11.0 10^3/uL Red Blood Count 3.62 L 4.30-5.52 10^6/uL Hemoglobin 11.9 L 13.3-17.7 g/dL Hematocrit 35 L 40-54 % Mean Corpuscular Volume 96 80-99 fL Mean Corpuscular Hemoglobin 33 25-34 pg Mean Corpuscular Hemoglobin Concent 34 32-36 g/dL Red Cell Distribution Width 13.2 10.0-14.5 % Platelet Count 236 130-400 10^3/uL Mean Platelet Volume 10.2 9.0-12.2 fL Immature Granulocyte % (Auto) 0 % Neutrophils (%) (Auto) 61 42-75 % Lymphocytes (%) (Auto) 30 12-44 % Monocytes (%) (Auto) 6 0-12 % Eosinophils (%) (Auto) 3 0-10 % Basophils (%) (Auto) 1 0-10 % Neutrophils # (Auto) 3.8 1.8-7.8 10^3/uL Lymphocytes # (Auto) 1.9 1.0-4.0 10^3/uL Monocytes # (Auto) 0.4 0.0-1.0 10^3/uL Eosinophils # (Auto) 0.2 0.0-0.3 10^3/uL Basophils # (Auto) 0.0 0.0-0.1 10^3/uL Immature Granulocyte # (Auto) 0.0 0.0-0.1 10^3/uL Sodium Level 138 135-145 MMOL/L Potassium Level 5.2 H 3.6-5.0 MMOL/L Chloride Level 105 98-107 MMOL/L Carbon Dioxide Level 22 21-32 MMOL/L Anion Gap 11 5-14 MMOL/L Blood Urea Nitrogen 23 H 7-18 MG/DL Creatinine 1.36 H 0.60-1.30 MG/DL Estimat Glomerular Filtration Rate 67 BUN/Creatinine Ratio 17 Glucose Level 469 *H 70-105 MG/DL Calcium Level 8.0 L 8.5-10.1 MG/DL Corrected Calcium 8.5 8.5-10.1 MG/DL Magnesium Level 1.4 L 1.6-2.4 MG/DL Total Bilirubin 0.4 0.1-1.0 MG/DL Aspartate Amino Transf (AST/SGOT) 26 5-34 U/L Alanine Aminotransferase (ALT/SGPT) 23 0-55 U/L Alkaline Phosphatase 87 40-136 U/L Total Protein 5.8 L 6.4-8.2 GM/DL Albumin 3.4 3.2-4.5 GM/DL Amylase Level 29 25-125 U/L Lipase 25 8-78 U/L Beta-Hydroxybutyrate (Chem panel) 0.11 0.00-0.27 MMOL/L Procalcitonin 0.02 <0.10 NG/ML Influenza Type A (RT-PCR) Not Detected Not Detecte Influenza Type B (RT-PCR) Not Detected Not Detecte SARS-CoV-2 RNA (RT-PCR) Not Detected Not Detecte Lactic Acid Level 1.43 0.50-2.00 MMOL/L Blood Gas Puncture Site R RAD Blood Gas Patient Temperature 36.8 Arterial Blood pH 7.38 7.37-7.43 Arterial Blood Partial Pressure CO2 42 35-45 MMHG Arterial Blood Partial Pressure O2 88 79-93 MMHG Arterial Blood HCO3 24 23-27 MMOL/L Arterial Blood Total CO2 25.7 21.0-31.0 MMOL/L Arterial Blood Oxygen Saturation 97 94-100 % Arterial Blood Base Excess 0.0 -2.5-2.5 MMOL/L Anthony Test YES-POS Blood Gas Ventilator Setting NO Blood Gas Inspired Oxygen ROOM AIR Test 08/06/21 22:21 08/07/21 00:24 Range/Units Urine Color YELLOW Urine Clarity CLEAR Urine pH 6.0 5-9 Urine Specific [place] 1.010 L 1.016-1.022 Urine Protein NEGATIVE NEGATIVE Urine Glucose (UA) 3+ H NEGATIVE Urine Ketones NEGATIVE NEGATIVE Urine Nitrite NEGATIVE NEGATIVE Urine Bilirubin NEGATIVE NEGATIVE Urine Urobilinogen 0.2 < = 1.0 MG/DL Urine Leukocyte Esterase NEGATIVE NEGATIVE Urine RBC (Auto) NEGATIVE NEGATIVE Urine RBC NONE /HPF Urine WBC NONE /HPF Urine Squamous Epithelial Cells NONE /HPF Urine Renal Epithelial Cells NONE /HPF Urine Crystals NONE /LPF Urine Bacteria NEGATIVE /HPF Urine Casts NONE /LPF Urine Mucus NEGATIVE /LPF Urine Culture Indicated NO Urine Opiates Screen NEGATIVE NEGATIVE Urine Oxycodone Screen NEGATIVE NEGATIVE Urine Methadone Screen NEGATIVE NEGATIVE Urine Propoxyphene Screen NEGATIVE NEGATIVE Urine Barbiturates Screen NEGATIVE NEGATIVE Ur Tricyclic Antidepressants Screen NEGATIVE NEGATIVE Urine Phencyclidine Screen NEGATIVE NEGATIVE Urine Amphetamines Screen NEGATIVE NEGATIVE Urine Methamphetamines Screen NEGATIVE NEGATIVE Urine Benzodiazepines Screen NEGATIVE NEGATIVE Urine Cocaine Screen NEGATIVE NEGATIVE Urine Cannabinoids Screen POSITIVE H NEGATIVE Glucometer 135 H 70-110 MG/DL My Orders Orders - DIPTI REYES DO Accucheck Stat ONCE (08/06/21 21:44) Ed Iv/Invasive Line Start (08/06/21 21:44) Monitor-Rhythm Ecg Trace Only (08/06/21 21:44) Amylase (08/06/21 21:44) Cbc With Automated Diff (08/06/21 21:44) Comprehensive Metabolic Panel (08/06/21 21:44) Drug Screen Stat (Urine) (08/06/21 21:44) Lactic Acid Analyzer (08/06/21 21:44) Lipase (08/06/21 21:44) Magnesium (08/06/21 21:44) Procalcitonin (Pct) (08/06/21 21:44) Ua Culture If Indicated (08/06/21 21:44) Ed Iv/Invasive Line Start (08/06/21 21:44) Ns Iv 1000 Ml (Sodium Chloride 0.9%) (08/06/21 21:45) Beta Hydroxybutyrate (08/06/21 21:44) Hemoglobin A1c (08/06/21 21:44) Arterial Blood Gas (08/06/21 21:44) Chest 1 View, Ap/Pa Only (08/06/21 21:54) Covid 19 Inhouse Test (08/06/21 21:54) Influenza A And B By Pcr (08/06/21 21:54) Isolation Central Supply Req (08/06/21 21:54) Insulin (Regular) Human (Novolin R (Per (08/06/21 23:00) Ed Iv/Invasive Line Start (08/06/21 22:53) Ns Iv 1000 Ml (Sodium Chloride 0.9%) (08/06/21 23:00) Accucheck Stat ONCE (08/06/21 23:53) Medications Given in ED Current Medications Medications Dose Ordered Sig/Kristi Route Start Time Stop Time Status Last Admin Dose Admin Insulin Human Regular 15 unit ONCE ONCE IV 08/06/21 23:00 08/06/21 23:01 DC 08/06/21 23:31 15 UNIT Vital Signs/I&O 08/06/21 21:41 Temp 36.8 Pulse 73 Resp 20 B/P (MAP) 118/76 (90) Pulse Ox 98 O2 Delivery Room Air 08/07/21 00:00 Intake Total 2400 ml Balance 2400 ml Capillary Refill : Point of Care Testing Finger Stick Blood Glucose: 403 Departure Impression Primary Impression: Uncontrolled diabetes mellitus with hyperglycemia, with long-term current use of insulin Disposition: 01 HOME, SELF-CARE Condition: Improved Departure-Patient Inst. Decision time for Depature: 00:32 Referrals: [facility] (PCP/Family) Primary Care Physician Patient Instructions: Diabetes Type 1, Adult (DC) Add. Discharge Instructions: CHECK YOUR BLOOD SUGAR 4 TIMES A DAY --FASTING, AND BEFORE EACH MEAL AND AT BEDTIME TAKE YOUR INSULIN PRESCRIBED FOLLOW UP WITH [facility] THIS WEEK FOR FURTHER CARE--CALL IN THE MORNING TO SCHEDULE AN APPOINTMENT All discharge instructions reviewed with patient and/or family. Voiced understanding. DIPTI REYES DO August 06, 2021 22:06
[2021-08-06 22:13] LABS: ALBUMIN 3.4 GM/DL (3.2-4.5); POTASSIUM 5.2 MMOL/L (3.6-5.0)
[2021-08-06 22:16] LABS: TOTAL PROTEIN 5.8 GM/DL (6.4-8.2)
[2021-08-06 22:17] LABS: BILIRUBIN,TOTAL 0.4 MG/DL (0.1-1.0)
[2021-08-06 22:19] LABS: CREATININE SERUM 1.36 MG/DL (0.60-1.30)
--- NOTE | 2021-08-06 22:20 | Diagnostic Imaging Report ---
EXAMINATION: Chest 1 view. HISTORY: Cough. Hyperglycemia. COMPARISON: 04/05/2019. FINDINGS: The lung volumes are normal. No focal consolidation is seen. No large pleural effusion or pneumothorax is seen. The cardiomediastinal silhouette is normal in size and contour. No acute osseous abnormality is seen. IMPRESSION: No acute pleuroparenchymal process. Dictated by: Dictated on workstation # [id number]
[2021-08-06 22:22] LABS: MAGNESIUM 1.4 MG/DL (1.6-2.4)
[2021-08-06 22:29] LABS: BILIRUBIN,URINE NEGATIVE (NEGATIVE); CLARITY,URINE CLEAR; COLOR,URINE YELLOW; GLUCOSE, URINE (UA) 3+ (NEGATIVE); KETONES,URINE NEGATIVE (NEGATIVE); LEUKOCYTE ESTERASE ,URINE NEGATIVE (NEGATIVE); NITRITE,URINE NEGATIVE (NEGATIVE); PROTEIN,URINE NEGATIVE (NEGATIVE)
[2021-08-06 22:35] LABS: BACTERIA,URINE NEGATIVE /HPF
[2021-08-06 22:53] LABS: ABG OXYGEN SATURATION 97 % (94-100); ABG PCO2 42 MMHG (35-45); ABG PH 7.38 (7.37-7.43); ABG PO2 88 MMHG (79-93); ABG TCO2 25.7 MMOL/L (21.0-31.0); ALLENS TEST YES-POS; INSPIRED O2 ROOM AIR; PATIENT TEMP 36.8; VENTILATOR NO
[2021-08-06 22:54] LABS: AMPHETAMINE SCREEN, URINE NEGATIVE (NEGATIVE); BENZODIAZEPINES SCREEN URINE NEGATIVE (NEGATIVE); COCAINE SCREEN URINE NEGATIVE (NEGATIVE)
[2021-08-06 22:55] LABS: BARBITURATE SCREEN URINE NEGATIVE (NEGATIVE); CANNABINOID SCREEN, URINE POSITIVE (NEGATIVE); METHADONE STAT NEGATIVE (NEGATIVE); OPIATE SCREEN URINE NEGATIVE (NEGATIVE); OXYCODONE STAT NEGATIVE (NEGATIVE); PROPOXYPHENE STAT NEGATIVE (NEGATIVE); TRICYCLIC ANTIDEPRESSANTS SCRE NEGATIVE (NEGATIVE)
[2021-08-06] MEDS ORDERED: inSUlin (REGULAR) HUMAN 1 UNIT/0.01 ML (CHARGE PER UNIT) IV ONE (23:00)
== END 2021-08-07 00:44 | disposition home or self-care (01) ==
LOC: EDUNIT# 21:41 → ER 21:42
DX: E10.65 Type 1 diabetes mellitus with hyperglycemia (principal); Z20.822 Contact with and (suspected) exposure to COVID-19
CPT/HCPCS: 36415; 71045; 80053; 80306; 81000; 82010; 82150; 82805; 82947; 83036; 83605; 83690; 83735; 84145; 85025; 87636

== ENCOUNTER 2021-10-13 05:23 | Emergency (ER) | payer MEDICARE, MEDICAID ==
[2021-10-13 05:39] LABS: BASOPHILS # (AUTO) 0.1 10^3/uL (0.0-0.1); BASOPHILS % (AUTO) 1 % (0-10); EOSINOPHILS % (AUTO) 0 % (0-10); HEMATOCRIT 40 % (40-54); HEMOGLOBIN 14.6 g/dL (13.3-17.7); LYMPHOCYTES # (AUTO) 1.6 10^3/uL (1.0-4.0); LYMPHOCYTES % (AUTO) 17 % (12-44); MEAN CORPUSCULAR HEMOGLOBIN 33 pg (25-34); MEAN CORPUSCULAR HGB CONC 36 g/dL (32-36); MEAN CORPUSCULAR VOLUME 91 fL (80-99); MEAN PLATELET VOLUME 10.3 fL (9.0-12.2); MONOCYTES # (AUTO) 0.5 10^3/uL (0.0-1.0); MONOCYTES % (AUTO) 6 % (0-12); NEUTROPHILS # (AUTO) 7.6 10^3/uL (1.8-7.8); NEUTROPHILS % (AUTO) 76 % (42-75); PLATELET COUNT 295 10^3/uL (130-400); WHITE BLOOD COUNT 9.9 10^3/uL (4.3-11.0)
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
[2021-10-13 05:44] LABS: ALBUMIN 4.1 GM/DL (3.2-4.5)
[2021-10-13] MEDS ORDERED: ONDANSETRON 4 MG/2 ML (SDV) Z0FRAN IVP ONE (05:45)
[2021-10-13] MEDS ORDERED: NS IV 1000 ML 1,000 ML IV SCH (05:45)
[2021-10-13] MEDS ORDERED: NS IV 1000 ML 1,000 ML IV ONE (05:45)
[2021-10-13 05:46] LABS: CALCIUM 8.6 MG/DL (8.5-10.1)
[2021-10-13 05:47] LABS: TOTAL PROTEIN 6.8 GM/DL (6.4-8.2)
[2021-10-13 05:49] LABS: BILIRUBIN,TOTAL 0.8 MG/DL (0.1-1.0)
[2021-10-13 05:51] LABS: CREATININE SERUM 1.25 MG/DL (0.60-1.30)
[2021-10-13 05:53] LABS: BILIRUBIN,URINE NEGATIVE (NEGATIVE); CLARITY,URINE CLEAR; COLOR,URINE YELLOW; GLUCOSE, URINE (UA) 3+ (NEGATIVE); KETONES,URINE NEGATIVE (NEGATIVE); LEUKOCYTE ESTERASE ,URINE NEGATIVE (NEGATIVE); NITRITE,URINE NEGATIVE (NEGATIVE); PROTEIN,URINE NEGATIVE (NEGATIVE)
[2021-10-13 05:53] LABS: MAGNESIUM 1.4 MG/DL (1.6-2.4)
[2021-10-13] MEDS ORDERED: inSUlin (REGULAR) HUMAN 1 UNIT/0.01 ML (CHARGE PER UNIT) SC ONE (06:00)
[2021-10-13] MEDS ORDERED: PANTOPRAZOLE 40 MG (PROTONIX) VIAL IV ONE (06:00)
[2021-10-13] MEDS ORDERED: MAGNESIUM 1 GM/100 ML IVPB 100 ML IV ONE (06:00)
[2021-10-13 06:04] LABS: AMPHETAMINE SCREEN, URINE NEGATIVE (NEGATIVE); BARBITURATE SCREEN URINE NEGATIVE (NEGATIVE); BENZODIAZEPINES SCREEN URINE NEGATIVE (NEGATIVE); CANNABINOID SCREEN, URINE POSITIVE (NEGATIVE); COCAINE SCREEN URINE NEGATIVE (NEGATIVE); METHADONE STAT NEGATIVE (NEGATIVE); OPIATE SCREEN URINE NEGATIVE (NEGATIVE); OXYCODONE STAT NEGATIVE (NEGATIVE); PROPOXYPHENE STAT NEGATIVE (NEGATIVE); TRICYCLIC ANTIDEPRESSANTS SCRE NEGATIVE (NEGATIVE)
[2021-10-13 06:07] LABS: BACTERIA,URINE NEGATIVE /HPF; SQUAMOUS EPITHELIAL CELL,UR 0-2 /HPF
[2021-10-13 08:12] VITALS: BP 145/93
== END 2021-10-13 08:12 | disposition home or self-care (01) ==
LOC: EDUNIT# 05:23 → ER 05:24
DX: E10.65 Type 1 diabetes mellitus with hyperglycemia (principal); F17.210 Nicotine dependence, cigarettes, uncomplicated; Z79.4 Long term (current) use of insulin; Z86.16 Personal history of COVID-19
CPT/HCPCS: 80053; 80306; 81000; 82010; 82947; 83690; 83735; 85025; G0480; 36415; 80320

== ENCOUNTER 2021-10-15 20:28 | Emergency (ER) | payer MEDICARE, MEDICAID ==
[~2021-10-15] VITALS: Ht 171 cm; Wt 68.0 kg
[2021-10-15 20:45] LABS: BASOPHILS # (AUTO) 0.1 10^3/uL (0.0-0.1); BASOPHILS % (AUTO) 1 % (0-10); EOSINOPHILS # (AUTO) 0.1 10^3/uL (0.0-0.3); EOSINOPHILS % (AUTO) 1 % (0-10); HEMATOCRIT 40 % (40-54); HEMOGLOBIN 13.9 g/dL (13.3-17.7); LYMPHOCYTES # (AUTO) 2.1 10^3/uL (1.0-4.0); LYMPHOCYTES % (AUTO) 23 % (12-44); MEAN CORPUSCULAR HEMOGLOBIN 33 pg (25-34); MEAN CORPUSCULAR HGB CONC 35 g/dL (32-36); MEAN CORPUSCULAR VOLUME 94 fL (80-99); MEAN PLATELET VOLUME 10.5 fL (9.0-12.2); MONOCYTES # (AUTO) 0.7 10^3/uL (0.0-1.0); MONOCYTES % (AUTO) 8 % (0-12); NEUTROPHILS # (AUTO) 6.3 10^3/uL (1.8-7.8); NEUTROPHILS % (AUTO) 68 % (42-75); PLATELET COUNT 272 10^3/uL (130-400); WHITE BLOOD COUNT 9.4 10^3/uL (4.3-11.0)
[2021-10-15] MEDS ORDERED: ONDANSETRON 4 MG/2 ML (SDV) Z0FRAN IVP ONE (20:45)
[2021-10-15] MEDS ORDERED: NS IV 1000 ML 1,000 ML IV SCH ×3 (20:45→21:30)
--- NOTE | 2021-10-15 20:47 | ED General ---
General Chief Complaint: Glucose Problems Stated Complaint: HYPERGLYCEMIA Source of Information: Patient, Old Records History of Present Illness Date Seen by Provider: Oct 15, 2021 Time Seen by Provider: 20:34 Initial Comments PT ARRIVES VIA EMS FROM HOME PT IS TYPE 1 DIABETIC--DX AGE 11 C/O ELEVATED BLOOD SUGAR JUST PRIOR TO ARRIVAL BLOOD SUGAR WAS 519 AT HOME, AND READ "HIGH" FOR EMS ( THEIR GLUCOMETER READS UP TO 500 ) ACCUCHECK 513 ON ARRIVAL HERE PT HAS HAD A MULTITUDE OF VISITS FOR THIS SAME PROBLEM LAST VISIT WAS 2 DAYS AGO THIS IS 5TH VISIT SINCE MAY 2021--ALL FOR SAME HAS NEVER REQUIRED ADMIT HERE PT CLAIMS NO MISSED DOSES OF MEDICATIONS OR CHANGES IN DOSES PT HAS NOT SEEN AN COST ESTIMATOR RECENTLY--STATES HE IS "SUPPOSED TO START SEEING ONE AT [facility]" BUT HAS NOT ATTEMPTED TO MAKE AN APPOINTMENT AT ANY TIME PT USED TO SEE DR. GROSS IN [place], BUT WAS FIRED FROM HER PRACTICE FOR EXTREME NON-COMPLIANCE IN ALL ASPECTS OF CARE, REPEATED MISSED APPOINTMENTS, ETC. PT WITH A LONG HISTORY OF EXTREME NON-COMPLIANCE IN ALL ASPECTS OF CARE. PT STATES SHE ATE DINNER AT 1800--ARMENIAN CHICKEN WITH RICE, AND HAD A DIET COKE. ALSO HAD "2 BEERS" STATES HE TOOK HIS NORMAL DOSE OF : TOUJEO 16 UNITS, AND LISPRO/HUMALOG 8 UNITS ON REVIEW OF OLD RECORDS, HE HAD REPORTED IN JULY OF THIS YEAR, THAT HE WAS TAKING 24 UNITS OF TOUJEO DAILY, AND 7 UNITS OF LISPRO/HUMALOG WITH EACH MEAL C/O MILD NAUSEA, NO VOMITING NO OTHER SYMPTOMS PT HAS ONLY HAD 2 COVID VACCINES--> 1 YEAR AGO. NO BOOSTER. NO FLU VACCINE PT SMOKES 1 PPD HISTORY OF METH USE, CLAIMS NO USE "FOR 20 YEARS" AND DENIES IV USE, ALSO THC USE. TESTED + FOR METH ON 10/13/21 HISTORY OF DRINKING A "30 PACK" EVERY DAY, CLAIMED ON PRIOR VISITS THAT HE HAD QUIT DRINKING, BUT ON HIS VISIT 2 DAYS AGO, PT HAD BEEN DRINKING HEAVILY, AND TODAY ADMITS TO "2 BEERS" TONIGHT PT STATES HE HAS BEEN "GOING BACK AND FORTH" BETWEEN STAYING WITH HIS MOTHER AND "LOIDA AND HIS " --"BECAUSE OF MY BLOOD SUGARS" PCP: MILDR[facility]BERT, [facility] Allergies and Home Medications Allergies Uncoded Allergies: HYDROCONE (Allergy, Unknown, 11/01/17) Patient Home Medication List Home Medication List Reviewed: Yes Gabapentin (Gabapentin) 300 Mg Capsule, (Reported) Entered as Reported by: NASEEM MAGALLANES on 04/05/192119 Insulin Glargine,Hum.rec.anlog (Toujeo Solostar) 300 Unit/1 Ml Insuln.pen, (Reported) Entered as Reported by: NASEEM MAGALLANES on 04/05/192119 Insulin Lispro (Humalog Kwikpen) 100 Unit/1 Ml Insuln.pen, (Reported) Entered as Reported by: NASEEM MAGALLANES on 04/05/192119 Levothyroxine Sodium (Levothyroxine Sodium) 200 Mcg Tablet, (Reported) Entered as Reported by: NASEEM MAGALLANES on 04/05/192119 Review of Systems Review of Systems Constitutional: no symptoms reported EENTM: no symptoms reported Respiratory: no symptoms reported Cardiovascular: no symptoms reported Gastrointestinal: see HPI; No abdominal pain; nausea; No vomiting Genitourinary: no symptoms reported Musculoskeletal: no symptoms reported Skin: no symptoms reported Psychiatric/Neurological: No Symptoms Reported Hematologic/Lymphatic: No Symptoms Reported Immunological/Allergic: no symptoms reported Past Iloforv-Dhaqsm-Oxayaj Hx Patient Social History Tobacco Use?: Yes Tobacco type used: Cigarettes Smoking Status: Current Everyday Smoker Substance use?: Yes Substance type: Methamphetamine Alcohol Use?: Yes Alcohol type: Beer Alcohol Frequency: Daily Immunizations Up To Date Tetanus Booster (TDap): Unknown First/Initial COVID19 Vaccinat: 2020 Second COVID19 Vaccination Fadi: 2020 Seasonal Allergies Seasonal Allergies: Yes Past Medical History Surgery/Hospitalization HX: iddm, hypothryoidism, 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 Surgeries: Yes (fusion of vertebrae) Adenoidectomy, Orthopedic, Tonsillectomy Respiratory: Yes (+ COVID-19 01/2020--NO TREATMENT) Cardiac: Yes Hypertension Neurological: Yes Headaches /Migraines, Traumatic Brain Injury Genitourinary: No Gastrointestinal: No Musculoskeletal: Yes Chronic Back Pain Endocrine: Yes (radiation of the thyroid; TYPE 1 DIABETES, DX AGE 11) Diabetes, Insulin dep, Hypothyroidsim HEENT: No Cancer: No Psychosocial: No Integumentary: No Blood Disorders: No Family Medical History No Pertinent Family Hx SOCIAL HISTORY: -SMOKES 1 PPD -ETOH--HX OF ABUSE, 30 PACK OF BEER/DAY, CLAIMS NO USE X 6 MONTHS ON 08/06/21--BUT + FOR ETOH 10/13 AND 10/15 -DRUGS--THC AND METH USE, CLAIMS NONE FOR 20 YEARS, PER PT ON 08/06/21, DENIES IV USE. UDS + FOR THC 08/06/21 UDS + FOR METH AND THC 10/13/21 PAST SURGICAL HISTORY: -LUMBAR SPINAL FUSION -TONSILLECTOMY/ADENOIDECTOMY. LONG HISTORY OF NON-COMPLAINCE IN ALL ASPECTS OF CARE Physical Exam Vital Signs Vital Signs - First Documented 10/15/21 20:33 Temp 37.6 Pulse 80 Resp 18 B/P (MAP) 126/81 (96) Pulse Ox 98 O2 Delivery Room Air Capillary Refill : Height, Weight, BMI Height: 5'10.00" Weight: 167lbs. oz. 75.170071sl; 22.00 BMI Method:Stated General Appearance: No Apparent Distress, WD/WN, Thin, Other (VOICE TREMULOUS AND STUTTERING--STOPS WHEN DISTRACTED. 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 Norm as Tested Skin: Normal Color, Warm/Dry Focused Exam Lactate Level 10/15/21 20:35: Lactic Acid Level 0.78 Lactic Acid Level Laboratory Tests Test 10/15/21 20:35 Lactic Acid Level 0.78 MMOL/L (0.50-2.00) Progress/Results/Core Measures Suspected Sepsis SIRS Temperature: Pulse: Respiratory Rate: Laboratory Tests 10/15/21 20:35: White Blood Count 9.4 Blood Pressure / Mean: 10/15/21 20:35: Lactic Acid Level 0.78 Laboratory Tests 10/15/21 20:35: Creatinine 1.67H, Platelet Count 272, Total Bilirubin 0.8 10/15/21 23:40: Creatinine 1.53H Results/Orders Lab Results Laboratory Tests Test 10/15/21 20:33 10/15/21 20:35 10/15/21 20:43 10/15/21 21:00 Range/Units Glucometer 516 *H 70-110 MG/DL White Blood Count 9.4 4.3-11.0 10^3/uL Red Blood Count 4.21 L 4.30-5.52 10^6/uL Hemoglobin 13.9 13.3-17.7 g/dL Hematocrit 40 40-54 % Mean Corpuscular Volume 94 80-99 fL Mean Corpuscular Hemoglobin 33 25-34 pg Mean Corpuscular Hemoglobin Concent 35 32-36 g/dL Red Cell Distribution Width 13.2 10.0-14.5 % Platelet Count 272 130-400 10^3/uL Mean Platelet Volume 10.5 9.0-12.2 fL Immature Granulocyte % (Auto) 0 % Neutrophils (%) (Auto) 68 42-75 % Lymphocytes (%) (Auto) 23 12-44 % Monocytes (%) (Auto) 8 0-12 % Eosinophils (%) (Auto) 1 0-10 % Basophils (%) (Auto) 1 0-10 % Neutrophils # (Auto) 6.3 1.8-7.8 10^3/uL Lymphocytes # (Auto) 2.1 1.0-4.0 10^3/uL Monocytes # (Auto) 0.7 0.0-1.0 10^3/uL Eosinophils # (Auto) 0.1 0.0-0.3 10^3/uL Basophils # (Auto) 0.1 0.0-0.1 10^3/uL Immature Granulocyte # (Auto) 0.0 0.0-0.1 10^3/uL Sodium Level 133 L 135-145 MMOL/L Potassium Level 6.4 H 3.6-5.0 MMOL/L Chloride Level 97 L 98-107 MMOL/L Carbon Dioxide Level 23 21-32 MMOL/L Anion Gap 13 5-14 MMOL/L Blood Urea Nitrogen 22 H 7-18 MG/DL Creatinine 1.67 H 0.60-1.30 MG/DL Estimat Glomerular Filtration Rate 53 BUN/Creatinine Ratio 13 Glucose Level 644 *H 70-105 MG/DL Lactic Acid Level 0.78 0.50-2.00 MMOL/L Calcium Level 9.1 8.5-10.1 MG/DL Corrected Calcium 9.0 8.5-10.1 MG/DL Magnesium Level 1.7 1.6-2.4 MG/DL Total Bilirubin 0.8 0.1-1.0 MG/DL Aspartate Amino Transf (AST/SGOT) 28 5-34 U/L Alanine Aminotransferase (ALT/SGPT) 31 0-55 U/L Alkaline Phosphatase 99 40-136 U/L Total Protein 6.8 6.4-8.2 GM/DL Albumin 4.1 3.2-4.5 GM/DL Amylase Level 35 25-125 U/L Lipase 21 8-78 U/L Beta-Hydroxybutyrate (Chem panel) 0.36 H 0.00-0.27 MMOL/L Serum Alcohol < 10 <10 MG/DL SARS-CoV-2 RNA (RT-PCR) Detected H Not Detecte Urine Color YELLOW Urine Clarity CLEAR Urine pH 5.5 5-9 Urine Specific [place] 1.010 L 1.016-1.022 Urine Protein NEGATIVE NEGATIVE Urine Glucose (UA) 3+ H NEGATIVE Urine Ketones NEGATIVE NEGATIVE Urine Nitrite NEGATIVE NEGATIVE Urine Bilirubin NEGATIVE NEGATIVE Urine Urobilinogen 0.2 < = 1.0 MG/DL Urine Leukocyte Esterase NEGATIVE NEGATIVE Urine RBC (Auto) NEGATIVE NEGATIVE Urine RBC NONE /HPF Urine WBC NONE /HPF Urine Squamous Epithelial Cells NONE /HPF Urine Renal Epithelial Cells NONE /HPF Urine Crystals NONE /LPF Urine Bacteria NEGATIVE /HPF Urine Casts NONE /LPF Urine Mucus NEGATIVE /LPF Urine Culture Indicated NO Urine Opiates Screen NEGATIVE NEGATIVE Urine Oxycodone Screen NEGATIVE NEGATIVE Urine Methadone Screen NEGATIVE NEGATIVE Urine Propoxyphene Screen NEGATIVE NEGATIVE Urine Barbiturates Screen NEGATIVE NEGATIVE Ur Tricyclic Antidepressants Screen NEGATIVE NEGATIVE Urine Phencyclidine Screen NEGATIVE NEGATIVE Urine Amphetamines Screen NEGATIVE NEGATIVE Urine Methamphetamines Screen NEGATIVE NEGATIVE Urine Benzodiazepines Screen NEGATIVE NEGATIVE Urine Cocaine Screen NEGATIVE NEGATIVE Urine Cannabinoids Screen POSITIVE H NEGATIVE Test 10/15/21 23:40 Range/Units Sodium Level 135 135-145 MMOL/L Potassium Level 5.3 H 3.6-5.0 MMOL/L Chloride Level 105 98-107 MMOL/L Carbon Dioxide Level 22 21-32 MMOL/L Anion Gap 8 5-14 MMOL/L Blood Urea Nitrogen 22 H 7-18 MG/DL Creatinine 1.53 H 0.60-1.30 MG/DL Estimat Glomerular Filtration Rate 59 BUN/Creatinine Ratio 14 Glucose Level 564 *H 70-105 MG/DL Calcium Level 7.9 L 8.5-10.1 MG/DL My Orders Orders - DIPTI REYES DO Accucheck Stat ONCE (10/15/21 20:35) Ed Iv/Invasive Line Start (10/15/21 20:35) Monitor-Rhythm Ecg Trace Only (10/15/21 20:35) Alcohol (10/15/21 20:35) Amylase (10/15/21 20:35) Cbc With Automated Diff (10/15/21 20:35) Comprehensive Metabolic Panel (10/15/21 20:35) Drug Screen Stat (Urine) (10/15/21 20:35) Lactic Acid Analyzer (10/15/21 20:35) Lipase (10/15/21 20:35) Magnesium (10/15/21 20:35) Ua Culture If Indicated (10/15/21 20:35) Ed Iv/Invasive Line Start (10/15/21 20:35) Ns Iv 1000 Ml (Sodium Chloride 0.9%) (10/15/21 20:45) Covid 19 Inhouse Test (10/15/21 20:35) Isolation Central Supply Req (10/15/21 20:35) Ondansetron Injection (Zofran Injectio (10/15/21 20:45) Beta Hydroxybutyrate (10/15/21 20:44) Hemoglobin A1c (10/15/21 20:44) Ed Iv/Invasive Line Start (10/15/21 21:24) Ns Iv 1000 Ml (Sodium Chloride 0.9%) (10/15/21 21:30) Insulin (Regular) Human (Novolin R (Per (10/15/21 21:30) Ed Iv/Invasive Line Start (10/15/21 21:25) Ns Iv 1000 Ml (Sodium Chloride 0.9%) (10/15/21 21:30) Accucheck Stat ONCE (10/15/21 22:50) Basic Metabolic Panel (10/15/21 23:30) Ed Iv/Invasive Line Start (10/16/21 00:11) Ns Iv 1000 Ml (Sodium Chloride 0.9%) (10/16/21 00:15) Insulin (Regular) Human (Novolin R (Per (10/16/21 00:15) Accucheck Stat ONCE (10/16/21 01:56) Medications Given in ED Current Medications Medications Dose Ordered Sig/Rkisti Route Start Time Stop Time Status Last Admin Dose Admin Insulin Human Regular 20 unit ONCE ONCE SC 10/15/21 21:30 10/15/21 21:31 DC 10/15/21 21:39 20 UNIT Insulin Human Regular 25 unit ONCE ONCE IV 10/16/21 00:15 10/16/21 00:16 DC 10/16/21 00:19 25 UNIT Ondansetron HCl 4 mg ONCE ONCE IVP 10/15/21 20:45 10/15/21 20:46 DC 10/15/21 20:53 4 MG Vital Signs/I&O 10/15/21 20:33 Temp 37.6 Pulse 80 Resp 18 B/P (MAP) 126/81 (96) Pulse Ox 98 O2 Delivery Room Air 10/15/21 23:59 Intake Total 3000 ml Balance 3000 ml Capillary Refill : Progress Note : Progress Note PPE WORN AT ALL TIMES COVID TESTING DONE GIVEN IV FLUIDS, ZOFRAN AND INSULIN NAUSEA RESOLVED WITH ZOFRAN NO EVIDENCE OF DKA BASED ON LAB AND UA, OR ON EXAM NO DETERIORATION IN PT'S CONDITION DURING ER STAY PT SLEPT, RESTED QUIETLY DURING ENTIRE ER STAY GLUCOSE DOWN TO 366 PRIOR TO DISMISSAL PT DOES NOT HAVE ANY SPECIFIC COVID SYMPTOMS SUCH FEVER, RESPIRATORY SYMPTOMS, OR OTHER GI SYMPTOMS BESIDES NAUSEA ( WHICH HE FREQUENTLY HAS WITH ELEVATED BLOOD SUGAR), IT IS UNCLEAR IF HE WOULD BENEFIT FROM PAXLOVID OR MONOCLONAL ANTIBODIES-- TRUE ONSET IS UNKNOWN. Departure Communication (Admissions) 1208--DISCUSSED WITH DR. PERAZA, AND SHE AGREES THAT PT IS NOT IN DKA, AND IS NOT HAVING ANY RESPIRATORY ISSUES DUE TO COVID, AND IS NOT HAVING INTRACTABLE VOMITING AND DIARRHEA, ADVISES TO CONTINUE WITH IV FLUIDS AND INSULIN IN ER AND SEND HOME. Impression Primary Impression: Uncontrolled diabetes mellitus with hyperglycemia, with long-term current use of insulin Additional Impressions: COVID-19 Type 1 diabetes mellitus CHRONIC MARIJUANA USE MILD DEHYDRATION WITH ELECTROLYTE IMBALANCE LONG HISTORY OF NONCOMPLIANCE Disposition: 01 HOME, SELF-CARE Condition: Improved Departure-Patient Inst. Decision time for Depature: 02:00 Referrals: [facility] (PCP/Family) Primary Care Physician Patient Instructions: Diabetes Type 1, Adult (DC), Preventing the Spread of an Infectious Disease, COVID-19 (DC), Dehydration, Adult ED Add. Discharge Instructions: CHECK YOUR BLOOD SUGAR AT LEAST 4 TIMES A DAY--BEFORE EACH MEAL AND AT BEDTIME TAKE YOUR INSULIN EXACTLY PRESCRIBED, DO NOT MISS DOSES OF MEDICATIONS QUARANTINE FOR 10 DAYS TYLENOL AND MOTRIN IF NEEDED FOR PAIN OR FEVER OVER THE COUNTER MEDICATIONS NEEDED FOR COUGH AND CONGESTION FOLLOW UP WITH [facility] IN 10-14 DAYS FOR FURTHER CARE--CALL THEM IN THE MORNING FOR RECOMMENDATIONS ON INSULIN DOSING. RETURN TO ER IF SYMPTOMS WORSEN NO MARIJUANA All discharge instructions reviewed with patient and/or family. Voiced understanding. DIPTI REYES DO Oct 15, 2021 20:47
[2021-10-15 21:11] LABS: ALANINE AMINOTRANSFERASE 31 U/L (0-55); ALBUMIN 4.1 GM/DL (3.2-4.5); ALKALINE PHOSPHATASE 99 U/L (40-136); AMYLASE 35 U/L (25-125); BILIRUBIN,TOTAL 0.8 MG/DL (0.1-1.0); BUN/CREATININE RATIO 13; CALCIUM 9.1 MG/DL (8.5-10.1); CARBON DIOXIDE 23 MMOL/L (21-32); CHLORIDE 97 MMOL/L (98-107); CREATININE SERUM 1.67 MG/DL (0.60-1.30); GFR ESTIMATED 53; LIPASE 21 U/L (8-78); MAGNESIUM 1.7 MG/DL (1.6-2.4); POTASSIUM 6.4 MMOL/L (3.6-5.0); SODIUM 133 MMOL/L (135-145); TOTAL PROTEIN 6.8 GM/DL (6.4-8.2)
[2021-10-15 21:12] LABS: BILIRUBIN,URINE NEGATIVE (NEGATIVE); CLARITY,URINE CLEAR; COLOR,URINE YELLOW; GLUCOSE, URINE (UA) 3+ (NEGATIVE); KETONES,URINE NEGATIVE (NEGATIVE); LEUKOCYTE ESTERASE ,URINE NEGATIVE (NEGATIVE); NITRITE,URINE NEGATIVE (NEGATIVE); PH,URINE 5.5 (5-9); PROTEIN,URINE NEGATIVE (NEGATIVE)
[2021-10-15 21:22] LABS: GLUCOSE 644 MG/DL (70-105)
[2021-10-15 21:24] LABS: AMPHETAMINE SCREEN, URINE NEGATIVE (NEGATIVE); BARBITURATE SCREEN URINE NEGATIVE (NEGATIVE); BENZODIAZEPINES SCREEN URINE NEGATIVE (NEGATIVE); CANNABINOID SCREEN, URINE POSITIVE (NEGATIVE); COCAINE SCREEN URINE NEGATIVE (NEGATIVE); METHADONE STAT NEGATIVE (NEGATIVE); OPIATE SCREEN URINE NEGATIVE (NEGATIVE); OXYCODONE STAT NEGATIVE (NEGATIVE); PROPOXYPHENE STAT NEGATIVE (NEGATIVE); TRICYCLIC ANTIDEPRESSANTS SCRE NEGATIVE (NEGATIVE)
[2021-10-15 21:29] LABS: BACTERIA,URINE NEGATIVE /HPF
[2021-10-15] MEDS ORDERED: inSUlin (REGULAR) HUMAN 1 UNIT/0.01 ML (CHARGE PER UNIT) SC ONE (21:30)
[2021-10-15 23:55] LABS: POTASSIUM 5.3 MMOL/L (3.6-5.0)
[2021-10-15 23:56] LABS: CALCIUM 7.9 MG/DL (8.5-10.1)
[2021-10-16 00:01] LABS: CREATININE SERUM 1.53 MG/DL (0.60-1.30)
[2021-10-16] MEDS ORDERED: inSUlin (REGULAR) HUMAN 1 UNIT/0.01 ML (CHARGE PER UNIT) IV ONE (00:15)
[2021-10-16] MEDS: NS IV 1000 ML 1,000 ML IV SCH ×2 (00:19→02:27)
[2021-10-16 02:08] VITALS: BP 134/87
== END 2021-10-16 02:23 | disposition home or self-care (01) ==
LOC: EDUNIT# 20:28 → ER 20:29
DX: E10.65 Type 1 diabetes mellitus with hyperglycemia (principal); U07.1 COVID-19; E86.0 Dehydration; E87.8 Other disorders of electrolyte and fluid balance, not elsewhere classified; F12.90 Cannabis use, unspecified, uncomplicated; R11.10 Vomiting, unspecified; F17.210 Nicotine dependence, cigarettes, uncomplicated; Z91.19 Patient's noncompliance with other medical treatment and regimen; Z79.4 Long term (current) use of insulin
CPT/HCPCS: 80048; 80053; 80306; 81000; 82010; 82150; 82947 ×2; 83036; 83605; 83690; 83735; 85025; 87636; 93041; 99284; G0480; 36415; 80320

== ENCOUNTER 2021-12-06 21:57 | Emergency (ER) | payer MEDICARE, MEDICAID ==
[~2021-12-06] VITALS: Ht 167.7 cm; Wt 68.0 kg
[2021-12-06 22:10] LABS: BASOPHILS # (AUTO) 0.1 10^3/uL (0.0-0.1); BASOPHILS % (AUTO) 1 % (0-10); EOSINOPHILS # (AUTO) 0.1 10^3/uL (0.0-0.3); EOSINOPHILS % (AUTO) 1 % (0-10); HEMATOCRIT 38 % (40-54); HEMOGLOBIN 13.2 g/dL (13.3-17.7); LYMPHOCYTES # (AUTO) 2.4 10^3/uL (1.0-4.0); LYMPHOCYTES % (AUTO) 28 % (12-44); MEAN CORPUSCULAR HEMOGLOBIN 33 pg (25-34); MEAN CORPUSCULAR HGB CONC 35 g/dL (32-36); MEAN CORPUSCULAR VOLUME 94 fL (80-99); MEAN PLATELET VOLUME 10.5 fL (9.0-12.2); MONOCYTES # (AUTO) 0.5 10^3/uL (0.0-1.0); MONOCYTES % (AUTO) 6 % (0-12); NEUTROPHILS # (AUTO) 5.3 10^3/uL (1.8-7.8); NEUTROPHILS % (AUTO) 63 % (42-75); PLATELET COUNT 260 10^3/uL (130-400); WHITE BLOOD COUNT 8.4 10^3/uL (4.3-11.0)
[2021-12-06] MEDS ORDERED: NS IV 1000 ML 1,000 ML IV SCH ×2 (22:15→23:15)
[2021-12-06 22:19] LABS: BILIRUBIN,URINE NEGATIVE (NEGATIVE); CLARITY,URINE CLEAR; COLOR,URINE YELLOW; GLUCOSE, URINE (UA) 3+ (NEGATIVE); KETONES,URINE NEGATIVE (NEGATIVE); LEUKOCYTE ESTERASE ,URINE NEGATIVE (NEGATIVE); NITRITE,URINE NEGATIVE (NEGATIVE); PROTEIN,URINE NEGATIVE (NEGATIVE)
[2021-12-06 22:20] LABS: ALBUMIN 3.8 GM/DL (3.2-4.5)
[2021-12-06 22:21] LABS: POTASSIUM 4.4 MMOL/L (3.6-5.0)
[2021-12-06 22:22] LABS: CALCIUM 8.9 MG/DL (8.5-10.1)
[2021-12-06 22:23] LABS: TOTAL PROTEIN 6.4 GM/DL (6.4-8.2)
[2021-12-06 22:25] LABS: BILIRUBIN,TOTAL 0.5 MG/DL (0.1-1.0)
[2021-12-06 22:27] LABS: CREATININE SERUM 1.4 MG/DL (0.60-1.30)
[2021-12-06 22:28] LABS: BACTERIA,URINE NEGATIVE /HPF
[2021-12-06 22:29] LABS: MAGNESIUM 1.6 MG/DL (1.6-2.4)
[2021-12-06 22:35] LABS: AMPHETAMINE SCREEN, URINE NEGATIVE (NEGATIVE); BARBITURATE SCREEN URINE NEGATIVE (NEGATIVE); BENZODIAZEPINES SCREEN URINE NEGATIVE (NEGATIVE); CANNABINOID SCREEN, URINE POSITIVE (NEGATIVE); COCAINE SCREEN URINE NEGATIVE (NEGATIVE); METHADONE STAT NEGATIVE (NEGATIVE); OPIATE SCREEN URINE NEGATIVE (NEGATIVE); OXYCODONE STAT NEGATIVE (NEGATIVE); PROPOXYPHENE STAT NEGATIVE (NEGATIVE); TRICYCLIC ANTIDEPRESSANTS SCRE NEGATIVE (NEGATIVE)
--- NOTE | 2021-12-06 23:16 | ED General ---
General Chief Complaint: Glucose Problems Stated Complaint: HYPERGLYCEMIA Nursing Triage Note: PT TO ED BY EMS WITH C/O HYPERGLYCEMIA. PT REPORTS HE COULDN'T FIND HIS GLUCOSE MONITOR TONIGHT, CALLED EMS TO CHECK BLOOD SUGAR AND IT WAS 425 WITH KETONES. PT DENIES N/V/D, LOUIS, WEAKNESS, OR ANY OTHER SX AT THIS TIME. REPORTS HE LAST CHECKED HIS SUGAR AROUND 1800 AND IT WAS AROUND 250. PT REPORTS HE GAVE HIMSELF 4 UNITS OF INSULIN WHILE WAITING FOR EMS ARRIVAL. Source of Information: Patient, Old Records History of Present Illness Date Seen by Provider: Dec 06, 2021 Time Seen by Provider: 22:05 Initial Comments PT ARRIVES VIA EMS FROM HOME C/O ELEVATED BLOOD SUGAR STATES HE LAST CHECKED HIS BLOOD SUGAR AROUND 1800 AND IT WAS 250 HE THEN ATE DINNER--CHICKEN FRIED STEAK, MASHED POTATOES AND GRAVY, WITH WATER THEN HE THE "LOST" HIS GLUCOMETER SO HE CALLED EMS WHILE HE WAS ON THE PHONE WITH EMS, HE GAVE HIMSELF 4 UNITS OF REGULAR HUMALOG HE ALSO TOOK HIS REGULAR DOSE OF TOUJEO AT 1800 BLOOD GLUCOSE FOR EMS WAS 425 "WITH KETONES" PT IS COMPLETELY ASYMPTOMATIC NO FEVER OR RECENT ILLNESS PT HAS BEEN HERE MULTIPLE TIMES FOR SAME COMPLAINT PT HAS NEVER REQUIRED ADMIT HERE SEE OLD CHARTS FOR DETAILS. 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, BUT PT STATES "SHE WON'T SEE ME ANYMORE" Allergies and Home Medications Allergies Uncoded Allergies: HYDROCONE (Allergy, Unknown, 11/01/17) Patient Home Medication List Home Medication List Reviewed: Yes Gabapentin (Gabapentin) 300 Mg Capsule, (Reported) Entered as Reported by: NASEEM MAGALLANES on 04/05/192119 Insulin Glargine,Hum.rec.anlog (Toujeo Solostar) 300 Unit/1 Ml Insuln.pen, (Reported) Entered as Reported by: NASEEM MAGALLANES on 04/05/192119 Insulin Lispro (Humalog Kwikpen) 100 Unit/1 Ml Insuln.pen, (Reported) Entered as Reported by: NASEEM MAGALLANES on 04/05/192119 Levothyroxine Sodium (Levothyroxine Sodium) 200 Mcg Tablet, (Reported) Entered as Reported by: NASEEM MAGALLANES on 04/05/192119 Review of Systems Review of Systems Constitutional: no symptoms reported EENTM: no symptoms reported Respiratory: no symptoms reported Cardiovascular: no symptoms reported Gastrointestinal: no symptoms reported Genitourinary: no symptoms reported Musculoskeletal: no symptoms reported Skin: no symptoms reported Psychiatric/Neurological: No Symptoms Reported Hematologic/Lymphatic: No Symptoms Reported Immunological/Allergic: no symptoms reported Past Gctwfga-Eekezf-Rigyjj Hx Patient Social History Tobacco Use?: Yes Substance use?: Yes Alcohol Use?: Yes Immunizations Up To Date Tetanus Booster (TDap): Unknown First/Initial COVID19 Vaccinat: 2020 Second COVID19 Vaccination Fadi: 2020 Seasonal Allergies Seasonal Allergies: Yes Past Medical History Surgery/Hospitalization HX: iddm, hypothryoidism, 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 Surgeries: Yes (fusion of vertebrae) Adenoidectomy, Orthopedic, Tonsillectomy Respiratory: Yes (+ COVID-19 01/2020--NO TREATMENT) Cardiac: Yes Hypertension Neurological: Yes Headaches /Migraines, Traumatic Brain Injury Genitourinary: No Gastrointestinal: No Musculoskeletal: Yes Chronic Back Pain Endocrine: Yes (radiation of the thyroid; TYPE 1 DIABETES, DX AGE 11) Diabetes, Insulin dep, Hypothyroidsim HEENT: No Cancer: No Psychosocial: No Integumentary: No Blood Disorders: No Family Medical History No Pertinent Family Hx SOCIAL HISTORY: -SMOKES 1 PPD -ETOH--HX OF ABUSE, 30 PACK OF BEER/DAY, CLAIMS NO USE X 6 MONTHS ON 08/06/21--BUT + FOR ETOH 10/13 AND 10/15 -DRUGS--THC AND METH USE, CLAIMS NONE FOR 20 YEARS, PER PT ON 08/06/21, DENIES IV USE. UDS + FOR THC 08/06/21 UDS + FOR METH AND THC 10/13/21 PAST SURGICAL HISTORY: -LUMBAR SPINAL FUSION -TONSILLECTOMY/ADENOIDECTOMY. LONG HISTORY OF NON-COMPLAINCE IN ALL ASPECTS OF CARE Physical Exam Vital Signs Vital Signs - First Documented 12/06/21 21:59 Pulse 72 Resp 20 B/P (MAP) 133/102 (112) Pulse Ox 98 O2 Delivery Room Air Capillary Refill : Less Than 3 Seconds Height, Weight, BMI Height: 5'10.00" Weight: 167lbs. oz. 75.787606na; 24.00 BMI Method:Stated General Appearance: No Apparent Distress, WD/WN, Other (PLAYING ON PHONE FOR ENTIRE ER STAY) Neck: Normal Inspection Respiratory: Normal Breath Sounds Cardiovascular: Regular Rate, Rhythm Gastrointestinal: Non Tender Back: No CVA Tenderness Extremity: Normal Inspection Neurologic/Psychiatric: Alert, Oriented x3, No Motor/Sensory Deficits, Normal Mood/Affect, design eng II-XII Norm as Tested Skin: Normal Color, Warm/Dry Focused Exam Lactate Level 12/06/21 22:40: Lactic Acid Level 0.94 Lactic Acid Level Laboratory Tests Test 12/06/21 22:40 Lactic Acid Level 0.94 MMOL/L (0.50-2.00) Progress/Results/Core Measures Suspected Sepsis SIRS Temperature: Pulse: 72 Respiratory Rate: 20 Laboratory Tests 12/06/21 22:04: White Blood Count 8.4 Blood Pressure 133 /102 Mean: 112 12/06/21 22:40: Lactic Acid Level 0.94 Laboratory Tests 12/06/21 22:04: Creatinine 1.40H, Platelet Count 260, Total Bilirubin 0.5 Results/Orders Lab Results Laboratory Tests Test 12/06/21 22:00 12/06/21 22:04 12/06/21 22:40 12/07/21 00:15 Range/Units Urine Color YELLOW Urine Clarity CLEAR Urine pH 6.0 5-9 Urine Specific [place] 1.010 L 1.016-1.022 Urine Protein NEGATIVE NEGATIVE Urine Glucose (UA) 3+ H NEGATIVE Urine Ketones NEGATIVE NEGATIVE Urine Nitrite NEGATIVE NEGATIVE Urine Bilirubin NEGATIVE NEGATIVE Urine Urobilinogen 0.2 < = 1.0 MG/DL Urine Leukocyte Esterase NEGATIVE NEGATIVE Urine RBC (Auto) NEGATIVE NEGATIVE Urine RBC NONE /HPF Urine WBC NONE /HPF Urine Crystals NONE /LPF Urine Bacteria NEGATIVE /HPF Urine Casts NONE /LPF Urine Mucus NEGATIVE /LPF Urine Culture Indicated NO Urine Opiates Screen NEGATIVE NEGATIVE Urine Oxycodone Screen NEGATIVE NEGATIVE Urine Methadone Screen NEGATIVE NEGATIVE Urine Propoxyphene Screen NEGATIVE NEGATIVE Urine Barbiturates Screen NEGATIVE NEGATIVE Ur Tricyclic Antidepressants Screen NEGATIVE NEGATIVE Urine Phencyclidine Screen NEGATIVE NEGATIVE Urine Amphetamines Screen NEGATIVE NEGATIVE Urine Methamphetamines Screen NEGATIVE NEGATIVE Urine Benzodiazepines Screen NEGATIVE NEGATIVE Urine Cocaine Screen NEGATIVE NEGATIVE Urine Cannabinoids Screen POSITIVE H NEGATIVE White Blood Count 8.4 4.3-11.0 10^3/uL Red Blood Count 4.01 L 4.30-5.52 10^6/uL Hemoglobin 13.2 L 13.3-17.7 g/dL Hematocrit 38 L 40-54 % Mean Corpuscular Volume 94 80-99 fL Mean Corpuscular Hemoglobin 33 25-34 pg Mean Corpuscular Hemoglobin Concent 35 32-36 g/dL Red Cell Distribution Width 13.1 10.0-14.5 % Platelet Count 260 130-400 10^3/uL Mean Platelet Volume 10.5 9.0-12.2 fL Immature Granulocyte % (Auto) 0 % Neutrophils (%) (Auto) 63 42-75 % Lymphocytes (%) (Auto) 28 12-44 % Monocytes (%) (Auto) 6 0-12 % Eosinophils (%) (Auto) 1 0-10 % Basophils (%) (Auto) 1 0-10 % Neutrophils # (Auto) 5.3 1.8-7.8 10^3/uL Lymphocytes # (Auto) 2.4 1.0-4.0 10^3/uL Monocytes # (Auto) 0.5 0.0-1.0 10^3/uL Eosinophils # (Auto) 0.1 0.0-0.3 10^3/uL Basophils # (Auto) 0.1 0.0-0.1 10^3/uL Immature Granulocyte # (Auto) 0.0 0.0-0.1 10^3/uL Sodium Level 139 135-145 MMOL/L Potassium Level 4.4 3.6-5.0 MMOL/L Chloride Level 104 98-107 MMOL/L Carbon Dioxide Level 23 21-32 MMOL/L Anion Gap 12 5-14 MMOL/L Blood Urea Nitrogen 17 7-18 MG/DL Creatinine 1.40 H 0.60-1.30 MG/DL Estimat Glomerular Filtration Rate 65 BUN/Creatinine Ratio 12 Glucose Level 363 H 70-105 MG/DL Glucometer 339 H 189 H 70-110 MG/DL Calcium Level 8.9 8.5-10.1 MG/DL Corrected Calcium 9.1 8.5-10.1 MG/DL Magnesium Level 1.6 1.6-2.4 MG/DL Total Bilirubin 0.5 0.1-1.0 MG/DL Aspartate Amino Transf (AST/SGOT) 15 5-34 U/L Alanine Aminotransferase (ALT/SGPT) 18 0-55 U/L Alkaline Phosphatase 74 40-136 U/L Total Protein 6.4 6.4-8.2 GM/DL Albumin 3.8 3.2-4.5 GM/DL Amylase Level 35 25-125 U/L Lipase 18 8-78 U/L Beta-Hydroxybutyrate (Chem panel) 0.10 0.00-0.27 MMOL/L Lactic Acid Level 0.94 0.50-2.00 MMOL/L My Orders Orders - DIPTI REYES DO Accucheck Stat ONCE (12/06/21 22:05) Ed Iv/Invasive Line Start (12/06/21 22:05) Monitor-Rhythm Ecg Trace Only (12/06/21 22:05) Amylase (12/06/21 22:05) Cbc With Automated Diff (12/06/21 22:05) Comprehensive Metabolic Panel (12/06/21 22:05) Drug Screen Stat (Urine) (12/06/21 22:05) Lactic Acid Analyzer (12/06/21 22:05) Lipase (12/06/21 22:05) Magnesium (12/06/21 22:05) Ua Culture If Indicated (12/06/21 22:05) Ed Iv/Invasive Line Start (12/06/21 22:05) Ns Iv 1000 Ml (Sodium Chloride 0.9%) (12/06/21 22:15) Beta Hydroxybutyrate (12/06/21 22:05) Hemoglobin A1c (12/06/21 22:05) Ed Iv/Invasive Line Start (12/06/21 23:07) Ns Iv 1000 Ml (Sodium Chloride 0.9%) (12/06/21 23:15) Accucheck Stat ONCE (12/07/21 00:13) Vital Signs/I&O 12/06/21 12/07/21 21:59 00:35 Pulse 72 58 Resp 20 15 B/P (MAP) 133/102 (112) 113/81 Pulse Ox 98 96 O2 Delivery Room Air Room Air 12/07/21 00:00 Intake Total 500 ml Balance 500 ml Capillary Refill : Less Than 3 Seconds Blood Pressure Mean: 112 Point of Care Testing Finger Stick Blood Glucose: 339 Blood Glucose Action Taken: ERP NOTIFIED Progress Note : Progress Note GIVEN IV FLUIDS--BLOOD GLUCOSE DOWN TO 189 PT HAS NO SYMPTOMS OF ANY KIND DURING ENTIRE ER STAY Departure Impression Primary Impression: Uncontrolled diabetes mellitus with hyperglycemia, with long-term current use of insulin Disposition: 01 HOME, SELF-CARE Condition: Improved Departure-Patient Inst. Decision time for Depature: 00:19 Referrals: [facility] (PCP/Family) Primary Care Physician Patient Instructions: Carb Counting for Adults With Diabetes Add. Discharge Instructions: TAKE YOUR MEDICATIONS PRESCRIBED FOLLOW UP WITH [facility] THIS WEEK FOR FURTHER CARE, RETURN TO ER IF PROBLEMS All discharge instructions reviewed with patient and/or family. Voiced understanding. DIPTI REYES DO Dec 06, 2021 23:16
[2021-12-07 00:35] VITALS: BP 113/81
== END 2021-12-07 00:34 | disposition home or self-care (01) ==
LOC: EDUNIT# 21:57 → ER 21:58
DX: E10.65 Type 1 diabetes mellitus with hyperglycemia (principal); F17.210 Nicotine dependence, cigarettes, uncomplicated; Z86.16 Personal history of COVID-19
CPT/HCPCS: 36415; 80053; 80306; 81000; 82010; 82150; 82947; 83036; 83605; 83690; 83735; 85025; 93041

== ENCOUNTER 2022-09-26 20:13 | Emergency (ER) | payer MEDICARE, MEDICAID ==
[~2022-09-26] VITALS: Ht 168 cm; Wt 68.0 kg
[2022-09-26 20:41] LABS: BILIRUBIN,URINE NEGATIVE (NEGATIVE); CLARITY,URINE CLEAR; COLOR,URINE YELLOW; GLUCOSE, URINE (UA) 3+ (NEGATIVE); KETONES,URINE NEGATIVE (NEGATIVE); LEUKOCYTE ESTERASE ,URINE NEGATIVE (NEGATIVE); NITRITE,URINE NEGATIVE (NEGATIVE); PROTEIN,URINE NEGATIVE (NEGATIVE)
[2022-09-26 20:45] LABS: BASOPHILS # (AUTO) 0.1 10^3/uL (0.0-0.1); BASOPHILS % (AUTO) 1 % (0-10); EOSINOPHILS # (AUTO) 0.3 10^3/uL (0.0-0.3); EOSINOPHILS % (AUTO) 3 % (0-10); HEMATOCRIT 38 % (40-54); HEMOGLOBIN 13.6 g/dL (13.3-17.7); LYMPHOCYTES # (AUTO) 2.1 10^3/uL (1.0-4.0); LYMPHOCYTES % (AUTO) 28 % (12-44); MEAN CORPUSCULAR HEMOGLOBIN 33 pg (25-34); MEAN CORPUSCULAR HGB CONC 35 g/dL (32-36); MEAN CORPUSCULAR VOLUME 93 fL (80-99); MEAN PLATELET VOLUME 9.9 fL (9.0-12.2); MONOCYTES # (AUTO) 0.5 10^3/uL (0.0-1.0); MONOCYTES % (AUTO) 6 % (0-12); NEUTROPHILS # (AUTO) 4.7 10^3/uL (1.8-7.8); NEUTROPHILS % (AUTO) 61 % (42-75); PLATELET COUNT 294 10^3/uL (130-400); WHITE BLOOD COUNT 7.7 10^3/uL (4.3-11.0)
[2022-09-26 20:59] LABS: BACTERIA,URINE NEGATIVE /HPF; RBC,URINE RARE /HPF; WBC,URINE RARE /HPF
[2022-09-26] MEDS ORDERED: inSUlin (REGULAR) HUMAN 1 UNIT/0.01 ML (CHARGE PER UNIT) IV ONE (21:00)
[2022-09-26] MEDS ORDERED: NS IV 1000 ML 1,000 ML IV SCH (21:00)
[2022-09-26 21:07] LABS: ALBUMIN 3.9 GM/DL (3.2-4.5); BILIRUBIN,TOTAL 0.7 MG/DL (0.1-1.0); CREATININE SERUM 1.36 MG/DL (0.60-1.30); MAGNESIUM 1.6 MG/DL (1.6-2.4); POTASSIUM 4.5 MMOL/L (3.6-5.0); TOTAL PROTEIN 6.2 GM/DL (6.4-8.2)
--- NOTE | 2022-09-26 21:46 | ED General ---
General Chief Complaint: Glucose Problems Stated Complaint: BLOOD SUGAR PROBLEMS Nursing Triage Note: LABILE BLOOD GLUCOSE X24HRS. Allergies and Home Medications Allergies Uncoded Allergies: HYDROCONE (Allergy, Unknown, 11/01/17) Patient Home Medication List Gabapentin (Gabapentin) 300 Mg Capsule, (Reported) Entered as Reported by: NASEEM MAGALLANES on 04/05/192119 Insulin Glargine,Hum.rec.anlog (Toujeo Solostar) 300 Unit/1 Ml Insuln.pen, (Reported) Entered as Reported by: NASEEM MAGALLANES on 04/05/192119 Insulin Lispro (Humalog Kwikpen) 100 Unit/1 Ml Insuln.pen, (Reported) Entered as Reported by: NASEEM MAGALLANES on 04/05/192119 Levothyroxine Sodium (Levothyroxine Sodium) 200 Mcg Tablet, (Reported) Entered as Reported by: NASEEM MAGALLANES on 04/05/192119 Past Egsjxrh-Egvyav-Arxyrz Hx Patient Social History Tobacco Use?: Yes Substance use?: No Alcohol Use?: Yes Alcohol Frequency: Once in a while Pt feels they are or have been: No Immunizations Up To Date Tetanus Booster (TDap): Unknown First/Initial COVID19 Vaccinat: X2 Second COVID19 Vaccination Fadi: 2020 Third COVID19 Vaccination Date: 2020 Seasonal Allergies Seasonal Allergies: Yes Past Medical History Surgery/Hospitalization HX: iddm, hypothryoidism, t/a, spinal fusion, [place], TBI, HTN Surgeries: Yes (fusion of vertebrae) Adenoidectomy, Orthopedic, Tonsillectomy Respiratory: Yes (+ COVID-19 01/2020--NO TREATMENT) Cardiac: Yes Hypertension Neurological: Yes Headaches /Migraines, Traumatic Brain Injury Genitourinary: No Gastrointestinal: No Musculoskeletal: Yes Chronic Back Pain Endocrine: Yes (radiation of the thyroid; TYPE 1 DIABETES, DX AGE 11) Diabetes, Insulin dep, Hypothyroidsim HEENT: No Cancer: No Psychosocial: No Integumentary: No Blood Disorders: No Family Medical History No Pertinent Family Hx SOCIAL HISTORY: -SMOKES 1 PPD -ETOH--HX OF ABUSE, 30 PACK OF BEER/DAY, CLAIMS NO USE X 6 MONTHS ON 08/06/21--BUT + FOR ETOH 10/13 AND 10/15 -DRUGS--THC AND METH USE, CLAIMS NONE FOR 20 YEARS, PER PT ON 08/06/21, DENIES IV USE. UDS + FOR THC 08/06/21 UDS + FOR METH AND THC 10/13/21 PAST SURGICAL HISTORY: -LUMBAR SPINAL FUSION -TONSILLECTOMY/ADENOIDECTOMY. LONG HISTORY OF NON-COMPLAINCE IN ALL ASPECTS OF CARE Physical Exam Vital Signs Vital Signs - First Documented 09/26/22 20:20 Temp 36.7 Pulse 84 Resp 16 B/P (MAP) 116/74 (88) Pulse Ox 97 O2 Delivery Room Air Capillary Refill : Less Than 3 Seconds Height, Weight, BMI Height: 5'10.00" Weight: 167lbs. oz. 75.736264ej; 24.00 BMI Method:Stated Progress/Results/Core Measures Suspected Sepsis SIRS Temperature: Pulse: 84 Respiratory Rate: 16 Laboratory Tests 09/26/22 20:29: White Blood Count 7.7 Blood Pressure 116 /74 Mean: 88 Laboratory Tests 09/26/22 20:29: Creatinine 1.36H, Platelet Count 294, Total Bilirubin 0.7 Results/Orders Lab Results Laboratory Tests Test 09/26/22 20:22 09/26/22 20:29 09/26/22 20:31 Range/Units Urine Color YELLOW Urine Clarity CLEAR Urine pH 7.0 5-9 Urine Specific Adel 1.015 L 1.016-1.022 Urine Protein NEGATIVE NEGATIVE Urine Glucose (UA) 3+ H NEGATIVE Urine Ketones NEGATIVE NEGATIVE Urine Nitrite NEGATIVE NEGATIVE Urine Bilirubin NEGATIVE NEGATIVE Urine Urobilinogen 0.2 < = 1.0 MG/DL Urine Leukocyte Esterase NEGATIVE NEGATIVE Urine RBC (Auto) NEGATIVE NEGATIVE Urine RBC RARE /HPF Urine WBC RARE /HPF Urine Crystals NONE /LPF Urine Bacteria NEGATIVE /HPF Urine Casts NONE /LPF Urine Mucus NEGATIVE /LPF Urine Culture Indicated NO White Blood Count 7.7 4.3-11.0 10^3/uL Red Blood Count 4.13 L 4.30-5.52 10^6/uL Hemoglobin 13.6 13.3-17.7 g/dL Hematocrit 38 L 40-54 % Mean Corpuscular Volume 93 80-99 fL Mean Corpuscular Hemoglobin 33 25-34 pg Mean Corpuscular Hemoglobin Concent 35 32-36 g/dL Red Cell Distribution Width 12.9 10.0-14.5 % Platelet Count 294 130-400 10^3/uL Mean Platelet Volume 9.9 9.0-12.2 fL Immature Granulocyte % (Auto) 0 % Neutrophils (%) (Auto) 61 42-75 % Lymphocytes (%) (Auto) 28 12-44 % Monocytes (%) (Auto) 6 0-12 % Eosinophils (%) (Auto) 3 0-10 % Basophils (%) (Auto) 1 0-10 % Neutrophils # (Auto) 4.7 1.8-7.8 10^3/uL Lymphocytes # (Auto) 2.1 1.0-4.0 10^3/uL Monocytes # (Auto) 0.5 0.0-1.0 10^3/uL Eosinophils # (Auto) 0.3 0.0-0.3 10^3/uL Basophils # (Auto) 0.1 0.0-0.1 10^3/uL Immature Granulocyte # (Auto) 0.0 0.0-0.1 10^3/uL Sodium Level 137 135-145 MMOL/L Potassium Level 4.5 3.6-5.0 MMOL/L Chloride Level 102 98-107 MMOL/L Carbon Dioxide Level 25 21-32 MMOL/L Anion Gap 10 5-14 MMOL/L Blood Urea Nitrogen 21 H 7-18 MG/DL Creatinine 1.36 H 0.60-1.30 MG/DL Estimat Glomerular Filtration Rate 67 BUN/Creatinine Ratio 15 Glucose Level 408 *H 70-105 MG/DL Calcium Level 9.0 8.5-10.1 MG/DL Corrected Calcium 9.1 8.5-10.1 MG/DL Magnesium Level 1.6 1.6-2.4 MG/DL Total Bilirubin 0.7 0.1-1.0 MG/DL Aspartate Amino Transf (AST/SGOT) 19 5-34 U/L Alanine Aminotransferase (ALT/SGPT) 19 0-55 U/L Alkaline Phosphatase 77 40-136 U/L Total Protein 6.2 L 6.4-8.2 GM/DL Albumin 3.9 3.2-4.5 GM/DL Amylase Level 53 25-125 U/L Lipase 24 8-78 U/L Beta-Hydroxybutyrate (Chem panel) 0.15 0.00-0.27 MMOL/L Glucometer 360 H 70-110 MG/DL My Orders Orders - DIPTI REYES DO Accucheck Stat ONCE (09/26/22 20:22) Ed Iv/Invasive Line Start (09/26/22 20:22) Monitor-Rhythm Ecg Trace Only (09/26/22 20:22) Amylase (09/26/22 20:22) Cbc With Automated Diff (09/26/22 20:22) Comprehensive Metabolic Panel (09/26/22 20:22) Lipase (09/26/22 20:22) Magnesium (09/26/22 20:22) Ua Culture If Indicated (09/26/22 20:22) Beta Hydroxybutyrate (09/26/22 20:22) Hemoglobin A1c (09/26/22 20:22) Ed Iv/Invasive Line Start (09/26/22 20:47) Ns Iv 1000 Ml (Sodium Chloride 0.9%) (09/26/22 21:00) Insulin (Regular) Human (Novolin R (Per (09/26/22 21:00) Accucheck Stat ONCE (09/26/22 21:41) Medications Given in ED Current Medications Medications Dose Ordered Sig/Kristi Route Start Time Stop Time Status Last Admin Dose Admin Insulin Human Regular 10 unit ONCE ONCE IV 09/26/22 21:00 09/26/22 21:01 DC 09/26/22 20:56 10 UNIT Vital Signs/I&O 09/26/22 20:20 Temp 36.7 Pulse 84 Resp 16 B/P (MAP) 116/74 (88) Pulse Ox 97 O2 Delivery Room Air Capillary Refill : Less Than 3 Seconds Blood Pressure Mean: 88 Point of Care Testing Finger Stick Blood Glucose: 360 Blood Glucose Action Taken: ERP NOTIFIED Progress Note : Progress Note GLUCOSE 155 AT DISMISSAL Departure Impression Primary Impression: Uncontrolled diabetes mellitus with hyperglycemia, with long-term current use of insulin Disposition: HOME, SELF-CARE Condition: Improved Departure-Patient Inst. Decision time for Depature: 21:44 Referrals: [facility] (PCP/Family) Primary Care Physician Patient Instructions: Carbohydrate Counting Diet, How to Prevent High Blood Sugar Emergencies in Diabetes, Type 2 Diabetes (DC) Add. Discharge Instructions: CONTINUE YOUR CURRENT MEDICATIONS PRESCRIBED INCREASE YOUR PROTEIN AND DECREASE YOUR CARBOHYDRATE INTAKE FOLLOW UP WITH YOUR HARNESS FITTER THIS WEEK FOR FURTHER CARE RETURN TO ER IF YOUR SYMPTOMS WORSEN All discharge instructions reviewed with patient and/or family. Voiced understanding. DIPTI REYES DO Sep 26, 2022 21:46
[2022-09-26 21:50] VITALS: BP 113/72
== END 2022-09-26 21:53 | disposition home or self-care (01) ==
LOC: EDUNIT# 20:13 → ER 20:15
DX: E10.65 Type 1 diabetes mellitus with hyperglycemia (principal); F17.210 Nicotine dependence, cigarettes, uncomplicated; Z86.16 Personal history of COVID-19
CPT/HCPCS: 36415; 80053; 81000; 82010; 82150; 82947; 83036; 83690; 83735; 85025; 93041